=== PATIENT | male | born 1945 | race Caucasian/White ===

== ENCOUNTER → 2019-03-16 10:13 | Outpatient (BNVA) | payer MEDICARE, OTHER, SELFPAY | PROVIDERS: Family Provider Electrodiagnostic Medicine; Visit Provider Urology | DX: R31.0 Gross hematuria (principal); N13.30 Unspecified hydronephrosis; N18.5 Chronic kidney disease, stage 5 | CPT/HCPCS: 81001; 87086 ==

== ENCOUNTER 2019-03-18 13:00 | Outpatient (CLI) | payer MEDICARE, OTHER, SELFPAY ==
--- NOTE | 2019-03-18 13:09 | CT_ITS ---
WS: [id number] CT ABDOMEN AND PELVIS NONCONTRAST HISTORY: RUQ ABDOMINAL PAIN TECHNIQUE: Imaging performed through the abdomen and pelvis. Coronal and sagittal reformats are submi tted. All CT scans at [facility] use at least one of these dose optimization techniques: automated exposure control; mA and/or kV adjustment per patient size (includes targeted exams where d ose is matched to clinical indication); or iterative reconstruction. DLP: 1102.45 mGycm COMPARISON: Renal ultrasound 01/19/2019 Lower thorax: Mild enlargement the heart chambers. Small hiatal hernia. Liver: Normal, no mass or intrahepatic dilatation. Gallbladder: Unremarkable. Pancreas: Poorly visualized but no abnormality seen. Spleen: Normal. Adrenal glands: Normal. Right kidney: RIGHT kidney is normal size measuring 10 cm. Perinephric stranding with an irregular th ickened appearance of the cortex. Slightly nodular appearance of the lower pole. There is an exophyti c cyst measuring 2.1 cm from the mid kidney. Hyperdense nodule exophytic from the upper pole measures 1.0 cm. Moderate dilatation of the renal pelvis and the calyces. RIGHT ureter is dilated throughout its course to the urinary bladder. There is bladder wall thickening at the orifice of the ureter. No stones are identified along the course of the ureter. Left kidney: Perinephric stranding haziness and poorly defined renal cortex. No obstruction. Cortical hypodensities cannot be further characterized. Mild atherosclerosis aorta. Marked diverticulosis of the sigmoid and descending colon. No acute inflammation. No GI tract obstruc tion. The appendix is normal. Indeterminate RIGHT inguinal lymph nodes. Inguinal lymph nodes are rounded measuring up to 11 mm. Abdominal wall: Intact. Pelvis: Urinary bladder is not well distended. There is focal bladder wall thickening measuring up to 13 mm in the posterior urinary bladder near the UV junction. Area of soft tissue thickening in the b ladder is at the site of the ureteral obstruction. No free fluid. Osseous structures: Prior lumbar fusion at L4-5 with interbody spacer. No osteoblastic or osteolytic bone disease. Notified Ayo Trinidad DO at 03/18/2019 1:36 PM. Report called to office. CT/CT abdomen pelvis wo con [id number] IMPRESSION: 1. Development of moderate to severe RIGHT hydroureteronephrosis. Hydronephros is secondary to bladder wall thickening. Recommend evaluation by urology to marissa orellana for bladder mass. RIGHT hydronephrosis has progressed since 01/19/2019. 2. Sigmoid diverticulosis without acute diverticulitis. 3. Bilateral perinephric stranding. There are also additional bilateral renal cysts. Cannot exclude solid mass in the lower pole of the RIGHT kidney. Lower pole appears slightly bulbous. No mass identified on the recent ultrasound.
== END 2019-03-18 13:01 | disposition home or self-care (01) ==
LOC: RADWPI 13:08
PROVIDERS: Family Provider Electrodiagnostic Medicine; PCP Electrodiagnostic Medicine; Visit Provider Electrodiagnostic Medicine
DX: N13.30 Unspecified hydronephrosis (principal); K57.30 Diverticulosis of large intestine without perforation or abscess without bleeding; N28.1 Cyst of kidney, acquired
CPT/HCPCS: 74176

== ENCOUNTER → 2019-03-19 09:09 | Outpatient (BNVA) | payer MEDICARE, OTHER, SELFPAY | PROVIDERS: Family Provider Electrodiagnostic Medicine; PCP Electrodiagnostic Medicine; Visit Provider Urology | DX: R31.0 Gross hematuria (principal); R33.8 Other retention of urine; C67.0 Malignant neoplasm of trigone of bladder; N13.30 Unspecified hydronephrosis; N18.5 Chronic kidney disease, stage 5 | CPT/HCPCS: 81001 ==

== ENCOUNTER → 2019-03-23 11:50 | Outpatient (BNVA) | payer MEDICARE, OTHER, SELFPAY | PROVIDERS: Family Provider Electrodiagnostic Medicine; Visit Provider Urology | DX: R31.9 Hematuria, unspecified (principal); C67.0 Malignant neoplasm of trigone of bladder; N18.5 Chronic kidney disease, stage 5; N13.30 Unspecified hydronephrosis | CPT/HCPCS: 88112 ==

== ENCOUNTER 2019-03-25 14:52 | Inpatient (IN) | payer MEDICARE, OTHER, SELFPAY ==
--- NOTE | 2019-03-23 11:07 | P.ANESASSM_ITS ---
Pre-Anesthetic Assessment Pre-Anesthetic Assessment: Height/Weight: Height 1.68 m Weight 77.111 kg Proposed Procedure: Operation Date: 03/25/19 13:00 Proposed Procedures p Cystoscopy 83535/ C67.0(Not Applicable) - Landon Ortega MD s Transurethral Resection Bladder Tumor(Not Applicable) - Landon Ortega MD Familial anesthetic complications: None Social: Social History: No alcohol and No tobacco Exam: Pre-Anes Outpt Exam: alert, oriented x 3, clear to auscultation bi laterally and regular rate & rhythm Airway: Cervical ROM: WNL MP: 4 Additional comments: missing Pulmonary: Comments: sinusits CV/HEM: CV/HEM: HTN : Comments: R kidney blockage - hemodialysis 3x a week Hepatic: Hepatic: None reported GI: GI: GERD and None reported Metabolic: Metabolic: Hyperlipidemia Musc/skel: Musc/skel: None reported Neuropsych: Neuropsych: None reported Anesthetic Plan: ASA status: III Anesthesia: General Risk of > 500 ml blood loss (7ml/kg in children): No PFSH Anesthesia PFSH: Medical History (Updated 03/19/19 @ 09:24 by Landon Ortega MD) Cancer of trigone of urinary bladder (Acute) CKD (chronic kidney disease) stage 5, GFR less than 15 ml/min (Chronic) On hemodialysis Gross hematuria (Inactive) Hydronephrosis, right (Acute) Surgical History History of back surgery (Acute) History of ear surgery (Acute) TRAUMA TO RIGHT EAR-PART OF TOP OF EAR REMOVED Status post insertion of dialysis catheter (Acute) RIGHT FOREARM Social History Smoking and tobacco status: former smoker Alcohol intake: current Alcohol intake frequency: few times a month Marital status: Current occupational status: retired Current gender identity: Male Data Anesthesia Cardiac Studies: No Data to Display
[2019-03-25] VITALS (15 sets, daily range): BP systolic 144–180; BP diastolic 74–95; PULSE 74–98; RESP 9–18; TEMP 36.5–37.2; O2SAT 93–99
--- NOTE | 2019-03-25 11:32 | P.ANESUD_ITS ---
Pre-Anesthetic Update Pre-Anesthetic Assessment: Date of Surgery/Procedure: 03/25/19 Preop Laura gnosis: Newly diagnosed bladder cancer Proposed Procedure: Operation Date: 03/25/19 13:00 Proposed Procedures p Cystoscopy 25476/ C67.0(Not Applicable) - Landon Ortega MD s Transurethral Resection Bladder Tumor(Not Applicable) - Landon Ortega MD Any changes to Pre-Anesthetic Assessment?: No Last Intake: NPO > 8 hrs Exam: Pre-Anes Outpt Exam: alert, oriented x 3, clear to auscultation bilaterally and regular rate & rhythm Cardiac Studies: No Data to Display
--- NOTE | 2019-03-25 11:49 | ECG_ITS ---
Measurements Intervals [place] Rate: 86 P: 62 PA: 193 QRS: 14 QRSD: 98 T: 40 QT: 383 QTc: 460 SINUS RHYTHM No previous ECG available for comparison Electronically Signed On 03-25-2019 16:33:42 PERSONAL FINANCIAL COUNSELOR by Mathew Kimbrough M.D. [email or web address]
[2019-03-25] MEDS: sodium chloride 0.9% 1,000 ML 30 ML IV (12:10)
[2019-03-25 12:25] LABS: Basophils % 0.1 %; Eosinophils # 0.1 10^3/uL (0.0-0.8); Eosinophils % 1.6 %; Hematocrit 36.5 % (42.0-52.0); Hemoglobin 11.5 g/dL (11.7-16.6); Lymphocytes % 14.2 %; Mean Corpuscular HGB Conc 31.5 g/dL (30.0-36.0); Mean Corpuscular Hemoglobin 29.9 pg (28.0-34.0); Mean Corpuscular Volume 95.1 fL (80-94); Mean Platelet Volume 9.8 fL (7.4-10.4); Monocytes # 0.6 10^3/uL (0.2-0.9); Monocytes % 9.1 %; Neutrophils % 74.7 %; Nucleated Red Blood Cells % 0 %; Platelet Count 201 10^3/cmm (130-400); Red Blood Count 3.84 10^6/uL (4.1-5.3); Red Cell Distribution Width 14.6 % (12.1-15.1); White Blood Count 6.7 10^3/uL (4.0-10.0)
[2019-03-25 12:40] LABS: Anion Gap 18.7 (5-19); Blood Urea Nitrogen 24 mg/dL (8-23); Carbon Dioxide 28 mmol/L (22-29); Chloride 99 mmol/L (98-107); Glucose 106 mg/dL (65-115); Osmolality Calculated 291 mOsm/kg (285-295); Potassium 3.7 mmol/L (3.5-5.1); Sodium 142 mmol/L (136-145)
--- NOTE | 2019-03-25 13:23 | PM.HPUD ---
H&P update H&P Update: DATE OF SURGERY/PROCEDURE: 03/25/19 DATE H&P PERFORMED: 03/19/19 H&P UPDATE INFORMATION: No changes to prior documentation CHANGES TO PREVIOUS DOCUMENTATION: none PREOP DIAGNOSIS: Newly diagnosed bladder cancer PLANNED PROCEDURE: Operation Date: 03/25/19 13:00 Proposed Procedures p Cystoscopy 86181/ C67.0(Not Applicable) - Landon Ortega MD s Transurethral Resection Bladder Tumor(Not Applicable) - Landon Ortega MD Full H&P Medications/Allergies: Current Medications: Current Medications Generic Name Dose Route Start Last Admin Trade Name Freq PRN Reason Stop Dose Admin Sodium Chloride 1,000 mls @ 30 ml s/hr 03/25/19 09:30 03/25/19 12:10 Sodium Chloride 0.9% IV 03/26/19 09:29 30 mls/hr .Q24H DEJUAN Administration Perinent History: Medical/Surgical History: Medical History (Updated 03/19/19 @ 09:24 by Landon Ortega MD) Cancer of trigone of urinary bladder (Acute) CKD (chronic kidney disease) stage 5, GFR less than 15 ml/min (Chronic) On hemodialysis Gross hematuria (Inactive) Hydronephrosis, right (Acute) Family History: Family History (Updated 03/16/19 @ 09:33 by Nighat Bojorquez LPN) Father , AT AGE 71 Heart attack Mother , MVA No problems noted. Social History: Social History Smoking and tobacco status: former smoker Alcohol intake: current Alcohol intake frequency: few times a month Marital status: Current occupational status: retired Current gender identity: Male
--- NOTE | 2019-03-25 13:28 | SUR.PREOP ---
1205 CRITICAL CREATININE CALLED FROM LAB 7.[address] AGUIRRE FROM ANESTHESIA NOTIFIED
[2019-03-25] MEDS: levofloxacin-dextrose 5 % 500 MG/100 ML PREMIX 100 MG IV (13:31)
--- NOTE | 2019-03-25 13:39 | PM.OP ---
Operative Report Date of procedure: March 25, 2019 Pre-op Diagnosis: Newly diagnosed bladder cancer Post-op Diagnosis: Same Involved right ureteral orifice extending into the intramural tunnel Procedure Done: Cystoscopy, transurethral resection of bladder tumor large Pathology: Bladder tumor Surgeon: Landon Ortega Anesthesia: General Condition: stable Disposition: PACU Brief History: is a very pleasant 73-year-old white male who I recently evaluated at the request of Dr. Ch for gross hematuria. He is a dialysis patient. Work-up included a CT scan which showed thickening possibly a mass over the area of the right ureteral orifice and significant obstructive changes of the right ureter and renal pelvis with some renal atrophy from obstructive process. Cystoscopy showed a papillary lesion over the right ureteral orifice consistent with transitional cell carcinoma. He is being admitted to the hospital for TURBT. Scheduled for routine dialysis tomorrow. Procedure: After routine preoperative evaluation examination and obtaining of informed consent he was taken to the operating suite on 03/25/2019 where general anesthesia was administered without difficulty after appropriate timeout was performed, SCDs confirmed to be functioning, preoperative antibiotics administered, beta-beronica protocol confirmed. Prepped and draped in the usual sterile fashion in dorsolithotomy position pain careful attention to avoiding pressure points. 21 Gibraltarian cystoscope with 30 degree lens was introduced into the urethral meatus and advanced into the bladder under videoscopy. Bladder was systematically examined and the findings were consistent with previously seen on outpatient flexible cystoscopy with a papillary mass over the right ureteral orifice measuring about 5 cm in size. The orifice could not be visualized and it appeared that this was extending into the intramural tunnel. Urethra was then calibrated and dilated with Chetan sounds and accommodated 30 Gibraltarian. 2% lidocaine jelly was injected into the urethra and a 25 Gibraltarian continuous flow resectoscope sheath with Starr obturator in place was advanced into the bladder without difficulty. The gyrus bipolar system was utilized with the super loop, a 30 degree lens for resection. Resection was begun on the outer most aspect of the lesion and was sequentially resected down into the base of the lesion which extended into the right ureteral orifice. It was clear with this resection that the bulk of the tumor was actually extending into the intramural tunnel. Resection was continued deeply but the most proximal aspect of the tumor was not identified. The tumor that was on the bladder mucosa appeared to be more superficial and papillary not high-grade. It was decided to try to visualize the more proximal aspect of the tumor to see if it would be safe to continue deeper resection. A wire was able to be manipulated through the intraluminal tumor and a 7.5 Gibraltarian offset semirigid ureteroscope was advanced over the guidewire. It was clear that the intramural tunnel lesion was not limited to that area and there were multiple areas of papillary tumor extending at least 5 cm up the ureter. It became clear that this was not a tumor that could be clearly and completely resected with transurethral technique. Careful fulguration was conducted around the base of the opening to obtain meticulous hemostasis. The bladder was then drained with a 21 Gibraltarian three-way Barajas catheter with light CBI initiated. The procedure was completed. He tolerated procedure well and was awakened in the operating room and returned recovery room in stable condition. PLANS: 1. I reviewed the findings with the family. 2. I recommended consultation for consideration of minimally invasive nephro ureterectomy. 3. I have consulted the hospitalist service (Dr. Kirk) for assistance with medical management. 4. Nephrology also consulted for assistance with management of chronic kidney disease and dialysis while inpatient. It is my hope that he will be out of be discharged tomorrow and likely with a Barajas catheter and at least for a short period of time to facilitate healing.
[2019-03-25] MEDS: lidocaine 2% Urojet 20 mL TOPICAL (13:49)
--- NOTE | 2019-03-25 14:55 | SUR.PHASEI ---
PT AWAKE ALERT , ON RA NO DISTRESS, PT DENEIS PAIN AND NAUSEA ONLY URGENCY PT HAS 3 WAY LAMA WITH CBI AT MOD RATE, CLEAR LT PINK URINE NOTED TO TUBING.SECURED WITH MEERA STRAP TO LT THIGH
--- NOTE | 2019-03-25 15:24 | SUR.PHASEI ---
1515 PT TO FLOOR AWAKE ALERT MOVES SELF TO BED LAMA PATENT OF LT PINK CLEAR URINE BP 162/82 HR 85, RESP 18, SATS 97% ON RA
--- NOTE | 2019-03-25 15:29 | PC.NURSE ---
Received pt to room 276-1 via surgery cart accompanied by ROMA Hinojosa (PACU). Transferred self to bed with minimal assist. 2 bags of NS (CBI) hanging - 1 nearly empty. Switched to other bag of NS (CBI). 1100 emptied from forde catheter. Pt c/o feel like I need to pee. Pt educated re: forde catheter, CBI. Oriented to room, tv, call light. Family at bedside.
[2019-03-25] MEDS: morphine 4 mg/mL SDV 1 mL 1 MG IVP (16:44)
[2019-03-25] MEDS: hyDRALAzine 50 mg Tablet PO (16:44)
--- NOTE | 2019-03-25 16:52 | P.CONIM_ITS ---
Providers/Reason For Consult Consulting Physican/Specialty*: Yany Kirk MD, Hospitalist Reason for Consult*: Medical management Requesting Physcian: Dr. Ortega Attending Physician: Landon Ortega MD Primary Care Provider: Ayo Trinidad DO History of Present Illness History of Present Illness Manuel Garcia is a 73 year old male with PMHx of ESRD on HD (AV fistula access, MWF), HTN, GERD, L-spine DJD; presents for scheduled cystoscopy and resection of newly diagnosed bladder cancer done earlier today by Dr. Ortega. Patient is encountered in his room with family at bedside. He is awake, alert, oriented x3, complaining of some lower abdominal discomfort and pain at this surgical site. Barajas catheter is in place, has some noted hematuria. Vital signs are stable. Due to patient's medical comorbidities, hospitalist consult is requested for medical management. Patient will be due for dialysis tomorrow, nephrology is already consulted. I have reviewed preop labs and imaging showing mild anemia with a hemoglobin of 11.5, BUN of 24, creatinine of 7.3, CT of the abdomen and pelvis showing moderate to severe hydroureteronephrosis secondary to bladder wall thickening as well as bilateral perinephric stranding. Review of Systems Const: Denies: fever, chills or fatigue Eyes: Denies: change in vision ENMT: Denies: painful swallowing or dry mouth Card: Denies: chest pain, swelling of feet/ankles or lightheadedness Resp: Denies: shortness of breath GI: Reports: abdominal pain; Denies: nausea, vomiting, vomiting blood or blood in stool : Reports: urinary frequency and blood in urine Musc: Denies: back pain Skin/Breast: Denies: rash Neuro: Denies: numbness in extremities or weakness in extremities Psych: Denies: anxiety Meds/Allergies Home Medications and Allergies Home Medications Medication Instructions Recorded Confirmed Type amlodipine 10 mg tablet 10 mg PO BEDTIME 03/16/19 03/25/19 History atorvastatin 20 mg tablet 20 mg PO QDAY 03/16/19 03/25/19 History hydralazine 50 mg tablet 50 mg PO TID 03/16/19 03/25/19 History omeprazole 40 mg capsule,delayed 40 mg PO QDAY 03/16/19 03/25/19 History release Allergies Allergy/AdvReac Type Severity Reaction Status Date / Time No Known Allergies Allergy Unverified 03/16/19 09:25 Current Medications Current Medications Generic Name Dose Route Start Last Admin Trade Name Freq PRN Reason Stop Dose Admin Hydralazine HCl 50 mg 03/25/19 16:24 03/25/19 16:44 Apresoline PO 50 mg TID DEJUAN Administration Morphine Sulfate 1 mg 03/25/19 16:24 03/25/19 16:44 Morphine IVP 1 mg Q4H PRN Administration SEVERE PAIN PFSH Acute PFSH: Statuses (acute, chronic, etc) shown below reflect problem list status as previously entered and may not be historically accurate Medical History (Updated 03/25/19 @ 17:06 by Yany Kirk MD) AV fistula (Acute) Cancer of trigone of urinary bladder (Acute) CKD (chronic kidney disease) stage 5, GFR less than 15 ml/min (Chronic) On hemodialysis Degenerative joint disease (DJD) of lumbar spine (Acute) GERD (gastroesophageal reflux disease) (Acute) Gross hematuria (Inactive) Hydronephrosis, right (Acute) Hypertension (Acute) Surgical History History of back surgery (Acute) History of ear surgery (Acute) TRAUMA TO RIGHT EAR-PART OF TOP OF EAR REMOVED Status post insertion of dialysis catheter (Acute) RIGHT FOREARM Family History Father , AT AGE 71 Heart attack Mother , MVA No problems noted. Social History (Updated 03/25/19 @ 16:59 by Yany Kirk MD) Smoking and tobacco status: former smoker Quit status (tobacco): has quit using tobacco Year quit tobacco: Alcohol intake: current Alcohol intake frequency: few times a month Marital status: Current occupational status: retired Current gender identity: Male Vitals/I&O/Wt Last Vital Signs Temp 97.8 F 03/25/19 15:45 Pulse 74 03/25/19 15:45 Resp 18 03/25/19 15:45 BP 153/77 03/25/19 15:45 Pulse Ox 98 03/25/19 15:45 03/25/19 03/25/19 03/25/19 06:59 14:59 22:59 Intake Total 100 / 100 Output Total 655 / 655 Balance -555 / -555 Physical Exam Const: COMMON NORMALS: no apparent distress, oriented x3 and alert GENERAL APPEARANCE: cooperative and comfortable ORIENTATION/CONSCIOUSNESS: Yes awake HENMT: COMMON NORMALS: normocephalic, head/scalp atraumatic, hearing grossly normal bilaterally and moist oral mucous membranes HEAD & SCALP: normocephalic and atraumatic Eye: COMMON NORMALS: PERRL, EOMs intact bilaterally and conjunctivae normal CONJUNCTIVA: Yes conjunctivae normal PUPIL: Yes PERRL Neck/C-Spine: COMMON NORMALS: full ROM GENERAL: Yes normal visual inspection and Yes trachea midline Resp: COMMON NORMALS: normal respiratory effort, no retractions, no use of accessory muscles and clear to auscultation bilaterally EFFORT & INSPECTION: Yes able to speak in complete sentences, Yes symmetric chest movement and No tachypneic AUSCULTATION: clear to auscultation bilaterally Cardio: COMMON NORMALS: regular rate, regular rhythm, S1 normal heart sound, S2 normal heart sound and no murmurs RATE: regular rate RHYTHM: regular rhythm HEART SOUNDS: S1 normal and S2 normal GI: COMMON NORMALS: normal to inspection, nondistended, normoactive bowel sounds, soft to palpation and non-tender PALPATION: Yes soft Extremity: COMMON NORMALS: normal to inspection, full ROM and no clubbing, cyanosis or edema; negative for no pedal edema OTHER: -AV fistula in place on R Neuro: COMMON NORMALS: oriented x3, moves all extremities, no focal motor deficits and no sensory deficits noted SENSORIUM/ORIENTATION: Yes alert Psych: COMMON NORMALS: mental status grossly normal, thought process normal, cooperative, affect normal and speech normal SPEECH: Yes normal speech THOUGHT PROCESS: normal thought process Skin: COMMON NORMALS: no rashes or lesions noted, no jaundice, no petechiae and no mottling GENERAL SKIN EXAM: no rashes or lesions noted Urinary Catheter Management^: 3-way Urethral CBI: Cath Placed During This Visit: yes Urethral Indwelling: Yes Reason for Continuing Indwelling Catheter: Perioperative Use in Selected Surgeries Urinary Catheter Date of Insertion: 03/25/19 Urinary Catheter Time of Insertion: 14:25 A&P Assessment and plan (1) CKD (chronic kidney disease) stage 5, GFR less than 15 ml/min: -has hx of ESRD on HD, has AV fistula for access, MWF schedule -Nephrology consulted -HD tomorrow -noted renal function -has Barajas catheter in place Status: Chronic Code(s): N18.5 - Chronic kidney disease, stage 5 (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 -s/p TURBT earlier today -f/u pathology -pain control as needed -has 3-way urethral catheter in place -repeat H/H in AM Status: Acute Code(s): C67.0 - Malignant neoplasm of trigone of bladder (3) Hypertension: -resume oral antihypertensives -monitor vital signs Status: Acute Qualifiers: Hypertension type: essential hypertension Qualified Code(s): I10 - Essential (primary) hypertension Code(s): I10 - Essential (primary) hypertension (4) Hydronephrosis, right: -noted moderate to severe R hydroureteronephrosis on CT A/P done 03/18 Status: Acute Code(s): N13.30 - Unspecified hydronephrosis Additional A&P Information -GERD -L-spine DJD -renal dailysis diet as tolerated -GI ppx with PPI -DVT ppx with SCDs, no AC due to bleeding risk -Dispo: home -Code status: FULL code Consult Attestations Medical Necessity Statement: Manuel Garcia's hospital stay will be less than 2 midnights for post-op management s/p bladder tumor resection. Time Spent in Patient Care: Greater than 35 minutes (>than 50% of time spent in counselling and/or direct pt care on unit) . Coding Level of Care Code Acute [employer] Consultant for Chg Fwd Diagnoses CKD (chronic kidney disease) stage 5, GFR less than 15 ml/min N18.5 Cancer of trigone of urinary bladder C67.0 Hypertension I10 Hypertension type: essential hypertension Hydronephrosis, right N13.30
--- NOTE | 2019-03-25 18:38 | PC.NURSE ---
Barajas catheter emptied at 1650 - 2300 out. Patient has had one 3000 ml bag of NS (CBI) in since arriving to the floor. Urine pink tinged with no clots noted. CBI decreased to a slow drip. Morphine given for pain and patient resting comfortably in bed. at bedside.
--- NOTE | 2019-03-25 18:54 | PC.NURSE ---
Total CBI intake/output this shift. - 3000 ml in, 3400 ml out
--- NOTE | 2019-03-25 19:32 | PC.NURSE ---
Barajas emptied 950 ml of light pink uo.
--- NOTE | 2019-03-25 21:03 | PC.NURSE ---
Bag of cbi hung, 1200 forde output light pink in color
[2019-03-25] MEDS: atorvastatin 40 mg Tablet 20 MG PO (21:10)
[2019-03-25] MEDS: amlodipine 10 mg Tablet PO (21:10)
--- NOTE | 2019-03-25 21:15 | PC.NURSE ---
pt refused hydralazine stated he took 3 times today already.
--- NOTE | 2019-03-25 22:08 | PC.NURSE ---
450 forde output clear very light pink
--- NOTE | 2019-03-26 00:20 | PC.NURSE ---
forde emptied with 800 output of light yellow slightly pink tinged out
--- NOTE | 2019-03-26 02:35 | PC.NURSE ---
forde emptied light pink in color
[2019-03-26 04:14] VITALS: BP 156/73; PULSE 88; RESP 17; TEMP 37.3; O2SAT 94
[2019-03-26 04:58] LABS: Basophils % 0.1 %; Eosinophils # 0.1 10^3/uL (0.0-0.8); Eosinophils % 0.8 %; Hematocrit 29.5 % (42.0-52.0); Hemoglobin 9.4 g/dL (11.7-16.6); Lymphocytes # 0.7 10^3/uL (0.8-4.8); Lymphocytes % 8.3 %; Mean Corpuscular HGB Conc 31.9 g/dL (30.0-36.0); Mean Corpuscular Hemoglobin 29.7 pg (28.0-34.0); Mean Corpuscular Volume 93.1 fL (80-94); Mean Platelet Volume 10.2 fL (7.4-10.4); Monocytes # 0.8 10^3/uL (0.2-0.9); Monocytes % 9.3 %; Neutrophils # 6.8 10^3/uL (1.8-7.7); Neutrophils % 81.1 %; Nucleated Red Blood Cells % 0 %; Platelet Count 174 10^3/cmm (130-400); Red Blood Count 3.17 10^6/uL (4.1-5.3); Red Cell Distribution Width 14.6 % (12.1-15.1); White Blood Count 8.4 10^3/uL (4.0-10.0)
--- NOTE | 2019-03-26 05:59 | PC.NURSE ---
forde emptied with 600 ml of very light pink output. No complaints by pt. at bs but leaving to go home feed the dogs.
--- NOTE | 2019-03-26 06:36 | PC.NURSE ---
Forde with total output of 7200 ml. Maintained pink to very light pink output without any clots throughout noc. This morning forde with very light pink output, pt without complaints of pain no distention noted. 2 bags of 3000 ml hung for cbi in noc. Running slow this morning on cbi.
--- NOTE | 2019-03-26 07:39 | P.MISC_ITS ---
Miscellaneous Note Purpose of Documentation: BRIEF UPDATE Note: Postoperative day #1. Urine is clear. No complaints other than some persistence of right-sided flank pain which would be expected. Patient will undergo dialysis today and if his urine remains clear after dialysis he will be a good candidate I believe for discharge home with plans for follow-up consultation in [place] for possible laparoscopic nephro ureterectomy. More to follow after dialysis.
[2019-03-26 08:00] VITALS: BP 152/68; PULSE 82; RESP 18; TEMP 36.8; O2SAT 91
[2019-03-26] MEDS: hyDRALAzine 50 mg Tablet PO ×3 (08:17→21:33)
[2019-03-26] MEDS: pantoprazole DR 40 mg Tablet PO (08:17)
--- NOTE | 2019-03-26 10:54 | PM.PN ---
Subjective Subjective: Interval history: Got 1 dose of morphine for pain control yesterday afternoon. Patient scheduled for HD today. Completed dialysis much later in the day, continues to have hematuria therefore will need continued CBI. Discharge deferred. Has some right-sided pain, tolerable currently. Vitals/I&O/Wt Last Vital Signs Temp 98.3 F 03/26/19 08:00 Pulse 82 03/26/19 08:00 Resp 18 03/26/19 08:00 BP 152/68 03/26/19 08:00 Pulse Ox 91 03/26/19 08:00 03/25/19 03/26/19 03/26/19 22:59 06:59 14:59 Intake Total 1360 / 1460 180 / 1640 370 / 370 Output Total 6000 / 6655 4850 / 52138 Balance -4640 / -5195 -4670 / -9865 370 / 370 Physical Exam Const: COMMON NORMALS: no apparent distress, oriented x3 and alert GENERAL APPEARANCE: cooperative and comfortable ORIENTATION/CONSCIOUSNESS: Yes awake HENMT: COMMON NORMALS: normocephalic, head/scalp atraumatic, hearing grossly normal bilaterally and moist oral mucous membranes HEAD & SCALP: normocephalic and atraumatic Eye: COMMON NORMALS: PERRL, EOMs intact bilaterally and conjunctivae normal CONJUNCTIVA: Yes conjunctivae normal PUPIL: Yes PERRL Neck/C-Spine: COMMON NORMALS: full ROM GENERAL: Yes normal visual inspection and Yes trachea midline Resp: COMMON NORMALS: normal respiratory effort, no retractions, no use of accessory muscles and clear to auscultation bilaterally EFFORT & INSPECTION: Yes able to speak in complete sentences, Yes symmetric chest movement and No tachypneic AUSCULTATION: clear to auscultation bilaterally Cardio: COMMON NORMALS: regular rate, regular rhythm, S1 normal heart sound, S2 normal heart sound and no murmurs RATE: regular rate RHYTHM: regular rhythm HEART SOUNDS: S1 normal and S2 normal GI: COMMON NORMALS: normal to inspection, nondistended, normoactive bowel sounds, soft to palpation and non-tender PALPATION: Yes soft : BLADDER/KIDNEY EXAM: Yes catheter in place Catheter type (Male): urethral OTHER: -Noted hematuria Extremity: COMMON NORMALS: normal to inspection, full ROM and no clubbing, cyanosis or edema; negative for no pedal edema OTHER: -AV fistula in place on R Neuro: COMMON NORMALS: oriented x3, moves all extremities, no focal motor deficits and no sensory deficits noted SENSORIUM/ORIENTATION: Yes alert Psych: COMMON NORMALS: mental status grossly normal, thought process normal, cooperative, affect normal and speech normal SPEECH: Yes normal speech THOUGHT PROCESS: normal thought process Skin: COMMON NORMALS: no rashes or lesions noted, no jaundice, no petechiae and no mottling GENERAL SKIN EXAM: no rashes or lesions noted Urinary Catheter Management^: 3-way Urethral CBI: Cath Placed During This Visit: yes Urethral Indwelling: Yes Reason for Continuing Indwelling Catheter: Acute Urinary Retention or Obstruction Urinary Catheter Date of Insertion: 03/25/19 Urinary Catheter Time of Insertion: 14:25 Data : 03/26/19 04:15 03/25/19 12:05 A&P Assessment and plan (1) CKD (chronic kidney disease) stage 5, GFR less than 15 ml/min: -has hx of ESRD on HD, has AV fistula for access, MWF schedule -Nephrology consulted -HD today -noted renal function -has Barajas catheter in place Status: Chronic Code(s): N18.5 - Chronic kidney disease, stage 5 (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 -s/p TURBT; POD # 1 -f/u pathology -pain control as needed -has 3-way urethral catheter in place -repeat H/H in AM with noted drop (11.5->9.4); no need for transfusion currently Status: Acute Code(s): C67.0 - Malignant neoplasm of trigone of bladder (3) Hypertension: -continue oral antihypertensives -VSS; continue to monitor Status: Acute Qualifiers: Hypertension type: essential hypertension Qualified Code(s): I10 - Essential (primary) hypertension Code(s): I10 - Essential (primary) hypertension (4) Hydronephrosis, right: -noted moderate to severe R hydroureteronephrosis on CT A/P done 03/18 Status: Acute Code(s): N13.30 - Unspecified hydronephrosis Additional A&P Information -GERD -L-spine DJD -renal dailysis diet as tolerated -GI ppx with PPI -DVT ppx with SCDs, no AC due to bleeding risk -Dispo: home -Code status: FULL code Attestations Medical Necessity Statement*: Patient requires hospitalization for continued CBI given persistent hematuria. Time Spent in Patient Care: Greater than 35 minutes (>than 50% of time spent in counselling and/or direct pt care on unit). Coding Level of Care Code Acute Apartment House Manager for Chg Fwd Exam Problem Focused Diagnoses CKD (chronic kidney disease) stage 5, GFR less than 15 ml/min N18.5 Cancer of trigone of urinary bladder C67.0 Hypertension I10 Hypertension type: essential hypertension Hydronephrosis, right N13.30
[2019-03-26 12:00] VITALS: BP 148/72; PULSE 96; RESP 18; TEMP 36.7; O2SAT 94
--- NOTE | 2019-03-26 12:24 | PC.CHAP ---
Pastoral Care Encounter/Spiritual Assessment Type of Contact [] Declined trim technician visit [] Patient/Family/Request visit [] Outpatient visit [] Follow-up visit [] Physician referral [] Code/Alert [x] Routine visit [] Staff referral [] Actively dying [] Patient sleeping [] Family support [] [] Out of room [] Palliative care [] [] Receiving care in room [] Pre-surgical visit [] Trauma [] Long length of stay [] ICU visit [] Other: Relational/Emotional Strength [x] Patient feels connected with others/family/visitors/staff [] Distress [] Loneliness/isolation [] Abandonment Spirituality of Patient [] Person of Jessica [] Attends Evangelical of their Jessica [x] Believes in Prayer [] Reads Bible or Bahai materials [] There are Spiritual issues to be addressed Billet Inspector Interventions [x] Prayer [x] Active listening [x] Non-anxious presence [x] Spiritual/emotional support [] Crisis/trauma care [] Spiritual counseling [] Bereavement support [] Provided bereavement packet [] Provided Bible/devotional materials [] Provided toy/stuffed animal, coloring book to patient or family member [] Provided Communion [] Anointing/[place] [] Salvation [x] Completed spiritual assessment [] Other: Impact on Illness or Injury [] Angry [] Fearful [] Anxious [] Often cries [] Exhaustion [] Unable to work [] Unable to attend yazidism [] Unable to walk/stand [] Unable to read [] Unable to drive [] Unable to eat/drink [] Unable to sleep [] Unable to be with family [] Patient intubated [x] 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 Son present in room and will be with him all day or until he is discharged. Son is available to provide for pt's personal needs and transportation. Billet Inspector Yoli Bella Time spent with patient 8 minutes
--- NOTE | 2019-03-26 14:31 | P.PN_ITS ---
Subjective Subjective: Interval history: Mr Garcia is seen postop day one following TURBT. He is scheduled for dialysis today. Our staff have him in the dialysis suite ready to perform the procedure. He has a fistula in his left arm which is functioning nicely. No extremity edema or shortness of breath. No uremic symptoms. Vitals/I&O/Wt Last Vital Signs Temp 98.0 F 03/26/19 12:00 Pulse 96 03/26/19 12:00 Resp 18 03/26/19 12:00 BP 148/72 03/26/19 12:00 Pulse Ox 94 03/26/19 12:00 03/25/19 03/26/19 03/26/19 22:59 06:59 14:59 Intake Total 1360 / 1460 180 / 1640 610 / 610 Output Total 6000 / 6655 4850 / 83865 Balance -4640 / -5195 -4670 / -9865 610 / 610 Physical Exam Const: COMMON NORMALS: no apparent distress and average body habitus Neck/C-Spine: COMMON NORMALS: no JVD Lymph: LYMPHATIC: no lymphadenopathy noted Chest: COMMONS NORMALS: inspection of chest normal and palpation of chest normal Resp: COMMON NORMALS: normal respiratory effort and no retractions Cardio: COMMON NORMALS: no JVD, regular rate, regular rhythm, S1 normal heart sound and S2 normal heart sound RATE: regular rate RHYTHM: regular rhythm HEART SOUNDS: S1 normal and S2 normal Extremity: COMMON NORMALS: normal to inspection and full ROM Urinary Catheter Management^: 3-way Urethral CBI: Cath Placed During This Visit: yes Urethral Indwelling: Yes Reason for Continuing Indwelling Catheter: Acute Urinary Retention or Obstruction Urinary Catheter Date of Insertion: 03/25/19 Urinary Catheter Time of Insertion: 14:25 Data : 03/26/19 04:15 03/25/19 12:05 A&P Additional A&P Information 1. ESRD - dialysis scheduled for today, - 3.5 hour treatment - 2.5 L ultrafiltration - 2K bath 2. Hemodynamics reviewed, stable 3. s/p TURBT - per Dr Jordan samaniego for DC of dialysis for my perspective. If he happens to be here on Friday I will dialyze him then also Thanks for this consultation consultation was performed with telemedicine Jez Lorenzo MD [facility] [phone] Attestations Medical Necessity Statement*: mgmt of ESRD Coding Level of Care Code Acute Roll Tube Setter for Robert Walsh
--- NOTE | 2019-03-26 16:44 | P.PN_ITS ---
Subjective Subjective: Interval history: Initial plan was to discharge after dialysis today. His urine has remained red since this morning. Initially it looked pretty good. No problems with clots. CBI still being required. For that reason I will keep him again overnight and change him to an inpatient status based on the fact that his care will cross at least 2 midnights for the above reasons. Medications: Reviewed: Yes Vitals/I&O/Wt Last Vital Signs Temp 98.0 F 03/26/19 12:00 Pulse 96 03/26/19 12:00 Resp 18 03/26/19 12:00 BP 148/72 03/26/19 12:00 Pulse Ox 94 03/26/19 12:00 03/26/19 03/26/19 03/26/19 06:59 14:59 22:59 Intake Total 180 / 1640 610 / 610 Output Total 4850 / 78688 Balance -4670 / -9865 610 / 610 Physical Exam Const: COMMON NORMALS: no apparent distress, alert and well nourished GENERAL APPEARANCE: well kempt and well developed ORIENTATION/CONSCIOUSNESS: not confused Resp: COMMON NORMALS: normal respiratory effort EFFORT & INSPECTION: No labored and No actively coughing GI: COMMON NORMALS: normal to inspection, nondistended, normoactive bowel sounds, soft to palpation and no masses PALPATION: Yes soft Extremity: COMMON NORMALS: no clubbing, cyanosis or edema Neuro: COMMON NORMALS: no focal motor deficits SENSORIUM/ORIENTATION: Yes alert Psych: COMMON NORMALS: mental status grossly normal APPEARANCE: Yes grossly normal and Yes well kempt ATTITUDE: Yes calm and Yes engaged Skin: COMMON NORMALS: no rashes or lesions noted and no jaundice GENERAL SKIN EXAM: no rashes or lesions noted Urinary Catheter Management^: 3-way Urethral CBI: Cath Placed During This Visit: yes Urethral Indwelling: Yes Reason for Continuing Indwelling Catheter: Acute Urinary Retention or Obstruction Urinary Catheter Date of Insertion: 03/25/19 Urinary Catheter Time of Insertion: 14:25 Data : 03/26/19 04:15 03/25/19 12:05 A&P Assessment and plan (1) Hydronephrosis, right: Status: Acute Code(s): N13.30 - Unspecified hydronephrosis (2) Cancer of trigone of urinary bladder: Status: Acute Code(s): C67.0 - Malignant neoplasm of trigone of bladder (3) CKD (chronic kidney disease) stage 5, GFR less than 15 ml/min: Status: Chronic Code(s): N18.5 - Chronic kidney disease, stage 5 Attestations Medical Necessity Statement*: The patient is continuing to require CBI which cannot be utilized at home. His care will extend across at least 2 midnights and for that reason he will be changed to inpatient status. Coding Level of Care Code Acute Machine Overhauler for Robert Walsh Diagnoses Hydronephrosis, right N13.30 Cancer of trigone of urinary bladder C67.0 CKD (chronic kidney disease) stage 5, GFR less than 15 ml/min N18.5
[2019-03-26 20:13] VITALS: BP 163/77; PULSE 93; RESP 17; TEMP 37.1; O2SAT 96
[2019-03-26] MEDS: amlodipine 10 mg Tablet PO (21:30)
[2019-03-26] MEDS: atorvastatin 40 mg Tablet 20 MG PO (21:30)
[2019-03-27] VITALS (7 sets, daily range): BP systolic 140–183; BP diastolic 74–89; PULSE 91–99; RESP 17–18; TEMP 36.7–37.3; O2SAT 94–96
--- NOTE | 2019-03-27 06:21 | PC.NURSE ---
CBI Pt. has had CBI running continually this shift. No blood clots out in catheter this shift, did not require manual irrigation. Patient has had only minimal burning pain once that resolved without need for pain medication. CBI dripping fairly fast during first part of shift, attempted to turn down but patient experienced the burning pain and output did become darker. Able to slowly decrease CBI this AM with urine only being slightly pink. Pt. has had a total of 9000mL CBI intake and 9700mL output.
--- NOTE | 2019-03-27 09:20 | PM.DCS ---
Discharge Providers Date of Admission: 03/26/19 19:07 Date of Discharge: Date of Discharge: March 27, 2019 Attending Provider at Admission: Landon Ortega MD Attending Provider at Discharge: Landon Ortega MD Primary Care Provider: Ayo Trinidad DO Diagnoses at Discharge Discharge Diagnosis (1) Cancer of trigone of urinary bladder: Status: Acute (2) Primary cancer of right ureter: Status: Acute (3) Hydronephrosis, right: Status: Acute (4) CKD (chronic kidney disease) stage 5, GFR less than 15 ml/min: Status: Chronic Problem details: On hemodialysis (5) Hypertension: Status: Acute Qualifiers: Hypertension type: essential hypertension Qualified Code(s): I10 - Essential (primary) hypertension Reason for Visit Reason for Visit: Reason For Visit: 69518 C67.0 Hospital Course Discharge Summary: Admitted on 03/25/2019 for TURBT. Intraoperative findings demonstrated papillary tumor extending into the intramural tunnel and on ureteroscopy up into the ureter at least 6 cm. Tumor cannot be completely resected. No stent was left. He underwent hemodialysis on 03/26/2019. Urine remained lightly bloody on the same day and for that reason it was decided to transition him to a inpatient status because of the care extending across 2 midnights. On the morning of 03/27/2019 he was deemed to be a good candidate for further convalescence at home after passing a voiding trial and demonstrating adequate emptying. Was discharged on postoperative day #2 in stable condition home. 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 I have recommended a consultation with Dr. Luis Begum at [facility] for consideration for minimally invasive right nephro ureterectomy. We will request films sent to him or shared with [employer] system. I have reviewed all of the details above with the patient and his family and they expressed good understanding. Physical Exam Const: COMMON NORMALS: no apparent distress, alert and well nourished GENERAL APPEARANCE: well kempt and well developed ORIENTATION/CONSCIOUSNESS: not confused HENMT: COMMON NORMALS: normocephalic and head/scalp atraumatic HEAD & SCALP: normocephalic and atraumatic Neck/C-Spine: COMMON NORMALS: full ROM GENERAL: Yes normal visual inspection Resp: COMMON NORMALS: normal respiratory effort EFFORT & INSPECTION: No labored and No actively coughing : OTHER: Urine is clear to faint hint of pink with no CBI running. Neuro: COMMON NORMALS: no focal motor deficits SENSORIUM/ORIENTATION: Yes alert Psych: COMMON NORMALS: mental status grossly normal APPEARANCE: Yes grossly normal and Yes well kempt ATTITUDE: Yes calm and Yes engaged Skin: COMMON NORMALS: no rashes or lesions noted and no jaundice GENERAL SKIN EXAM: no rashes or lesions noted Urinary Catheter Management^: 3-way Urethral CBI: Cath Placed During This Visit: yes Urethral Indwelling: Yes Reason for Continuing Indwelling Catheter: Other Urinary Catheter Date of Insertion: 03/25/19 Urinary Catheter Time of Insertion: 14:25 Discharge Data Data Completed and Pending: Pending at discharge Category Date Time Status Pathology: Surgic al [PTH] Routine Pth 03/25/19 14:32 Received Vitals: Last Vital Signs Temp 99.1 F 03/27/19 08:00 Pulse 99 03/27/19 08:00 Resp 18 03/27/19 08:00 BP 164/82 03/27/19 08:00 Pulse Ox 94 03/27/19 08:00 Discharge Plan Discharge Patient Disposition: Home, Self-Care Condition: Stable Prescriptions: [place] 5-325 mg tablet 1 tab PO BID PRN (Reason: pain) Qty: 7 RF: 0 Continued omeprazole 40 mg capsule,delayed release(DR/EC) 40 mg PO QDAY RF: 0 hydralazine 50 mg tablet 50 mg PO TID RF: 0 amlodipine 10 mg tablet 10 mg PO BEDTIME RF: 0 atorvastatin 20 mg tablet 20 mg PO QDAY RF: 0 Discharge Orders: Discharge Order (Routine); Ordered 03/27/19 Ordered By: Landon Ortega Referrals: Luis Begum MD [Referring] - 7-10 days (Request consultation for consideration of nephro ureterectomy (right) for right ureteral orifice TCCA and distal ureteral tumor extending at least 5 to 6 cm into the ureter from the bladder.) Landon Ortega MD [Physician] - (To be arranged) Ayo Trinidad DO [Primary Care Provider] - 4-7 days (TURBT showed TCCA extending into the intramural tunnel of the right ureter and up the right ureter at least 6 cm. Not amenable to local therapy. He will be referred to [facility] for consideration of minimally invasive right nephro ureterectomy. I gave him a short-term prescription for [place] for his flank pain. Would appreciate your input on pain control given his end-stage renal disease. I think that having his kidney removed will improve his overall symptoms.) Discharge Diet: Usual diet Discharge Activity: Limit activity as instructed Activity Restrictions/Additional Instructions: 1. Avoid lifting >10 pounds for at least 2 to 3 weeks. 2. Call my office at [phone] if you have not heard from my clinic by Friday regarding the consultation appointment at [facility] 3. Call for any concerns regarding excessive bleeding or difficulty voiding. 4. Continue routine dialysis. Coding Level of Care Code Acute Glass Blowing Lathe Operator for Chg Fwd Exam Problem Focused Diagnoses Cancer of trigone of urinary bladder C67.0 Primary cancer of right ureter C66.1 Hydronephrosis, right N13.30 CKD (chronic kidney disease) stage 5, GFR less than 15 ml/min N18.5 Hypertension I10 Hypertension type: essential hypertension Time Spent (min) 40
--- NOTE | 2019-03-27 09:32 | PM.PN ---
Subjective Subjective: Interval history: Patient was on CBI overnight, urine has cleared up. No acute overnight events. Discharge home today. Medications: Reviewed: Yes Medication Review Details: Current Medications Generic Name Dose Route Start Last Admin Trade Name Freq PRN Reason Stop Dose Admin Amlodipine Besylat e 10 mg 03/25/19 21:00 03/26/19 21:30 Norvasc PO 10 mg BEDTIME DEJUAN Administration Atorvastatin Calci um 20 mg 03/25/19 21:00 03/26/19 21:30 Lipitor PO 20 mg BEDTIME DEJUAN Administration Hydralazine HCl 50 mg 03/25/19 16:24 03/26/19 21:33 Apresoline PO 50 mg TID DEJUAN Administration Morphine Sulfate 1 mg 03/25/19 16:24 03/25/19 16:44 Morphine IVP 1 mg Q4H PRN Administration SEVERE PAIN Pantoprazole Sodiu m 40 mg 03/26/19 09:00 03/26/19 08:17 Protonix PO 40 mg DAILY DEJUAN Administration Vitals/I&O/Wt Last Vital Signs Temp 99.1 F 03/27/19 08:00 Pulse 99 03/27/19 08:00 Resp 18 03/27/19 08:00 BP 164/82 03/27/19 08:00 Pulse Ox 94 03/27/19 08:00 03/26/19 03/27/19 03/27/19 22:59 06:59 14:59 Intake Total 9000 / 18783 Output Total 4350 / 4350 9700 / 78555 Balance -4350 / -2390 -700 / -3090 Physical Exam Const: COMMON NORMALS: no apparent distress, oriented x3 and alert GENERAL APPEARANCE: cooperative and comfortable ORIENTATION/CONSCIOUSNESS: Yes awake HENMT: COMMON NORMALS: normocephalic, head/scalp atraumatic, hearing grossly normal bilaterally and moist oral mucous membranes HEAD & SCALP: normocephalic and atraumatic Eye: COMMON NORMALS: PERRL, EOMs intact bilaterally and conjunctivae normal CONJUNCTIVA: Yes conjunctivae normal PUPIL: Yes PERRL Neck/C-Spine: COMMON NORMALS: full ROM GENERAL: Yes normal visual inspection and Yes trachea midline Resp: COMMON NORMALS: normal respiratory effort, no retractions, no use of accessory muscles and clear to auscultation bilaterally EFFORT & INSPECTION: Yes able to speak in complete sentences, Yes symmetric chest movement and No tachypneic AUSCULTATION: clear to auscultation bilaterally Cardio: COMMON NORMALS: regular rate, regular rhythm, S1 normal heart sound, S2 normal heart sound and no murmurs RATE: regular rate RHYTHM: regular rhythm HEART SOUNDS: S1 normal and S2 normal GI: COMMON NORMALS: normal to inspection, nondistended, normoactive bowel sounds, soft to palpation and non-tender PALPATION: Yes soft : BLADDER/KIDNEY EXAM: Yes catheter in place OTHER: -Noted hematuria Extremity: COMMON NORMALS: normal to inspection, full ROM and no clubbing, cyanosis or edema; negative for no pedal edema OTHER: -AV fistula in place on R Neuro: COMMON NORMALS: oriented x3, moves all extremities, no focal motor deficits and no sensory deficits noted SENSORIUM/ORIENTATION: Yes alert Psych: COMMON NORMALS: mental status grossly normal, thought process normal, cooperative, affect normal and speech normal SPEECH: Yes normal speech THOUGHT PROCESS: normal thought process Skin: COMMON NORMALS: no rashes or lesions noted, no jaundice, no petechiae and no mottling GENERAL SKIN EXAM: no rashes or lesions noted Urinary Catheter Management^: 3-way Urethral CBI: Cath Placed During This Visit: yes Urethral Indwelling: Yes Reason for Continuing Indwelling Catheter: Other Urinary Catheter Date of Insertion: 03/25/19 Urinary Catheter Time of Insertion: 14:25 Data : 03/26/19 04:15 03/25/19 12:05 A&P Assessment and plan (1) CKD (chronic kidney disease) stage 5, GFR less than 15 ml/min: -has hx of ESRD on HD, has AV fistula for access, MWF schedule -Nephrology consulted -HD on Friday -noted renal function -Barajas catheter discontinued and able to void Status: Chronic Code(s): N18.5 - Chronic kidney disease, stage 5 (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 -s/p TURBT; POD # 2 -f/u pathology -pain control as needed -has 3-way urethral catheter in place -repeat H/H with noted drop (11.5->9.4); no need for transfusion currently Status: Acute Code(s): C67.0 - Malignant neoplasm of trigone of bladder (3) Hypertension: -continue oral antihypertensives -VSS; continue to monitor Status: Acute Qualifiers: Hypertension type: essential hypertension Qualified Code(s): I10 - Essential (primary) hypertension Code(s): I10 - Essential (primary) hypertension (4) Hydronephrosis, right: -noted moderate to severe R hydroureteronephrosis on CT A/P done 03/18 Status: Acute Code(s): N13.30 - Unspecified hydronephrosis Additional A&P Information -GERD -L-spine DJD -renal dailysis diet as tolerated -GI ppx with PPI -DVT ppx with SCDs, no AC due to bleeding risk -Dispo: home -Code status: FULL code Attestations Medical Necessity Statement*: Discharge home today Time Spent in Patient Care: 16 - 35 minutes (>than 50% of time spent in counselling and/or direct pt care on unit). Coding Level of Care Code Acute Journeyman Meat Cutter for Chg Fwd Exam Problem Focused Diagnoses CKD (chronic kidney disease) stage 5, GFR less than 15 ml/min N18.5 Cancer of trigone of urinary bladder C67.0 Hypertension I10 Hypertension type: essential hypertension Hydronephrosis, right N13.30
[2019-03-27] MEDS: hyDRALAzine 50 mg Tablet PO ×2 (09:40→15:42)
[2019-03-27] MEDS: pantoprazole DR 40 mg Tablet PO (09:40)
--- NOTE | 2019-03-27 15:04 | PC.CHAP ---
Pastoral Care Encounter/Spiritual Assessment Type of Contact [] Declined capital project engineer visit [] Patient/Family/Request visit [] Outpatient visit [] Follow-up visit [] Physician referral [] Code/Alert [x] Routine visit [] Staff referral [] Actively dying [] Patient sleeping [] Family support [] [] Out of room [] Palliative care [] [] Receiving care in room [] Pre-surgical visit [] Trauma [] Long length of stay [] ICU visit [] Other: Relational/Emotional Strength [] Patient feels connected with others/family/visitors/staff [] Distress [] Loneliness/isolation [] Abandonment Spirituality of Patient [] Person of Jessica [] Attends Jewish of their Jessica [] Believes in Prayer [] Reads Bible or Adventist materials [] There are Spiritual issues to be addressed Audiovisual Equipment Operator Interventions [] Prayer [] Active listening [] Non-anxious presence [] Spiritual/emotional support [] Crisis/trauma care [] Spiritual counseling [] Bereavement support [] Provided bereavement packet [] Provided Bible/devotional materials [] Provided toy/stuffed animal, coloring book to patient or family member [] Provided Communion [] Anointing/[place] [] Salvation [] Completed spiritual assessment [] Other: Impact on Illness or Injury [] Angry [] Fearful [] Anxious [] Often cries [] Exhaustion [] Unable to work [] Unable to attend taoist [] Unable to walk/stand [] Unable to read [] Unable to drive [] Unable to eat/drink [] Unable to sleep [] Unable to be with family [] Patient intubated [] Other: Summary Four visitors with patient Time spent with patient
[2019-03-27] MEDS: morphine 4 mg/mL SDV 1 mL 1 MG IVP (16:17)
--- NOTE | 2019-03-27 16:43 | PC.NURSE ---
Bladder scan done. 23 ml noted in bladder. Report to Dr Ortega. May DC patient to home. Will reinforce no straining to patient.
--- NOTE | 2019-03-27 17:34 | PC.NURSE ---
Pt with multiple voids since forde removed. Noted each void has been red in color, clear, w/o clots. Pt denies any pain when voiding. 0 s/s of distress noted.
== END 2019-03-27 17:41 | disposition home or self-care (01) | DRG 669 ==
LOC: MEDSURG 14:57
PROVIDERS: Anesthesiology; Family Medicine; Admitting Provider Urology; Family Provider Electrodiagnostic Medicine; PCP Electrodiagnostic Medicine; Visit Provider Urology
PROC: 0TJB8ZZ Inspection of Bladder, Via Natural or Artificial Opening Endoscopic (ICD-10-PCS; CPT 52000; principal; 2019-03-25 13:00)
PROC: 0TBB8ZZ Excision of Bladder, Via Natural or Artificial Opening Endoscopic (ICD-10-PCS; 2019-03-25 13:00)
DX: C67.0 Malignant neoplasm of trigone of bladder (principal); C79.19 Secondary malignant neoplasm of other urinary organs; I12.0 Hypertensive chronic kidney disease with stage 5 chronic kidney disease or end stage renal disease; N18.5 Chronic kidney disease, stage 5; N13.30 Unspecified hydronephrosis; Z99.2 Dependence on renal dialysis; Z87.891 Personal history of nicotine dependence; M47.896 Other spondylosis, lumbar region; K21.9 Gastro-esophageal reflux disease without esophagitis
CPT/HCPCS: 12345; 36415; 80048; 85025; 88112; 88305; 93005; 96375; G0378; J1956; J2001; J2270; J2370; J2405; J2704; J3010; J3490; J7030

== ENCOUNTER 2019-07-15 13:55 | Outpatient (CLI) | payer MEDICARE, OTHER, SELFPAY ==
--- NOTE | 2019-07-16 15:23 | ONC CON_ITS ---
Dr. Souza New Patient Note Patient: Manuel Garcia Unit #: [id number]: [id number] Dicatated By: Moses Souza M.D.Date of Visit: July 15, 2019 Onc MED New Patient/Consult Referring Physician: Hammad Begum History of Present Illness: Mr. Manuel Garcia, is a 74-year-old gentleman with history of papillary tumor located over the right ureteral orifice with obstruction diagnosed on 03/19/2019, hydronephrosis was noted on CT scan of pelvis, patient underwent cystoscopy TURBT on 03/25/2019 which showed papillary urothelial carcinoma, low-grade no muscle invasion seen, patient was referred to Dr. Begum urologist in [place] for further evaluation as there was a evidence of tumor invasion into the ureter, so right robotic nephroureterectomy was considered and patient underwent procedure on 05/17/2019 and final pathology report shows invasive high-grade papillary urothelial carcinoma involving right renal pelvis with tumor invasion into the kidney, size was 4 x 3.5 x 1.3 cm and there was a noninvasive ureter tumor size was 1.9 x 1.5 cm., Lymphovascular invasion was seen, no lymph node was evaluated e.g. T3,Nx Mx, stage III Patient tolerated procedure well Patient is on hemodialysis for end-stage renal disease. Patient denies any fever or chills, denies any nausea vomiting, denies any jaundice, denies any abdominal pain, denies any melena or hematochezia or hematuria. Appetite is good. Past Medical History: Mr. Garcia's medical history consists of hypertension and renal failure. Past Surgical History: Mr. Garcia's surgical/procedural history consists of back surgery, nephroureterectomy, port placement, and TURBT. Medications: Atorvastatin Calcium 1 Tablet (of 20 mg) Oral at bedtime, hydrALAZINE HCl 1 Tablet (of 50 mg) Oral daily, NyQuil Severe Cold/Flu Capsule Oral PRN, Omeprazole 1 Tablet (of 40 mg) Tablet, enteric coated Oral every am, Triamcinolone Acetonide Ointment Topical PRN, Tylenol Tablet Oral PRN Allergies: No Known Allergies. Social History: Mr. Garcia is and he is an unknown. Mr. Garcia has never smoked. He is a former drinker. PT STATES HE DRANK A CASUAL BEER ONCE IN A WHILE. Family History: Mr. Garcia's mother is : motor vehicle accident. Mr. Garcia's father at age 71: myocardial infarction. Review Of Symptoms: Review of Systems is not available for this patient. Vital Signs: Performed on July 15, 2019 15:16: 0, 25.28, 1.80 sq.m, 66.00 in, 99 %, 81 /min, 20 /min, 164/82 mm(hg) (HIGH), 98.8 F, and 156.6 lbs (HIGH). Performance Status: 0 - Fully active, able to carry on all predisease activities without restrictions. (ECOG) Physical Examination: ENMT - no mouth sores, no thrush, no jaundice, Respiratory - Lungs are clear to auscultation, Cardiovascular - Regular rate and rhythm of heart, Abdomen - soft, bowel sounds present, Extremities - no visible edema or rash. Lab/Imaging: Most recent lab results are not available for this patient. Impression: invasive high-grade urothelial carcinoma Of right renal pelvis/ureter with invasion into the right kidney status post robotic nephroureterectomy done on 05/17/2019 next Final pathology report showed invasive high-grade papillary urothelial carcinoma, tumor size 4 x 3.5 x 1.3 cm invading right kidney and 1.9 x 1.5 cm noninvasive ureter tumor with lymphovascular invasion seen pT3 No lymph nodes were identified for evaluation pNx , Mx stage III ureteral/renal pelvis carcinoma End-stage renal disease on hemodialysis Plan: Discussed with patient regarding his disease status and further treatment options, patient has invasive high-grade papillary urothelial carcinoma of right renal pelvis with invasion into the right kidney e.g. T3 lesion , with unknown lymph node status, as per N CCN guidelines, patient has stage III disease and there is a role of adjuvant [place]-based chemotherapy which may improve disease-free survival. Considering patient's age and comorbid condition, we would not consider MVAC due to toxicity profile but split dose cisplatin and gemcitabine, on day 1 and 8 and repeat every 21 days ???4 cycles All the side effect possible benefits associated with cisplatin/gemcitabine were discussed including but not limited to bone marrow suppression, nausea vomiting, hair loss, year and chris/nephrotoxicity especially with cisplatin again patient is on hemodialysis, so nephrotoxicity is not a big concern but we will consider split dose cisplatin to minimize the toxicity. Further teaching will be done by chemotherapy nurse, will obtain approval from his insurance prior to the treatment and also consider Port-A-Cath placement to facilitate chemotherapy Patient return to clinic 1 week after chemotherapy is initiated with CBC CMP Signed By: Moses Souza M.D. <<Signature on File>>
== END 2019-07-15 13:56 | disposition home or self-care (01) ==
LOC: ONCMED 14:06
PROVIDERS: PCP Electrodiagnostic Medicine; Visit Provider Internal Medicine Hematology & Oncology
DX: C65.1 Malignant neoplasm of right renal pelvis (principal); I12.0 Hypertensive chronic kidney disease with stage 5 chronic kidney disease or end stage renal disease; N18.6 End stage renal disease; Z99.2 Dependence on renal dialysis; Z90.5 Acquired absence of kidney
CPT/HCPCS: 99203

== ENCOUNTER 2019-07-28 05:50 | Day surgery (SDC) | payer MEDICARE, OTHER, SELFPAY ==
[2019-07-27 16:39] VITALS: BMI 25.3
--- NOTE | 2019-07-28 | SCC_ITS ---
Procedure Done: Placement of PowerPort in the right internal jugular vein Fluoroscopic guidance and interpretation for placement of catheter 53.5 seconds of fluoroscopic guidance, for a cumulative dose of 8.79 mGy, was provided to Dr. Hi by the radiology department. C-arm images of the chest were saved for the patient's permanent record. [facility]
[2019-07-28 06:04] VITALS: BP 182/94; PULSE 85; RESP 20; TEMP 36.7; O2SAT 98
[2019-07-28] MEDS: sodium chloride 0.9% 1,000 ML 30 ML IV (06:20)
--- NOTE | 2019-07-28 06:28 | P.ANESASSM_ITS ---
Pre-Anesthetic Assessment Pre-Anesthetic Assessment: Height/Weight: Height 1.68 m Weight 71.214 kg Temp Pulse Resp BP Pulse Ox 98.1 F 85 20 H 182/94 98 07/28/19 06:04 07/28/19 06:04 07/28/19 06:04 07/28/19 06:04 07/28/19 06:04 Preop Diagnosis: Bladder cancer Proposed Procedure: Operation Date: 07/28/19 07:00 Proposed Procedures p Portacath Placement(Not Applicable) - Gonzalo Hi MD Last intake: Intake Last Liquid Date 07/27/19 Last Liquid Time 21:00 Last Solid Date 07/27/19 Last Solid Time 20:00 Social: Social History: Alcohol (occ) and Tobacco (quit) Exam: Pre-Anes Outpt Exam: alert, oriented x 3, clear to auscultation bi laterally and regular rate & rhythm Airway: Submandibular: WNL Cervical ROM: WNL MP: 2 Dentition: False (upper and lower) History/ROS: No significant history except as noted Pulmonary: Pulmonary: None reported CV/HEM: CV/HEM: HTN : : Chronic renal failure Comments: ureter ca Hepatic: Hepatic: None reported GI: GI: GERD Metabolic: Metabolic: Hyperlipidemia Musc/skel: Musc/skel: None reported Neuropsych: Neuropsych: None reported Anesthetic Plan: ASA status: 3 Anesthesia: Anesthesia Evaluation and MAC Risk of > 500 ml blood loss (7ml/kg in children): No Meds/Allergies Current Medications: Current Medications Generic Name Dose Route Start Last Admin Trade Name Freq PRN Reason Stop Dose Admin Sodium Chloride 1,000 mls @ 30 ml s/hr 07/28/19 06:00 07/28/19 06:20 Sodium Chloride 0.9% IV 07/29/19 05:59 30 mls/hr .Q24H DEJUAN Administration PFSH Anesthesia PFSH: Medical History AV fistula Cancer of trigone of urinary bladder CKD (chronic kidney disease) stage 5, GFR less than 15 ml/min On hemodialysis Degenerative joint disease (DJD) of lumbar spine GERD (gastroesophageal reflux disease) Gross hematuria Hydronephrosis, right Hypertension Primary cancer of right ureter Surgical History History of back surgery History of ear surgery TRAUMA TO RIGHT EAR-PART OF TOP OF EAR REMOVED Status post insertion of dialysis catheter RIGHT FOREARM Family History Father , AT AGE 71 Heart attack Mother , MVA No problems noted. Denies family history of Anesthesia complication Bleeding disorder Social History Smoking and tobacco status: former smoker Quit status (tobacco): has quit using tobacco Year quit tobacco: 1970s Alcohol intake: current Alcohol intake frequency: few times a month Marital status: Current occupational status: retired Current gender identity: Male Data Anesthesia Cardiac Studies: No Data to Display
--- NOTE | 2019-07-28 06:48 | W.PM.OPSUD ---
Surgery/Procedure H&P Update DATE OF PROCEDURE: July 28, 2019 DATE H&P PERFORMED: 07/27/19 H&P UPDATE INFORMATION: I have reviewed H&P completed within last 30 days, I have examined patient prior to procedure and No changes to prior documentation PREOP DIAGNOSIS: Bladder cancer PLANNED PROCEDURE: Operation Date: 07/28/19 07:00 Proposed Procedures p Portacath Placement(Not Applicable) - Gonzalo Hi MD
--- NOTE | 2019-07-28 07:17 | SC_ITS ---
WS: [id number] C-arm fluoroscopy for right Port-A-Cath, 07/28/2019 Clinical Data: surgical procedure Comparison: C-arm fluoroscopy for right dialysis catheter, 08/19/2018. Findings: Satisfactory placement of right Port-A-Cath. The tip in the superior vena cava. SC/C-arm FL for CVA [id number] Impression: Satisfactory placement of right Port-A-Cath.
[2019-07-28] MEDS: lidocaine 1% INJ 20 mL IM (07:46)
[2019-07-28] MEDS: heparin, porcine 1,000 unit/mL INJ 10 mL 10000 UNIT INJECTION (07:47)
[2019-07-28 08:17] VITALS: BP 155/83; PULSE 71; RESP 18; TEMP 36.5; O2SAT 95
--- NOTE | 2019-07-28 08:17 | P.OP_ITS ---
Operative Report Date of procedure: July 28, 2019 Pre-op Diagnosis: Bladder cancer Post-op diagnosis: same Procedure Done: Placement of PowerPort in the right internal jugular vein Fluoroscopic guidance and interpretation for placement of catheter Ultrasound guidance for accessing right internal jugular vein Pathology: none sent Surgeon: Gonzalo Hi Anesthesia: MAC Estimated blood loss (mL): 10 Condition: stable Disposition: same day Procedure: The patient was taken to the Operating Room and the chest and neck bilaterally were prepped and draped in a sterile manner after the antibiotic had been administered and shoulder rolls had been placed. A total of 10 mL of 1% lidocaine with 0.5% Marcaine was infiltrated under the clavicle on the right side at the site of the planned entry into the internal jugular vein. An ultrasound of the right internal jugular vein revealed patent flow, no thrombus. An introducer needle was then used to access the internal jugular vein under the clavicle and after withdrawing blood syringe was removed and a guidewire passed under fluoroscopy into the superior vena cava. The site of the planned port was then marked on the chest and a 15 blade was used to make a 3 cm skin incision this was extended into the subcutaneous tissue using electrocautery and a subcutaneous pocket over the pectoralis fascia was created 2-0 Vicryl suture was used to suture the port to the pectoral fascia in the pocket on 3 sides. The catheter, after having been flushed with hep saline, was attached to the tunneler and a tunnel created between the port site and the internal jugular vein entry site. Under fluoroscopy the dilator sheath was passed over the guidewire into the proximal superior vena cava. The inner dilator was removed and the sheath left behind and~ the catheter was introduced through the peel- away sheath with the tip in the superior vena cava. The peel-away sheath was removed. The proximal end of the catheter was cut to the right size and was attached to the port. Using a Simon needle the port was accessed, it withdrew blood easily and flushed easily. A final 5cc of heparin was used to flush the PowerPort. The subcutaneous tissue was approximated using interrupted 3-0 Vicryl sutures and the skin at the introducer site and the port site was closed using subcuticular running 4-0 Monocryl sutures. Surgical glue was applied and the patient was stable throughout the procedure. Fluoroscopic guidance and interpretation was performed for introduction of the guidewire in the right internal jugular vein, passage of dilator and placement of catheter tip in the distal superior vena cava.
[2019-07-28 08:33] VITALS: BP 162/89; PULSE 68; RESP 18; O2SAT 97
== END 2019-07-28 08:52 | disposition home or self-care (01) ==
PROVIDERS: PCP Electrodiagnostic Medicine; Visit Provider Surgery
PROC: (CPT 36561; principal; 2019-07-28 07:00)
DX: C66.1 Malignant neoplasm of right ureter (principal); K21.9 Gastro-esophageal reflux disease without esophagitis; E78.5 Hyperlipidemia, unspecified; I12.9 Hypertensive chronic kidney disease with stage 1 through stage 4 chronic kidney disease, or unspecified chronic kidney disease; N18.9 Chronic kidney disease, unspecified; Z87.891 Personal history of nicotine dependence
CPT/HCPCS: 36561; 12345; 77001; C1788; J0690; J1644; J2001; J2704; J3010; J3490; J7030

== ENCOUNTER 2019-08-03 07:26 | Outpatient (CLI) | payer MEDICARE, OTHER, SELFPAY ==
[2019-08-03] MEDS: sodium chloride 0.9% 250 ML 75 ML IV (08:27)
[2019-08-03 08:32] LABS: Basophils % 0.6 %; Eosinophils # 0.2 10^3/uL (0.0-0.8); Eosinophils % 4.2 %; Hematocrit 35.5 % (42.0-52.0); Hemoglobin 11.3 g/dL (11.7-16.6); Lymphocytes # 0.9 10^3/uL (0.8-4.8); Mean Corpuscular HGB Conc 31.8 g/dL (30.0-36.0); Mean Corpuscular Hemoglobin 30.3 pg (28.0-34.0); Mean Corpuscular Volume 95.2 fL (80-94); Mean Platelet Volume 9.8 fL (7.4-10.4); Monocytes # 0.6 10^3/uL (0.2-0.9); Monocytes % 10.9 %; Neutrophils # 3.7 10^3/uL (1.8-7.7); Neutrophils % 68.1 %; Nucleated Red Blood Cells % 0 %; Platelet Count 203 10^3/cmm (130-400); Red Blood Count 3.73 10^6/uL (4.1-5.3); White Blood Count 5.4 10^3/uL (4.0-10.0)
[2019-08-03 08:49] LABS: Alanine Aminotransferase < 5 U/L (0-41); Albumin Level 4.4 g/dL (3.5-5.2); Alkaline Phosphatase 100 IU/L (40-130); Anion Gap 19.1 (5-19); Aspartate Amino Transferase 18 U/L (0-40); Blood Urea Nitrogen 32 mg/dL (8-23); Calcium 7.9 mg/dL (8.5-10.5); Carbon Dioxide 28 mmol/L (22-29); Chloride 101 mmol/L (98-107); Globulin 2.4 g/dL (1.3-4.6); Glucose 95 mg/dL (65-115); Osmolality Calculated 295 mOsm/kg (285-295); Potassium 4.1 mmol/L (3.5-5.1); Sodium 144 mmol/L (136-145); Total Bilirubin 0.6 mg/dL (0.15-1.2); Total Protein 6.8 g/dL (6.6-8.7)
[2019-08-03] MEDS: FUROsemide 10 mg/mL SDV 2mL 20 MG IV (13:29)
[2019-08-03] MEDS: potassium chloride 20 MEQ in sodium chloride 0.9% 500 ML 500 MEQ IV (13:31)
== END 2019-08-03 07:27 | disposition home or self-care (01) ==
LOC: ONCMED 07:32
PROVIDERS: PCP Electrodiagnostic Medicine; Visit Provider Internal Medicine Hematology & Oncology
DX: Z51.11 Encounter for antineoplastic chemotherapy (principal); C65.1 Malignant neoplasm of right renal pelvis
CPT/HCPCS: 80053; 85025; 96366; 96367; 96375; 96413; 96417; J1100; J1200; J1453; J1940; J2469; J3475; J3480; J7030; J7040; J7050; J9060; J9201

== ENCOUNTER 2019-08-17 06:46 | Outpatient (RCR) | payer MEDICARE, OTHER, SELFPAY ==
[2019-08-10 09:09] LABS: Basophils % 0.5 %; Eosinophils % 1.1 %; Hematocrit 33.4 % (42.0-52.0); Hemoglobin 10.3 g/dL (11.7-16.6); Lymphocytes # 0.5 10^3/uL (0.8-4.8); Lymphocytes % 24.7 %; Mean Corpuscular HGB Conc 30.8 g/dL (30.0-36.0); Mean Corpuscular Volume 97.4 fL (80-94); Mean Platelet Volume 10.3 fL (7.4-10.4); Monocytes # 0.1 10^3/uL (0.2-0.9); Monocytes % 5.8 %; Neutrophils # 1.3 10^3/uL (1.8-7.7); Neutrophils % 67.4 %; Nucleated Red Blood Cells % 0 %; Platelet Count 130 10^3/cmm (130-400); Red Blood Count 3.43 10^6/uL (4.1-5.3); Red Cell Distribution Width 14.1 % (12.1-15.1); White Blood Count 1.9 10^3/uL (4.0-10.0)
[2019-08-10 09:19] LABS: Alanine Aminotransferase 11 U/L (0-41); Albumin Level 4.3 g/dL (3.5-5.2); Alkaline Phosphatase 94 IU/L (40-130); Anion Gap 17.6 (5-19); Aspartate Amino Transferase 19 U/L (0-40); Blood Urea Nitrogen 52 mg/dL (8-23); Calcium 7.3 mg/dL (8.5-10.5); Carbon Dioxide 28 mmol/L (22-29); Chloride 99 mmol/L (98-107); Globulin 1.5 g/dL (1.3-4.6); Glucose 112 mg/dL (65-115); Osmolality Calculated 289 mOsm/kg (285-295); Potassium 4.6 mmol/L (3.5-5.1); Sodium 140 mmol/L (136-145); Total Bilirubin 0.4 mg/dL (0.15-1.2); Total Protein 5.8 g/dL (6.6-8.7)
--- NOTE | 2019-08-12 16:15 | ONC FU_ITS ---
[facility] Patient Note Patient: Manuel Garcia Unit #: [id number]: [id number] Dictated By: Jorge AmosDate of Visit: Aug 10, 2019 Onc MED Follow-Up/Prog Note Chief Complaint: right renal pelvis carcinoma/bladder cancer History of Present Illness: Mr. Garcia is a 74-year-old gentleman with history of papillary tumor located over the right ureteral orifice with obstruction diagnosed on 03/19/2019. Hydronephrosis was noted on CT scan of pelvis. Mr Garcia underwent cystoscopy TURBT on 03/25/2019 which showed papillary urothelial carcinoma: low-grade no muscle invasion seen. He was referred to Dr. Begum, urologist in [place] for further evaluation for evidence of tumor invasion into the ureter. Right robotic nephroureterectomy was considered and patient underwent procedure on 05/17/2019. The final pathology report showed invasive high-grade papillary urothelial carcinoma involving right renal pelvis with tumor invasion into the kidney, size was 4 x 3.5 x 1.3 cm. There was a noninvasive ureter tumor size was 1.9 x 1.5 cm., Lymphovascular invasion was seen, no lymph node was evaluated e.g. T3,Nx Mx, stage III Mr Garcia tolerated procedure well He is on hemodialysis for end-stage renal disease. He goes to dialysis on Friday, Friday and Friday. Mr. Garcia was seen by Dr. Souza. Dr. Souza did discuss with him his disease status and further treatment options. He was determined to have stage III disease and felt that adjuvant [place] based chemotherapy was a good option for him. However considering his age and comorbid condition MVAC was not considered due to toxicity profile but split dose cisplatin and gemcitabine on day 1 and 8 on a 21-day cycle for 4 cycles was recommended. Mr Garcia began his first cycle on August 03, 2019. He is here today for follow-up consideration for cycle 1 day 8 chemotherapy. Overall he feels he is doing good. He states he feels good. He is eating well but states his taste is off. He states that makes his appetite off a little because nothing tastes good. He denies any fever or chills. He denies any signs and symptoms of infection for at least the last 72 hours. He denies any shortness of breath orthopnea. He denies chest pain or palpitations. He states he has had no lower extremity edema. He denies any peripheral neuropathy. He denies mouth sores, sore throat or difficulty swallowing. He denies any hearing changes. His energy is marginal. He states that he does not have a lot of energy but that is not new as he has been on dialysis. His ECOG is 1. 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 Past Medical History: Hypertension Renal failure Past Surgical History: Back surgery Nephroureterectomy Port placement TURBT Allergies: No Known Allergies. Medications: Atorvastatin Calcium 1 Tablet (of 20 mg) Oral at bedtime hydrALAZINE HCl 1 Tablet (of 50 mg) Oral daily NyQuil Severe Cold/Flu Capsule Oral PRN Omeprazole 1 Tablet (of 40 mg) Tablet, enteric coated Oral every am Triamcinolone Acetonide Ointment Topical PRN Tylenol Tablet Oral PRN Family History: Mr. Garcia's mother is : motor vehicle accident. Mr. Garcia's father at age 71: myocardial infarction. Social History: Mr. Garcia is and he is an unknown. Mr. Garcia has never smoked. He drinks occasionally. PT STATES HE DRANK A CASUAL BEER ONCE IN A WHILE. Review Of Symptoms: Constitutional Denies fevers, chills, night sweats, excessive fatigue or weight loss. Eating ok but taste is off . Allergic/Immunologic No reactions. Eyes Denies significant visual changes. No diplopia. No amaurosis. ENMT Denies changes in hearing, sore throat, mouth sores, difficulty or changes in swallowing ability, and/or sinus drainage. Endocrine No diabetes, thyroid disease or hormone replacement. Denies hot flashes or night sweats. Hematologic/Lymphatic Denies easy bruising or bleeding. The patient denies any tender or palpable lymph nodes. Respiratory Denies dyspnea on exertion, chest pain, cough or hemoptysis. Denies orthopnea. Cardiovascular Denies anginal chest pain, palpitations or orthopnea. Gastrointestinal Denies nausea, vomiting, diarrhea, GI bleeding, or constipation. Denies change in bowel habits and/or stool color, no heartburn or early satiety. Genitourinary (M) Denies hematuria, dysuria, increased frequency, urgency, hesitancy or incontinence. Musculoskeletal Denies joint pain, swelling or redness. No decreased range of motion. Integumentary Denies chronic rashes, inflammation, ulcerations or skin changes. Neurologic Denies headache, blurred vision, and no areas of focal weakness or numbness. Normal gait. No sensory problems. Psychiatric Denies insomnia, depression, crow or mood swings. Vital Signs: Performed on Aug 10, 2019 10:21 Height - 66.00 in Weight - 156.8 lbs (HIGH) BSA - 1.80 sq.m BMI - 25.31 Temperature - 98.0 F (LOW) Pulse - 70 /min Respiration - 19 /min BP - 170/85 mm(hg) (HIGH) O2 Sat - 98 % Pain - 0,1 - No physically strenuous activity, but ambulatory and able to carry out light or sedentary work (e.g. office work, light house work). (ECOG) Physical Examination: Constitutional Alert, oriented, no acute distress. Skin pink, warm and dry. Head Normocephalic; atraumatic. Eyes Conjunctivae and sclerae are clear and without icterus. Pupils are reactive and equal. Neck Supple without masses or thyromegaly. No jugular venous distension. Hematologic/Lymphatic No petechiae or purpura. No tender or palpable lymph nodes in the cervical or supraclavicular areas. Respiratory Lungs are clear to auscultation without rhonchi or wheezing. Cardiovascular Regular rate and rhythm of heart without murmurs,clicks, gallops or rubs. Abdomen Non-tender, non-distended, no masses or ascites. Good bowel sounds noted in all quads. No guarding or rebound tenderness. No pulsatile masses. Back/Spine Non-tender to palpation. Extremities No visible deformities, no cyanosis, clubbing or edema. Musculoskeletal No tenderness or swelling, normal range of motion without obvious weakness. Integumentary No rashes or lesions. Neurologic No sensory or motor deficits, normal cerebellar function, normal gait. Psychiatric Alert and oriented times three. Coherent speech. Verbalizes understanding of our discussions today. Laboratory:Test performed on Aug 10, 2019 08:50 Sodium 140 mmol/L Potassium 4.6 mmol/L Chloride 99 mmol/L CO2 28 mmol/L Anion Gap 17.6 BUN 52 mg/dL Creatinine 8.6 mg/dL Cr Clearance (Est) 7.6900 mL/min Glucose 112 mg/dL Calcium 7.3 mg/dL Protein, Total 5.8 g/dL Albumin 4.3 g/dL Globulin 1.5 g/dL Bilirubin, Total 0.4 mg/dL ALT (SGPT) 11 U/L AST (SGOT) 19 U/L Alkaline Phosphatase 94 IU/L WBC 1.9 10 3/uL RBC 3.43 10 6/uL HGB 10.3 g/dL HCT 33.4 % MCV 97.4 fL MCH 30.0 pg MCHC 30.8 g/dL RDW 14.1 % Platelet Count 130 10 3/cmm MPV 10.3 fL Neutrophils 1.3 10 3/uL Lymphocytes 0.5 10 3/uL Monocytes 0.1 10 3/uL Eosinophils 0.0 10 3/uL Basophils 0.0 10 3/uL Neutrophil % 67.4 % Lymphocyte % 24.7 % Monocyte % 5.8 % Eosinophil % 1.1 % Basophils % 0.5 % NRBC % 0 % Impression: invasive high-grade urothelial carcinoma Of right renal pelvis/ureter with invasion into the right kidney status post robotic nephroureterectomy done on 05/17/2019 next Final pathology report showed invasive high-grade papillary urothelial carcinoma, tumor size 4 x 3.5 x 1.3 cm invading right kidney and 1.9 x 1.5 cm noninvasive ureter tumor with lymphovascular invasion seen pT3 No lymph nodes were identified for evaluation pNx , Mx stage III ureteral/renal pelvis carcinoma End-stage renal disease on hemodialysis. Trent Souza iscussed with Mr Garcia his disease status and further treatment options. He has invasive high-grade papillary urothelial carcinoma of right renal pelvis with invasion into the right kidney e.g. T3 lesion , with unknown lymph node status. As per N CCN guidelines, Mr Garcia has stage III disease and there is a role of adjuvant [place]-based chemotherapy which may improve disease-free survival. Considering patient's age and comorbid condition, MVAC was not consdered due to toxicity profile but split dose cisplatin and gemcitabine, on day 1 and 8 and repeat every 21 days ???4 cycles. Mr Garcia began his first cycle of split dose cisplatin gemcitabine on August 03, 2019. He has tolerated it well thus far. Plan: 1. Hold planned treatment for today due to chemo induced neutropenia. His ANC today is 1300. On day 1 is 3700. This is day 8. 2. We have asked for a prior authorization to add Neupogen 300 mcg daily starting today for the chemo induced neutropenia. He is on high risk regimen with cisplatin and gemcitabine. He does have extensive disease with invasive high-grade papillary urothelial carcinoma involving the right renal pelvis with tumor invasion into the kidney .and an ureter tumor 1.9 x 1.5 cm. Lymphovascular invasion was seen but no no positive nodes were found. He is also on hemodialysis for end-stage renal disease-he goes M,W, F. I have now also asked that he be preauthorized to have the Neupogen 3 days weekly between day 1 and 8 with each cycle and possibly Neulasta after day 8. We will does have to see how his blood counts do to determine which will be the best option for him in order to keep him on treatment plan consistently. 3. Labs from today were reviewed in detail and discussed with Mr. Garcia and a copy was given to him. WBC 1.9, hemoglobin 10.3, platelets 130,000 ANC is 1300. Potassium 4.6 LFTs are normal. Creatinine is 8.6 but again he is on hemodialysis 3 days a week. 4. We will proceed with the Neupogen today for the chemo induced neutropenia. We will have him return for a CBC CMP and follow-up in 1 week at which time we should be able to proceed with his next chemotherapy. 5. Has been advised the potential side effects of the Neupogen to include bone pain, low-grade fever, nausea, headache, fatigue amongst others. He is willing to proceed with the Neupogen if approved by insurance. 6. He was directed to contact us in interim should questions or problems arise. Signed By: Jorge Amos-. AOCNP Moses Souza MD <<Signature on File>>
[2019-08-16 09:19] LABS: Basophils % 0.5 %; Eosinophils # 0.1 10^3/uL (0.0-0.8); Eosinophils % 3.1 %; Hematocrit 30.7 % (42.0-52.0); Hemoglobin 9.4 g/dL (11.7-16.6); Lymphocytes # 0.8 10^3/uL (0.8-4.8); Lymphocytes % 19.9 %; Mean Corpuscular HGB Conc 30.6 g/dL (30.0-36.0); Mean Corpuscular Hemoglobin 29.9 pg (28.0-34.0); Mean Corpuscular Volume 97.8 fL (80-94); Mean Platelet Volume 9.6 fL (7.4-10.4); Monocytes # 0.9 10^3/uL (0.2-0.9); Neutrophils # 1.8 10^3/uL (1.8-7.7); Nucleated Red Blood Cells % 0 %; Platelet Count 111 10^3/cmm (130-400); Red Blood Count 3.14 10^6/uL (4.1-5.3); Red Cell Distribution Width 15.4 % (12.1-15.1); White Blood Count 3.8 10^3/uL (4.0-10.0)
[2019-08-16 09:41] LABS: Neutrophils % 53.5 %; Slide Review Slide Review Perform
[2019-08-16 10:07] LABS: Alanine Aminotransferase 19 U/L (0-41); Albumin Level 4.2 g/dL (3.5-5.2); Alkaline Phosphatase 116 IU/L (40-130); Anion Gap 21.5 (5-19); Aspartate Amino Transferase 26 U/L (0-40); Blood Urea Nitrogen 55 mg/dL (8-23); Calcium 7.4 mg/dL (8.5-10.5); Carbon Dioxide 26 mmol/L (22-29); Chloride 101 mmol/L (98-107); Globulin 2.1 g/dL (1.3-4.6); Glucose 91 mg/dL (65-115); Osmolality Calculated 296 mOsm/kg (285-295); Potassium 4.5 mmol/L (3.5-5.1); Sodium 144 mmol/L (136-145); Total Bilirubin 0.5 mg/dL (0.15-1.2); Total Protein 6.3 g/dL (6.6-8.7)
--- NOTE | 2019-08-17 09:12 | ONC FU_ITS ---
Dr. Souza follow up note Patient: Manuel Garcia Unit #: [id number]: 1945 Dicatated By: Moses Souza M.D.Date of Visit:Aug 17, 2019 Onc Med Follow-up/Prog Note History of Present Illness: Mr. Garcia is a 74-year-old gentleman with history of papillary tumor located over the right ureteral orifice with obstruction diagnosed on 03/19/2019. Hydronephrosis was noted on CT scan of pelvis. Mr Garcia underwent cystoscopy TURBT on 03/25/2019 which showed papillary urothelial carcinoma: low-grade no muscle invasion seen. He was referred to Dr. Begum, urologist in [place] for further evaluation for evidence of tumor invasion into the ureter. Right robotic nephroureterectomy was considered and patient underwent procedure on 05/17/2019. The final pathology report showed invasive high-grade papillary urothelial carcinoma involving right renal pelvis with tumor invasion into the kidney, size was 4 x 3.5 x 1.3 cm. There was a noninvasive ureter tumor size was 1.9 x 1.5 cm., Lymphovascular invasion was seen, no lymph node was evaluated e.g. T3,Nx Mx, stage III Mr Garcia tolerated procedure well He is on hemodialysis for end-stage renal disease. He goes to dialysis on Friday, Friday and Friday. Mr. Garcia was seen and discussed with him his disease status and further treatment options. He was determined to have stage III disease and felt that adjuvant [place] based chemotherapy was a good option for him. However considering his age and comorbid condition MVAC was not considered due to toxicity profile but split dose cisplatin and gemcitabine on day 1 and 8 on a 21-day cycle for 4 cycles was recommended. Mr Garcia began his first cycle on August 03, 2019.his day 8 chemotherapy was held because of progressive neutropenia/leukopenia he was given Neupogen 300 mcg subcu daily for 3 days with that his white blood count recovered and he received his day 8 chemotherapy on August 17, 2019.And because of progressive thrombocytopenia, gemcitabine dose was reduced by 10% Came for follow-up, denies any specific complaints, no fever chills, no nausea or vomiting no diarrhea constipation occasionally leg cramps but under control with medication. Medications: Atorvastatin Calcium 1 Tablet (of 20 mg) Oral at bedtime, Claritin 1 Tablet (of 10 mg) Oral daily, hydrALAZINE HCl 1 Tablet (of 50 mg) Oral t.i.d., NyQuil Severe Cold/Flu Capsule Oral PRN, Omeprazole 1 Tablet (of 40 mg) Tablet, enteric coated Oral every am, Triamcinolone Acetonide Ointment Topical PRN, Tums 1 Tablet Tablet, chewable Oral PRN, Tylenol Tablet Oral PRN Allergies: No Known Allergies. Review of Systems: Constitutional - Appetite is good and weight is stable. No fever or hot flashes. Energy level is poor today. Positive for occasional night sweats, ENMT - No sinus congestion/drainage. No mouth sores. No sore throat or difficulty swallowing, Hematologic/Lymphatic - No abnormal bruising or bleeding, Respiratory - No shortness of breath. No cough. No pleuritic pain or hemoptysis, Cardiovascular - No angina pain. No palpitations, Gastrointestinal - No nausea or vomiting. No heartburn or acid reflux. No diarrhea. Positive for constipation. No blood in the stool or black stools, Genitourinary (M) - No dysuria. Occasional hematuria. No urinary frequency. No urgency or incontinence, Musculoskeletal - Positive for generalized joint pain, Neurologic - No headache or dizziness. No numbness or tingling. No other focal neurologic symptoms, Psychiatric - No anxiety or depression. No insomnia. Vital Signs: Performed on Aug 17, 2019 08:23 Height - 66.00 in Weight - 154.6 lbs (LOW) BSA - 1.79 sq.m BMI - 24.95 Temperature - 99.2 F (HIGH) Pulse - 80 /min Respiration - 18 /min BP - 156/74 mm(hg) (HIGH) O2 Sat - 97 % Pain - 0 Performance Status: 1 - No physically strenuous activity, but ambulatory and able to carry out light or sedentary work (e.g. office work, light house work). (ECOG) Physical Examination: ENMT - No mouth sores, no thrush no jaundice, Respiratory - Lungs are clear, Cardiovascular - Regular rate and rhythm of heart, Abdomen - Soft, bowel sounds present, Extremities - Trace edema bilaterally. Lab/Imaging: Test performed on Aug 10, 2019 08:50 Sodium 140 mmol/L Potassium 4.6 mmol/L Chloride 99 mmol/L CO2 28 mmol/L Anion Gap 17.6 BUN 52 mg/dL Creatinine 8.6 mg/dL Cr Clearance (Est) 7.6900 mL/min Glucose 112 mg/dL Calcium 7.3 mg/dL Protein, Total 5.8 g/dL Albumin 4.3 g/dL Globulin 1.5 g/dL Bilirubin, Total 0.4 mg/dL ALT (SGPT) 11 U/L AST (SGOT) 19 U/L Alkaline Phosphatase 94 IU/L WBC 1.9 10 3/uL RBC 3.43 10 6/uL HGB 10.3 g/dL HCT 33.4 % MCV 97.4 fL MCH 30.0 pg MCHC 30.8 g/dL RDW 14.1 % Platelet Count 130 10 3/cmm MPV 10.3 fL Neutrophils 1.3 10 3/uL Lymphocytes 0.5 10 3/uL Monocytes 0.1 10 3/uL Eosinophils 0.0 10 3/uL Basophils 0.0 10 3/uL Neutrophil % 67.4 % Lymphocyte % 24.7 % Monocyte % 5.8 % Eosinophil % 1.1 % Basophils % 0.5 % NRBC % 0 % Impression: invasive high-grade urothelial carcinoma Of right renal pelvis/ureter with invasion into the right kidney status post robotic nephroureterectomy done on 05/17/2019 next Final pathology report showed invasive high-grade papillary urothelial carcinoma, tumor size 4 x 3.5 x 1.3 cm invading right kidney and 1.9 x 1.5 cm noninvasive ureter tumor with lymphovascular invasion seen pT3 No lymph nodes were identified for evaluation pNx , Mx stage III ureteral/renal pelvis carcinoma End-stage renal disease on hemodialysis. iscussed with Mr Garcia his disease status and further treatment options. He has invasive high-grade papillary urothelial carcinoma of right renal pelvis with invasion into the right kidney e.g. T3 lesion , with unknown lymph node status. As per N CCN guidelines, Mr Garcia has stage III disease and there is a role of adjuvant [place]-based chemotherapy which may improve disease-free survival. Considering patient's age and comorbid condition, MVAC was not consdered due to toxicity profile but split dose cisplatin and gemcitabine, on day 1 and 8 and repeat every 21 days ???4 cycles. Mr Garcia began his first cycle of split dose cisplatin gemcitabine on August 03, 2019. He has tolerated it well thus far. Plan: Discussed with patient regarding his labs from August 16, 2019 white blood count 3.8, hemoglobin 9.4 hematocrit 30.7 platelets 111,000 CMP within normal limit except creatinine 12.7, patient is on hemodialysis Clinically, patient is doing reasonably well, tolerated first cycle of adjuvant chemotherapy with split dose cisplatin and gemcitabine well but with expected side effects is a progressive pancytopenia/severe leukopenia/neutropenia causing delay in chemotherapy schedule, treated with Neupogen 300 mcg subcu daily for 3 days. Today's CBC showed progressive mild thrombocytopenia thus we will reduce the gemcitabine dose by 10% to minimize risk of thrombocytopenia and leukopenia and also consider appropriate dose of Neupogen which is 480 mcg subcu daily for 3 days and proceed with his day 8' dose today and then patient will return to clinic in the morning for Neupogen to prevent chemotherapy-induced neutropenia/leukopenia and to maintain chemotherapy schedule. And will also check a CBC next week but he will return to clinic in 2 weeks with CBC CMP and if counts looks reasonable, for cycle number 2-day 1 chemotherapy Progressive anemia, etiology appears multifactorial including now with chemotherapy. We will continue to monitor and consider blood transfusion if hemoglobin drops below 8 g Elevated creatinine level, patient is on hemodialysis Friday and Friday/ Signed By: Moses Souza M.D. <<Signature on File>>
[2019-08-17] MEDS: sodium chloride 0.9% 250 ML 75 ML IV (09:27)
[2019-08-17] MEDS: potassium chloride 20 MEQ in sodium chloride 0.9% 500 ML 500 MEQ IV (09:27)
[2019-08-17] MEDS: FUROsemide 10 mg/mL SDV 2mL 20 MG IV (13:34)
== END 2019-08-17 23:59 | disposition home or self-care (01) ==
LOC: ONCMED 06:46
PROVIDERS: Nurse Practitioner; PCP Electrodiagnostic Medicine; Visit Provider Internal Medicine Hematology & Oncology
DX: C65.1 Malignant neoplasm of right renal pelvis (principal); D70.1 Agranulocytosis secondary to cancer chemotherapy; D69.59 Other secondary thrombocytopenia; T45.1X5A Adverse effect of antineoplastic and immunosuppressive drugs, initial encounter; R79.89 Other specified abnormal findings of blood chemistry; I12.0 Hypertensive chronic kidney disease with stage 5 chronic kidney disease or end stage renal disease; N18.6 End stage renal disease; Z99.2 Dependence on renal dialysis; Z79.899 Other long term (current) drug therapy; Z90.5 Acquired absence of kidney; Z90.6 Acquired absence of other parts of urinary tract
CPT/HCPCS: 36591; 80053; 85025; 96365; 96366; 96367; 96372; 96375; 96413; 96417; 99214; J1100; J1200; J1442; J1453; J1940; J2469; J3475; J3480; J7030; J7040; J7050; J9060; J9201

== ENCOUNTER 2019-08-31 06:41 | Outpatient (RCR) | payer MEDICARE, OTHER, SELFPAY ==
[2019-08-24 08:58] LABS: Basophils # 0.2 10^3/uL (0.0-0.1); Basophils % 0.5 %; Eosinophils % 0.1 %; Hematocrit 31.8 % (42.0-52.0); Hemoglobin 9.8 g/dL (11.7-16.6); Lymphocytes # 1.2 10^3/uL (0.8-4.8); Lymphocytes % 3.3 %; Mean Corpuscular HGB Conc 30.8 g/dL (30.0-36.0); Mean Corpuscular Hemoglobin 31.1 pg (28.0-34.0); Mean Platelet Volume 9.5 fL (7.4-10.4); Monocytes # 2.9 10^3/uL (0.2-0.9); Neutrophils # 28.4 10^3/uL (1.8-7.7); Neutrophils % 79.7 %; Nucleated Red Blood Cells % 0 %; Platelet Count 223 10^3/cmm (130-400); Red Blood Count 3.15 10^6/uL (4.1-5.3); Red Cell Distribution Width 15.9 % (12.1-15.1)
[2019-08-24 09:32] LABS: Slide Review Slide Review Perform
[2019-08-24 09:33] LABS: White Blood Count 35.6 10^3/uL (4.0-10.0)
[2019-08-31] MEDS: sodium chloride 0.9% 250 ML 75 ML IV (08:20)
[2019-08-31 08:43] LABS: Basophils % 0.2 %; Eosinophils # 0.1 10^3/uL (0.0-0.8); Eosinophils % 0.4 %; Hematocrit 30.3 % (42.0-52.0); Hemoglobin 9.2 g/dL (11.7-16.6); Lymphocytes # 0.7 10^3/uL (0.8-4.8); Lymphocytes % 4.3 %; Mean Corpuscular HGB Conc 30.4 g/dL (30.0-36.0); Mean Corpuscular Hemoglobin 30.3 pg (28.0-34.0); Mean Corpuscular Volume 99.7 fL (80-94); Mean Platelet Volume 10.7 fL (7.4-10.4); Monocytes # 1.1 10^3/uL (0.2-0.9); Neutrophils # 13.84 10^3/uL (1.8-7.7); Neutrophils % 85.6 %; Nucleated Red Blood Cells % 0 %; Platelet Count 157 10^3/cmm (130-400); Red Blood Count 3.04 10^6/uL (4.1-5.3); Red Cell Distribution Width 16.2 % (12.1-15.1); White Blood Count 16.2 10^3/uL (4.0-10.0)
[2019-08-31 09:00] LABS: Alanine Aminotransferase 11 U/L (0-41); Albumin Level 4.3 g/dL (3.5-5.2); Alkaline Phosphatase 169 IU/L (40-130); Anion Gap 17.6 (5-19); Aspartate Amino Transferase 15 U/L (0-40); Blood Urea Nitrogen 26 mg/dL (8-23); Calcium 7.6 mg/dL (8.5-10.5); Carbon Dioxide 27 mmol/L (22-29); Chloride 103 mmol/L (98-107); Globulin 1.7 g/dL (1.3-4.6); Glucose 142 mg/dL (65-115); Osmolality Calculated 295 mOsm/kg (285-295); Potassium 4.6 mmol/L (3.5-5.1); Sodium 143 mmol/L (136-145); Total Bilirubin 0.3 mg/dL (0.15-1.2)
[2019-08-31] MEDS: FUROsemide 10 mg/mL SDV 2mL 20 MG IV (13:04)
[2019-08-31] MEDS: potassium chloride 20 MEQ in sodium chloride 0.9% 500 ML 500 MEQ IV (13:06)
[2019-09-01 15:16] LABS: Miscellaneous Test See Scanned Lab Rpt
--- NOTE | 2019-09-04 21:28 | ONC FU_ITS ---
[facility] Patient Note Patient: Manuel Garcia Unit #: [id number]: [id number] Dictated By: Jorge AmosDate of Visit: Aug 31, 2019 Onc MED Follow-Up/Prog Note Chief Complaint: Right renal pelvis carcinoma/bladder cancer History of Present Illness: Mr. Garcia is a 74-year-old gentleman with history of papillary tumor located over the right ureteral orifice with obstruction diagnosed on 03/19/2019. Hydronephrosis was noted on CT scan of pelvis. Mr Garcia underwent cystoscopy TURBT on 03/25/2019 which showed papillary urothelial carcinoma: low-grade no muscle invasion seen. He was referred to Dr. Begum, urologist in [place] for further evaluation for evidence of tumor invasion into the ureter. Right robotic nephroureterectomy was considered and patient underwent procedure on 05/17/2019. The final pathology report showed invasive high-grade papillary urothelial carcinoma involving right renal pelvis with tumor invasion into the kidney, size was 4 x 3.5 x 1.3 cm. There was a noninvasive ureter tumor size was 1.9 x 1.5 cm., Lymphovascular invasion was seen, no lymph node was evaluated e.g. T3,Nx Mx, stage III Mr Garcia tolerated procedure well He is on hemodialysis for end-stage renal disease. He goes to dialysis on Friday, Friday and Friday. Mr. Garcia was seen by Dr. Souza. Dr. Souza did discuss with him his disease status and further treatment options. He was determined to have stage III disease and felt that adjuvant [place] based chemotherapy was a good option for him. However considering his age and comorbid condition MVAC was not considered due to toxicity profile but split dose cisplatin and gemcitabine on day 1 and 8 on a 21-day cycle for 4 cycles was recommended. Mr Garcia began his first cycle on August 03, 2019. He is here today for follow-up consideration for cycle 2 day1 chemotherapy. He states overall he is doing pretty good. He states he is had some tingling in his hands and feet but it is the same as what it has been. He has been busy cleaning his garage and doing well with this activity. He denies any fever or chills. He states his appetite is good. He denies any mouth sores, sore throat or difficulty swallowing. He denies any chest pain or palpitations. He states his breathing is about the same and certainly no more short of breath. He denies any orthopnea. He denies nausea or vomiting. He states his bowels and bladder are normal for him. He feels overall he is doing pretty good. His ECOG is 1. Past Medical History: Hypertension Renal failure Past Surgical History: Back surgery Nephroureterectomy Port placement TURBT Right Internal Juglar Port a Cath [place] [place] Allergies: No Known Allergies. Medications: Atorvastatin Calcium 1 Tablet (of 20 mg) Oral at bedtime Claritin 1 Tablet (of 10 mg) Oral daily hydrALAZINE HCl 1 Tablet (of 50 mg) Oral t.i.d. NyQuil Severe Cold/Flu Capsule Oral PRN Omeprazole 1 Tablet (of 40 mg) Tablet, enteric coated Oral every am Triamcinolone Acetonide Ointment Topical PRN Tums 1 Tablet Tablet, chewable Oral PRN Tylenol Tablet Oral PRN Family History: Mr. Garcia's mother is : motor vehicle accident. Mr. Garcia's father at age 71: myocardial infarction. Social History: Mr. Garcia is and he is an unknown. Mr. Garica has never smoked. He drinks occasionally. Review Of Symptoms: Constitutional Denies fevers, chills, night sweats, excessive fatigue or weight loss. Eating ok but taste is off because of my kidneys . Allergic/Immunologic No reactions. Eyes Denies significant visual changes. No diplopia. No amaurosis. ENMT Denies changes in hearing, sore throat, mouth sores, difficulty or changes in swallowing ability, and/or sinus drainage. Endocrine No diabetes, thyroid disease or hormone replacement. Denies hot flashes or night sweats. Hematologic/Lymphatic Denies easy bruising or bleeding. The patient denies any tender or palpable lymph nodes. Respiratory Denies dyspnea on exertion, chest pain, cough or hemoptysis. Denies orthopnea. Cardiovascular Denies anginal chest pain, palpitations or orthopnea. Gastrointestinal Denies nausea, vomiting, diarrhea, GI bleeding, or constipation. Denies change in bowel habits and/or stool color, no heartburn or early satiety. Genitourinary (M) Denies hematuria, dysuria, increased frequency, urgency, hesitancy or incontinence. Musculoskeletal Denies joint pain, swelling or redness. No decreased range of motion. Integumentary Denies chronic rashes, inflammation, ulcerations or skin changes. Neurologic Denies headache, blurred vision, and no areas of focal weakness or numbness. Intermittent tingling but no worse than what is has been. Normal gait. No sensory problems. Psychiatric Denies insomnia, depression, crow or mood swings. Vital Signs: Performed on Aug 31, 2019 09:44 Height - 66.00 in Weight - 156.6 lbs (HIGH) BSA - 1.80 sq.m BMI - 25.28 Temperature - 98.4 F Pulse - 80 /min Respiration - 17 /min BP - 190/87 mm(hg) (HIGH) O2 Sat - 97 % Pain - 0,1 - No physically strenuous activity, but ambulatory and able to carry out light or sedentary work (e.g. office work, light house work). (ECOG) Physical Examination: Constitutional Alert, oriented, no acute distress. Skin pink, warm and dry. Head Normocephalic; atraumatic. Eyes Conjunctivae and sclerae are clear and without icterus. Pupils are reactive and equal. Neck Supple without masses or thyromegaly. No jugular venous distension. Hematologic/Lymphatic No petechiae or purpura. No tender or palpable lymph nodes in the cervical or supraclavicular areas. Respiratory Lungs are clear to auscultation without rhonchi or wheezing. Cardiovascular Regular rate and rhythm of heart without murmurs,clicks, gallops or rubs. Chest Right chest wall venous access device insertion site is unremarkable. Abdomen Non-tender, non-distended, no masses or ascites. Good bowel sounds noted in all quads. No guarding or rebound tenderness. No pulsatile masses. Back/Spine Non-tender to palpation. Extremities No visible deformities, no cyanosis, clubbing or edema. Musculoskeletal No tenderness or swelling, normal range of motion without obvious weakness. Integumentary No rashes or lesions. Neurologic No sensory or motor deficits, normal cerebellar function, normal gait. Psychiatric Alert and oriented times three. Coherent speech. Verbalizes understanding of our discussions today. Laboratory:Test performed on Aug 31, 2019 08:13 Sodium 143 mmol/L Potassium 4.6 mmol/L Chloride 103 mmol/L CO2 27 mmol/L Anion Gap 17.6 BUN 26 mg/dL Creatinine 8.0 mg/dL Cr Clearance (Est) 8.2600 mL/min Glucose 142 mg/dL Calcium 7.6 mg/dL Protein, Total 6.0 g/dL Albumin 4.3 g/dL Globulin 1.7 g/dL Bilirubin, Total 0.3 mg/dL ALT (SGPT) 11 U/L AST (SGOT) 15 U/L Alkaline Phosphatase 169 IU/L WBC 16.2 10 3/uL RBC 3.04 10 6/uL HGB 9.2 g/dL HCT 30.3 % MCV 99.7 fL MCH 30.3 pg MCHC 30.4 g/dL RDW 16.2 % Platelet Count 157 10 3/cmm MPV 10.7 fL Neutrophils 13.84 10 3/uL Lymphocytes 0.7 10 3/uL Monocytes 1.1 10 3/uL Eosinophils 0.1 10 3/uL Basophils 0.0 10 3/uL Neutrophil % 85.6 % Lymphocyte % 4.3 % Monocyte % 7.0 % Eosinophil % 0.4 % Basophils % 0.2 % NRBC % 0 % Test performed on Aug 24, 2019 08:20 CBC Slide Review Slide Review Perform SLIDE REVIEW AGREES WITH AUTOMATED RESULTS ST Impression: invasive high-grade urothelial carcinoma Of right renal pelvis/ureter with invasion into the right kidney status post robotic nephroureterectomy done on 05/17/2019 next Final pathology report showed invasive high-grade papillary urothelial carcinoma, tumor size 4 x 3.5 x 1.3 cm invading right kidney and 1.9 x 1.5 cm noninvasive ureter tumor with lymphovascular invasion seen pT3 No lymph nodes were identified for evaluation pNx , Mx stage III ureteral/renal pelvis carcinoma End-stage renal disease on hemodialysis. iscussed with Mr Garcia his disease status and further treatment options. He has invasive high-grade papillary urothelial carcinoma of right renal pelvis with invasion into the right kidney e.g. T3 lesion , with unknown lymph node status. As per N CCN guidelines, Mr Garcia has stage III disease and there is a role of adjuvant [place]-based chemotherapy which may improve disease-free survival. Considering patient's age and comorbid condition, MVAC was not consdered due to toxicity profile but split dose cisplatin and gemcitabine, on day 1 and 8 and repeat every 21 days ???4 cycles. Mr Garcia began his first cycle of split dose cisplatin gemcitabine on August 03, 2019. He has tolerated it well thus far. Clinically, patient is doing reasonably well, tolerated first cycle of adjuvant chemotherapy with split dose cisplatin and gemcitabine well but with expected side effects is a progressive pancytopenia/severe leukopenia/neutropenia causing delay in chemotherapy schedule, treated with Neupogen 300 mcg subcu daily for 3 days. CBC from 08/16/2019showed progressive mild thrombocytopenia thus Dr Souza did reduce the gemcitabine dose by 10% to minimize risk of thrombocytopenia and leukopenia and added Neupogen 480 mcg subcutaneous daily for 3 days. Plan: 1. Proceed with cycle 2-day 1 cisplatin gemcitabine. The gemcitabine has been reduced by 10% because of thrombocytopenia and leukopenia. He did require 3 days of Neupogen with cycle 1 day 1. His day 8 treatment was initially delayed on cycle 1 due to neutropenia. Continue current antiemetics as they are working well for him. 3. I did not proceed with Neulasta today given his ANC is 14,000. 4. We did review and discuss his labs in detail from today. His white count is 16.2, hemoglobin 9.2, platelets significant 7000, ANC is 14,000. Potassium 4.6 random glucose 142 creatinine is not concerning as he is on hemodialysis 3 days a week. His LFTs are normal alk phos was 169. His weight is stable at 156.6. 5. We will plan to see him back in 1 week with CBC CMP. 6. Mr. Garcia was instructed to contact us in the interim should questions or problems arise. Signed By: Jorge Amos-KINGSTON, MILVIA Souza MD <<Signature on File>>
== END 2019-08-31 23:59 | disposition home or self-care (01) ==
LOC: ONCMED 06:41
PROVIDERS: Internal Medicine Hematology & Oncology; PCP Electrodiagnostic Medicine; Visit Provider Nurse Practitioner
DX: Z51.11 Encounter for antineoplastic chemotherapy (principal); C65.1 Malignant neoplasm of right renal pelvis; D70.1 Agranulocytosis secondary to cancer chemotherapy; D69.59 Other secondary thrombocytopenia; T45.1X5A Adverse effect of antineoplastic and immunosuppressive drugs, initial encounter; D47.9 Neoplasm of uncertain behavior of lymphoid, hematopoietic and related tissue, unspecified; C85.90 Non-Hodgkin lymphoma, unspecified, unspecified site; I12.0 Hypertensive chronic kidney disease with stage 5 chronic kidney disease or end stage renal disease; N18.6 End stage renal disease; Z99.2 Dependence on renal dialysis; Z90.5 Acquired absence of kidney; Z90.6 Acquired absence of other parts of urinary tract; Z79.899 Other long term (current) drug therapy
CPT/HCPCS: 36415; 36591; 80053; 85025; 88271; 88275; 96366; 96367; 96372; 96375; 96413; 96417; 99214; J1100; J1200; J1453; J1940; J2469; J2505; J3475; J3480; J7030; J7040; J7050; J9060; J9201

== ENCOUNTER 2019-09-02 07:47 | Outpatient (CLI) | payer MEDICARE, OTHER, SELFPAY ==
[2019-09-02 08:18] LABS: Basophils % 0.2 %; Eosinophils % 0.4 %; Hematocrit 34.2 % (42.0-52.0); Hemoglobin 10.3 g/dL (11.7-16.6); Lymphocytes # 0.7 10^3/uL (0.8-4.8); Lymphocytes % 7.7 %; Mean Corpuscular HGB Conc 30.1 g/dL (30.0-36.0); Mean Corpuscular Hemoglobin 30.5 pg (28.0-34.0); Mean Corpuscular Volume 101.2 fL (80-94); Mean Platelet Volume 10.2 fL (7.4-10.4); Monocytes # 0.7 10^3/uL (0.2-0.9); Neutrophils # 7.62 10^3/uL (1.8-7.7); Neutrophils % 83.2 %; Nucleated Red Blood Cells % 0 %; Platelet Count 256 10^3/cmm (130-400); Red Blood Count 3.38 10^6/uL (4.1-5.3); Red Cell Distribution Width 16.8 % (12.1-15.1); White Blood Count 9.2 10^3/uL (4.0-10.0)
[2019-09-02 08:28] LABS: Alanine Aminotransferase 13 U/L (0-41); Albumin Level 4.4 g/dL (3.5-5.2); Alkaline Phosphatase 145 IU/L (40-130); Anion Gap 20.6 (5-19); Aspartate Amino Transferase 22 U/L (0-40); Blood Urea Nitrogen 30 mg/dL (8-23); Calcium 7.8 mg/dL (8.5-10.5); Carbon Dioxide 25 mmol/L (22-29); Chloride 103 mmol/L (98-107); Glucose 141 mg/dL (65-115); Osmolality Calculated 297 mOsm/kg (285-295); Potassium 4.6 mmol/L (3.5-5.1); Sodium 144 mmol/L (136-145); Total Bilirubin 0.3 mg/dL (0.15-1.2); Total Protein 6.4 g/dL (6.6-8.7)
== END 2019-09-02 07:48 | disposition home or self-care (01) ==
PROVIDERS: PCP Electrodiagnostic Medicine; Visit Provider Urology
DX: C67.0 Malignant neoplasm of trigone of bladder (principal)
CPT/HCPCS: 36415; 80053; 85025

== ENCOUNTER 2019-09-02 09:15 | Outpatient (CLI) | payer MEDICARE, OTHER, SELFPAY ==
--- NOTE | 2019-09-02 09:28 | XRR_ITS ---
PROCEDURE INFORMATION: Exam: XR Chest, 2 Views Exam date and time: 09/02/2019 9:34 AM Age: 74 years old Clinical indication: Condition or disease; Other: Kidney/bladder cancer; Prior surgery; Surgery date: <1 month; Surgery type: Port-a-cath; Patient HX: No chest complaints. HX of malignant neoplasm of trigone of bladder TECHNIQUE: Imaging protocol: XR of the chest Views: 2 views. COMPARISON: No relevant prior studies available. FINDINGS: Tubes, catheters and devices: Chest port/Mediport has been placed via the right jugular approach with the tip in the superior vena cava. Lungs: Lungs are well aerated without a focal area of consolidation. Pleural space: Unremarkable. No pleural effusion. No pneumothorax. Heart/Mediastinum: Unremarkable. No cardiomegaly. Bones/joints: Unremarkable. XR/XR chest 2V* [id number] IMPRESSION: Lungs are well aerated without a focal area of consolidation.
== END 2019-09-02 09:16 | disposition home or self-care (01) ==
PROVIDERS: PCP Electrodiagnostic Medicine; Visit Provider Urology
DX: C67.0 Malignant neoplasm of trigone of bladder (principal)
CPT/HCPCS: 36415; 71046; 80053; 85025

== ENCOUNTER 2019-09-03 15:30 | Observation (INO) | payer MEDICARE, OTHER, SELFPAY ==
[2019-09-02 16:18] VITALS: BMI 25.3
[2019-09-03] VITALS (23 sets, daily range): BP systolic 132–186; BP diastolic 71–107; PULSE 84–99; RESP 9–20; TEMP 36.7–37.5; O2SAT 94–98
[2019-09-03] MEDS: sodium chloride 0.9% 1,000 ML 30 ML IV (12:02)
--- NOTE | 2019-09-03 12:23 | ANES.PREANE2 ---
Pre-Anesthetic Assessment Pre-Anesthetic Assessment: Height/Weight: Height 1.68 m Weight 71.214 kg Temp Pulse Resp BP Pulse Ox 98.1 F 84 18 160/86 98 09/03/19 11:40 09/03/19 11:40 09/03/19 11:40 09/03/19 11:40 09/03/19 11:40 Preop Diagnosis: Recurrent bladder cancer Proposed Procedure: Operation Date: 09/03/19 13:00 Proposed Procedures p Cystoscopy 56240 C67.9(Not Applicable) - Landon Ortega MD s Transurethral Resection Bladder Tumor Large(Not Applicable) - Landon Ortega MD Was Beta Alber taken within 24 hours: N/A Last intake: Intake Last Liquid Date 09/02/19 Last Liquid Time 04:00 Last Solid Date 09/02/19 Last Solid Time 20:00 Social: Social History: No alcohol and No tobacco Exam: Pre-Anes Outpt Exam: alert, oriented x 3, clear to auscultation bilaterally and regular rate & rhythm Airway: Submandibular: WNL Cervical ROM: WNL MP: 2 Dentition: Full History/ROS: No significant complaints Pulmonary: Pulmonary: None reported CV/HEM: CV/HEM: None reported : : Chronic renal failure Hepatic: Hepatic: None reported GI: GI: GERD Metabolic: Metabolic: None reported Musc/skel: Musc/skel: OA/DJD Neuropsych: Neuropsych: None reported Anesthetic Plan: ASA status: 3 Anesthesia: General Meds/Allergies Current Medications: Current Medications Generic Name Dose Route Start Last Admin Trade Name Freq PRN Reason Stop Dose Admin Sodium Chloride 1,000 mls @ 30 ml s/hr 09/03/19 11:30 09/03/19 12:02 Sodium Chloride 0.9% IV 09/04/19 11:29 30 mls/hr .Q24H DEJUAN Administration PFSH Anesthesia PFSH: Medical History (Updated 09/02/19 @ 09:02 by Landon Ortega MD) AV fistula Bladder cancer Cancer of trigone of urinary bladder CKD (chronic kidney disease) stage 5, GFR less than 15 ml/min On hemodialysis Degenerative joint disease (DJD) of lumbar spine GERD (gastroesophageal reflux disease) Gross hematuria Hydronephrosis, right Hypertension Primary cancer of right ureter Surgical History History of back surgery History of ear surgery TRAUMA TO RIGHT EAR-PART OF TOP OF EAR REMOVED Status post insertion of dialysis catheter RIGHT FOREARM Family History Father , AT AGE 71 Heart attack Mother , MVA No problems noted. Denies family history of Anesthesia complication Bleeding disorder Social History Smoking and tobacco status: former smoker Quit status (tobacco): has quit using tobacco Year quit tobacco: 1970s Alcohol intake: current Alcohol intake frequency: few times a month Marital status: Current occupational status: retired Current gender identity: Male Data Anesthesia Cardiac Studies: No Data to Display
--- NOTE | 2019-09-03 13:27 | W.PM.OPSUD ---
Surgery/Procedure H&P Update DATE OF PROCEDURE: September 03, 2019 DATE H&P PERFORMED: 09/02/19 H&P UPDATE INFORMATION: I have reviewed H&P completed within last 30 days, I have examined patient prior to procedure, No changes to prior documentation and H&P is in [facility] EMR on date indicated CHANGES TO PREVIOUS DOCUMENTATION: Good review with the family and patient. Explained the findings. PREOP DIAGNOSIS: Recurrent bladder cancer PLANNED PROCEDURE: Operation Date: 09/03/19 13:00 Proposed Procedures p Cystoscopy 10526 C67.9(Not Applicable) - Landon Ortega MD s Transurethral Resection Bladder Tumor Large(Not Applicable) - Landon Ortega MD
[2019-09-03] MEDS: levofloxacin-dextrose 5% 250 MG/50 ML PREMIX 50 MG IV (13:30)
[2019-09-03] MEDS: lidocaine 2% Urojet 20 mL TOPICAL (13:58)
--- NOTE | 2019-09-03 14:43 | PM.OP ---
Operative Report Date of procedure: September 03, 2019 Pre-op Diagnosis: Recurrent bladder cancer Post-op diagnosis: same Procedure Done: Cystoscopy, transurethral resection/fulguration of bladder tumor large Pathology: Representitive bladder tumor multiple sites Surgeon: Jordan Anesthesia: General Estimated blood loss: Less than 10 cc Complications: None Findings: 1. An estimated 25-30 small papillary tumors throughout the bladder mucosa all fulgurated completely. 2. A conglomeration of papillary tumors over the previous resection site of the ureteral orifice extending greater than 5 cm onto the bladder neck. All completely resected Condition: stable Disposition: PACU Brief History: Manuel is a very pleasant 74-year-old white male who I first evaluated earlier this year with complaints of gross hematuria and abnormal CT scan. Ultimately he was found to have a large bladder tumor over the right ureteral orifice extending well up the ureter. Tumor was resected completely in the bladder but there was residual tumor extending up the right ureter. Pathology revealed transitional cell carcinoma without muscle invasion. He was referred for nephro ureterectomy to Dr. Begum in [facility] in [place]. He underwent a nephro ureterectomy robotically and did well. There was actually another tumor in the area of the kidney that was invading the kidney parenchyma and the extension of the ureteral involvement distally involved approximately 19 cm of the ureter. While there was no extra ureteral disease there were positive margins with carcinoma in situ at the ureterovesical junction origin. He has since undergone initiation of chemotherapy. Dr. Souza follows him for that. Further complicated by chronic end-stage renal disease on hemodialysis. Procedure: After routine preoperative evaluation examination and obtaining of informed consent he was taken to the operating suite on 09/03/2019 where general anesthesia was administered without difficulty after appropriate timeout was performed, SCDs confirmed to be functioning, preoperative antibiotics administered, beta-beronica protocol confirmed. Prepped and draped in usual sterile fashion in dorsolithotomy position pain careful attention to avoiding pressure points. 21 [place] cystoscope with 30 degree lens was introduced to the urethral meatus and advanced into the bladder under videoscopy. Bladder was systematically examined and found to be consistent with findings seen in recent clinic cystoscopy. He had numerous probably 2-3 dozen small papillary tumors scattered throughout the bladder and a larger probably 5-1/2 to 6 cm papillary tumor over the right bladder neck extending onto the area of the previously resected right ureteral orifice. [place] sounds were used to calibrate the urethra and easily accommodated 30 [place]. 2% lidocaine jelly was instilled into the urethra than the 25 [place] continuous flow resectoscope sheath with visual obturator in place was advanced with videoscopy into the bladder. The [employer] bipolar system was utilized for fulguration/resection. The button probe was utilized initially to fulgurate all the small papillary tumors. I stopped counting at approximately 27. A couple of these were larger and then resected with the super loop. The larger tumor over the previously located right ureteral orifice was resected with the super loop with extension out onto the bladder neck. All visible tumor was resected or fulgurated. The bladder was inspected multiple times and no additional lesions were identified. At the completion of the resection/fulguration hemostasis was visually confirmed. There were no residual chips in the bladder. The bladder was then drained with a 20 [place] three-way Barajas catheter with 30 cc placed in the balloon and light CBI was initiated Tolerated the procedure well without complications and was awakened in the operating room and returned to recovery in stable condition. PLANS: 1. Taper CBI as tolerated. 2. Maintain Barajas overnight. 3. Look to discharge tomorrow. 4. Consult nephrology if necessary for inpatient dialysis.
[2019-09-03] MEDS: labetalol 5 mg/mL SDV 20mL IVP (15:04)
--- NOTE | 2019-09-03 17:06 | SUR.PHASEI ---
1317 PATIENT TO MED SURG AT THIS TIME FROM PACU. NO DISTRESS. MINIMAL PAIN TO LOWER ABDOMEN. LAMA CATH IN PLACE, WITH CBI RUNNING. PATIENT AMBULATORY FROM RNEY TO BED WITH STEADY GAIT.
[2019-09-03] MEDS: hyDRALAzine 50 mg Tablet PO ×2 (18:25→21:51)
--- NOTE | 2019-09-03 19:24 | PC.NURSE ---
SHIFT SUMMARY patient has done well since received from surgery. CBI dripping slowly at this time, urine pink tinged. no complaints of pain and no bladder distention noted at this time. No manual irrigation needed, pt resting well in bed watching tv, bedside report given to night pt care nurse Christelle BRANDON.
[2019-09-03] MEDS: amlodipine 10 mg Tablet PO (21:51)
[2019-09-04] VITALS: BP 138/72; PULSE 88; RESP 16; TEMP 37.1; O2SAT 95
[2019-09-04 04:00] VITALS: BP 132/76; PULSE 84; RESP 17; TEMP 36.9; O2SAT 96
[2019-09-04 06:14] LABS: Basophils % 0.1 %; Eosinophils # 0.1 10^3/uL (0.0-0.8); Eosinophils % 0.8 %; Hematocrit 29.7 % (42.0-52.0); Hemoglobin 9.1 g/dL (11.7-16.6); Lymphocytes # 0.4 10^3/uL (0.8-4.8); Lymphocytes % 5.5 %; Mean Corpuscular HGB Conc 30.6 g/dL (30.0-36.0); Mean Platelet Volume 10.2 fL (7.4-10.4); Monocytes # 0.1 10^3/uL (0.2-0.9); Monocytes % 1.8 %; Neutrophils # 6.64 10^3/uL (1.8-7.7); Neutrophils % 91.5 %; Nucleated Red Blood Cells % 0 %; Platelet Count 249 10^3/cmm (130-400); Red Blood Count 2.94 10^6/uL (4.1-5.3); Red Cell Distribution Width 16.3 % (12.1-15.1); White Blood Count 7.3 10^3/uL (4.0-10.0)
[2019-09-04 06:56] LABS: Anion Gap 18.7 (5-19); Blood Urea Nitrogen 27 mg/dL (8-23); Calcium 6.4 mg/dL (8.5-10.5); Carbon Dioxide 26 mmol/L (22-29); Chloride 102 mmol/L (98-107); Glucose 93 mg/dL (65-115); Osmolality Calculated 291 mOsm/kg (285-295); Potassium 4.7 mmol/L (3.5-5.1); Sodium 142 mmol/L (136-145)
--- NOTE | 2019-09-04 07:24 | P.DS_ITS ---
Discharge Providers Date of Admission: 09/03/19 15:30 Date of Discharge: September 04, 2019 Attending Provider at Admission: Landon Ortega MD Attending Provider at Discharge: Landon Ortega MD Primary Care Provider: Ayo Trinidad DO Diagnoses at Discharge Discharge Diagnosis (1) Bladder cancer: Status: Acute Qualifiers: Bladder location: overlapping sites Qualified Code(s): C67.8 - Malignant neoplasm of overlapping sites of bladder (2) Hypertension: Status: Acute Qualifiers: Hypertension type: essential hypertension Qualified Code(s): I10 - Essential (primary) hypertension Reason for Visit Reason for Visit: cystoscopy Hospital Course Discharge Summary: He was admitted on 09/03/2019 for multiple recurrences (appeared implantation) in his bladder of what appeared to be well differentiated bladder cancer. He is status post right nephro ureterectomy for multifocal TCCA. 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 Souza. The procedure went well. Approximately 2 dozen plus bladder tumors that were small and well differentiated were fulgurated and an area of recurrence over the right trigone extending onto the bladder neck was resected completely. All tumors were treated. There was minimal bleeding. Postoperatively he did well. His urine remained clear with light CBI which was weaned off by the morning. He underwent intravesical instillation of mitomycin by myself on the floor which he held for about an hour and then it was drained. Catheter was removed. Adequate emptying confirmed with bladder scan. Urine remained clear. Discharged without Barajas. Stable at discharge. We will plan on reviewing pathology report next week over the phone. Surveillance cystoscopy in approximately 6 weeks. Physical Exam Const: COMMON NORMALS: no acute distress, alert and well nourished GENERAL APPEARANCE: well kempt and well developed ORIENTATION/CONSCIOUSNESS: not confused HENMT: COMMON NORMALS: normocephalic and atraumatic HEAD & SCALP: normocephalic and atraumatic Eye: COMMON NORMALS: conjunctivae normal and no scleral icterus CONJUNCTIVA: Yes conjunctivae normal Neck/C-Spine: COMMON NORMALS: full ROM GENERAL: Yes normal visual inspection Resp: COMMON NORMALS: normal respiratory effort EFFORT & INSPECTION: No labored and No Actively coughing : BLADDER/KIDNEY EXAM: Yes bladder normal to palpation PENIS: normal penis MEATUS: meatus normal Extremity: COMMON NORMALS: no clubbing, cyanosis or edema Neuro: COMMON NORMALS: no focal motor deficits SENSORIUM/ORIENTATION: Yes alert Psych: COMMON NORMALS: mental status grossly normal and Normal thought process present APPEARANCE: Yes grossly normal and Yes well kempt ATTITUDE: Yes calm and Yes engaged THOUGHT PROCESS: Normal thought process present Skin: COMMON NORMALS: no rashes or lesions noted and no jaundice GENERAL SKIN EXAM: no rashes or lesions noted Urinary Catheter Management^: 3-way Urethral CBI: Cath Placed During This Visit: yes Urinary Catheter Date of Insertion: 09/03/19 Urinary Catheter Time of Insertion: 14:41 Discharge Data Data Completed and Pending: Pending at discharge Category Date Time Status Pathology: Surgic al [PTH] Routine Pth 09/03/19 14:47 Ordered Labs from last 24 hours 09/04/19 09/04/19 05:24 05:24 WBC 7.3 RBC 2.94 L Hgb 9.1 L Hct 29.7 L MCV 101.0 H MCH 31.0 MCHC 30.6 RDW 16.3 H Plt Count 249 MPV 10.2 Neut % (Auto) 91.5 Lymph % (Auto) 5.5 Blaine % (Auto) 1.8 Eos % (Auto) 0.8 Baso % (Auto) 0.1 Neut # (Auto) 6.64 Lymph # (Auto) 0.4 L Blaine # (Auto) 0.1 L Eos # (Auto) 0.1 Baso # (Auto) 0.0 Nucleated RBC % (a uto) 0 Nucleated RBCs # 0.0 Sodium 142 Potassium 4.7 Chloride 102 Carbon Dioxide 26 Anion Gap 18.7 BUN 27 H Creatinine 6.8 H* Glucose 93 Calculated Osmolal ity 291 Calcium 6.4 L Vitals: Last Vital Signs Temp 98.4 F 09/04/19 04:00 Pulse 84 09/04/19 04:00 Resp 17 09/04/19 04:00 BP 132/76 09/04/19 04:00 Pulse Ox 96 09/04/19 04:00 Discharge Plan Discharge Patient Disposition: Home, Self-Care Condition: Stable Prescriptions: Continued omeprazole 40 mg capsule,delayed release(DR/EC) 40 mg PO QDAY RF: 0 hydralazine 50 mg tablet 50 mg PO TID RF: 0 amlodipine 10 mg tablet 10 mg PO BEDTIME RF: 0 atorvastatin 20 mg tablet 20 mg PO QDAY RF: 0 prochlorperazine maleate 10 mg tablet 10 mg PO Q4H PRN (Reason: Nausea And Vomiting) RF: 0 Discharge Orders: Discharge Order (Routine); Ordered 09/04/19 Ordered By: Landon Ortega Referrals: Landon Ortega MD [Physician] - 6 Weeks (Cystoscopy possible fulguration on return to clinic Call for pathology report mid next week. Need a follow up appointment in 6 weeks called to patient at home please. Information faxed to clinic) Discharge Diet: Usual diet Discharge Activity: Limit activity as instructed Patient Instructions: Prochlorperazine (By mouth), Omeprazole (By mouth), Hydralazine (By mouth), Amlodipine (By mouth), Atorvastatin (By mouth), Hypertension, Chronic Kidney Disease (DC), Bladder Cancer (DC), Transurethral Resection of Bladder Tumors (DC) Activity Restrictions/Additional Instructions: 1. Avoid lifting >10 pounds for 2 weeks. Limiting activity is important to reduce the risk of bleeding. 2. If the catheter had to be replaced before discharge we will remove it next week in my office. Please call to confirm time. 3. If the catheter remained out at discharge please call my office midweek if you have not heard from us to review the pathology report. Unless there is a significant difference than what is expected on the pathology report, the next visit will be in approximately 6 weeks for cystoscopy. If there are any small recurrences we can treat those in the office at that time. 4. Avoid over distention of the bladder at home. 5. Please call if you have any questions. Discharge Date/Time: 09/04/19 11:30 Discharge Attestations Time Spent in Discharge Care*: greater than 30 min Quality Metrics Clinical Quality Measures During this hospital stay, did patient experience: None Coding Level of Care Code Acute Sales And Management Trainee for Chg Fwd Exam Comprehensive Diagnoses Bladder cancer C67.8 Bladder location: overlapping sites Hypertension I10 Hypertension type: essential hypertension
[2019-09-04 08:00] VITALS: BP 151/85; PULSE 90; RESP 18; TEMP 36.7; O2SAT 98
[2019-09-04] MEDS: atorvastatin 40 mg Tablet 20 MG PO (09:22)
[2019-09-04] MEDS: pantoprazole DR 40 mg Tablet PO (09:22)
[2019-09-04] MEDS: hyDRALAzine 50 mg Tablet PO (09:22)
--- NOTE | 2019-09-04 09:42 | PC.NURSE ---
Prn bladder scan/forde removal Medication drained and 150 ml irrigation instilled. Ballon deflated with 28 ml removed from ballon. Patient tolerated well. patient has urinated 5 bottles that is tea colored/pink. Bladder scan shows patient has 12ml in bladder. Physician notified with orders in place to discharge.
--- NOTE | 2019-09-04 10:01 | PC.CHAP ---
Pastoral Care Encounter/Spiritual Assessment Type of Contact [] Declined oral and maxillofacial surgery resident visit [] Patient/Family/Request visit [] Outpatient visit [] Follow-up visit [] Physician referral [] Code/Alert [X] Routine visit [] Staff referral [] Actively dying [] Patient sleeping [] Family support [] [] Out of room [] Palliative care [] [] Receiving care in room [] Pre-surgical visit [] Trauma [] Long length of stay [] ICU visit [] Other: Relational/Emotional Strength [] Patient feels connected with others/family/visitors/staff [] Distress [] Loneliness/isolation [] Abandonment Spirituality of Patient [] Person of Jessica [] Attends Anabaptism of their Jessica [] Believes in Prayer [] Reads Bible or Quaker materials [] There are Spiritual issues to be addressed Services Host Interventions [] Prayer [] Active listening [] Non-anxious presence [] Spiritual/emotional support [] Crisis/trauma care [] Spiritual counseling [] Bereavement support [] Provided bereavement packet [] Provided Bible/devotional materials [] Provided toy/stuffed animal, coloring book to patient or family member [] Provided Communion [] Anointing/[place] [] Salvation [] Completed spiritual assessment [] Other: Impact on Illness or Injury [] Angry [] Fearful [] Anxious [] Often cries [] Exhaustion [] Unable to work [] Unable to attend samaritan [] Unable to walk/stand [] Unable to read [] Unable to drive [] Unable to eat/drink [] Unable to sleep [] Unable to be with family [] Patient intubated [] Other: Summary Time spent with patient
--- NOTE | 2019-09-04 10:12 | PC.NURSE ---
Prn bladder scan Patient voided last bottle, bladder scan shows bladder is empty. Patient denies pain and no distention of the bladder is noted.
[2019-09-04 11:52] VITALS: BP 151/85; PULSE 90; RESP 18; TEMP 36.7; O2SAT 98
== END 2019-09-04 11:30 | disposition home or self-care (01) ==
LOC: MEDSURG 15:30
PROVIDERS: Admitting Provider Urology; PCP Electrodiagnostic Medicine; Visit Provider Urology
PROC: 0TJB8ZZ Inspection of Bladder, Via Natural or Artificial Opening Endoscopic (ICD-10-PCS; CPT 52000; principal; 2019-09-03 13:00)
PROC: 0TBB8ZZ Excision of Bladder, Via Natural or Artificial Opening Endoscopic (ICD-10-PCS; CPT 52240; 2019-09-03 13:00)
DX: C67.8 Malignant neoplasm of overlapping sites of bladder (principal); I12.0 Hypertensive chronic kidney disease with stage 5 chronic kidney disease or end stage renal disease; N18.5 Chronic kidney disease, stage 5; M47.896 Other spondylosis, lumbar region; Z87.891 Personal history of nicotine dependence; K21.9 Gastro-esophageal reflux disease without esophagitis
CPT/HCPCS: 52240; 12345; 36415; 80048; 85025; 88305; 96365; G0378; J1956; J2405; J2704; J3010; J3490; J7030; J9280

== ENCOUNTER 2019-09-09 06:40 | Outpatient (RCR) | payer MEDICARE, OTHER, SELFPAY ==
[2019-09-07 09:03] LABS: Basophils % 0.9 %; Eosinophils % 0.9 %; Hematocrit 28.4 % (42.0-52.0); Hemoglobin 8.8 g/dL (11.7-16.6); Lymphocytes # 0.4 10^3/uL (0.8-4.8); Lymphocytes % 19.8 %; Mean Corpuscular Hemoglobin 30.2 pg (28.0-34.0); Mean Corpuscular Volume 97.6 fL (80-94); Mean Platelet Volume 9.2 fL (7.4-10.4); Monocytes # 0.2 10^3/uL (0.2-0.9); Monocytes % 10.1 %; Neutrophils # 1.47 10^3/uL (1.8-7.7); Neutrophils % 67.8 %; Nucleated Red Blood Cells % 0 %; Platelet Count 225 10^3/cmm (130-400); Red Blood Count 2.91 10^6/uL (4.1-5.3); Red Cell Distribution Width 15.7 % (12.1-15.1); White Blood Count 2.2 10^3/uL (4.0-10.0)
[2019-09-07 09:13] LABS: Alanine Aminotransferase 9 U/L (0-41); Albumin Level 4.1 g/dL (3.5-5.2); Alkaline Phosphatase 115 IU/L (40-130); Anion Gap 13.7 (5-19); Aspartate Amino Transferase 23 U/L (0-40); Blood Urea Nitrogen 30 mg/dL (8-23); Calcium 7.2 mg/dL (8.5-10.5); Carbon Dioxide 29 mmol/L (22-29); Chloride 101 mmol/L (98-107); Globulin 1.9 g/dL (1.3-4.6); Glucose 148 mg/dL (65-115); Osmolality Calculated 290 mOsm/kg (285-295); Potassium 3.7 mmol/L (3.5-5.1); Sodium 140 mmol/L (136-145); Total Bilirubin 0.3 mg/dL (0.15-1.2)
--- NOTE | 2019-09-07 11:37 | ONC FU_ITS ---
Dr. Souza follow up note Patient: Manuel Garcia Unit #: [id number]: [id number] Dicatated By: Moses Souza M.D.Date of Visit:Sep 07, 2019 Onc Med Follow-up/Prog Note History of Present Illness: Mr. Garcia is a 74-year-old gentleman with history of papillary tumor located over the right ureteral orifice with obstruction diagnosed on 03/19/2019. Hydronephrosis was noted on CT scan of pelvis. Mr Garcia underwent cystoscopy TURBT on 03/25/2019 which showed papillary urothelial carcinoma: low-grade no muscle invasion seen. He was referred to Dr. Begum, urologist in [place] for further evaluation for evidence of tumor invasion into the ureter. Right robotic nephroureterectomy was considered and patient underwent procedure on 05/17/2019. The final pathology report showed invasive high-grade papillary urothelial carcinoma involving right renal pelvis with tumor invasion into the kidney, size was 4 x 3.5 x 1.3 cm. There was a noninvasive ureter tumor size was 1.9 x 1.5 cm., Lymphovascular invasion was seen, no lymph node was evaluated e.g. T3,Nx Mx, stage III Mr Garcia tolerated procedure well He is on hemodialysis for end-stage renal disease. He goes to dialysis on Friday, Friday and Friday. did discuss with him his disease status and further treatment options. He was determined to have stage III disease and felt that adjuvant [place] based chemotherapy was a good option for him. However considering his age and comorbid condition MVAC was not considered due to toxicity profile but split dose cisplatin and gemcitabine on day 1 and 8 on a 21-day cycle for 4 cycles was recommended. Mr Garcia began his first cycle on August 03, 2019.And day 8 chemotherapy with cycle #1 was delayed because of progressive neutropenia/leukopenia was treated with Neupogen. And again day 8 with cycle #2 was also delayed because of progressive leukopenia and neutropenia Came for follow-up, denies any specific complaints, no nausea or vomiting no fever chills, no diarrhea or constipation, tolerating adjuvant chemotherapy with gemcitabine/cisplatin well but with expected side effects e.g. progressive neutropenia/leukopenia requiring Neupogen support Medications: Atorvastatin Calcium 1 Tablet (of 20 mg) Oral at bedtime, Claritin 1 Tablet (of 10 mg) Oral daily, hydrALAZINE HCl 1 Tablet (of 50 mg) Oral t.i.d., NyQuil Severe Cold/Flu Capsule Oral PRN, Omeprazole 1 Tablet (of 40 mg) Tablet, enteric coated Oral every am, Triamcinolone Acetonide Ointment Topical PRN, Tums 1 Tablet Tablet, chewable Oral PRN, Tylenol Tablet Oral PRN Allergies: No Known Allergies. Review of Systems: Review of Systems is not available for this patient. Vital Signs: Performed on Sep 07, 2019 10:16 Height - 66.00 in Weight - 152.6 lbs (LOW) BSA - 1.78 sq.m BMI - 24.63 Temperature - 99.2 F (HIGH) Pulse - 73 /min Respiration - 20 /min BP - 158/80 mm(hg) (HIGH) O2 Sat - 95 % (LOW) Pain - 0 Performance Status: 1 - No physically strenuous activity, but ambulatory and able to carry out light or sedentary work (e.g. office work, light house work). (ECOG) Physical Examination: ENMT - No mouth sores, no thrush, no jaundice, Respiratory - Lungs are clear, Cardiovascular - Regular rate and rhythm of heart, Abdomen - Soft, bowel sounds present, Extremities - trace visible edema. Lab/Imaging: Test performed on Aug 31, 2019 08:13 Sodium 143 mmol/L Potassium 4.6 mmol/L Chloride 103 mmol/L CO2 27 mmol/L Anion Gap 17.6 BUN 26 mg/dL Creatinine 8.0 mg/dL Cr Clearance (Est) 8.2600 mL/min Glucose 142 mg/dL Calcium 7.6 mg/dL Protein, Total 6.0 g/dL Albumin 4.3 g/dL Globulin 1.7 g/dL Bilirubin, Total 0.3 mg/dL ALT (SGPT) 11 U/L AST (SGOT) 15 U/L Alkaline Phosphatase 169 IU/L WBC 16.2 10 3/uL RBC 3.04 10 6/uL HGB 9.2 g/dL HCT 30.3 % MCV 99.7 fL MCH 30.3 pg MCHC 30.4 g/dL RDW 16.2 % Platelet Count 157 10 3/cmm MPV 10.7 fL Neutrophils 13.84 10 3/uL Lymphocytes 0.7 10 3/uL Monocytes 1.1 10 3/uL Eosinophils 0.1 10 3/uL Basophils 0.0 10 3/uL Neutrophil % 85.6 % Lymphocyte % 4.3 % Monocyte % 7.0 % Eosinophil % 0.4 % Basophils % 0.2 % NRBC % 0 % Test performed on Aug 24, 2019 08:20 CBC Slide Review Slide Review Perform SLIDE REVIEW AGREES WITH AUTOMATED RESULTS ST Impression: invasive high-grade urothelial carcinoma Of right renal pelvis/ureter with invasion into the right kidney status post robotic nephroureterectomy done on 05/17/2019 next Final pathology report showed invasive high-grade papillary urothelial carcinoma, tumor size 4 x 3.5 x 1.3 cm invading right kidney and 1.9 x 1.5 cm noninvasive ureter tumor with lymphovascular invasion seen pT3 No lymph nodes were identified for evaluation pNx , Mx stage III ureteral/renal pelvis carcinoma End-stage renal disease on hemodialysis. iscussed with Mr Garcia his disease status and further treatment options. He has invasive high-grade papillary urothelial carcinoma of right renal pelvis with invasion into the right kidney e.g. T3 lesion , with unknown lymph node status. As per N CCN guidelines, Mr Garcia has stage III disease and there is a role of adjuvant [place]-based chemotherapy which may improve disease-free survival. Considering patient's age and comorbid condition, MVAC was not consdered due to toxicity profile but split dose cisplatin and gemcitabine, on day 1 and 8 and repeat every 21 days ???4 cycles. Mr Garcia began his first cycle of split dose cisplatin gemcitabine on August 03, 2019. He has tolerated it well thus far. Clinically, patient is doing reasonably well, tolerated first cycle of adjuvant chemotherapy with split dose cisplatin and gemcitabine well but with expected side effects is a progressive pancytopenia/severe leukopenia/neutropenia causing delay in chemotherapy schedule, treated with Neupogen 300 mcg subcu daily for 3 days. CBC from 08/16/2019showed progressive mild thrombocytopenia thus we did reduce the gemcitabine dose by 10% to minimize risk of thrombocytopenia and leukopenia and added Neupogen 480 mcg subcutaneous daily for 3 days. Plan: Discussed with patient regarding his labs white blood count 2.2 hemoglobin 8.8 hematocrit 28.4 platelets 225,000 ANC 1470 CMP within normal limits except creatinine 7.9, he is on hemodialysis Clinically, patient is doing reasonably well tolerating adjuvant chemotherapy with cisplatin/gemcitabine well but with expected side effect e.g. progressive leukopenia/neutropenia requiring Neupogen support. Patient was due for day 8 cycle #2 chemotherapy with weekly cisplatin/gemcitabine today but because of progressive neutropenia/leukopenia we will hold his chemotherapy and start him on Neupogen 300 mcg subcu daily and repeat his labs on if recover, consider day 8 chemo otherwise next Friday with CBC and if reasonable chemotherapy, as patient goes for hemodialysis on Friday every week. Signed By: Moses Souza M.D. <<Signature on File>>
[2019-09-09 08:52] LABS: Basophils # 0.1 10^3/uL (0.0-0.1); Basophils % 0.3 %; Eosinophils # 0.1 10^3/uL (0.0-0.8); Eosinophils % 0.2 %; Hematocrit 27.9 % (42.0-52.0); Hemoglobin 8.8 g/dL (11.7-16.6); Lymphocytes # 1.1 10^3/uL (0.8-4.8); Lymphocytes % 2.4 %; Mean Corpuscular HGB Conc 31.5 g/dL (30.0-36.0); Mean Corpuscular Hemoglobin 31.1 pg (28.0-34.0); Mean Corpuscular Volume 98.6 fL (80-94); Mean Platelet Volume 9.2 fL (7.4-10.4); Monocytes # 1.1 10^3/uL (0.2-0.9); Monocytes % 2.5 %; Neutrophils % 87.2 %; Nucleated Red Blood Cells % 0 %; Platelet Count 174 10^3/cmm (130-400); Red Blood Count 2.83 10^6/uL (4.1-5.3); Red Cell Distribution Width 15.9 % (12.1-15.1)
[2019-09-09] MEDS: sodium chloride 0.9% 250 ML 75 ML IV (09:20)
[2019-09-09 09:55] LABS: Slide Review Slide Review Perform; White Blood Count 44.8 10^3/uL (4.0-10.0)
[2019-09-09] MEDS: FUROsemide 10 mg/mL SDV 2mL 20 MG IV (13:51)
[2019-09-09] MEDS: potassium chloride 20 MEQ in sodium chloride 0.9% 500 ML 500 MEQ IV (13:52)
== END 2019-09-17 23:59 | disposition home or self-care (01) ==
LOC: ONCMED 06:40
PROVIDERS: PCP Electrodiagnostic Medicine; Visit Provider Internal Medicine Hematology & Oncology
DX: Z51.11 Encounter for antineoplastic chemotherapy (principal); C65.1 Malignant neoplasm of right renal pelvis; D70.1 Agranulocytosis secondary to cancer chemotherapy; T45.1X5A Adverse effect of antineoplastic and immunosuppressive drugs, initial encounter; N18.6 End stage renal disease; Z99.2 Dependence on renal dialysis; Z90.5 Acquired absence of kidney; Z90.6 Acquired absence of other parts of urinary tract; Z79.899 Other long term (current) drug therapy
CPT/HCPCS: 80053; 85025; 96365; 96366; 96367; 96372; 96375; 96413; 96417; 99214; J1100; J1200; J1442; J1453; J1940; J2469; J3475; J3480; J7030; J7040; J7050; J9060; J9201

== ENCOUNTER 2019-10-07 05:37 | Outpatient (RCR) | payer MEDICARE, OTHER, SELFPAY ==
[2019-09-23 08:28] LABS: Eosinophils # 0.1 10^3/uL (0.0-0.8); Eosinophils % 3.5 %; Hematocrit 28.3 % (42.0-52.0); Hemoglobin 8.6 g/dL (11.7-16.6); Lymphocytes # 0.4 10^3/uL (0.8-4.8); Lymphocytes % 18.3 %; Mean Corpuscular HGB Conc 30.4 g/dL (30.0-36.0); Mean Corpuscular Hemoglobin 30.8 pg (28.0-34.0); Mean Corpuscular Volume 101.4 fL (80-94); Mean Platelet Volume 9.4 fL (7.4-10.4); Monocytes # 0.4 10^3/uL (0.2-0.9); Monocytes % 15.3 %; Neutrophils # 1.44 10^3/uL (1.8-7.7); Neutrophils % 62.9 %; Nucleated Red Blood Cells % 0 %; Platelet Count 226 10^3/cmm (130-400); Red Blood Count 2.79 10^6/uL (4.1-5.3); Red Cell Distribution Width 18.6 % (12.1-15.1); White Blood Count 2.3 10^3/uL (4.0-10.0)
[2019-09-23 08:46] LABS: Alanine Aminotransferase 13 U/L (0-41); Albumin Level 3.9 g/dL (3.5-5.2); Alkaline Phosphatase 120 IU/L (40-130); Anion Gap 14.2 (5-19); Aspartate Amino Transferase 19 U/L (0-40); Blood Urea Nitrogen 19 mg/dL (8-23); Calcium 6.7 mg/dL (8.5-10.5); Carbon Dioxide 28 mmol/L (22-29); Chloride 102 mmol/L (98-107); Glucose 173 mg/dL (65-115); Osmolality Calculated 291 mOsm/kg (285-295); Potassium 4.2 mmol/L (3.5-5.1); Sodium 140 mmol/L (136-145); Total Bilirubin 0.4 mg/dL (0.15-1.2); Total Protein 5.9 g/dL (6.6-8.7)
--- NOTE | 2019-09-24 12:40 | ONC FU_ITS ---
Dr. Souza follow up note Patient: Manuel Garcia Unit #: [id number]: 1945 Dicatated By: Moses Souza M.D.Date of Visit:Sep 23, 2019 Onc Med Follow-up/Prog Note History of Present Illness: Mr. Garcia is a 74-year-old gentleman with history of papillary tumor located over the right ureteral orifice with obstruction diagnosed on 03/19/2019. Hydronephrosis was noted on CT scan of pelvis. Mr Garcia underwent cystoscopy TURBT on 03/25/2019 which showed papillary urothelial carcinoma: low-grade no muscle invasion seen. He was referred to Dr. Begum, urologist in [place] for further evaluation for evidence of tumor invasion into the ureter. Right robotic nephroureterectomy was considered and patient underwent procedure on 05/17/2019. The final pathology report showed invasive high-grade papillary urothelial carcinoma involving right renal pelvis with tumor invasion into the kidney, size was 4 x 3.5 x 1.3 cm. There was a noninvasive ureter tumor size was 1.9 x 1.5 cm., Lymphovascular invasion was seen, no lymph node was evaluated e.g. T3,Nx Mx, stage III Mr Garcia tolerated procedure well He is on hemodialysis for end-stage renal disease. He goes to dialysis on Friday, Friday and Friday. did discuss with him his disease status and further treatment options. He was determined to have stage III disease and felt that adjuvant yuha[place] based chemotherapy was a good option for him. However considering his age and comorbid condition MVAC was not considered due to toxicity profile but split dose cisplatin and gemcitabine on day 1 and 8 on a 21-day cycle for 4 cycles was recommended. Mr Garcia began his first cycle on August 03, 2019.And day 8 chemotherapy with cycle #1 was delayed because of progressive neutropenia/leukopenia was treated with Neupogen. And again day 8 with cycle #2 was also delayed because of progressive leukopenia and neutropenia Came for follow-up, denies any specific complaint, no nausea vomiting, no diarrhea constipation, no fever chills, no bony pain. Medications: Atorvastatin Calcium 1 Tablet (of 20 mg) Oral at bedtime, Claritin 1 Tablet (of 10 mg) Oral daily, hydrALAZINE HCl 1 Tablet (of 50 mg) Oral t.i.d., NyQuil Severe Cold/Flu Capsule Oral PRN, Omeprazole 1 Tablet (of 40 mg) Tablet, enteric coated Oral every am, Triamcinolone Acetonide Ointment Topical PRN, Tums 1 Tablet Tablet, chewable Oral PRN, Tylenol Tablet Oral PRN Allergies: No Known Allergies. Review of Systems: Constitutional - Appetite is good and weight is stable. No fever or hot flashes. Energy level is poor today. Positive for occasional night sweats, ENMT - No sinus congestion/drainage. No mouth sores. No sore throat or difficulty swallowing, Hematologic/Lymphatic - No abnormal bruising or bleeding, Respiratory - No shortness of breath. No cough. No pleuritic pain or hemoptysis, Cardiovascular - No angina pain. No palpitations, Gastrointestinal - No nausea or vomiting. No heartburn or acid reflux. No diarrhea. Positive for constipation. No blood in the stool or black stools, Genitourinary (M) - No dysuria. Occasional hematuria. No urinary frequency. No urgency or incontinence, Musculoskeletal - Positive for generalized joint pain, Neurologic - No headache or dizziness. No numbness or tingling. No other focal neurologic symptoms, Psychiatric - No anxiety or depression. No insomnia. Vital Signs: Performed on Sep 23, 2019 09:44 Height - 66.00 in Weight - 154.8 lbs (HIGH) BSA - 1.79 sq.m BMI - 24.99 Temperature - 99.7 F (HIGH) Pulse - 75 /min Respiration - 20 /min BP - 143/68 mm(hg) (HIGH) O2 Sat - 95 % (LOW) Pain - 0 Performance Status: 1 - No physically strenuous activity, but ambulatory and able to carry out light or sedentary work (e.g. office work, light house work). (ECOG) Physical Examination: ENMT - No mouth sores, no thrush, no jaundice, Respiratory - Lungs are clear, Cardiovascular - Regular rate and rhythm of heart, Abdomen - Soft, bowel sounds present, Extremities - Trace edema bilateral. Lab/Imaging: Test performed on Sep 09, 2019 08:35 WBC 44.8 10 3/uL RBC 2.83 10 6/uL HGB 8.8 g/dL HCT 27.9 % MCV 98.6 fL MCH 31.1 pg MCHC 31.5 g/dL RDW 15.9 % Platelet Count 174 10 3/cmm MPV 9.2 fL Neutrophils 39.10 10 3/uL Lymphocytes 1.1 10 3/uL Monocytes 1.1 10 3/uL Eosinophils 0.1 10 3/uL Basophils 0.1 10 3/uL Neutrophil % 87.2 % Lymphocyte % 2.4 % Monocyte % 2.5 % Eosinophil % 0.2 % Basophils % 0.3 % NRBC % 0 % CBC Slide Review Slide Review Perform SLIDE REVIEW AGREES WITH AUTOMATED RESULTS Test performed on Sep 07, 2019 08:44 Sodium 140 mmol/L Potassium 3.7 mmol/L Chloride 101 mmol/L CO2 29 mmol/L Anion Gap 13.7 BUN 30 mg/dL Creatinine 7.9 mg/dL Cr Clearance (Est) 8.3700 mL/min Glucose 148 mg/dL Calcium 7.2 mg/dL Protein, Total 6.0 g/dL Albumin 4.1 g/dL Globulin 1.9 g/dL Bilirubin, Total 0.3 mg/dL ALT (SGPT) 9 U/L AST (SGOT) 23 U/L Alkaline Phosphatase 115 IU/L Impression: invasive high-grade urothelial carcinoma Of right renal pelvis/ureter with invasion into the right kidney status post robotic nephroureterectomy done on 05/17/2019 next Final pathology report showed invasive high-grade papillary urothelial carcinoma, tumor size 4 x 3.5 x 1.3 cm invading right kidney and 1.9 x 1.5 cm noninvasive ureter tumor with lymphovascular invasion seen pT3 No lymph nodes were identified for evaluation pNx , Mx stage III ureteral/renal pelvis carcinoma End-stage renal disease on hemodialysis. iscussed with Mr Garcia his disease status and further treatment options. He has invasive high-grade papillary urothelial carcinoma of right renal pelvis with invasion into the right kidney e.g. T3 lesion , with unknown lymph node status. As per N CCN guidelines, Mr Garcia has stage III disease and there is a role of adjuvant yuhaaviat[place]-based chemotherapy which may improve disease-free survival. Considering patient's age and comorbid condition, MVAC was not consdered due to toxicity profile but split dose cisplatin and gemcitabine, on day 1 and 8 and repeat every 21 days ???4 cycles. Mr Garcia began his first cycle of split dose cisplatin gemcitabine on August 03, 2019. He has tolerated it well thus far. Clinically, patient is doing reasonably well, tolerated first cycle of adjuvant chemotherapy with split dose cisplatin and gemcitabine well but with expected side effects is a progressive pancytopenia/severe leukopenia/neutropenia causing delay in chemotherapy schedule, treated with Neupogen 300 mcg subcu daily for 3 days. CBC from 08/16/2019showed progressive mild thrombocytopenia thus we did reduce the gemcitabine dose by 10% to minimize risk of thrombocytopenia and leukopenia and added Neupogen 480 mcg subcutaneous daily for 3 days. Plan: Discussed with patient regarding his labs white blood count 2.3 hemoglobin 8.6 hematocrit 28.3 platelets 226,000 ANC 1440 CMP within normal limit except creatinine 6.5 and glucose 173 Clinically, patient doing reasonably well, tolerating systemic chemotherapy with cisplatin/gemcitabine well but with expected side effects e.g. progressive leukopenia/neutropenia, we will hold his chemotherapy today and consider Neupogen today and tomorrow and then patient is having hemodialysis on Friday so he will return to clinic on Friday with CBC if it shows resolution of leukopenia/neutropenia will consider starting cycle number 3-day 1 chemotherapy with cisplatin and gemcitabine. Mild/moderate anemia multifactorial including anemia of chronic renal disease, will continue to monitor and consider blood transfusion if hemoglobin is less than 8 g or patient become symptomatic Signed By: Moses Souza M.D. <<Signature on File>>
[2019-09-28] MEDS: sodium chloride 0.9% 250 ML 75 ML IV (09:07)
[2019-09-28 09:31] LABS: Basophils % 0.8 %; Eosinophils # 0.1 10^3/uL (0.0-0.8); Eosinophils % 3.3 %; Hematocrit 29.8 % (42.0-52.0); Hemoglobin 9.1 g/dL (11.7-16.6); Lymphocytes # 0.7 10^3/uL (0.8-4.8); Lymphocytes % 17.6 %; Mean Corpuscular HGB Conc 30.5 g/dL (30.0-36.0); Mean Corpuscular Volume 104.9 fL (80-94); Mean Platelet Volume 9.5 fL (7.4-10.4); Monocytes # 0.9 10^3/uL (0.2-0.9); Monocytes % 22.9 %; Neutrophils # 1.85 10^3/uL (1.8-7.7); Neutrophils % 46.6 %; Nucleated Red Blood Cells % 0 %; Platelet Count 264 10^3/cmm (130-400); Red Blood Count 2.84 10^6/uL (4.1-5.3); Red Cell Distribution Width 18.5 % (12.1-15.1)
[2019-09-28 09:57] LABS: Alanine Aminotransferase 10 U/L (0-41); Albumin Level 3.9 g/dL (3.5-5.2); Alkaline Phosphatase 124 IU/L (40-130); Anion Gap 15.7 (5-19); Aspartate Amino Transferase 20 U/L (0-40); Blood Urea Nitrogen 29 mg/dL (8-23); Calcium 7.1 mg/dL (8.5-10.5); Carbon Dioxide 28 mmol/L (22-29); Chloride 103 mmol/L (98-107); Globulin 2.3 g/dL (1.3-4.6); Glucose 164 mg/dL (65-115); Osmolality Calculated 295 mOsm/kg (285-295); Potassium 4.7 mmol/L (3.5-5.1); Sodium 142 mmol/L (136-145); Total Bilirubin 0.4 mg/dL (0.15-1.2); Total Protein 6.2 g/dL (6.6-8.7)
[2019-09-28 10:22] LABS: Slide Review Slide Review Perform
[2019-09-28] MEDS: FUROsemide 10 mg/mL SDV 2mL 20 MG IV (15:01)
[2019-09-28] MEDS: potassium chloride 20 MEQ in sodium chloride 0.9% 500 ML 250 MEQ IV (15:03)
--- NOTE | 2019-09-30 15:38 | ONC FU_ITS ---
Dr. Souza follow up note Patient: Manuel Garcia Unit #: [id number]: 1945 Dicatated By: Moses Souza M.D.Date of Visit:Sep 28, 2019 Onc Med Follow-up/Prog Note History of Present Illness: Mr. Garcia is a 74-year-old gentleman with history of papillary tumor located over the right ureteral orifice with obstruction diagnosed on 03/19/2019. Hydronephrosis was noted on CT scan of pelvis. Mr Garcia underwent cystoscopy TURBT on 03/25/2019 which showed papillary urothelial carcinoma: low-grade no muscle invasion seen. He was referred to Dr. Begum, urologist in [place] for further evaluation for evidence of tumor invasion into the ureter. Right robotic nephroureterectomy was considered and patient underwent procedure on 05/17/2019. The final pathology report showed invasive high-grade papillary urothelial carcinoma involving right renal pelvis with tumor invasion into the kidney, size was 4 x 3.5 x 1.3 cm. There was a noninvasive ureter tumor size was 1.9 x 1.5 cm., Lymphovascular invasion was seen, no lymph node was evaluated e.g. T3,Nx Mx, stage III Mr Garcia tolerated procedure well He is on hemodialysis for end-stage renal disease. He goes to dialysis on Friday, Friday and Friday. did discuss with him his disease status and further treatment options. He was determined to have stage III disease and felt that adjuvant upper [place] based chemotherapy was a good option for him. However considering his age and comorbid condition MVAC was not considered due to toxicity profile but split dose cisplatin and gemcitabine on day 1 and 8 on a 21-day cycle for 4 cycles was recommended. Mr Garcia began his first cycle on August 03, 2019.And day 8 chemotherapy with cycle #1 was delayed because of progressive neutropenia/leukopenia was treated with Neupogen. And again day 8 with cycle #2 was also delayed because of progressive leukopenia and neutropenia Came for follow-up, denies any specific complaints, no fever chills, no nausea or vomiting, no diarrhea constipation, tolerating systemic therapy with cisplatin/gemcitabine well Medications: Atorvastatin Calcium 1 Tablet (of 20 mg) Oral at bedtime, Claritin 1 Tablet (of 10 mg) Oral daily, hydrALAZINE HCl 1 Tablet (of 50 mg) Oral t.i.d., NyQuil Severe Cold/Flu Capsule Oral PRN, Omeprazole 1 Tablet (of 40 mg) Tablet, enteric coated Oral every am, Triamcinolone Acetonide Ointment Topical PRN, Tums 1 Tablet Tablet, chewable Oral PRN, Tylenol Tablet Oral PRN Allergies: No Known Allergies. Review of Systems: Review of Systems is not available for this patient. Vital Signs: Performed on Sep 28, 2019 11:13 Height - 66.00 in Weight - 154.2 lbs (LOW) BSA - 1.79 sq.m BMI - 24.89 Temperature - 98.9 F (HIGH) Pulse - 78 /min Respiration - 24 /min BP - 157/65 mm(hg) (HIGH) O2 Sat - 98 % Pain - 0 Performance Status: 1 - No physically strenuous activity, but ambulatory and able to carry out light or sedentary work (e.g. office work, light house work). (ECOG) Physical Examination: ENMT - No mouth sores, no thrush, no jaundice, Respiratory - Lungs are clear, Cardiovascular - Regular rate and rhythm of heart, Abdomen - Soft, bowel sounds present, Extremities - Trace edema bilaterally. Lab/Imaging: Test performed on Sep 09, 2019 08:35 WBC 44.8 10 3/uL RBC 2.83 10 6/uL HGB 8.8 g/dL HCT 27.9 % MCV 98.6 fL MCH 31.1 pg MCHC 31.5 g/dL RDW 15.9 % Platelet Count 174 10 3/cmm MPV 9.2 fL Neutrophils 39.10 10 3/uL Lymphocytes 1.1 10 3/uL Monocytes 1.1 10 3/uL Eosinophils 0.1 10 3/uL Basophils 0.1 10 3/uL Neutrophil % 87.2 % Lymphocyte % 2.4 % Monocyte % 2.5 % Eosinophil % 0.2 % Basophils % 0.3 % NRBC % 0 % CBC Slide Review Slide Review Perform SLIDE REVIEW AGREES WITH AUTOMATED RESULTS Test performed on Sep 07, 2019 08:44 Sodium 140 mmol/L Potassium 3.7 mmol/L Chloride 101 mmol/L CO2 29 mmol/L Anion Gap 13.7 BUN 30 mg/dL Creatinine 7.9 mg/dL Cr Clearance (Est) 8.3700 mL/min Glucose 148 mg/dL Calcium 7.2 mg/dL Protein, Total 6.0 g/dL Albumin 4.1 g/dL Globulin 1.9 g/dL Bilirubin, Total 0.3 mg/dL ALT (SGPT) 9 U/L AST (SGOT) 23 U/L Alkaline Phosphatase 115 IU/L Impression: invasive high-grade urothelial carcinoma Of right renal pelvis/ureter with invasion into the right kidney status post robotic nephroureterectomy done on 05/17/2019 next Final pathology report showed invasive high-grade papillary urothelial carcinoma, tumor size 4 x 3.5 x 1.3 cm invading right kidney and 1.9 x 1.5 cm noninvasive ureter tumor with lymphovascular invasion seen pT3 No lymph nodes were identified for evaluation pNx , Mx stage III ureteral/renal pelvis carcinoma End-stage renal disease on hemodialysis. iscussed with Mr Garcia his disease status and further treatment options. He has invasive high-grade papillary urothelial carcinoma of right renal pelvis with invasion into the right kidney e.g. T3 lesion , with unknown lymph node status. As per N CCN guidelines, Mr Garcia has stage III disease and there is a role of adjuvant upper matt[place]-based chemotherapy which may improve disease-free survival. Considering patient's age and comorbid condition, MVAC was not consdered due to toxicity profile but split dose cisplatin and gemcitabine, on day 1 and 8 and repeat every 21 days ???4 cycles. Mr Garcia began his first cycle of split dose cisplatin gemcitabine on August 03, 2019. He has tolerated it well thus far. Clinically, patient is doing reasonably well, tolerated first cycle of adjuvant chemotherapy with split dose cisplatin and gemcitabine well but with expected side effects is a progressive pancytopenia/severe leukopenia/neutropenia causing delay in chemotherapy schedule, treated with Neupogen 300 mcg subcu daily for 3 days. CBC from 08/16/2019showed progressive mild thrombocytopenia thus we did reduce the gemcitabine dose by 10% to minimize risk of thrombocytopenia and leukopenia and added Neupogen 480 mcg subcutaneous daily for 3 days. Plan: Discussed with patient regarding his labs white blood count 4 hemoglobin 9.1 hematocrit 29.8 platelets 264,000 CMP within normal limit except creatinine 7.3, patient is on hemodialysis Clinically, patient doing well, tolerating systemic therapy with cisplatin/gemcitabine well, will proceed with next cycle number 3-day 1 split dose cisplatin/gemcitabine followed by daily Neupogen x2 then return to clinic in 1 week with CBC CMP if blood count looks reasonable, day 8 chemo. Signed By: Moses Souza M.D. <<Signature on File>>
[2019-10-05] MEDS: sodium chloride 0.9% 250 ML 75 ML IV (09:29)
[2019-10-05 09:38] LABS: Basophils % 0.3 %; Eosinophils % 0.8 %; Hematocrit 27.6 % (42.0-52.0); Hemoglobin 8.4 g/dL (11.7-16.6); Lymphocytes # 0.5 10^3/uL (0.8-4.8); Mean Corpuscular HGB Conc 30.4 g/dL (30.0-36.0); Mean Corpuscular Hemoglobin 31.3 pg (28.0-34.0); Mean Platelet Volume 9.2 fL (7.4-10.4); Monocytes # 0.3 10^3/uL (0.2-0.9); Monocytes % 7.1 %; Neutrophils # 2.74 10^3/uL (1.8-7.7); Neutrophils % 77.4 %; Nucleated Red Blood Cells % 0 %; Platelet Count 104 10^3/cmm (130-400); Red Blood Count 2.68 10^6/uL (4.1-5.3); Red Cell Distribution Width 16.8 % (12.1-15.1); White Blood Count 3.5 10^3/uL (4.0-10.0)
[2019-10-05 10:02] LABS: Alanine Aminotransferase 13 U/L (0-41); Alkaline Phosphatase 128 IU/L (40-130); Anion Gap 15.2 (5-19); Aspartate Amino Transferase 17 U/L (0-40); Blood Urea Nitrogen 31 mg/dL (8-23); Calcium 6.8 mg/dL (8.5-10.5); Carbon Dioxide 28 mmol/L (22-29); Chloride 102 mmol/L (98-107); Globulin 2.1 g/dL (1.3-4.6); Glucose 169 mg/dL (65-115); Osmolality Calculated 291 mOsm/kg (285-295); Potassium 5.2 mmol/L (3.5-5.1); Sodium 140 mmol/L (136-145); Total Bilirubin 0.4 mg/dL (0.15-1.2); Total Protein 6.1 g/dL (6.6-8.7)
[2019-10-05] MEDS: FUROsemide 10 mg/mL SDV 2mL 20 MG IV (14:40)
[2019-10-05] MEDS: potassium chloride 20 MEQ in sodium chloride 0.9% 500 ML 500 MEQ IV (14:42)
--- NOTE | 2019-10-05 16:43 | ONC FU_ITS ---
Dr. Souza follow up note Patient: Manuel Garcia Unit #: [id number]: 1945 Dicatated By: Moses Souza M.D.Date of Visit:Oct 05, 2019 Onc Med Follow-up/Prog Note History of Present Illness: Mr. Garcia is a 74-year-old gentleman with history of papillary tumor located over the right ureteral orifice with obstruction diagnosed on 03/19/2019. Hydronephrosis was noted on CT scan of pelvis. Mr Garcia underwent cystoscopy TURBT on 03/25/2019 which showed papillary urothelial carcinoma: low-grade no muscle invasion seen. He was referred to Dr. Begum, urologist in [place] for further evaluation for evidence of tumor invasion into the ureter. Right robotic nephroureterectomy was considered and patient underwent procedure on 05/17/2019. The final pathology report showed invasive high-grade papillary urothelial carcinoma involving right renal pelvis with tumor invasion into the kidney, size was 4 x 3.5 x 1.3 cm. There was a noninvasive ureter tumor size was 1.9 x 1.5 cm., Lymphovascular invasion was seen, no lymph node was evaluated e.g. T3,Nx Mx, stage III Mr Garcia tolerated procedure well He is on hemodialysis for end-stage renal disease. He goes to dialysis on Friday, Friday and Friday. did discuss with him his disease status and further treatment options. He was determined to have stage III disease and felt that adjuvant [place] based chemotherapy was a good option for him. However considering his age and comorbid condition MVAC was not considered due to toxicity profile but split dose cisplatin and gemcitabine on day 1 and 8 on a 21-day cycle for 4 cycles was recommended. Mr Garcia began his first cycle on August 03, 2019.And day 8 chemotherapy with cycle #1 was delayed because of progressive neutropenia/leukopenia was treated with Neupogen. And again day 8 with cycle #2 was also delayed because of progressive leukopenia and neutropenia Came for follow-up, denies any specific complaints, no fever chills, no nausea or vomiting, no diarrhea constipation, no headaches, tolerating systemic chemotherapy with cisplatin/gemcitabine well Medications: Atorvastatin Calcium 1 Tablet (of 20 mg) Oral at bedtime, Claritin 1 Tablet (of 10 mg) Oral daily, hydrALAZINE HCl 1 Tablet (of 50 mg) Oral t.i.d., NyQuil Severe Cold/Flu Capsule Oral PRN, Omeprazole 1 Tablet (of 40 mg) Tablet, enteric coated Oral every am, Triamcinolone Acetonide Ointment Topical PRN, Tums 1 Tablet Tablet, chewable Oral PRN, Tylenol Tablet Oral PRN Allergies: No Known Allergies. Review of Systems: Review of Systems is not available for this patient. Vital Signs: Performed on Oct 05, 2019 11:36 Height - 66.00 in Weight - 152.2 lbs (LOW) BSA - 1.78 sq.m BMI - 24.57 Temperature - 98.7 F Pulse - 80 /min Respiration - 24 /min BP - 193/96 mm(hg) (HIGH) O2 Sat - 98 % Pain - 0 Performance Status: 1 - No physically strenuous activity, but ambulatory and able to carry out light or sedentary work (e.g. office work, light house work). (ECOG) Physical Examination: ENMT - No mouth sores, no thrush, no jaundice, Respiratory - Lungs are clear, Cardiovascular - Regular rate and rhythm of heart, Abdomen - Soft, bowel sounds present, Extremities - No visible edema. Lab/Imaging: Test performed on Sep 09, 2019 08:35 WBC 44.8 10 3/uL RBC 2.83 10 6/uL HGB 8.8 g/dL HCT 27.9 % MCV 98.6 fL MCH 31.1 pg MCHC 31.5 g/dL RDW 15.9 % Platelet Count 174 10 3/cmm MPV 9.2 fL Neutrophils 39.10 10 3/uL Lymphocytes 1.1 10 3/uL Monocytes 1.1 10 3/uL Eosinophils 0.1 10 3/uL Basophils 0.1 10 3/uL Neutrophil % 87.2 % Lymphocyte % 2.4 % Monocyte % 2.5 % Eosinophil % 0.2 % Basophils % 0.3 % NRBC % 0 % CBC Slide Review Slide Review Perform SLIDE REVIEW AGREES WITH AUTOMATED RESULTS Test performed on Sep 07, 2019 08:44 Sodium 140 mmol/L Potassium 3.7 mmol/L Chloride 101 mmol/L CO2 29 mmol/L Anion Gap 13.7 BUN 30 mg/dL Creatinine 7.9 mg/dL Cr Clearance (Est) 8.3700 mL/min Glucose 148 mg/dL Calcium 7.2 mg/dL Protein, Total 6.0 g/dL Albumin 4.1 g/dL Globulin 1.9 g/dL Bilirubin, Total 0.3 mg/dL ALT (SGPT) 9 U/L AST (SGOT) 23 U/L Alkaline Phosphatase 115 IU/L Impression: invasive high-grade urothelial carcinoma Of right renal pelvis/ureter with invasion into the right kidney status post robotic nephroureterectomy done on 05/17/2019 next Final pathology report showed invasive high-grade papillary urothelial carcinoma, tumor size 4 x 3.5 x 1.3 cm invading right kidney and 1.9 x 1.5 cm noninvasive ureter tumor with lymphovascular invasion seen pT3 No lymph nodes were identified for evaluation pNx , Mx stage III ureteral/renal pelvis carcinoma End-stage renal disease on hemodialysis. iscussed with Mr Garcia his disease status and further treatment options. He has invasive high-grade papillary urothelial carcinoma of right renal pelvis with invasion into the right kidney e.g. T3 lesion , with unknown lymph node status. As per N CCN guidelines, Mr Garcia has stage III disease and there is a role of adjuvant [place]-based chemotherapy which may improve disease-free survival. Considering patient's age and comorbid condition, MVAC was not consdered due to toxicity profile but split dose cisplatin and gemcitabine, on day 1 and 8 and repeat every 21 days ???4 cycles. Mr Garcia began his first cycle of split dose cisplatin gemcitabine on August 03, 2019. He has tolerated it well thus far. Clinically, patient is doing reasonably well, tolerated first cycle of adjuvant chemotherapy with split dose cisplatin and gemcitabine well but with expected side effects is a progressive pancytopenia/severe leukopenia/neutropenia causing delay in chemotherapy schedule, treated with Neupogen 300 mcg subcu daily for 3 days. CBC from 08/16/2019showed progressive mild thrombocytopenia thus we did reduce the gemcitabine dose by 10% to minimize risk of thrombocytopenia and leukopenia and added Neupogen 480 mcg subcutaneous daily for 3 days. Plan: Discussed with patient regarding his labs white blood count 3.5 hemoglobin 8.4 hematocrit 27.6 platelets 104,000, neutrophils 2740 CMP within normal limit except creatinine 6.5 glucose 169 Clinically, patient doing reasonably well, tolerating adjuvant chemotherapy with cisplatin/gemcitabine well, but with expected side effects e.g. progressive thrombocytopenia and leukopenia requiring, stimulating factor to maintain chemotherapy schedule, we will reduce his gemcitabine dose by 10% today to minimize risk of progressive thrombocytopenia and will proceed with next modified dose cycle number 3-day 8 with split dose cisplatin/gemcitabine today followed by daily Neupogen x2 and patient return to clinic in 2 weeks with CBC CMP Signed By: Moses Souza M.D. <<Signature on File>>
== END 2019-10-18 23:59 | disposition home or self-care (01) ==
LOC: ONCMED 05:37
PROVIDERS: PCP Electrodiagnostic Medicine; Visit Provider Internal Medicine Hematology & Oncology
DX: Z51.11 Encounter for antineoplastic chemotherapy (principal); C65.1 Malignant neoplasm of right renal pelvis; I10 Essential (primary) hypertension; N18.6 End stage renal disease; Z99.2 Dependence on renal dialysis
CPT/HCPCS: 80053; 85025; 96365; 96366; 96367; 96372; 96375; 96413; 96417; 99214; J1100; J1200; J1442; J1453; J1940; J2469; J3475; J3480; J7030; J7040; J7050; J9060; J9201

== ENCOUNTER 2019-10-28 06:08 | Outpatient (RCR) | payer MEDICARE, OTHER, SELFPAY ==
[2019-10-19] VITALS (10 sets, daily range): BP systolic 148–160; BP diastolic 67–77; PULSE 71–95; RESP 18; TEMP 36.8–37.4; O2SAT 93–97
[2019-10-19 08:49] LABS: Eosinophils # 0.1 10^3/uL (0.0-0.8); Eosinophils % 1.8 %; Hematocrit 23.2 % (42.0-52.0); Hemoglobin 7.2 g/dL (11.7-16.6); Lymphocytes # 0.4 10^3/uL (0.8-4.8); Lymphocytes % 14.4 %; Mean Corpuscular Hemoglobin 32.1 pg (28.0-34.0); Mean Corpuscular Volume 103.6 fL (80-94); Mean Platelet Volume 9.8 fL (7.4-10.4); Monocytes # 0.4 10^3/uL (0.2-0.9); Monocytes % 15.5 %; Neutrophils # 1.81 10^3/uL (1.8-7.7); Neutrophils % 66.8 %; Nucleated Red Blood Cells % 0 %; Platelet Count 346 10^3/cmm (130-400); Red Blood Count 2.24 10^6/uL (4.1-5.3); Red Cell Distribution Width 17.7 % (12.1-15.1); White Blood Count 2.7 10^3/uL (4.0-10.0)
[2019-10-19 09:05] LABS: Alanine Aminotransferase 8 U/L (0-41); Albumin Level 3.8 g/dL (3.5-5.2); Alkaline Phosphatase 112 IU/L (40-130); Anion Gap 13.8 (5-19); Aspartate Amino Transferase 16 U/L (0-40); Blood Urea Nitrogen 23 mg/dL (8-23); Calcium 7.5 mg/dL (8.5-10.5); Carbon Dioxide 27 mmol/L (22-29); Chloride 98 mmol/L (98-107); Globulin 2.3 g/dL (1.3-4.6); Glucose 220 mg/dL (65-115); Osmolality Calculated 283 mOsm/kg (285-295); Potassium 3.8 mmol/L (3.5-5.1); Sodium 135 mmol/L (136-145); Total Bilirubin 0.4 mg/dL (0.15-1.2); Total Protein 6.1 g/dL (6.6-8.7)
[2019-10-19] MEDS: sodium chloride 0.9% 250 ML 999 ML IV (10:32)
--- NOTE | 2019-10-19 12:24 | ONC FU_ITS ---
[facility] Patient Note Patient: Manuel Garcia Unit #: [id number]: [id number] Dictated By: Jorge AmosDate of Visit: Oct 19, 2019 Onc MED Follow-Up/Prog Note Chief Complaint: Right renal pelvis carcinoma/bladder cancer History of Present Illness: Mr. Garcia is a 74-year-old gentleman with history of papillary tumor located over the right ureteral orifice with obstruction diagnosed on 03/19/2019. Hydronephrosis was noted on CT scan of pelvis. Mr Garcia underwent cystoscopy TURBT on 03/25/2019 which showed papillary urothelial carcinoma: low-grade no muscle invasion seen. He was referred to Dr. Begum, urologist in [place] for further evaluation for evidence of tumor invasion into the ureter. Right robotic nephroureterectomy was considered and patient underwent procedure on 05/17/2019. The final pathology report showed invasive high-grade papillary urothelial carcinoma involving right renal pelvis with tumor invasion into the kidney, size was 4 x 3.5 x 1.3 cm. There was a noninvasive ureter tumor size was 1.9 x 1.5 cm., Lymphovascular invasion was seen, no lymph node was evaluated e.g. T3,Nx Mx, stage III Mr Garcia tolerated procedure well He is on hemodialysis for end-stage renal disease. He goes to dialysis on Friday, Friday and Friday. did discuss with him his disease status and further treatment options. He was determined to have stage III disease and felt that adjuvant [place] based chemotherapy was a good option for him. However considering his age and comorbid condition MVAC was not considered due to toxicity profile but split dose cisplatin and gemcitabine on day 1 and 8 on a 21-day cycle for 4 cycles was recommended. Mr Garcia began his first cycle on August 03, 2019.And day 8 chemotherapy with cycle #1 was delayed because of progressive neutropenia/leukopenia was treated with Neupogen. And again day 8 with cycle #2 was also delayed because of progressive leukopenia and neutropenia Mr. Shea is here today for consideration of cycle 4-day 1. He did receive cycle 3-day 1 8 with growth factor support 2 days in between each treatment. He did receive 2 days of Neupogen after day 8. He states he feels draggy and just kind of washed out and tired. He is not working as much as he normally does. He states he is really not had a lot of shortness of breath but has noted some intermittent nausea. He states that the nausea is not been bad but sounds if it does bother him enough that he does not eat sometimes. He has not tried any nausea medicine because he states is not that bad. He denies any new pain. He denies any chest pain or palpitations. He denies diarrhea or constipation. He denies any neuropathy symptoms. He denies any urinary symptoms. His ECOG is 1. Past Medical History: Hypertension Renal failure Past Surgical History: Back surgery Nephroureterectomy Port placement TURBT Right Internal Juglar Port a Cath Dr Hi ([facility]) in 2019 Allergies: No Known Allergies. Medications: Atorvastatin Calcium 1 Tablet (of 20 mg) Oral at bedtime Claritin 1 Tablet (of 10 mg) Oral daily hydrALAZINE HCl 1 Tablet (of 50 mg) Oral t.i.d. NyQuil Severe Cold/Flu Capsule Oral PRN Omeprazole 1 Tablet (of 40 mg) Tablet, enteric coated Oral every am Triamcinolone Acetonide Ointment Topical PRN Tums 1 Tablet Tablet, chewable Oral PRN Tylenol Tablet Oral PRN Family History: Mr. Garcia's mother is : motor vehicle accident. Mr. Garcia's father at age 71: myocardial infarction. Social History: Mr. Garcia is and he is an unknown. Mr. Garcia has never smoked. He drinks occasionally. Review Of Symptoms: Constitutional Denies fevers, chills, night sweats, excessive fatigue or weight loss. Tired and draggy. Allergic/Immunologic No reactions. Eyes Denies significant visual changes. No diplopia. No amaurosis. ENMT Denies changes in hearing, sore throat, mouth sores, difficulty or changes in swallowing ability, and/or sinus drainage. Hematologic/Lymphatic Denies easy bruising or bleeding. The patient denies any tender or palpable lymph nodes. Respiratory Denies dyspnea on exertion, chest pain, cough or hemoptysis. Denies orthopnea. Cardiovascular Denies anginal chest pain, palpitations or orthopnea. Gastrointestinal Denies nausea, vomiting, diarrhea, GI bleeding, or constipation. Denies change in bowel habits and/or stool color, no heartburn or early satiety. Genitourinary (M) Denies hematuria, dysuria, increased frequency, urgency, hesitancy or incontinence. Musculoskeletal Denies joint pain, swelling or redness. No decreased range of motion. Integumentary Denies chronic rashes, inflammation, ulcerations or skin changes. Neurologic Denies headache, blurred vision, and no areas of focal weakness or numbness. Intermittent tingling but no worse than what is has been. Normal gait. No sensory problems. Psychiatric Denies insomnia, depression, crow or mood swings. Vital Signs: Performed on Oct 19, 2019 09:37 Height - 66.00 in Weight - 156.6 lbs (HIGH) BSA - 1.80 sq.m BMI - 25.28 Temperature - 98.4 F Pulse - 8 /min (LOW) Respiration - 17 /min BP - 149/78 mm(hg) (HIGH) O2 Sat - 95 % (LOW) Pain - 0,1 - No physically strenuous activity, but ambulatory and able to carry out light or sedentary work (e.g. office work, light house work). (ECOG) Physical Examination: Constitutional Alert, oriented, no acute distress. Skin pale/pink, warm and dry. Head Normocephalic; atraumatic. Eyes Conjunctivae and sclerae are clear and without icterus. Pupils are reactive and equal. Neck Supple without masses or thyromegaly. No jugular venous distension. Hematologic/Lymphatic No petechiae or purpura. No tender or palpable lymph nodes in the cervical or supraclavicular areas. Respiratory Lungs are clear to auscultation without rhonchi or wheezing. Cardiovascular Regular rate and rhythm of heart without murmurs,clicks, gallops or rubs. Chest Right chest wall venous access device insertion site is unremarkable. Back/Spine Non-tender to palpation. Extremities No visible deformities, no cyanosis, clubbing or edema. Musculoskeletal No tenderness or swelling, normal range of motion without obvious weakness. Integumentary No rashes or lesions. Neurologic No sensory or motor deficits, normal cerebellar function, normal gait. Psychiatric Alert and oriented times three. Coherent speech. Verbalizes understanding of our discussions today. Laboratory:Test performed on Oct 19, 2019 10:08 Anti-D Positive Blood Type BP Test performed on Oct 19, 2019 08:08 Sodium 135 mmol/L Potassium 3.8 mmol/L Chloride 98 mmol/L CO2 27 mmol/L Anion Gap 13.8 BUN 23 mg/dL Creatinine 7.6 mg/dL Cr Clearance (Est) 8.7000 mL/min Glucose 220 mg/dL Calcium 7.5 mg/dL Protein, Total 6.1 g/dL Albumin 3.8 g/dL Globulin 2.3 g/dL Bilirubin, Total 0.4 mg/dL ALT (SGPT) 8 U/L AST (SGOT) 16 U/L Alkaline Phosphatase 112 IU/L WBC 2.7 10 3/uL RBC 2.24 10 6/uL HGB 7.2 g/dL HCT 23.2 % MCV 103.6 fL MCH 32.1 pg MCHC 31.0 g/dL RDW 17.7 % Platelet Count 346 10 3/cmm MPV 9.8 fL Neutrophils 1.81 10 3/uL Lymphocytes 0.4 10 3/uL Monocytes 0.4 10 3/uL Eosinophils 0.1 10 3/uL Basophils 0.0 10 3/uL Neutrophil % 66.8 % Lymphocyte % 14.4 % Monocyte % 15.5 % Eosinophil % 1.8 % Basophils % 0.0 % NRBC % 0 % Test performed on Sep 09, 2019 08:35 CBC Slide Review Slide Review Perform SLIDE REVIEW AGREES WITH AUTOMATED RESULTS Impression: invasive high-grade urothelial carcinoma Of right renal pelvis/ureter with invasion into the right kidney status post robotic nephroureterectomy done on 05/17/2019 next Final pathology report showed invasive high-grade papillary urothelial carcinoma, tumor size 4 x 3.5 x 1.3 cm invading right kidney and 1.9 x 1.5 cm noninvasive ureter tumor with lymphovascular invasion seen pT3 No lymph nodes were identified for evaluation pNx , Mx stage III ureteral/renal pelvis carcinoma End-stage renal disease on hemodialysis. iscussed with Mr Marcak his disease status and further treatment options. He has invasive high-grade papillary urothelial carcinoma of right renal pelvis with invasion into the right kidney e.g. T3 lesion , with unknown lymph node status. As per N CCN guidelines, Mr Garcia has stage III disease and there is a role of adjuvant [place]-based chemotherapy which may improve disease-free survival. Considering patient's age and comorbid condition, MVAC was not consdered due to toxicity profile but split dose cisplatin and gemcitabine, on day 1 and 8 and repeat every 21 days ???4 cycles. Mr Garcia began his first cycle of split dose cisplatin gemcitabine on August 03, 2019. He has tolerated it well thus far. Clinically, patient is doing reasonably well, tolerated first cycle of adjuvant chemotherapy with split dose cisplatin and gemcitabine well but with expected side effects is a progressive pancytopenia/severe leukopenia/neutropenia causing delay in chemotherapy schedule, treated with Neupogen 300 mcg subcu daily for 3 days. CBC from 08/16/2019showed progressive mild thrombocytopenia thus we did reduce the gemcitabine dose by 10% to minimize risk of thrombocytopenia and leukopenia and added Neupogen 480 mcg subcutaneous daily for 3 days. Plan: 1. We will delay plan treatment for today due to a hemoglobin of 7.2 and an ANC of 1800. He did have dose reduction of the gemcitabine last treatment. He also had 2 doses of Neupogen after his last treatment. 2. Today's labs were reviewed in detail and discussed with Mr. Shea talk and a copy was offered to him. WBC 2.7 hemoglobin 7.2 hematocrit 23.2 platelets 346,000 ANC is 1800 potassium 3.8 glucose random 220 LFTs are normal. He is on hemo-dialysis so his creatinine is irrelevant. 3. He will receive 2 units of packed red blood cells irradiated if available. 4. We will give him 2 doses of Neupogen 300 mcg starting today and repeat again tomorrow. 5. We will have him return at which time we will recheck his CBC CMP to see if he can be treated on for day 1 and hopefully next for day 8. 6. Mr Garcia was encouraged to call us in the interim if questions or problems arise. 7. I did give Mr. Shea talked the option of waiting to start his treatment next week but he states if it is possible he like to do it on so that he could finish with his entire treatment plan next . We agree to that as long as his blood counts are adequate. Signed By: Jorge Amos-, [facility]AKLAND HOSPITALEunice Souza MD <<Signature on File>>
[2019-10-19] MEDS: acetaminophen 325 mg Tablet 650 MG PO (12:34)
[2019-10-19] MEDS: diphenhydrAMINE 25 mg Capsule PO (12:34)
[2019-10-21 08:17] LABS: Basophils % 0.1 %; Eosinophils # 0.1 10^3/uL (0.0-0.8); Eosinophils % 0.8 %; Hematocrit 30.5 % (42.0-52.0); Hemoglobin 9.5 g/dL (11.7-16.6); Lymphocytes # 0.9 10^3/uL (0.8-4.8); Lymphocytes % 6.6 %; Mean Corpuscular HGB Conc 31.1 g/dL (30.0-36.0); Mean Corpuscular Hemoglobin 31.8 pg (28.0-34.0); Mean Platelet Volume 9.2 fL (7.4-10.4); Monocytes # 2.1 10^3/uL (0.2-0.9); Monocytes % 14.5 %; Neutrophils # 9.28 10^3/uL (1.8-7.7); Neutrophils % 65.3 %; Nucleated Red Blood Cells # 0.1 /100WBC; Nucleated Red Blood Cells % 0.6 %; Platelet Count 445 10^3/cmm (130-400); Red Blood Count 2.99 10^6/uL (4.1-5.3); White Blood Count 14.2 10^3/uL (4.0-10.0)
[2019-10-21] MEDS: sodium chloride 0.9% 250 ML 75 ML IV (08:40)
[2019-10-21 09:13] LABS: Slide Review Slide Review Perform
[2019-10-21] MEDS: FUROsemide 10 mg/mL SDV 2mL 20 MG IV (12:40)
[2019-10-21] MEDS: potassium chloride 20 MEQ in sodium chloride 0.9% 500 ML 510 MEQ IV (12:41)
[2019-10-28] MEDS: sodium chloride 0.9% 250 ML 75 ML IV (08:15)
[2019-10-28 08:47] LABS: Eosinophils % 0.8 %; Hematocrit 27.1 % (42.0-52.0); Hemoglobin 8.5 g/dL (11.7-16.6); Lymphocytes # 0.4 10^3/uL (0.8-4.8); Lymphocytes % 29.2 %; Mean Corpuscular HGB Conc 31.4 g/dL (30.0-36.0); Mean Corpuscular Hemoglobin 31.6 pg (28.0-34.0); Mean Corpuscular Volume 100.7 fL (80-94); Mean Platelet Volume 9.6 fL (7.4-10.4); Monocytes # 0.1 10^3/uL (0.2-0.9); Monocytes % 8.5 %; Neutrophils % 57.7 %; Nucleated Red Blood Cells % 0 %; Platelet Count 185 10^3/cmm (130-400); Red Blood Count 2.69 10^6/uL (4.1-5.3); Red Cell Distribution Width 17.4 % (12.1-15.1); White Blood Count 1.3 10^3/uL (4.0-10.0)
[2019-10-28 09:00] LABS: Alanine Aminotransferase 8 U/L (0-41); Alkaline Phosphatase 96 IU/L (40-130); Anion Gap 25.8 (5-19); Aspartate Amino Transferase 18 U/L (0-40); Calcium 6.6 mg/dL (8.5-10.5); Carbon Dioxide 16 mmol/L (22-29); Chloride 101 mmol/L (98-107); Globulin 2.2 g/dL (1.3-4.6); Glucose 137 mg/dL (65-115); Osmolality Calculated 287 mOsm/kg (285-295); Potassium 5.8 mmol/L (3.5-5.1); Sodium 137 mmol/L (136-145); Total Bilirubin 0.5 mg/dL (0.15-1.2); Total Protein 6.2 g/dL (6.6-8.7)
[2019-10-28 09:09] LABS: Blood Urea Nitrogen 99 mg/dL (8-23)
[2019-10-28] MEDS: LORazepam 2 mg/mL INJ 1 mL IV (09:36)
[2019-10-28 09:40] LABS: Neutrophils # 0.75 10^3/uL (1.8-7.7)
--- NOTE | 2019-11-05 11:48 | ONC FU_ITS ---
[facility]nes Patient Note Patient: Manuel Garcia Unit #: [id number]: 1945 Dictated By: Jorge AmosDate of Visit: Oct 28, 2019 Onc MED NON VISIT Note Mr. Garcia presented today for labs and possible treatment with gemcitabine cisplatin. He informs is that he has not had dialysis since Friday because he has a clot in his fistula. He is scheduled to go to [place] tomorrow to have the clot removed . He is unsure if he will do dialysis at that time or not. It is noted that his white count is 1.3 with an ANC of 750. He will also not had any chemotherapy today. However it is noted that his BUN is 99. I did talk to dialysis clinic and his parts processor in [facility]. They feel that he needs dialysis tomorrow obviously. However Mr. Hammad dorado was not feeling well and was advised that he could proceed to [place] and present to the emergency room there so hopefully his dialysis catheter could get functional and he can go ahead with dialysis today. He verbalized intentions to go to [facility] for further care today. Signed By: Jorge Amos-[place] AOCNP <<Signature on File>>
== END 2019-10-28 23:59 | disposition home or self-care (01) ==
LOC: ONCMED 06:08
PROVIDERS: PCP Electrodiagnostic Medicine; Visit Provider Nurse Practitioner
DX: Z51.11 Encounter for antineoplastic chemotherapy (principal); C65.1 Malignant neoplasm of right renal pelvis; D69.59 Other secondary thrombocytopenia; D70.1 Agranulocytosis secondary to cancer chemotherapy; T45.1X5A Adverse effect of antineoplastic and immunosuppressive drugs, initial encounter; N18.6 End stage renal disease; Z51.81 Encounter for therapeutic drug level monitoring; Z79.899 Other long term (current) drug therapy; Z99.2 Dependence on renal dialysis; Z90.5 Acquired absence of kidney; Z85.51 Personal history of malignant neoplasm of bladder
CPT/HCPCS: 36430; 80053; 85025; 86850; 86900; 86920; 96365; 96366; 96367; 96372; 96375; 96413; 96417; 99214; J1100; J1200; J1442; J1453; J1940; J2060; J2405; J2469; J3475; J3480; J7030; J7040; J7050; J9060; J9201; P9040

== ENCOUNTER 2019-10-30 17:07 | Emergency (ER) | payer MEDICARE, OTHER, SELFPAY ==
[2019-10-30 17:17] VITALS: BP 168/91; PULSE 96; RESP 18; O2SAT 98; BMI 22.8
--- NOTE | 2019-10-30 17:42 | W.ED.GENADLT ---
Documented by User: VANDANA Estevez 10/30/19 18:00 HPI - General Adult General: Chief complaint: General Medical Stated complaint: BLEEDING FROM PORT Time Seen by Provider: 10/30/19 17:35 Source: patient Mode of arrival: ambulatory Limitations: no limitations History of Present Illness: HPI narrative: 74-year-old male comes in with a weeping dialysis port to his left supra clavian area. Patient had the port placed on Friday. Patient reports that the dialysis has been done through the port twice. Patient was released from [facility] today and came here because he continued to have oozing from the port site that is bloody in nature. Patient denies any fever, chest pain, difficulty breathing. Review of Systems General: Reports: 10 or more systems reviewed and unremarkable except in HPI and below Skin/Breast: Reports: other (bleeding port) [facility] ED PFSH: Medical History (Updated 10/30/19 @ 19:52 by Danielle Castro MD) AV fistula Bladder cancer Cancer of trigone of urinary bladder CKD (chronic kidney disease) stage 5, GFR less than 15 ml/min On hemodialysis Degenerative joint disease (DJD) of lumbar spine GERD (gastroesophageal reflux disease) Gross hematuria Hydronephrosis, right Hypertension Primary cancer of right ureter Surgical History History of back surgery History of ear surgery TRAUMA TO RIGHT EAR-PART OF TOP OF EAR REMOVED Status post insertion of dialysis catheter RIGHT FOREARM Family History Father , AT AGE 71 Heart attack Mother , MVA No problems noted. Denies family history of Anesthesia complication Bleeding disorder Social History Smoking and tobacco status: former smoker Quit status (tobacco): has quit using tobacco Year quit tobacco: 1970s Alcohol intake: current Alcohol intake frequency: few times a month Marital status: Current occupational status: retired Current gender identity: Male Physical Exam Const: COMMON NORMALS: no acute distress and patient oriented x3 GENERAL APPEARANCE: cooperative HENMT: COMMON NORMALS: normocephalic and Normal external nose present HEAD & SCALP: normal to inspection and normocephalic NOSE: Normal external nose present MOUTH: Normal oral and palatal mucosa present THROAT: posterior oropharynx normal Eye: GENERAL EYE: appearance normal, both eyes and all related structures Neck/C-Spine: COMMON NORMALS: full ROM OTHER: Dual-lumen central line port to the left supraclavian area, oozing red blood from the area. Chest: COMMONS NORMALS: normal inspection of the chest Resp: COMMON NORMALS: normal respiratory effort EFFORT & INSPECTION: Yes able to speak in complete sentences Cardio: COMMON NORMALS: regular rate and regular rhythm RATE: regular rate RHYTHM: regular rhythm GI: COMMON NORMALS: non-tender Back/Pelvis: COMMON NORMALS: thoracic and lumbar spine normal to inspection Extremity: COMMON NORMALS: normal to inspection Neuro: COMMON NORMALS: patient oriented x3 and moves all extremities Psych: COMMON NORMALS: mental status grossly normal and cooperative Skin: COMMON NORMALS: no rashes or lesions noted GENERAL SKIN EXAM: no rashes or lesions noted Course ED course: 1744, discussed with Dr. Castro, she assumed care of patient to discuss further with [facility]. Vital Signs: Vital signs: Vital Signs Pulse Rate 79 10/30/19 18:58 Respiratory Rate 16 10/30/19 19:58 Blood Pressure 180/71 10/30/19 19:58 Pulse Oximetry 96 10/30/19 18:58 [facility] - General Adult Lab Data: Labs: Lab Results 10/30/19 10/30/19 Range/Units 18:08 18:08 WBC 2.1 L (4.0-10.0) 10^3/ uL RBC 3.01 L (4.1-5.3) 10^6/u L Hgb 9.4 L (11.7-16.6) g/dL Hct 29.9 L (42.0-52.0) % MCV 99.3 H (80-94) fL MCH 31.2 (28.0-34.0) pg MCHC 31.4 (30.0-36.0) g/dL RDW 17.1 H (12.1-15.1) % Plt Count 107 L (130-400) 10^3/c mm MPV 9.6 (7.4-10.4) fL Neut % (Auto) 65.0 % Lymph % (Auto) 18.2 % [place] % (Auto) 15.9 % Eos % (Auto) 0.0 % Baso % (Auto) 0.0 % Neut # (Auto) 1.39 L (1.8-7.7) 10^3/u L Lymph # (Auto) 0.4 L (0.8-4.8) 10^3/u L [place] # (Auto) 0.3 (0.2-0.9) 10^3/u L Eos # (Auto) 0.0 (0.0-0.8) 10^3/u L Baso # (Auto) 0.0 (0.0-0.1) 10^3/u L Nucleated RBC % (a uto) 0.9 % Nucleated RBCs # 0.0 /100WBC PT 12.70 (12.1-14.9) SECO NDS INR 0.93 (0.8-1.2) Discharge Plan Discharge Patient Disposition: Home Clinical Impression: Bleeding due to dialysis catheter placement Qualifiers: Encounter type: initial encounter Qualified Code(s): T82.838A - Hemorrhage due to vascular prosthetic devices, implants and grafts, initial encounter Condition: Stable Prescriptions: No Action omeprazole 40 mg capsule,delayed release(DR/EC) 40 mg PO QDAY RF: 0 hydralazine 50 mg tablet 50 mg PO TID RF: 0 amlodipine 10 mg tablet 10 mg PO BEDTIME RF: 0 atorvastatin 20 mg tablet 20 mg PO QDAY RF: 0 prochlorperazine maleate 10 mg tablet 10 mg PO Q4H PRN (Reason: Nausea And Vomiting) RF: 0 torsemide 20 mg tablet 40 mg PO DAILY RF: 0 Discharge Orders: Discharge Order (Routine); Ordered 10/30/19 Ordered By: Danielle Castro Referrals: Ayo Trinidad, [Primary Care Provider] - Discharge Diet: Usual diet Discharge Activity: Resume usual activity Activity Restrictions/Additional Instructions: Leave the dressing in place as long as it is not soaked or soiled. Go to dialysis as planned. If the area starts bleeding again you can hold pressure just like we did in the ED. If that does not stop it within 20 minutes please return to the ER for further management. Discharge Date/Time: 10/30/19 20:02 Coding Level of Care Code ED School Childcare Attendant for Chg Fwd Exam Comprehensive Documented by User: Danielle Castro MD 10/30/19 23:05 HPI - General Adult General: Chief complaint: General Medical Stated complaint: BLEEDING FROM PORT Time Seen by Provider: 10/30/19 17:35 PFSH ED PFSH: Medical History (Updated 10/30/19 @ 19:52 by Danielle Castro MD) AV fistula Bladder cancer Cancer of trigone of urinary bladder CKD (chronic kidney disease) stage 5, GFR less than 15 ml/min On hemodialysis Degenerative joint disease (DJD) of lumbar spine GERD (gastroesophageal reflux disease) Gross hematuria Hydronephrosis, right Hypertension Primary cancer of right ureter Surgical History History of back surgery History of ear surgery TRAUMA TO RIGHT EAR-PART OF TOP OF EAR REMOVED Status post insertion of dialysis catheter RIGHT FOREARM Family History Father , AT AGE 71 Heart attack Mother , MVA No problems noted. Denies family history of Anesthesia complication Bleeding disorder Social History Smoking and tobacco status: former smoker Quit status (tobacco): has quit using tobacco Year quit tobacco: 1970s Alcohol intake: current Alcohol intake frequency: few times a month Marital status: Current occupational status: retired Current gender identity: Male Course ED course: Assumed care of this patient from [facility]. The patient had significant bleeding from around his catheter site. We attempted some Surgicel with no success. After that direct pressure was held over the area for a good 20 minutes and the bleeding was stopped and controlled. After that we placed a dressing and he got up and ambulated with that. There was no recurrent bleeding. I spoke with Dr. senior at [facility] in [place] and he agreed with our management. Vital Signs: Vital signs: Vital Signs Pulse Rate 79 10/30/19 18:58 Respiratory Rate 16 10/30/19 19:58 Blood Pressure 180/71 10/30/19 19:58 Pulse Oximetry 96 10/30/19 18:58 [facility] - General Adult Lab Data: Labs: Lab Results 10/30/19 10/30/19 Range/Units 18:08 18:08 WBC 2.1 L (4.0-10.0) 10^3/ uL RBC 3.01 L (4.1-5.3) 10^6/u L Hgb 9.4 L (11.7-16.6) g/dL Hct 29.9 L (42.0-52.0) % MCV 99.3 H (80-94) fL MCH 31.2 (28.0-34.0) pg MCHC 31.4 (30.0-36.0) g/dL RDW 17.1 H (12.1-15.1) % Plt Count 107 L (130-400) 10^3/c mm MPV 9.6 (7.4-10.4) fL Neut % (Auto) 65.0 % Lymph % (Auto) 18.2 % [place] % (Auto) 15.9 % Eos % (Auto) 0.0 % Baso % (Auto) 0.0 % Neut # (Auto) 1.39 L (1.8-7.7) 10^3/u L Lymph # (Auto) 0.4 L (0.8-4.8) 10^3/u L [place] # (Auto) 0.3 (0.2-0.9) 10^3/u L Eos # (Auto) 0.0 (0.0-0.8) 10^3/u L Baso # (Auto) 0.0 (0.0-0.1) 10^3/u L Nucleated RBC % (a uto) 0.9 % Nucleated RBCs # 0.0 /100WBC PT 12.70 (12.1-14.9) SECO NDS INR 0.93 (0.8-1.2) Discharge Plan Discharge Patient Disposition: Home Clinical Impression: Bleeding due to dialysis catheter placement Qualifiers: Encounter type: initial encounter Qualified Code(s): T82.838A - Hemorrhage due to vascular prosthetic devices, implants and grafts, initial encounter Condition: Stable Prescriptions: No Action omeprazole 40 mg capsule,delayed release(DR/EC) 40 mg PO QDAY RF: 0 hydralazine 50 mg tablet 50 mg PO TID RF: 0 amlodipine 10 mg tablet 10 mg PO BEDTIME RF: 0 atorvastatin 20 mg tablet 20 mg PO QDAY RF: 0 prochlorperazine maleate 10 mg tablet 10 mg PO Q4H PRN (Reason: Nausea And Vomiting) RF: 0 torsemide 20 mg tablet 40 mg PO DAILY RF: 0 Discharge Orders: Discharge Order (Routine); Ordered 10/30/19 Ordered By: Danielle Castro Referrals: Ayo Trinidad, [Primary Care Provider] - Discharge Diet: Usual diet Discharge Activity: Resume usual activity Activity Restrictions/Additional Instructions: Leave the dressing in place as long as it is not soaked or soiled. Go to dialysis as planned. If the area starts bleeding again you can hold pressure just like we did in the ED. If that does not stop it within 20 minutes please return to the ER for further management. Discharge Date/Time: 10/30/19 20:02 Coding Level of Care Code ED School Childcare Attendant for Robert Fwd Exam Comprehensive
[2019-10-30 18:19] LABS: Hematocrit 29.9 % (42.0-52.0); Hemoglobin 9.4 g/dL (11.7-16.6); Lymphocytes # 0.4 10^3/uL (0.8-4.8); Lymphocytes % 18.2 %; Mean Corpuscular HGB Conc 31.4 g/dL (30.0-36.0); Mean Corpuscular Hemoglobin 31.2 pg (28.0-34.0); Mean Corpuscular Volume 99.3 fL (80-94); Mean Platelet Volume 9.6 fL (7.4-10.4); Monocytes # 0.3 10^3/uL (0.2-0.9); Monocytes % 15.9 %; Neutrophils # 1.39 10^3/uL (1.8-7.7); Nucleated Red Blood Cells % 0.9 %; Platelet Count 107 10^3/cmm (130-400); Red Blood Count 3.01 10^6/uL (4.1-5.3); Red Cell Distribution Width 17.1 % (12.1-15.1); White Blood Count 2.1 10^3/uL (4.0-10.0)
[2019-10-30 18:31] LABS: INR 0.93 (0.8-1.2)
[2019-10-30 18:58] VITALS: BP 178/91; PULSE 79; O2SAT 96
--- NOTE | 2019-10-30 19:55 | PC.NURSE ---
applied dressing (4-4x4, and 2 med size tegaderm) to left sided dialysis port. sent dressing change supplies sent with pt. ambulated per MD request. tolerated ambulation
[2019-10-30 19:58] VITALS: BP 180/71; RESP 16
== END 2019-10-30 20:02 | disposition home or self-care (01) ==
PROVIDERS: Emergency Provider Emergency Medicine; PCP Electrodiagnostic Medicine
DX: T82.838A Hemorrhage due to vascular prosthetic devices, implants and grafts, initial encounter (principal); Z85.51 Personal history of malignant neoplasm of bladder; I12.0 Hypertensive chronic kidney disease with stage 5 chronic kidney disease or end stage renal disease; N18.5 Chronic kidney disease, stage 5; Z99.2 Dependence on renal dialysis; Z85.54 Personal history of malignant neoplasm of ureter; Z87.891 Personal history of nicotine dependence
CPT/HCPCS: 12345; 36415; 85025; 85610; 99281; 99282

== ENCOUNTER 2019-11-11 06:28 | Outpatient (RCR) | payer MEDICARE, OTHER, SELFPAY ==
[2019-11-11] MEDS: sodium chloride 0.9% 250 ML 75 ML IV (08:35)
[2019-11-11 08:44] LABS: Basophils % 0.5 %; Eosinophils # 0.2 10^3/uL (0.0-0.8); Eosinophils % 3.6 %; Hematocrit 30.5 % (42.0-52.0); Hemoglobin 9.3 g/dL (11.7-16.6); Lymphocytes # 0.7 10^3/uL (0.8-4.8); Mean Corpuscular HGB Conc 30.5 g/dL (30.0-36.0); Mean Corpuscular Hemoglobin 32.3 pg (28.0-34.0); Mean Corpuscular Volume 105.9 fL (80-94); Mean Platelet Volume 9.8 fL (7.4-10.4); Monocytes % 24.5 %; Neutrophils # 2.25 10^3/uL (1.8-7.7); Neutrophils % 53.9 %; Nucleated Red Blood Cells % 0 %; Platelet Count 256 10^3/cmm (130-400); Red Blood Count 2.88 10^6/uL (4.1-5.3); Red Cell Distribution Width 19.6 % (12.1-15.1); White Blood Count 4.2 10^3/uL (4.0-10.0)
[2019-11-11 09:10] LABS: Alanine Aminotransferase 11 U/L (0-41); Albumin Level 4.5 g/dL (3.5-5.2); Alkaline Phosphatase 103 IU/L (40-130); Anion Gap 17.5 (5-19); Aspartate Amino Transferase 20 U/L (0-40); Blood Urea Nitrogen 23 mg/dL (8-23); Calcium 8.1 mg/dL (8.5-10.5); Carbon Dioxide 27 mmol/L (22-29); Chloride 99 mmol/L (98-107); Globulin 2.3 g/dL (1.3-4.6); Glucose 120 mg/dL (65-115); Osmolality Calculated 293 mOsm/kg (285-295); Potassium 4.5 mmol/L (3.5-5.1); Sodium 139 mmol/L (136-145); Total Bilirubin 0.4 mg/dL (0.15-1.2); Total Protein 6.8 g/dL (6.6-8.7)
--- NOTE | 2019-11-11 10:23 | ONC FU_ITS ---
Dr. Souza follow up note Patient: Manuel Garcia Unit #: [id number]: 1945 Dicatated By: Moses Souza M.D.Date of Visit:Nov 11, 2019 Onc Med Follow-up/Prog Note History of Present Illness: Mr. Garcia is a 74-year-old gentleman with history of papillary tumor located over the right ureteral orifice with obstruction diagnosed on 03/19/2019. Hydronephrosis was noted on CT scan of pelvis. Mr Garcia underwent cystoscopy TURBT on 03/25/2019 which showed papillary urothelial carcinoma: low-grade no muscle invasion seen. He was referred to Dr. Begum, urologist in [place] for further evaluation for evidence of tumor invasion into the ureter. Right robotic nephroureterectomy was considered and patient underwent procedure on 05/17/2019. The final pathology report showed invasive high-grade papillary urothelial carcinoma involving right renal pelvis with tumor invasion into the kidney, size was 4 x 3.5 x 1.3 cm. There was a noninvasive ureter tumor size was 1.9 x 1.5 cm., Lymphovascular invasion was seen, no lymph node was evaluated e.g. T3,Nx Mx, stage III Mr Garcia tolerated procedure well He is on hemodialysis for end-stage renal disease. He goes to dialysis on Friday, Friday and Friday. did discuss with him his disease status and further treatment options. He was determined to have stage III disease and felt that adjuvant cher-ae heights based chemotherapy was a good option for him. However considering his age and comorbid condition MVAC was not considered due to toxicity profile but split dose cisplatin and gemcitabine on day 1 and 8 on a 21-day cycle for 4 cycles was recommended. Mr Garcia began his first cycle on August 03, 2019.And day 8 chemotherapy with cycle #1 was delayed because of progressive neutropenia/leukopenia was treated with Neupogen. And again day 8 with cycle #2 was also delayed because of progressive leukopenia and neutropenia Came for follow-up, denies any specific complaints today, no fever chills, no nausea or vomiting, no diarrhea constipation. He had issues with AV fistula for dialysis which was replaced recently as per patient for temporary dialysis left IJ was accessed and had episode of bleeding from there, which has resolved. And he is here today to conclude his adjuvant chemotherapy Medications: Atorvastatin Calcium 1 Tablet (of 20 mg) Oral at bedtime, Claritin 1 Tablet (of 10 mg) Oral daily, hydrALAZINE HCl 1 Tablet (of 50 mg) Oral t.i.d., NyQuil Severe Cold/Flu Capsule Oral PRN, Omeprazole 1 Tablet (of 40 mg) Tablet, enteric coated Oral every am, Triamcinolone Acetonide Ointment Topical PRN, Tums 1 Tablet Tablet, chewable Oral PRN, Tylenol Tablet Oral PRN Allergies: No Known Allergies. Review of Systems: Constitutional - Appetite is good and weight is stable. No fever or hot flashes. Energy level is poor today. Positive for occasional night sweats, ENMT - No sinus congestion/drainage. No mouth sores. No sore throat or difficulty swallowing, Hematologic/Lymphatic - No abnormal bruising or bleeding, Respiratory - No shortness of breath. No cough. No pleuritic pain or hemoptysis, Cardiovascular - No angina pain. No palpitations, Gastrointestinal - No nausea or vomiting. No heartburn or acid reflux. No diarrhea. Positive for constipation. No blood in the stool or black stools, Genitourinary (M) - No dysuria. Occasional hematuria. No urinary frequency. No urgency or incontinence, Musculoskeletal - Positive for generalized joint pain, Neurologic - No headache or dizziness. No numbness or tingling. No other focal neurologic symptoms, Psychiatric - No anxiety or depression. No insomnia. Vital Signs: Performed on Nov 11, 2019 09:37 Height - 66.00 in Weight - 153.8 lbs (LOW) BSA - 1.79 sq.m BMI - 24.82 Temperature - 98.9 F (HIGH) Pulse - 73 /min Respiration - 22 /min BP - 169/78 mm(hg) (HIGH) O2 Sat - 93 % (LOW) Pain - 0 Performance Status: 0 - Fully active, able to carry on all predisease activities without restrictions. (ECOG) Physical Examination: ENMT - No mouth sores, no thrush, no jaundice, Respiratory - Lungs are clear to auscultation, Cardiovascular - Regular rate and rhythm of heart, Abdomen - Soft, bowel sounds present, Extremities - No visible edema. Lab/Imaging: Test performed on Oct 28, 2019 08:10 Sodium 137 mmol/L Potassium 5.8 mmol/L Chloride 101 mmol/L CO2 16 mmol/L Anion Gap 25.8 BUN 99 mg/dL Creatinine 15.7 mg/dL Cr Clearance (Est) 4.2100 mL/min Glucose 137 mg/dL Calcium 6.6 mg/dL Osmolality - Calculated 287 mOsm/kg Protein, Total 6.2 g/dL Albumin 4.0 g/dL Globulin 2.2 g/dL Bilirubin, Total 0.5 mg/dL ALT (SGPT) 8 U/L AST (SGOT) 18 U/L Alkaline Phosphatase 96 IU/L WBC 1.3 10 3/uL RBC 2.69 10 6/uL HGB 8.5 g/dL HCT 27.1 % MCV 100.7 fL MCH 31.6 pg MCHC 31.4 g/dL RDW 17.4 % Platelet Count 185 10 3/cmm MPV 9.6 fL Neutrophils 0.75 10 3/uL Lymphocytes 0.4 10 3/uL Monocytes 0.1 10 3/uL Eosinophils 0.0 10 3/uL Basophils 0.0 10 3/uL Neutrophil % 57.7 % Lymphocyte % 29.2 % Monocyte % 8.5 % Eosinophil % 0.8 % Basophils % 0.0 % NRBC % 0 % Test performed on Oct 19, 2019 10:08 Anti-D Positive Blood Type BP Impression: invasive high-grade urothelial carcinoma Of right renal pelvis/ureter with invasion into the right kidney status post robotic nephroureterectomy done on 05/17/2019 next Final pathology report showed invasive high-grade papillary urothelial carcinoma, tumor size 4 x 3.5 x 1.3 cm invading right kidney and 1.9 x 1.5 cm noninvasive ureter tumor with lymphovascular invasion seen pT3 No lymph nodes were identified for evaluation pNx , Mx stage III ureteral/renal pelvis carcinoma End-stage renal disease on hemodialysis. iscussed with Mr Garcia his disease status and further treatment options. He has invasive high-grade papillary urothelial carcinoma of right renal pelvis with invasion into the right kidney e.g. T3 lesion , with unknown lymph node status. As per N CCN guidelines, Mr Garcia has stage III disease and there is a role of adjuvant cher-ae heights-based chemotherapy which may improve disease-free survival. Considering patient's age and comorbid condition, MVAC was not consdered due to toxicity profile but split dose cisplatin and gemcitabine, on day 1 and 8 and repeat every 21 days ???4 cycles. Mr Garcia began his first cycle of split dose cisplatin gemcitabine on August 03, 2019. He has tolerated it well thus far. Clinically, patient is doing reasonably well, tolerated first cycle of adjuvant chemotherapy with split dose cisplatin and gemcitabine well but with expected side effects is a progressive pancytopenia/severe leukopenia/neutropenia causing delay in chemotherapy schedule, treated with Neupogen 300 mcg subcu daily for 3 days. CBC from 08/16/2019showed progressive mild thrombocytopenia thus we did reduce the gemcitabine dose by 10% to minimize risk of thrombocytopenia and leukopenia and added Neupogen 480 mcg subcutaneous daily for 3 days. Plan: Discussed with patient regarding his labs white blood count 4.2 hemoglobin 9.3 hematocrit 30.5 platelets 256,000 ANC 2250 CMP within normal limit except creatinine 6 BUN 23, patient is on hemodialysis Clinically, patient is doing reasonably well, tolerating adjuvant chemotherapy with split dose cisplatin and gemcitabine but with expected side effects. We will proceed with cycle number 4-day 8 e.g. last dose of adjuvant chemotherapy with split dose cisplatin and gemcitabine and then he will return to clinic in 1 week with CBC. With this he will conclude his adjuvant chemotherapy and then will consider follow-up every 3 to 4-month for next 2 years followed by every 6-month for 3 more years. As far as anemia is concerned, is multifactorial including due to renal failure, being managed by nephrology, hemoglobin stable Signed By: Moses Souza M.D. <<Signature on File>>
[2019-11-11] MEDS: FUROsemide 10 mg/mL SDV 2mL 20 MG IV (13:35)
[2019-11-11] MEDS: potassium chloride 20 MEQ in sodium chloride 0.9% 500 ML 500 MEQ IV (14:16)
== END 2019-11-17 23:59 | disposition home or self-care (01) ==
LOC: ONCMED 06:28
PROVIDERS: PCP Electrodiagnostic Medicine; Visit Provider Internal Medicine Hematology & Oncology
DX: Z51.11 Encounter for antineoplastic chemotherapy (principal); C65.1 Malignant neoplasm of right renal pelvis; N18.6 End stage renal disease; Z99.2 Dependence on renal dialysis; I12.0 Hypertensive chronic kidney disease with stage 5 chronic kidney disease or end stage renal disease
CPT/HCPCS: 80053; 85025; 96366; 96367; 96375; 96413; 96417; 99214; J1100; J1200; J1453; J1940; J2469; J3475; J3480; J7030; J7040; J7050; J9060; J9201

== ENCOUNTER 2019-11-21 13:25 | Emergency (ER) | payer MEDICARE, OTHER, SELFPAY ==
[2019-11-21 13:47] VITALS: BP 220/99; PULSE 106; RESP 14; TEMP 36.7; O2SAT 98; BMI 24.5
--- NOTE | 2019-11-21 13:56 | CTR_ITS ---
PROCEDURE INFORMATION: Exam: CT Head Without Contrast Exam date and time: 11/21/2019 2:00 PM Age: 74 years old Clinical indication: Dizziness and weakness, extremity; Patient HX: Left side weakness, slurred speech, dizziness today; Additional info: Poss stroke TECHNIQUE: Imaging protocol: Computed tomography of the head without contrast. Radiation optimization: All CT scans at this facility use at least one of these dose optimization techniques: automated exposure control; mA and/or kV adjustment per patient size (includes targeted exams where dose is matched to clinical indication); or iterative reconstruction. Other technique: STROKE PROTOCOL was implemented. COMPARISON: No relevant prior studies available. RADIATION DOSE METRICS: Total DLP (mGy-cm): 718.33 FINDINGS: Brain: There is no acute intracranial hemorrhage. There is lucency in the cerebral white matter, likely microvascular disease although non-specific. Hdez white differentiation is intact. There are no extra-axial fluid collections. No evidence of mass. There is no mass effect or midline shift. Cerebral ventricles: The ventricles and sulci are enlarged, consistent with volume loss / atrophy. No hydrocephalus. Bones/joints: No acute fracture. Paranasal sinuses: Visualized sinuses are unremarkable. No fluid levels. Mastoid air cells: No significant mastoid effusion. Vasculature: There is vascular calcification. No evidence of hyperdense vascular sign. Soft tissues: Unremarkable as visualized. CT/CT head wo con* [id number] IMPRESSION: 1. No evidence of acute intracranial abnormality. No evidence of acute infarction, hemorrhage, or mass. 2. Atrophy and microvascular disease. ASSESSMENT: ASPECTS ([place] Stroke Program Early CT Score) is 10. Radiation Dose CTDIVOL = (mGy): DLP = 718.33 (mGy-cm)
--- NOTE | 2019-11-21 14:05 | ECG_ITS ---
[facility] Test Date: 2019-11-21 Pat Name: Manuel Garcia Department: Room: Gender: Male Lead Bi Developer: : 1945 Requested By: Fransisco Alvarenga Order Number: [id number] Delfino MD: Erich Kumar M.D. Measurements Intervals [place] Rate: 81 P: 60 ME: 191 QRS: 4 QRSD: 95 T: 38 QT: 385 QTc: 448 Interpretive Statements SINUS RHYTHM Compared to ECG 03/25/2019 12:22:54 No significant changes Electronically Signed On 11-21-2019 20:16:18 CDT by Erich Kumra M.D. [id number] f
[2019-11-21 14:17] LABS: Basophils % 0.2 %; Eosinophils % 0.7 %; Hematocrit 33.1 % (42.0-52.0); Hemoglobin 10.2 g/dL (11.7-16.6); Lymphocytes # 0.6 10^3/uL (0.8-4.8); Mean Corpuscular HGB Conc 30.8 g/dL (30.0-36.0); Mean Corpuscular Hemoglobin 32.2 pg (28.0-34.0); Mean Corpuscular Volume 104.4 fL (80-94); Mean Platelet Volume 10.4 fL (7.4-10.4); Monocytes # 0.5 10^3/uL (0.2-0.9); Monocytes % 11.6 %; Neutrophils % 71.3 %; Nucleated Red Blood Cells % 0.4 %; Platelet Count 117 10^3/cmm (130-400); Red Blood Count 3.17 10^6/uL (4.1-5.3); Red Cell Distribution Width 18.8 % (12.1-15.1); White Blood Count 4.5 10^3/uL (4.0-10.0)
[2019-11-21 14:22] LABS: INR 0.86 (0.8-1.2)
[2019-11-21 14:23] LABS: Partial Thromboplastin Time 31.5 SECONDS (23.9-36.7)
[2019-11-21 14:27] LABS: Alanine Aminotransferase 9 U/L (0-41); Albumin Level 4.7 g/dL (3.5-5.2); Alkaline Phosphatase 112 IU/L (40-130); Aspartate Amino Transferase 22 U/L (0-40); Calcium 8.5 mg/dL (8.5-10.5); Carbon Dioxide 24 mmol/L (22-29); Chloride 99 mmol/L (98-107); Globulin 2.4 g/dL (1.3-4.6); Potassium 4.8 mmol/L (3.5-5.1); Total Bilirubin 0.5 mg/dL (0.15-1.2); Total Protein 7.1 g/dL (6.6-8.7)
--- NOTE | 2019-11-21 14:40 | W.ED.NEUROSD ---
HPI - Neuro Symptoms/Deficit General: Chief Complaint: Neuro Symptoms/Deficit Stated Complaint: dizziness/blurred vision/head pain in right side Time Seen by Provider: 11/21/19 14:11 Source: patient Mode of arrival: ambulatory Limitations: no limitations History of Present Illness: HPI Narrative: 74-year-old male who states that he was driving home from [employer] at noon and had sudden blurred vision and states he seems like he cannot see anything to the left. Patient is having some slight slurred speech and neglect as well. states that this is very different for him. Was sudden. He has had no improvement. When patient stands he is very ataxic and she states he has been having a hard time walking. She states that he has had hard time doing tasks like buttoning his shirts since this happened as well. Patient here is quite hypertensive with blood pressures in the 220s. He has no history of stroke. He is a dialysis patient. Associated symptoms: Deny chest pain, nausea or vomiting Review of Systems Const: Denies: fever(s), chills, body aches or change in appetite Eyes: Reports: change in vision and blurry vision ENMT: Denies: throat pain or dental pain Card: Denies: chest pain Resp: Denies: dyspnea GI: Denies: abdominal pain, nausea, vomiting or diarrhea : Denies: dysuria Musc: Denies: neck pain or back pain Skin/Breast: Denies: rash Neuro: Reports: numbness in extremities and behavioral changes Psych: Denies: depression Shun/Lymph: Denies: easy bruising All/Imm: Denies: urticaria PFSH ED PFSH: Medical History AV fistula Bladder cancer Cancer of trigone of urinary bladder CKD (chronic kidney disease) stage 5, GFR less than 15 ml/min On hemodialysis Degenerative joint disease (DJD) of lumbar spine GERD (gastroesophageal reflux disease) Gross hematuria Hydronephrosis, right Hypertension Primary cancer of right ureter Surgical History History of back surgery History of ear surgery TRAUMA TO RIGHT EAR-PART OF TOP OF EAR REMOVED Status post insertion of dialysis catheter RIGHT FOREARM Family History Father , AT AGE 71 Heart attack Mother , MVA No problems noted. Denies family history of Anesthesia complication Bleeding disorder Social History Smoking and tobacco status: former smoker Quit status (tobacco): has quit using tobacco Year quit tobacco: 1970s Alcohol intake: current Alcohol intake frequency: few times a month Marital status: Current occupational status: retired Current gender identity: Male NIH stroke score NIHSS: Level Of Consciousness - 1a: 0 Level Of Consciousness Questions - 1b: Both Correct Level Of Consciousness Commands - 1c: Both Correct Best Gaze - 2: Normal Visual [place]camp[place] - 3: Partial Hemianopia Facial Palsy - 4: Normal Motor Arm Right - 5: No Drift Motor Arm Left - 5: Drift Motor Leg Right - 6: No Drift Motor Leg Left - 6: Drift Limb Ataxia - 7: Absent Sensory - 8: Normal Best Language - 9: Mild/Moderate Aphasia Dysarthia - 10: Mild/Moderate Dysarthia Extinction And Inattention - 11: 0 Score: Total Score: 5 Physical Exam Const: COMMON NORMALS: no acute distress, patient oriented x3, healthy appearing and alert HENMT: COMMON NORMALS: normocephalic and atraumatic HEAD & SCALP: normocephalic and atraumatic Eye: COMMON NORMALS: Equal, round and reactive pupils present and EOMs intact bilaterally PUPIL: Yes Equal, round and reactive pupils present Neck/C-Spine: COMMON NORMALS: full ROM and supple Chest: COMMONS NORMALS: normal inspection of the chest and normal palpation of entire chest wall Resp: COMMON NORMALS: normal respiratory effort, No retractions, No use of accessory muscles and clear to auscultation bilaterally AUSCULTATION: clear to auscultation bilaterally Cardio: COMMON NORMALS: regular rate, regular rhythm and No murmurs present (Cardio) RATE: regular rate RHYTHM: regular rhythm GI: COMMON NORMALS: Normal to inspection, nondistended, normoactive bowel sounds present, Soft to palpation, non-tender and no masses PALPATION: Yes Soft to palpation Extremity: COMMON NORMALS: normal to inspection and full ROM Neuro: COMMON NORMALS: patient oriented x3 SENSORIUM/ORIENTATION: Yes alert COORDINATION/BALANCE: No tandem gait normal SPEECH: abnormal speech GAIT: Yes Ataxic gait present COORDINATION: tandem gait abnormal Psych: COMMON NORMALS: mental status grossly normal, Normal thought process present and cooperative THOUGHT PROCESS: Normal thought process present Skin: COMMON NORMALS: no rashes or lesions noted and no wounds GENERAL SKIN EXAM: no rashes or lesions noted Course Vital Signs: Vital signs: Vital Signs Temperature 98.0 F 11/21/19 13:47 Pulse Rate 82 11/21/19 15:08 Respiratory Rate 21 H 11/21/19 15:08 Blood Pressure 150/75 11/21/19 15:16 Pulse Oximetry 97 11/21/19 15:08 MDM - Neuro Symptoms/Deficit MDM Narrative: Medical decision making narrative: Patient presents here with a likely CVA. He has visual deficit to the left side. When reading sentences he was neglecting the whole left side of the page. I have admitted NIH of 5. I spoke to [facility] doctor who recommended TPA. Patient was quite hypertensive here and I was very aggressive treating his blood pressure prior to TPA. tPA administration was delayed due to his hypertension. I did have to give him multiple doses of labetalol. Patient's blood pressure is now 169/84. I did speak to him and his at length and gave him the risks of bleeding and they consented to the TPA. He has had no recent surgeries or any major bleeds. Spoke to [facility] and will transfer there for higher level of care of neurology. Lab Data: Labs: Lab Results 11/21/19 11/21/19 11/21/19 Range/Units 14:00 14:00 14:00 WBC 4.5 (4.0-10.0) 10^3/ uL RBC 3.17 L (4.1-5.3) 10^6/u L Hgb 10.2 L (11.7-16.6) g/dL Hct 33.1 L (42.0-52.0) % MCV 104.4 H (80-94) fL MCH 32.2 (28.0-34.0) pg MCHC 30.8 (30.0-36.0) g/dL RDW 18.8 H (12.1-15.1) % Plt Count 117 L (130-400) 10^3/c mm MPV 10.4 (7.4-10.4) fL Neut % (Auto) 71.3 % Lymph % (Auto) 14.0 % Bennett % (Auto) 11.6 % Eos % (Auto) 0.7 % Baso % (Auto) 0.2 % Neut # (Auto) 3.20 (1.8-7.7) 10^3/u L Lymph # (Auto) 0.6 L (0.8-4.8) 10^3/u L Bennett # (Auto) 0.5 (0.2-0.9) 10^3/u L Eos # (Auto) 0.0 (0.0-0.8) 10^3/u L Baso # (Auto) 0.0 (0.0-0.1) 10^3/u L Nucleated RBC % (a uto) 0.4 % Nucleated RBCs # 0.0 /100WBC PT 12.00 L (12.1-14.9) SECO NDS INR 0.86 (0.8-1.2) APTT 31.5 (23.9-36.7) SECO NDS Sodium 141 (136-145) mmol/L Potassium 4.8 (3.5-5.1) mmol/L Chloride 99 (98-107) mmol/L Carbon Dioxide 24 (22-29) mmol/L Anion Gap 22.8 H (5-19) BUN 41 H (8-23) mg/dL Creatinine 9.2 H* (0.7-1.2) mg/dL GFR Calculation Not Reportable Glucose 143 H (65-115) mg/dL Calculated Osmolal ity 305 H (285-295) mOsm/k g Calcium 8.5 (8.5-10.5) mg/dL Total Bilirubin 0.5 (0.15-1.2) mg/dL AST 22 (0-40) U/L ALT 9 (0-41) U/L Alkaline Phosphata se 112 (40-130) IU/L Total Protein 7.1 (6.6-8.7) g/dL Albumin 4.7 (3.5-5.2) g/dL Globulin 2.4 (1.3-4.6) g/dL Imaging Data^: CT Head: Radiologist's impression: [address] [address] [address] Scan Report Signed Patient: Manuel Garcia Unit #: [id number] : 1945 Age/Sex: 74 / M ADM Date: 11/21/19 Loc: ER Room/Bed: Attending Dr: Ordering Provider/Ordering MD: Fransisco Alvarenga MD Date of Service: 11/21/19 Procedure(s): CT head wo con* [id number] Accession Number(s): [id number] Report Number: [id number] PROCEDURE INFORMATION: Exam: CT Head Without Contrast Exam date and time: 11/21/2019 2:00 PM Age: 74 years old Clinical indication: Dizziness and weakness, extremity; Patient HX: Left side weakness, slurred speech, dizziness today; Additional info: Poss stroke TECHNIQUE: Imaging protocol: Computed tomography of the head without contrast. Radiation optimization: All CT scans at this facility use at least one of these dose optimization techniques: automated exposure control; mA and/or kV adjustment per patient size (includes targeted exams where dose is matched to clinical indication); or iterative reconstruction. Other technique: STROKE PROTOCOL was implemented. COMPARISON: No relevant prior studies available. RADIATION DOSE METRICS: Total DLP (mGy-cm): 718.33 FINDINGS: Brain: There is no acute intracranial hemorrhage. There is lucency in the cerebral white matter, likely microvascular disease although non-specific. Hdez white differentiation is intact. There are no extra-axial fluid collections. No evidence of mass. There is no mass effect or midline shift. Cerebral ventricles: The ventricles and sulci are enlarged, consistent with volume loss / atrophy. No hydrocephalus. Bones/joints: No acute fracture. Paranasal sinuses: Visualized sinuses are unremarkable. No fluid levels. Mastoid air cells: No significant mastoid effusion. Vasculature: There is vascular calcification. No evidence of hyperdense vascular sign. Soft tissues: Unremarkable as visualized. CT/CT head wo con* [id number] IMPRESSION: 1. No evidence of acute intracranial abnormality. No evidence of acute infarction, hemorrhage, or mass. 2. Atrophy and microvascular disease. EKG Data^: EKG 1: Attestation: I personally reviewed and interpreted this EKG as follows: EKG interpretation date: 11/21/19 EKG interpretation time: 13:40 Interpretation: sinus tach hr [address] or t wave abnormalities qrs 92 qtc 400 Critical Care Time Critical Care Time: Critical Care Time: Yes Total Critical Care Time: 35 Attestation: This case had a high probability of a clinically significant, sudden, or life threatening deterioration of this patient's condition which required my full and direct attention, intervention and personal management. Discharge Plan Discharge Patient Disposition: Xfer Other Clinical Impression: Cerebrovascular accident Qualifiers: CVA mechanism: unspecified Qualified Code(s): I63.9 - Cerebral infarction, unspecified Condition: Stable Referrals: Ayo Trinidad DO [Primary Care Provider] - Coding Level of Care Code ED [facility] for Chg Fwd Exam Comprehensive
[2019-11-21 14:56] LABS: Blood Urea Nitrogen 41 mg/dL (8-23); Glucose 143 mg/dL (65-115)
[2019-11-21 14:57] LABS: Anion Gap 22.8 (5-19); Osmolality Calculated 305 mOsm/kg (285-295); Sodium 141 mmol/L (136-145)
[2019-11-21] MEDS: labetalol 5 mg/mL SDV 20mL 20 MG IVP (14:59)
[2019-11-21] MEDS: nicardipine 20 MG/200 ML PREMIX 100 MG IV (14:59)
[2019-11-21] MEDS: labetalol 5 mg/mL SDV 20mL 10 MG IVP ×3 (14:59)
[2019-11-21 15:08] VITALS: BP 155/80; PULSE 82; RESP 21; O2SAT 97
[2019-11-21 15:16] VITALS: BP 150/75
--- NOTE | 2019-11-21 15:34 | PC.NURSE ---
pt report called to Tho Flores to Gayle Pink RN in SBAR format.
[2019-11-21 15:35] VITALS: BP 149/75; PULSE 85; RESP 24; O2SAT 97
[2019-11-21 22:49] LABS: Glucose Point of Care 151 mg/dL (70-110)
== END 2019-11-21 16:02 | disposition other institution (70) ==
PROVIDERS: Emergency Provider Emergency Medicine; PCP Electrodiagnostic Medicine
DX: I63.9 Cerebral infarction, unspecified (principal); Z85.51 Personal history of malignant neoplasm of bladder; I12.0 Hypertensive chronic kidney disease with stage 5 chronic kidney disease or end stage renal disease; N18.6 End stage renal disease; Z85.54 Personal history of malignant neoplasm of ureter; Z87.891 Personal history of nicotine dependence
CPT/HCPCS: 12345; 36416; 70450; 80053; 82962; 85025; 85610; 85730; 93005; 96365; 96366; 96375; 99283; 99285; J2997; J3490

== ENCOUNTER → 2019-11-26 08:09 | Outpatient (BNVA) | payer MEDICARE, OTHER, SELFPAY | PROVIDERS: PCP Electrodiagnostic Medicine; Visit Provider Urology | DX: C67.8 Malignant neoplasm of overlapping sites of bladder (principal) | CPT/HCPCS: 81001 ==

== ENCOUNTER 2019-12-14 05:56 | Outpatient (RCR) | payer MEDICARE, OTHER, SELFPAY ==
[2019-12-14 08:38] LABS: Basophils % 0.4 %; Eosinophils # 0.1 10^3/uL (0.0-0.8); Eosinophils % 1.8 %; Hematocrit 42.2 % (42.0-52.0); Hemoglobin 12.9 g/dL (11.7-16.6); Lymphocytes # 0.8 10^3/uL (0.8-4.8); Mean Corpuscular HGB Conc 30.6 g/dL (30.0-36.0); Mean Corpuscular Hemoglobin 31.5 pg (28.0-34.0); Mean Corpuscular Volume 102.9 fL (80-94); Mean Platelet Volume 9.7 fL (7.4-10.4); Monocytes # 0.6 10^3/uL (0.2-0.9); Monocytes % 12.8 %; Neutrophils # 3.07 10^3/uL (1.8-7.7); Neutrophils % 67.6 %; Nucleated Red Blood Cells % 0 %; Platelet Count 201 10^3/cmm (130-400); Red Cell Distribution Width 16.3 % (12.1-15.1); White Blood Count 4.5 10^3/uL (4.0-10.0)
[2019-12-14 09:02] LABS: Alanine Aminotransferase 8 U/L (0-41); Albumin Level 4.1 g/dL (3.5-5.2); Alkaline Phosphatase 105 IU/L (40-130); Anion Gap 18.8 (5-19); Aspartate Amino Transferase 13 U/L (0-40); Blood Urea Nitrogen 35 mg/dL (8-23); Calcium 8.2 mg/dL (8.5-10.5); Carbon Dioxide 26 mmol/L (22-29); Chloride 102 mmol/L (98-107); Globulin 2.2 g/dL (1.3-4.6); Glucose 167 mg/dL (65-115); Osmolality Calculated 308 mOsm/kg (285-295); Potassium 3.8 mmol/L (3.5-5.1); Sodium 143 mmol/L (136-145); Total Bilirubin 0.4 mg/dL (0.15-1.2); Total Protein 6.3 g/dL (6.6-8.7)
--- NOTE | 2019-12-14 10:48 | ONC FU_ITS ---
Dr. Souza follow up note Patient: Manuel Garcia Unit #: [id number]: 1945 Dicatated By: Moses Souza M.D.Date of Visit:Dec 14, 2019 Onc Med Follow-up/Prog Note History of Present Illness: Mr. Garcia is a 74-year-old gentleman with history of papillary tumor located over the right ureteral orifice with obstruction diagnosed on 03/19/2019. Hydronephrosis was noted on CT scan of pelvis. Mr Garcia underwent cystoscopy TURBT on 03/25/2019 which showed papillary urothelial carcinoma: low-grade no muscle invasion seen. He was referred to Dr. Begum, urologist in [place] for further evaluation for evidence of tumor invasion into the ureter. Right robotic nephroureterectomy was considered and patient underwent procedure on 05/17/2019. The final pathology report showed invasive high-grade papillary urothelial carcinoma involving right renal pelvis with tumor invasion into the kidney, size was 4 x 3.5 x 1.3 cm. There was a noninvasive ureter tumor size was 1.9 x 1.5 cm., Lymphovascular invasion was seen, no lymph node was evaluated e.g. T3,Nx Mx, stage III Mr Garcia tolerated procedure well He is on hemodialysis for end-stage renal disease. He goes to dialysis on Friday, Friday and Friday. did discuss with him his disease status and further treatment options. He was determined to have stage III disease and felt that adjuvant [place] based chemotherapy was a good option for him. However considering his age and comorbid condition MVAC was not considered due to toxicity profile but split dose cisplatin and gemcitabine on day 1 and 8 on a 21-day cycle for 4 cycles was recommended. Mr Garcia began his first cycle on August 03, 2019.And day 8 chemotherapy with cycle #1 was delayed because of progressive neutropenia/leukopenia was treated with Neupogen. And again day 8 with cycle #2 was also delayed because of progressive leukopenia and neutropenia And completed 4 cycles of adjuvant chemotherapy with split dose cisplatin/gemcitabine on November 11, 2019 Came for follow-up, denies any specific complaints except off and on right abdominal pain, denies any history of trauma to abdomen, denies any melena or hematochezia, denies any abdominal fullness, denies any hematuria, denies any jaundice, no nausea or vomiting as per patient pain is localized in the right abdomen and intermittent type, cannot pinpoint aggravating factor or relieving factor. Patient said on November 21, 2019 while he was going back [place] he felt weak in his left arm by the time he got home he could not see his left hand and then decided to come to hospital and then he was flown to [place] where he, as per patient he was given some medication to Port-A-Cath to dissolve clot, after that he recovered well, no residual weakness or visual abnormality. Patient is scheduled for follow-up MRI scan in [place] on December 28, 2019 Medications: Atorvastatin Calcium 1 Tablet (of 20 mg) Oral at bedtime, hydrALAZINE HCl 1 Tablet (of 50 mg) Oral four times a day, Lisinopril 1 Tablet (of 40 mg) Oral daily, Prochlorperazine Maleate 1 Tablet (of 10 mg) Oral four times a day PRN, Torsemide 1 Tablet (of 20 mg) Oral daily, Triamcinolone Acetonide Ointment Topical PRN, Tums 1 Tablet Tablet, chewable Oral PRN, Tylenol Tablet Oral PRN Allergies: No Known Allergies. Review of Systems: Constitutional - Appetite is good and weight is stable. No fever or hot flashes. Energy level is poor today. Positive for occasional night sweats, ENMT - No sinus congestion/drainage. No mouth sores. No sore throat or difficulty swallowing, Hematologic/Lymphatic - No abnormal bruising or bleeding, Respiratory - No shortness of breath. No cough. No pleuritic pain or hemoptysis, Cardiovascular - No angina pain. No palpitations, Gastrointestinal - No nausea or vomiting. No heartburn or acid reflux. No diarrhea. Positive for constipation. No blood in the stool or black stools, Genitourinary (M) - No dysuria. Occasional hematuria. No urinary frequency. No urgency or incontinence, Musculoskeletal - Positive for generalized joint pain, Neurologic - No headache or dizziness. No numbness or tingling. No other focal neurologic symptoms, Psychiatric - No anxiety or depression. No insomnia. Vital Signs: Performed on Dec 14, 2019 10:22 Height - 66.00 in Weight - 154.8 lbs (HIGH) BSA - 1.79 sq.m BMI - 24.99 Temperature - 98.7 F Pulse - 84 /min Respiration - 17 /min BP - 155/67 mm(hg) (HIGH) O2 Sat - 98 % Pain - 0 Performance Status: 1 - No physically strenuous activity, but ambulatory and able to carry out light or sedentary work (e.g. office work, light house work). (ECOG) Physical Examination: ENMT - No mouth sores, no thrush, no jaundice, Respiratory - Lungs are clear to auscultation, Cardiovascular - Regular rate and rhythm of heart, Abdomen - Soft, bowel sounds present mild discomfort in the right mid/lower quadrant but no rebound tenderness no mass palpable, Extremities - No visible edema. Lab/Imaging: Test performed on Oct 28, 2019 08:10 Sodium 137 mmol/L Potassium 5.8 mmol/L Chloride 101 mmol/L CO2 16 mmol/L Anion Gap 25.8 BUN 99 mg/dL Creatinine 15.7 mg/dL Cr Clearance (Est) 4.2100 mL/min Glucose 137 mg/dL Calcium 6.6 mg/dL Osmolality - Calculated 287 mOsm/kg Protein, Total 6.2 g/dL Albumin 4.0 g/dL Globulin 2.2 g/dL Bilirubin, Total 0.5 mg/dL ALT (SGPT) 8 U/L AST (SGOT) 18 U/L Alkaline Phosphatase 96 IU/L Test performed on Oct 19, 2019 10:08 Anti-D Positive Blood Type BP Test performed on Sep 07, 2019 08:44 WBC 2.2 10 3/uL RBC 2.91 10 6/uL HGB 8.8 g/dL HCT 28.4 % MCV 97.6 fL MCH 30.2 pg MCHC 31.0 g/dL RDW 15.7 % Platelet Count 225 10 3/cmm MPV 9.2 fL Neutrophils 1.47 10 3/uL Lymphocytes 0.4 10 3/uL Monocytes 0.2 10 3/uL Eosinophils 0.0 10 3/uL Basophils 0.0 10 3/uL Neutrophil % 67.8 % Lymphocyte % 19.8 % Monocyte % 10.1 % Eosinophil % 0.9 % Basophils % 0.9 % NRBC % 0 % Impression: invasive high-grade urothelial carcinoma Of right renal pelvis/ureter with invasion into the right kidney status post robotic nephroureterectomy done on 05/17/2019 next Final pathology report showed invasive high-grade papillary urothelial carcinoma, tumor size 4 x 3.5 x 1.3 cm invading right kidney and 1.9 x 1.5 cm noninvasive ureter tumor with lymphovascular invasion seen pT3 No lymph nodes were identified for evaluation pNx , Mx stage III ureteral/renal pelvis carcinoma End-stage renal disease on hemodialysis. iscussed with Mr Garcia his disease status and further treatment options. He has invasive high-grade papillary urothelial carcinoma of right renal pelvis with invasion into the right kidney e.g. T3 lesion , with unknown lymph node status. As per [place] CCN guidelines, Mr Garcia has stage III disease and there is a role of adjuvant [place]-based chemotherapy which may improve disease-free survival. Considering patient's age and comorbid condition, MVAC was not consdered due to toxicity profile but split dose cisplatin and gemcitabine, on day 1 and 8 and repeat every 21 days ???4 cycles. Mr Garcia began his first cycle of split dose cisplatin gemcitabine on August 03, 2019. He has tolerated it well thus far. Clinically, patient is doing reasonably well, tolerated first cycle of adjuvant chemotherapy with split dose cisplatin and gemcitabine well but with expected side effects is a progressive pancytopenia/severe leukopenia/neutropenia causing delay in chemotherapy schedule, treated with Neupogen 300 mcg subcu daily for 3 days. CBC from 08/16/2019showed progressive mild thrombocytopenia thus we did reduce the gemcitabine dose by 10% to minimize risk of thrombocytopenia and leukopenia and added Neupogen 480 mcg subcutaneous daily for 3 days. Plan: Discussed with patient regarding his labs white blood count 4.5 hemoglobin 12.9 hematocrit 42.2 platelets 201,000 CMP within normal limit except creatinine 7.7, patient is on hemodialysis Clinically, patient is doing reasonably well, his follow-up labs shows excellent recovery, with normal CBC and electrolytes and liver function test. But concern is right intermittent abdominal pain of 1 month duration, etiology is unclear, will consider CT scan of abdomen pelvis to rule out intra-abdominal pathology. Patient return to clinic after CT scan of abdomen pelvis for further discussion and he was advised in case there is a worsening of pain he need to go to hospital immediately for evaluation. Signed By: Moses Souza M.D. <<Signature on File>>
== END 2019-12-18 23:59 | disposition home or self-care (01) ==
LOC: ONCMED 05:56
PROVIDERS: PCP Electrodiagnostic Medicine; Visit Provider Internal Medicine Hematology & Oncology
DX: C65.1 Malignant neoplasm of right renal pelvis (principal); N18.6 End stage renal disease; Z99.2 Dependence on renal dialysis; R10.31 Right lower quadrant pain; D70.1 Agranulocytosis secondary to cancer chemotherapy; T45.1X5D Adverse effect of antineoplastic and immunosuppressive drugs, subsequent encounter; Z90.5 Acquired absence of kidney; Z90.6 Acquired absence of other parts of urinary tract
CPT/HCPCS: 36591; 80053; 85025; 99214

== ENCOUNTER 2020-01-06 05:42 | Outpatient (RCR) | payer MEDICARE, OTHER, SELFPAY ==
--- NOTE | 2020-01-06 15:58 | ONC FU_ITS ---
Dr. Souza follow up note Patient: Manuel Garcia Unit #: [id number]: [id number] Dicatated By: Moses Souza M.D.Date of Visit:Jan 06, 2020 Onc Med Follow-up/Prog Note History of Present Illness: Mr. Garcia is a 74-year-old gentleman with history of papillary tumor located over the right ureteral orifice with obstruction diagnosed on 03/19/2019. Hydronephrosis was noted on CT scan of pelvis. Mr Garcia underwent cystoscopy TURBT on 03/25/2019 which showed papillary urothelial carcinoma: low-grade no muscle invasion seen. He was referred to Dr. Begum, urologist in [place] for further evaluation for evidence of tumor invasion into the ureter. Right robotic nephroureterectomy was considered and patient underwent procedure on 05/17/2019. The final pathology report showed invasive high-grade papillary urothelial carcinoma involving right renal pelvis with tumor invasion into the kidney, size was 4 x 3.5 x 1.3 cm. There was a noninvasive ureter tumor size was 1.9 x 1.5 cm., Lymphovascular invasion was seen, no lymph node was evaluated e.g. T3,Nx Mx, stage III Mr Garcia tolerated procedure well He is on hemodialysis for end-stage renal disease. He goes to dialysis on Friday, Friday and Friday. did discuss with him his disease status and further treatment options. He was determined to have stage III disease and felt that adjuvant [place] based chemotherapy was a good option for him. However considering his age and comorbid condition MVAC was not considered due to toxicity profile but split dose cisplatin and gemcitabine on day 1 and 8 on a 21-day cycle for 4 cycles was recommended. Mr Garcia began his first cycle on August 03, 2019.And day 8 chemotherapy with cycle #1 was delayed because of progressive neutropenia/leukopenia was treated with Neupogen. And again day 8 with cycle #2 was also delayed because of progressive leukopenia and neutropenia And completed 4 cycles of adjuvant chemotherapy with split dose cisplatin/gemcitabine on November 11, 2019 Patient said on November 21, 2019 while he was going back [place] he felt weak in his left arm by the time he got home he could not see his left hand and then decided to come to hospital and then he was flown to [place] where he, as per patient he was given some medication to Port-A-Cath to dissolve clot, after that he recovered well, no residual weakness or visual abnormality. Patient is scheduled for follow-up MRI scan in [place] in December, Follow-up CT scan of abdomen pelvis done on January 06, 2020 showed interval postoperative changes right nephrectomy. No abdominal or pelvic lymphadenopathy. A few prominent inguinal lymph nodes previously described are improved compared to previous largest is 8 mm. No other changes seen. Focal bladder wall thickening right UVJ orifice has improved since the prior examination otherwise bladder is contracted and similar in appearance to the prior exam. As per patient he underwent cystoscopy examination in recent past and Dr. Ortega told him that his bladder looks good and follow-up cystoscopy scheduled in February or March 2020 Came for follow-up, denies any specific complaints, no fever chills, no nausea or vomiting, no diarrhea constipation, no hematuria, tolerating hemodialysis well, no weakness or fatigue, no jaundice, no hemoptysis or hematemesis, no new bony pains. Appetite is good. Medications: Atorvastatin Calcium 1 Tablet (of 20 mg) Oral at bedtime, hydrALAZINE HCl 1 Tablet (of 50 mg) Oral four times a day, Lisinopril 1 Tablet (of 40 mg) Oral daily, Prochlorperazine Maleate 1 Tablet (of 10 mg) Oral four times a day PRN, Torsemide 1 Tablet (of 20 mg) Oral daily, Triamcinolone Acetonide Ointment Topical PRN, Tums 1 Tablet Tablet, chewable Oral PRN, Tylenol Tablet Oral PRN Allergies: No Known Allergies. Review of Systems: Review of Systems is not available for this patient. Vital Signs: Performed on Jan 06, 2020 15:06 Height - 66.00 in Weight - 148.8 lbs (LOW) BSA - 1.76 sq.m BMI - 24.02 Temperature - 98.7 F Pulse - 71 /min Respiration - 18 /min BP - 127/71 mm(hg) O2 Sat - 100 % Pain - 0 Performance Status: 0 - Fully active, able to carry on all predisease activities without restrictions. (ECOG) Physical Examination: ENMT - No mouth sores, no thrush, no jaundice, Respiratory - Lungs are clear to auscultation, Cardiovascular - Regular rate and rhythm of heart, Abdomen - Soft, bowel sounds present, Extremities - No visible edema. Lab/Imaging: Test performed on Dec 14, 2019 08:20 Sodium 143 mmol/L Potassium 3.8 mmol/L Chloride 102 mmol/L CO2 26 mmol/L Anion Gap 18.8 BUN 35 mg/dL Creatinine 7.7 mg/dL Cr Clearance (Est) 8.5800 mL/min Glucose 167 mg/dL Osmolality - Calculated 308 mOsm/kg Calcium 8.2 mg/dL Protein, Total 6.3 g/dL Albumin 4.1 g/dL Globulin 2.2 g/dL Bilirubin, Total 0.4 mg/dL ALT (SGPT) 8 U/L AST (SGOT) 13 U/L Alkaline Phosphatase 105 IU/L WBC 4.5 10 3/uL RBC 4.10 10 6/uL HGB 12.9 g/dL HCT 42.2 % MCV 102.9 fL MCH 31.5 pg MCHC 30.6 g/dL RDW 16.3 % Platelet Count 201 10 3/cmm MPV 9.7 fL Neutrophils 3.07 10 3/uL Lymphocytes 0.8 10 3/uL Monocytes 0.6 10 3/uL Eosinophils 0.1 10 3/uL Basophils 0.0 10 3/uL Neutrophil % 67.6 % Lymphocyte % 17.0 % Monocyte % 12.8 % Eosinophil % 1.8 % Basophils % 0.4 % NRBC % 0 % Test performed on Oct 19, 2019 10:08 Anti-D Positive Blood Type BP Test performed on Sep 28, 2019 08:56 CBC Slide Review Slide Review Perform SLIDE REVIEW AGREES WITH AUTOMATED RESULTS ST Impression: invasive high-grade urothelial carcinoma Of right renal pelvis/ureter with invasion into the right kidney status post robotic nephroureterectomy done on 05/17/2019 next Final pathology report showed invasive high-grade papillary urothelial carcinoma, tumor size 4 x 3.5 x 1.3 cm invading right kidney and 1.9 x 1.5 cm noninvasive ureter tumor with lymphovascular invasion seen pT3 No lymph nodes were identified for evaluation pNx , Mx stage III ureteral/renal pelvis carcinoma End-stage renal disease on hemodialysis. iscussed with Mr Garcia his disease status and further treatment options. He has invasive high-grade papillary urothelial carcinoma of right renal pelvis with invasion into the right kidney e.g. T3 lesion , with unknown lymph node status. As per [place] CCN guidelines, Mr Garcia has stage III disease and there is a role of adjuvant [place]-based chemotherapy which may improve disease-free survival. Considering patient's age and comorbid condition, MVAC was not consdered due to toxicity profile but split dose cisplatin and gemcitabine, on day 1 and 8 and repeat every 21 days ???4 cycles.Started on August 03, 2019 and completed 4 cycles on November 11, 2019 Follow-up CT scan of abdomen pelvis done on January 06, 2020 showed status post right nephrectomy no abdominal or pelvic lymphadenopathy, a few prominent inguinal lymph nodes previously described are improved and largest is about 8 mm. And focal bladder wall thickening right UVJ orifice has improved otherwise bladder is contracted and similar to previous exam. Patient is being followed by Dr. Ortega with cystoscopy evaluation. Plan: Discussed with patient regarding his labs, white blood count 4.3 hemoglobin 13.6 crit 45.5 platelets 204,000 CMP partial report available sodium 142 calcium 9.1 ALT [address] scan of abdomen pelvis done on January 06, 2020 showed status post right nephrectomy, no abdominal pelvic lymphadenopathy previous is seen and well lymph nodes shows improvement largest is 8 mm, no other abnormality seen except focal bladder wall thickening right UVJ orifice has improved since the prior exam, otherwise bladder is contracted and similar in appearance to the prior exam. As per patient, in the recent past he underwent cystoscopy and Dr. Ortega informed him that there was no abnormality seen rather follow-up cystoscopy in 6-month is under consideration. His follow-up labs shows resolution of anemia and CBC is within normal range and patient is undergoing hemodialysis and is partial CMP report shows no significant abnormality. And CT scan of abdomen showed no evidence of recurrence of disease. We will continue to monitor and he will return to clinic in 3 months with CBC CMP in the meantime he will continue with monthly port maintenance. And will obtain records from Dr. Ortega's office regarding his cystoscopy evaluation. Signed By: Moses Souza M.D. <<Signature on File>>
--- NOTE | 2020-01-06 16:16 | ONC FU_ITS ---
Dr. Souza follow up note Patient: Manuel Garcia Unit #: [id number]: 1945 Dicatated By: Moses Souza M.D.Date of Visit:Jan 06, 2020 Onc Med Follow-up/Prog Note History of Present Illness: Mr. Garcia is a 74-year-old gentleman with history of papillary tumor located over the right ureteral orifice with obstruction diagnosed on 03/19/2019. Hydronephrosis was noted on CT scan of pelvis. Mr Garcia underwent cystoscopy TURBT on 03/25/2019 which showed papillary urothelial carcinoma: low-grade no muscle invasion seen. He was referred to Dr. Begum, urologist in [place] for further evaluation for evidence of tumor invasion into the ureter. Right robotic nephroureterectomy was considered and patient underwent procedure on 05/17/2019. The final pathology report showed invasive high-grade papillary urothelial carcinoma involving right renal pelvis with tumor invasion into the kidney, size was 4 x 3.5 x 1.3 cm. There was a noninvasive ureter tumor size was 1.9 x 1.5 cm., Lymphovascular invasion was seen, no lymph node was evaluated e.g. T3,Nx Mx, stage III Mr Garcia tolerated procedure well He is on hemodialysis for end-stage renal disease. He goes to dialysis on Friday, Friday and Friday. did discuss with him his disease status and further treatment options. He was determined to have stage III disease and felt that adjuvant lumbee based chemotherapy was a good option for him. However considering his age and comorbid condition MVAC was not considered due to toxicity profile but split dose cisplatin and gemcitabine on day 1 and 8 on a 21-day cycle for 4 cycles was recommended. Mr Garcia began his first cycle on August 03, 2019.And day 8 chemotherapy with cycle #1 was delayed because of progressive neutropenia/leukopenia was treated with Neupogen. And again day 8 with cycle #2 was also delayed because of progressive leukopenia and neutropenia And completed 4 cycles of adjuvant chemotherapy with split dose cisplatin/gemcitabine on November 11, 2019 Patient said on November 21, 2019 while he was going back [place] he felt weak in his left arm by the time he got home he could not see his left hand and then decided to come to hospital and then he was flown to [place] where he, as per patient he was given some medication to Port-A-Cath to dissolve clot, after that he recovered well, no residual weakness or visual abnormality. Patient is scheduled for follow-up MRI scan in [place] in December, Follow-up CT scan of abdomen pelvis done on January 06, 2020 showed interval postoperative changes right nephrectomy. No abdominal or pelvic lymphadenopathy. A few prominent inguinal lymph nodes previously described are improved compared to previous largest is 8 mm. No other changes seen. Focal bladder wall thickening right UVJ orifice has improved since the prior examination otherwise bladder is contracted and similar in appearance to the prior exam. As per patient he underwent cystoscopy examination in recent past and Dr. Ortega told him that his bladder looks good and follow-up cystoscopy scheduled in February or March 2020 Came for follow-up, denies any specific complaints, no fever chills, no nausea or vomiting, no diarrhea constipation, no hematuria, tolerating hemodialysis well, no weakness or fatigue, no jaundice, no hemoptysis or hematemesis, no new bony pains. Appetite is good. Medications: Atorvastatin Calcium 1 Tablet (of 20 mg) Oral at bedtime, hydrALAZINE HCl 1 Tablet (of 50 mg) Oral four times a day, Lisinopril 1 Tablet (of 40 mg) Oral daily, Prochlorperazine Maleate 1 Tablet (of 10 mg) Oral four times a day PRN, Torsemide 1 Tablet (of 20 mg) Oral daily, Triamcinolone Acetonide Ointment Topical PRN, Tums 1 Tablet Tablet, chewable Oral PRN, Tylenol Tablet Oral PRN Allergies: No Known Allergies. Review of Systems: Review of Systems is not available for this patient. Vital Signs: Performed on Jan 06, 2020 15:06 Height - 66.00 in Weight - 148.8 lbs (LOW) BSA - 1.76 sq.m BMI - 24.02 Temperature - 98.7 F Pulse - 71 /min Respiration - 18 /min BP - 127/71 mm(hg) O2 Sat - 100 % Pain - 0 Performance Status: 0 - Fully active, able to carry on all predisease activities without restrictions. (ECOG) Physical Examination: ENMT - No mouth sores, no thrush, no jaundice, Respiratory - Lungs are clear to auscultation, Cardiovascular - Regular rate and rhythm of heart, Abdomen - Soft, bowel sounds present, Extremities - No visible edema. Lab/Imaging: Test performed on Dec 14, 2019 08:20 Sodium 143 mmol/L Potassium 3.8 mmol/L Chloride 102 mmol/L CO2 26 mmol/L Anion Gap 18.8 BUN 35 mg/dL Creatinine 7.7 mg/dL Cr Clearance (Est) 8.5800 mL/min Glucose 167 mg/dL Osmolality - Calculated 308 mOsm/kg Calcium 8.2 mg/dL Protein, Total 6.3 g/dL Albumin 4.1 g/dL Globulin 2.2 g/dL Bilirubin, Total 0.4 mg/dL ALT (SGPT) 8 U/L AST (SGOT) 13 U/L Alkaline Phosphatase 105 IU/L WBC 4.5 10 3/uL RBC 4.10 10 6/uL HGB 12.9 g/dL HCT 42.2 % MCV 102.9 fL MCH 31.5 pg MCHC 30.6 g/dL RDW 16.3 % Platelet Count 201 10 3/cmm MPV 9.7 fL Neutrophils 3.07 10 3/uL Lymphocytes 0.8 10 3/uL Monocytes 0.6 10 3/uL Eosinophils 0.1 10 3/uL Basophils 0.0 10 3/uL Neutrophil % 67.6 % Lymphocyte % 17.0 % Monocyte % 12.8 % Eosinophil % 1.8 % Basophils % 0.4 % NRBC % 0 % Test performed on Oct 19, 2019 10:08 Anti-D Positive Blood Type BP Test performed on Sep 28, 2019 08:56 CBC Slide Review Slide Review Perform SLIDE REVIEW AGREES WITH AUTOMATED RESULTS ST Impression: invasive high-grade urothelial carcinoma Of right renal pelvis/ureter with invasion into the right kidney status post robotic nephroureterectomy done on 05/17/2019 next Final pathology report showed invasive high-grade papillary urothelial carcinoma, tumor size 4 x 3.5 x 1.3 cm invading right kidney and 1.9 x 1.5 cm noninvasive ureter tumor with lymphovascular invasion seen pT3 No lymph nodes were identified for evaluation pNx , Mx stage III ureteral/renal pelvis carcinoma End-stage renal disease on hemodialysis. iscussed with Mr Gacria his disease status and further treatment options. He has invasive high-grade papillary urothelial carcinoma of right renal pelvis with invasion into the right kidney e.g. T3 lesion , with unknown lymph node status. As per N CCN guidelines, Mr Garcia has stage III disease and there is a role of adjuvant lumbee-based chemotherapy which may improve disease-free survival. Considering patient's age and comorbid condition, MVAC was not consdered due to toxicity profile but split dose cisplatin and gemcitabine, on day 1 and 8 and repeat every 21 days ???4 cycles.Started on August 03, 2019 and completed 4 cycles on November 11, 2019 Follow-up CT scan of abdomen pelvis done on January 06, 2020 showed status post right nephrectomy no abdominal or pelvic lymphadenopathy, a few prominent inguinal lymph nodes previously described are improved and largest is about 8 mm. And focal bladder wall thickening right UVJ orifice has improved otherwise bladder is contracted and similar to previous exam. Patient is being followed by Dr. Ortega with cystoscopy evaluation. Plan: Discussed with patient regarding his labs, white blood count 4.3 hemoglobin 13.6 crit 45.5 platelets 204,000 CMP partial report available sodium 142 calcium 9.1 ALT [address] scan of abdomen pelvis done on January 06, 2020 showed status post right nephrectomy, no abdominal pelvic lymphadenopathy previous is seen and well lymph nodes shows improvement largest is 8 mm, no other abnormality seen except focal bladder wall thickening right UVJ orifice has improved since the prior exam, otherwise bladder is contracted and similar in appearance to the prior exam. As per patient, in the recent past he underwent cystoscopy and Dr. Ortega informed him that there was no abnormality seen rather follow-up cystoscopy in 6-month is under consideration. His follow-up labs shows resolution of anemia and CBC is within normal range and patient is undergoing hemodialysis and is partial CMP report shows no significant abnormality. And CT scan of abdomen showed no evidence of recurrence of disease. We will continue to monitor and he will return to clinic in 3 months with CBC CMP in the meantime he will continue with monthly port maintenance. And will obtain records from Dr. Ortega's office regarding his cystoscopy evaluation. Addendum as per urology note cystoscopy done on September 03, 2019, patient underwent cystoscopy transurethral resection/fulguration of bladder tumor, estimated 25-30 small papillary tumors throughout the bladder mucosa all fulgurated completely a conglomeration of papillary tumor over the previous resection site of ureteral orifice extending greater than 5 cm and bladder neck, all completely resected and instilled mitomycin intravesically. And pathology showed high-grade urothelial carcinoma with comedonecrosis and lamina propria invasion. Patient is scheduled for follow-up cystoscopy in 6 months. Signed By: Moses Souza M.D. <<Signature on File>>
== END 2020-01-06 23:59 | disposition home or self-care (01) ==
LOC: ONCMED 05:42
PROVIDERS: PCP Electrodiagnostic Medicine; Visit Provider Internal Medicine Hematology & Oncology
DX: C65.1 Malignant neoplasm of right renal pelvis (principal); N18.6 End stage renal disease; Z90.5 Acquired absence of kidney; Z99.2 Dependence on renal dialysis; N26.1 Atrophy of kidney (terminal); N28.1 Cyst of kidney, acquired
CPT/HCPCS: 74177; 80053; 85025; 99214; Q9967

== ENCOUNTER 2020-01-06 12:43 | Outpatient (CLI) | payer MEDICARE, OTHER, SELFPAY ==
--- NOTE | 2020-01-06 12:56 | CT_ITS ---
WS: [id number] CT ABDOMEN PELVIS TECHNIQUE: Contrast-enhanced CT of the abdomen and pelvis with coronal and sagittal reformatted image s. CLINICAL INFORMATION: RIGHT RENAL PELVIS CANCINOMA, BLADDER CANCER COMPARISON: March 18, 2019 DLP: All CT scans at [facility] use at least one of these dose optimization techniques: automat ed exposure control; mA and/or kV adjustment per patient size (includes targeted exams where dose is matched to clinical indication); or iterative reconstruction. FINDINGS: Postoperative changes right nephrectomy new since the prior examination. Normal postoperati ve nephrectomy bed. Bladder is contracted. Diffuse bladder wall thickening similar to the prior exami nation. Focal lobulation involving the right UVJ orifice has improved in appearance since the prior e xamination presumably due to interval treatment. Bladder is otherwise unchanged in appearance. No pelvic lymphadenopathy. No inguinal lymphadenopathy. A few prominent inguinal lymph nodes previous ly described slightly smaller today the largest on the right measuring 8 mm in short axis dimension. Mild intrahepatic biliary ductal dilatation. Portal vein and splenic vein are patent. Normal gallblad sherie. Normal spleen. Adrenal glands are normal. Pancreas appears unremarkable. Adrenal glands are norm al. Normal left renal parenchymal enhancement. Left renal atrophy. Multiple left renal cysts the larg est measuring 1.5 CM. Mild aortic calcification. Normal caliber abdominal aorta. Sigmoid diverticulosis. No evidence of acute diverticulitis. No evidence of small or large bowel obst ruction. No periaortic lymphadenopathy. No pelvic lymphadenopathy. Prior postoperative changes pedicle screw fixation L4-5 with inter[address] fusion graft. CT/CT abdomen pelvis w con* [id number] IMPRESSION: 1. Interval postoperative changes right nephrectomy. 2. Focal bladder wall thickening right UVJ orifice has improved since the prio r examination presumably due to interval therapy. Otherwise bladder is contract ed and similar in appearance to the prior examination. 3. No abdominal or pelvic lymphadenopathy. A few prominent inguinal lymph node s previously described are improved compared to previous, largest on the right measuring 8 mm. 4. No other significant interval changes. 5. Left renal cortical atrophy with multiple renal cysts the largest measuring 1.5 CM.
[2020-01-06] MEDS: iohexol 300 mg/mL 50 mL Btl PO (13:20)
[2020-01-06 14:27] LABS: Basophils % 0.2 %; Eosinophils # 0.1 10^3/uL (0.0-0.8); Eosinophils % 3.3 %; Hematocrit 45.5 % (42.0-52.0); Hemoglobin 13.6 g/dL (11.7-16.6); Lymphocytes # 0.9 10^3/uL (0.8-4.8); Lymphocytes % 20.9 %; Mean Corpuscular HGB Conc 29.9 g/dL (30.0-36.0); Mean Corpuscular Hemoglobin 30.6 pg (28.0-34.0); Mean Corpuscular Volume 102.2 fL (80-94); Mean Platelet Volume 10.5 fL (7.4-10.4); Monocytes # 0.6 10^3/uL (0.2-0.9); Monocytes % 12.9 %; Neutrophils # 2.65 10^3/uL (1.8-7.7); Neutrophils % 62.5 %; Nucleated Red Blood Cells % 0 %; Platelet Count 204 10^3/cmm (130-400); Red Blood Count 4.45 10^6/uL (4.1-5.3); Red Cell Distribution Width 14.5 % (12.1-15.1); White Blood Count 4.3 10^3/uL (4.0-10.0)
[2020-01-06 14:45] LABS: Alanine Aminotransferase 10 U/L (0-41); Albumin Level 4.5 g/dL (3.5-5.2); Alkaline Phosphatase 94 IU/L (40-130); Blood Urea Nitrogen 27 mg/dL (8-23); Calcium 9.1 mg/dL (8.5-10.5); Carbon Dioxide 31 mmol/L (22-29); Chloride 99 mmol/L (98-107); Globulin 2.2 g/dL (1.3-4.6); Glucose 79 mg/dL (65-115); Osmolality Calculated 298 mOsm/kg (285-295); Sodium 142 mmol/L (136-145); Total Bilirubin 0.4 mg/dL (0.15-1.2); Total Protein 6.7 g/dL (6.6-8.7)
[2020-01-06] MEDS: iodixanol 320 mg/mL 100mL Btl IV (14:53)
[2020-01-06 15:10] LABS: Anion Gap 16.5 (5-19); Aspartate Amino Transferase 17 U/L (0-40); Potassium 4.5 mmol/L (3.5-5.1)
== END 2020-01-06 12:44 | disposition home or self-care (01) ==
LOC: RADWPI 12:48
PROVIDERS: PCP Electrodiagnostic Medicine; Visit Provider Internal Medicine Hematology & Oncology
DX: C65.1 Malignant neoplasm of right renal pelvis (principal); N26.1 Atrophy of kidney (terminal); N28.1 Cyst of kidney, acquired
CPT/HCPCS: 74177; 80053; 85025; Q9967

== ENCOUNTER 2020-02-08 08:15 | Outpatient (CLI) | payer MEDICARE, OTHER, SELFPAY | END 2020-02-08 08:16 | disposition home or self-care (01) | LOC: ONCMED 08:17 | PROVIDERS: PCP Electrodiagnostic Medicine; Visit Provider Internal Medicine Hematology & Oncology | DX: Z45.2 Encounter for adjustment and management of vascular access device (principal) | CPT/HCPCS: 96523 ==

== ENCOUNTER 2020-02-14 05:28 | Emergency (ER) | payer MEDICARE, OTHER, SELFPAY ==
[2020-02-14 05:32] VITALS: PULSE 122; RESP 18; TEMP 37.2; O2SAT 95; BMI 24.2
[2020-02-14 05:47] VITALS: BP 138/82; PULSE 113; RESP 17; O2SAT 97
[2020-02-14 05:50] VITALS: BP 138/82; PULSE 110; RESP 16; O2SAT 98
--- NOTE | 2020-02-14 05:58 | ECG_ITS ---
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 Measurements Intervals [place] Rate: 98 P: 68 RI: 178 QRS: 25 QRSD: 92 T: 65 QT: 361 QTc: 461 Interpretive Statements SINUS RHYTHM Compared to ECG 11/21/2019 14:28:47 No significant changes Electronically Signed On 02-14-2020 13:05:29 [employer]ENTICE by Erich Kumar M.D. [id number]
--- NOTE | 2020-02-14 06:00 | ED_ITS ---
HPI - General Adult General: Chief complaint: General Medical Stated complaint: high bp Time Seen by Provider: 02/14/20 05:36 History of Present Illness: HPI narrative: 73-year-old male presents emergency room with complaints of elevated blood pressure. He recently had had some orthostatic hypotension from what he tells me in discussion. He had adjusted some of his medications, and sounds like he had cut back a little bit on the hydralazine. He does have end-stage renal disease and gets dialysis Friday. He is due today. He makes little to no urine. He denies any chest pain or abdominal pain a little bit of left flank discomfort earlier this morning but that has resolved. Denies any vomiting or diarrhea. States he took all of his medications and does not missed any doses or run out of any recently. He did take his hydralazine before coming in. He states that at home his blood pressure was reading in the 200 systolic range however on arrival here he is at 138/82. He denies any difficulty speech or vision or swallowing or any focal neurologic deficits. Onset (ago): hour(s) Relieving factors: none Exacerbating factors: none Associated symptoms: Deny chest pain, confusion, cough, diaphoresis, decreased appetite, dyspnea, fevers/chills, headache(s), malaise, nausea, rash, palp itations, seizures, short of breath, syncope, vomiting or weakness Treatments prior to arrival: none Review of Systems Const: Denies: malaise or diaphoresis ENMT: Denies: throat pain, ear or mastoid pain, nasal discharge or nasal congestion Card: Denies: palpitations or syncope Resp: Denies: dyspnea GI: Denies: nausea or vomiting : Denies: flank pain, dysuria, urinary frequency or urinary urgency Skin/Breast: Denies: rash Neuro: Denies: headache(s) or confusion PFS ED PFSH: Medical History AV fistula Bladder cancer Cancer of trigone of urinary bladder CKD (chronic kidney disease) stage 5, GFR less than 15 ml/min On hemodialysis Degenerative joint disease (DJD) of lumbar spine GERD (gastroesophageal reflux disease) Gross hematuria Hydronephrosis, right Hypertension Primary cancer of right ureter Surgical History History of back surgery History of ear surgery TRAUMA TO RIGHT EAR-PART OF TOP OF EAR REMOVED History of nephrectomy, right Status post insertion of dialysis catheter RIGHT FOREARM Family History Father , AT AGE 71 Heart attack Mother , MVA No problems noted. Denies family history of Anesthesia complication Bleeding disorder Social History Smoking and tobacco status: former smoker Quit status (tobacco): has quit using tobacco Year quit tobacco: 1970s Alcohol intake: current Alcohol intake frequency: few times a month Marital status: Current occupational status: retired Current gender identity: Male Physical Exam Const: COMMON NORMALS: no acute distress GENERAL APPEARANCE: cooperative and comfortable ORIENTATION/CONSCIOUSNESS: Yes awake, Yes oriented to person, Yes oriented to place and Yes oriented to time HENMT: COMMON NORMALS: normocephalic, atraumatic and hearing grossly normal bilaterally HEAD & SCALP: normocephalic and atraumatic Neck/C-Spine: COMMON NORMALS: no JVD Resp: COMMON NORMALS: normal respiratory effort, No retractions, No use of accessory muscles and clear to auscultation bilaterally AUSCULTATION: clear to auscultation bilaterally Cardio: COMMON NORMALS: no JVD, regular rate, regular rhythm and No murmurs present (Cardio) RATE: regular rate RHYTHM: regular rhythm GI: COMMON NORMALS: Soft to palpation and No hepatosplenomegaly present AUSCULTATION: Yes normoactive bowel sounds PALPATION: Yes Soft to palpation, No Tenderness to palpation present (GI), No Guarding due to palpation present (GI) and Yes No hepatosplenomegaly present Extremity: COMMON NORMALS: normal to inspection, capillary refill normal, no clubbing, cyanosis or edema, no calf tenderness and no pedal edema Neuro: SENSORIUM/ORIENTATION: Yes oriented to person, Yes oriented to place and Yes oriented to time Skin: COMMON NORMALS: no rashes or lesions noted GENERAL SKIN EXAM: no rashes or lesions noted Course Vital Signs: Vital signs: Vital Signs Temperature 99.0 F 02/14/20 05:32 Pulse Rate 91 02/14/20 06:45 Respiratory Rate 17 02/14/20 06:45 Blood Pressure 131/83 02/14/20 06:45 Pulse Oximetry 92 02/14/20 06:45 MDM - General Adult Differential Diagnosis: Differential Diagnosis: He has end-stage renal disease and is due for dialysis today. His blood pressure while he is been here has been acceptable. I am concerned about changing his blood pressure medications and that we may end up making him hypotensive again especially since he is due for dialysis today. He was little bit tachycardic when he first arrived that resolved. Asked him to follow-up with Dr. Trinidad his primary care doc either today or tomorrow for review of his blood pressure medication indurated and adjustments. He states he recently had some changes to his medication regimen sounds like they may have stopped lisinopril, but neither he is are completely sure. That would seem a little odd given his end-stage renal disease though. Wonder if he may had not been on Lopressor if that was stopped that may explain his tachycardia. Discussed with the patient since Dr. Trinidad has better records for these previous medication history would be better if he followed up with him. In addition to that with his blood pressure acceptable at this point and he is due for dialysis some afraid if I make changes I will actually induce more hypotensive episodes again. Patient expresses understanding and plans follow-up with Dr. Vogt in the next 1 to 2 days. Return if he has any problems. Lab Data: Labs: Lab Results 02/14/20 02/14/20 Range/Units 06:10 06:10 WBC 5.9 (4.0-10.0) 10^3/ uL RBC 4.09 L (4.1-5.3) 10^6/u L Hgb 12.4 (11.7-16.6) g/dL Hct 38.6 L (42.0-52.0) % MCV 94.4 H (80-94) fL MCH 30.3 (28.0-34.0) pg MCHC 32.1 (30.0-36.0) g/dL RDW 14.6 (12.1-15.1) % Plt Count 202 (130-400) 10^3/c mm MPV 9.7 (7.4-10.4) fL Neut % (Auto) 69.8 % Lymph % (Auto) 14.3 % [place] % (Auto) 10.7 % Eos % (Auto) 4.6 % Baso % (Auto) 0.3 % Neut # (Auto) 4.10 (1.8-7.7) 10^3/u L Lymph # (Auto) 0.8 (0.8-4.8) 10^3/u L [place] # (Auto) 0.6 (0.2-0.9) 10^3/u L Eos # (Auto) 0.3 (0.0-0.8) 10^3/u L Baso # (Auto) 0.0 (0.0-0.1) 10^3/u L Nucleated RBC % (a uto) 0 % Nucleated RBCs # 0.0 /100WBC Sodium 139 (136-145) mmol/L Potassium 4.4 (3.5-5.1) mmol/L Chloride 97 L (98-107) mmol/L Carbon Dioxide 22 (22-29) mmol/L Anion Gap 24.4 H (5-19) BUN 47 H (8-23) mg/dL Creatinine 10.5 H* (0.7-1.2) mg/dL GFR Calculation Not Reportable Glucose 113 (65-115) mg/dL Calculated Osmolal ity 301 H (285-295) mOsm/k g Calcium 8.1 L (8.5-10.5) mg/dL Total Bilirubin 0.4 (0.15-1.2) mg/dL AST 15 (0-40) U/L ALT 11 (0-41) U/L Alkaline Phosphata se 103 (40-130) IU/L Total Protein 6.8 (6.6-8.7) g/dL Albumin 4.4 (3.5-5.2) g/dL Globulin 2.4 (1.3-4.6) g/dL Discharge Plan Discharge Patient Disposition: Home Clinical Impression: Hypertension, ESRD on hemodialysis Condition: Stable Prescriptions: No Action omeprazole 40 mg capsule,delayed release(DR/EC) 40 mg PO QDAY RF: 0 hydralazine 50 mg tablet 50 mg PO QID RF: 0 amlodipine 10 mg tablet 10 mg PO BEDTIME RF: 0 atorvastatin 20 mg tablet 20 mg PO QDAY RF: 0 prochlorperazine maleate 10 mg tablet 10 mg PO Q4H PRN (Reason: Nausea And Vomiting) RF: 0 torsemide 20 mg tablet 40 mg PO DAILY RF: 0 Discharge Orders: Discharge ED (Routine); Ordered 02/14/20 Ordered By: Gopi Chavis Referrals: Ayo Trinidad DO [Primary Care Provider] - Discharge Diet: Usual diet Discharge Activity: Resume usual activity Activity Restrictions/Additional Instructions: Proceed with dialysis as planned today. Follow-up with Dr. Trinidad in the next 1 to 3 days. No change in your current medications. Please review them with Dr. Trinidad in a follow-up office office visit. If you have further problems return to the emergency room. Coding Level of Care Code ED Load Planner for Godfreyg Fwd Exam Comprehensive
[2020-02-14 06:05] VITALS: BP 143/85; RESP 16; O2SAT 98
[2020-02-14 06:23] LABS: Basophils % 0.3 %; Eosinophils # 0.3 10^3/uL (0.0-0.8); Eosinophils % 4.6 %; Hematocrit 38.6 % (42.0-52.0); Hemoglobin 12.4 g/dL (11.7-16.6); Lymphocytes # 0.8 10^3/uL (0.8-4.8); Lymphocytes % 14.3 %; Mean Corpuscular HGB Conc 32.1 g/dL (30.0-36.0); Mean Corpuscular Hemoglobin 30.3 pg (28.0-34.0); Mean Corpuscular Volume 94.4 fL (80-94); Mean Platelet Volume 9.7 fL (7.4-10.4); Monocytes # 0.6 10^3/uL (0.2-0.9); Monocytes % 10.7 %; Neutrophils % 69.8 %; Nucleated Red Blood Cells % 0 %; Platelet Count 202 10^3/cmm (130-400); Red Blood Count 4.09 10^6/uL (4.1-5.3); Red Cell Distribution Width 14.6 % (12.1-15.1); White Blood Count 5.9 10^3/uL (4.0-10.0)
[2020-02-14 06:38] LABS: Alanine Aminotransferase 11 U/L (0-41); Albumin Level 4.4 g/dL (3.5-5.2); Alkaline Phosphatase 103 IU/L (40-130); Anion Gap 24.4 (5-19); Aspartate Amino Transferase 15 U/L (0-40); Blood Urea Nitrogen 47 mg/dL (8-23); Calcium 8.1 mg/dL (8.5-10.5); Carbon Dioxide 22 mmol/L (22-29); Chloride 97 mmol/L (98-107); Globulin 2.4 g/dL (1.3-4.6); Glucose 113 mg/dL (65-115); Osmolality Calculated 301 mOsm/kg (285-295); Potassium 4.4 mmol/L (3.5-5.1); Sodium 139 mmol/L (136-145); Total Bilirubin 0.4 mg/dL (0.15-1.2); Total Protein 6.8 g/dL (6.6-8.7)
[2020-02-14 06:45] VITALS: BP 131/83; PULSE 91; RESP 17; O2SAT 92
[2020-02-14 06:58] VITALS: BP 142/87; PULSE 90; RESP 16; TEMP 37.1; O2SAT 97
== END 2020-02-14 06:58 | disposition home or self-care (01) ==
PROVIDERS: Emergency Provider Family Medicine; PCP Electrodiagnostic Medicine
DX: I12.0 Hypertensive chronic kidney disease with stage 5 chronic kidney disease or end stage renal disease (principal); N18.6 End stage renal disease; Z99.2 Dependence on renal dialysis; Z85.51 Personal history of malignant neoplasm of bladder; Z87.891 Personal history of nicotine dependence
CPT/HCPCS: 12345; 80053; 85025; 93005; 99282; 99283

== ENCOUNTER 2020-03-07 07:56 | Outpatient (CLI) | payer MEDICARE, OTHER, SELFPAY | END 2020-03-07 07:57 | disposition home or self-care (01) | LOC: ONCMED 07:58 | PROVIDERS: PCP Electrodiagnostic Medicine; Visit Provider Internal Medicine Hematology & Oncology | DX: Z45.2 Encounter for adjustment and management of vascular access device (principal) | CPT/HCPCS: 96523 ==

== ENCOUNTER 2020-04-11 13:22 | Outpatient (CLI) | payer MEDICARE, OTHER, SELFPAY ==
[2020-04-11 14:45] LABS: Basophils % 0.2 %; Eosinophils # 0.2 10^3/uL (0.0-0.8); Eosinophils % 3.1 %; Hematocrit 33.4 % (42.0-52.0); Hemoglobin 10.3 g/dL (11.7-16.6); Lymphocytes # 0.8 10^3/uL (0.8-4.8); Mean Corpuscular HGB Conc 30.8 g/dL (30.0-36.0); Mean Corpuscular Hemoglobin 32.5 pg (28.0-34.0); Mean Corpuscular Volume 105.4 fL (80-94); Mean Platelet Volume 9.7 fL (7.4-10.4); Monocytes # 0.5 10^3/uL (0.2-0.9); Monocytes % 10.2 %; Neutrophils # 3.64 10^3/uL (1.8-7.7); Neutrophils % 70.1 %; Nucleated Red Blood Cells % 0 %; Platelet Count 230 10^3/cmm (130-400); Red Blood Count 3.17 10^6/uL (4.1-5.3); Red Cell Distribution Width 13.9 % (12.1-15.1); White Blood Count 5.2 10^3/uL (4.0-10.0)
[2020-04-11 15:42] LABS: Alanine Aminotransferase 7 U/L (0-41); Albumin Level 4.3 g/dL (3.5-5.2); Alkaline Phosphatase 87 IU/L (40-130); Anion Gap 16.8 (5-19); Aspartate Amino Transferase 14 U/L (0-40); Blood Urea Nitrogen 30 mg/dL (8-23); Calcium 8.5 mg/dL (8.5-10.5); Carbon Dioxide 28 mmol/L (22-29); Chloride 101 mmol/L (98-107); Globulin 2.3 g/dL (1.3-4.6); Glucose 110 mg/dL (65-115); Osmolality Calculated 299 mOsm/kg (285-295); Potassium 4.8 mmol/L (3.5-5.1); Sodium 141 mmol/L (136-145); Total Bilirubin 0.6 mg/dL (0.15-1.2); Total Protein 6.6 g/dL (6.6-8.7)
--- NOTE | 2020-04-11 16:25 | ONC FU_ITS ---
Dr. Souza follow up note Patient: Manuel Garcia Unit #: [id number]: 1945 Dicatated By: Moses Souza M.D.Date of Visit:Apr 11, 2020 Onc Med Follow-up/Prog Note History of Present Illness: Mr. Garcia is a 74-year-old gentleman with history of papillary tumor located over the right ureteral orifice with obstruction diagnosed on 03/19/2019. Hydronephrosis was noted on CT scan of pelvis. Mr Garcia underwent cystoscopy TURBT on 03/25/2019 which showed papillary urothelial carcinoma: low-grade no muscle invasion seen. He was referred to Dr. Begum, urologist in [place] for further evaluation for evidence of tumor invasion into the ureter. Right robotic nephroureterectomy was considered and patient underwent procedure on 05/17/2019. The final pathology report showed invasive high-grade papillary urothelial carcinoma involving right renal pelvis with tumor invasion into the kidney, size was 4 x 3.5 x 1.3 cm. There was a noninvasive ureter tumor size was 1.9 x 1.5 cm., Lymphovascular invasion was seen, no lymph node was evaluated e.g. T3,Nx Mx, stage III Mr Garcia tolerated procedure well He is on hemodialysis for end-stage renal disease. He goes to dialysis on Friday, Friday and Friday. did discuss with him his disease status and further treatment options. He was determined to have stage III disease and felt that adjuvant upper mattaponi based chemotherapy was a good option for him. However considering his age and comorbid condition MVAC was not considered due to toxicity profile but split dose cisplatin and gemcitabine on day 1 and 8 on a 21-day cycle for 4 cycles was recommended. Mr Garcia began his first cycle on August 03, 2019.And day 8 chemotherapy with cycle #1 was delayed because of progressive neutropenia/leukopenia was treated with Neupogen. And again day 8 with cycle #2 was also delayed because of progressive leukopenia and neutropenia And completed 4 cycles of adjuvant chemotherapy with split dose cisplatin/gemcitabine on November 11, 2019 Patient said on November 21, 2019 while he was going back from tenriism he felt weak in his left arm by the time he got home he could not see his left hand and then decided to come to hospital and then he was flown to [place] where he, as per patient he was given some medication to Port-A-Cath to dissolve clot, after that he recovered well, no residual weakness or visual abnormality. Patient is scheduled for follow-up MRI scan in [place] in December, Follow-up CT scan of abdomen pelvis done on January 06, 2020 showed interval postoperative changes right nephrectomy. No abdominal or pelvic lymphadenopathy. A few prominent inguinal lymph nodes previously described are improved compared to previous largest is 8 mm. No other changes seen. Focal bladder wall thickening right UVJ orifice has improved since the prior examination otherwise bladder is contracted and similar in appearance to the prior exam. As per patient he underwent cystoscopy examination in recent past and Dr. Ortega told him that his bladder looks good and follow-up cystoscopy Is under consideration Came for follow-up, denies any specific complaints, no fever chills, no nausea or vomiting, no diarrhea or constipation as per patient about 2 weeks ago he underwent cystoscopy evaluation and he was told by Dr. Ortega, that something was seen in the bladder and he took care of it and patient scheduled to see Dr. Ortega again on April 27, 2020. Patient denies any hematuria denies any new bony pains denies any hemoptysis or hematemesis denies any weight loss, tolerating hemodialysis well otherwise. Medications: Atorvastatin Calcium 1 Tablet (of 20 mg) Oral at bedtime, hydrALAZINE HCl 1 Tablet (of 50 mg) Oral four times a day, Lisinopril 1 Tablet (of 40 mg) Oral daily, Prochlorperazine Maleate 1 Tablet (of 10 mg) Oral four times a day PRN, Torsemide 1 Tablet (of 20 mg) Oral daily, Triamcinolone Acetonide Ointment Topical PRN, Tums 1 Tablet Tablet, chewable Oral PRN, Tylenol Tablet Oral PRN Allergies: No Known Allergies. Review of Systems: Review of Systems is not available for this patient. Vital Signs: Performed on Apr 11, 2020 16:00 Height - 66.00 in Weight - 156.8 lbs (HIGH) BSA - 1.80 sq.m BMI - 25.31 Temperature - 98.8 F Pulse - 89 /min Respiration - 18 /min BP - 158/84 mm(hg) (HIGH) O2 Sat - 97 % Pain - 0 Fatigue - 0 Performance Status: 1 - No physically strenuous activity, but ambulatory and able to carry out light or sedentary work (e.g. office work, light house work). (ECOG) Physical Examination: ENMT - No mouth sores, no thrush, no jaundice, Respiratory - Lungs are clear to auscultation, Cardiovascular - Regular rate and rhythm of heart, Abdomen - Soft, bowel sounds present, Extremities - No visible edema. Lab/Imaging: Test performed on Jan 06, 2020 11:02 Sodium 142 mmol/L Potassium 4.5 mmol/L Chloride 99 mmol/L CO2 31 mmol/L Anion Gap 16.5 BUN 27 mg/dL Creatinine 7.9 mg/dL Cr Clearance (Est) 8.3700 mL/min Glucose 79 mg/dL Osmolality - Calculated 298 mOsm/kg Calcium 9.1 mg/dL Protein, Total 6.7 g/dL Albumin 4.5 g/dL Globulin 2.2 g/dL Bilirubin, Total 0.4 mg/dL ALT (SGPT) 10 U/L AST (SGOT) 17 U/L Alkaline Phosphatase 94 IU/L WBC 4.3 10 3/uL RBC 4.45 10 6/uL HGB 13.6 g/dL HCT 45.5 % MCV 102.2 fL MCH 30.6 pg MCHC 29.9 g/dL RDW 14.5 % Platelet Count 204 10 3/cmm MPV 10.5 fL Neutrophils 2.65 10 3/uL Lymphocytes 0.9 10 3/uL Monocytes 0.6 10 3/uL Eosinophils 0.1 10 3/uL Basophils 0.0 10 3/uL Neutrophil % 62.5 % Lymphocyte % 20.9 % Monocyte % 12.9 % Eosinophil % 3.3 % Basophils % 0.2 % NRBC % 0 % Test performed on Oct 19, 2019 10:08 Anti-D Positive Blood Type BP Impression: invasive high-grade urothelial carcinoma Of right renal pelvis/ureter with invasion into the right kidney status post robotic nephroureterectomy done on 05/17/2019 next Final pathology report showed invasive high-grade papillary urothelial carcinoma, tumor size 4 x 3.5 x 1.3 cm invading right kidney and 1.9 x 1.5 cm noninvasive ureter tumor with lymphovascular invasion seen pT3 No lymph nodes were identified for evaluation pNx , Mx stage III ureteral/renal pelvis carcinoma End-stage renal disease on hemodialysis. iscussed with Mr Garcia his disease status and further treatment options. He has invasive high-grade papillary urothelial carcinoma of right renal pelvis with invasion into the right kidney e.g. T3 lesion , with unknown lymph node status. As per N CCN guidelines, Mr Garcia has stage III disease and there is a role of adjuvant upper mattaponi-based chemotherapy which may improve disease-free survival. Considering patient's age and comorbid condition, MVAC was not consdered due to toxicity profile but split dose cisplatin and gemcitabine, on day 1 and 8 and repeat every 21 days ???4 cycles.Started on August 03, 2019 and completed 4 cycles on November 11, 2019 Follow-up CT scan of abdomen pelvis done on January 06, 2020 showed status post right nephrectomy no abdominal or pelvic lymphadenopathy, a few prominent inguinal lymph nodes previously described are improved and largest is about 8 mm. And focal bladder wall thickening right UVJ orifice has improved otherwise bladder is contracted and similar to previous exam. Patient is being followed by Dr. Ortega with cystoscopy evaluation. Plan: Discussed with patient regarding his labs white blood count 5.2 hemoglobin 10.3 hematocrit 33.4 platelets 230,000 CMP within normal limit except creatinine 8.0 Clinically, patient doing well with no new signs symptom suggestive of recurrence of disease but as per patient about 2 weeks ago he underwent cystoscopy and some abnormality was noted and Dr. Ortega took care of it and patient said he is scheduled to see him again on April 27, 2020 for follow-up, possibly cystoscopy. His lab work-up shows persistent mild/moderate anemia which is multifactorial including anemia of chronic renal disease, he is on hemodialysis, as per patient, nephrology is managing with renal dose erythropoietin on as-needed basis. Return to clinic in 2 months with CBC CMP and CT scan of abdomen pelvis if not ordered by urology. In the meantime continue with monthly port maintenance Signed By: Moses Souza M.D. <<Signature on File>>
== END 2020-04-11 13:23 | disposition home or self-care (01) ==
LOC: ONCMED 13:23
PROVIDERS: PCP Electrodiagnostic Medicine; Visit Provider Internal Medicine Hematology & Oncology
DX: Z08 Encounter for follow-up examination after completed treatment for malignant neoplasm (principal); Z90.5 Acquired absence of kidney; N18.6 End stage renal disease; D63.1 Anemia in chronic kidney disease; Z99.2 Dependence on renal dialysis; Z85.53 Personal history of malignant neoplasm of renal pelvis
CPT/HCPCS: 36591; 80053; 85025; 99214

== ENCOUNTER → 2020-04-27 09:47 | Outpatient (BNVA) | payer MEDICARE, OTHER, SELFPAY | PROVIDERS: PCP Electrodiagnostic Medicine; Visit Provider Urology | DX: C67.8 Malignant neoplasm of overlapping sites of bladder (principal); Z20.822 Contact with and (suspected) exposure to COVID-19 | CPT/HCPCS: 87635 ==

== ENCOUNTER 2020-05-01 13:23 | Observation (INO) | payer MEDICARE, OTHER, SELFPAY ==
[2020-04-28 14:49] VITALS: BMI 24.2
[2020-05-01] VITALS (12 sets, daily range): BP systolic 156–196; BP diastolic 78–119; PULSE 68–92; RESP 14–18; TEMP 36.1–36.9; O2SAT 95–100
[2020-05-01] MEDS: sodium chloride 0.9% 1,000 ML 30 ML IV (11:15)
[2020-05-01 11:19] LABS: Basophils % 0.3 %; Eosinophils # 0.1 10^3/uL (0.0-0.8); Eosinophils % 2.6 %; Hemoglobin 12.4 g/dL (11.7-16.6); Lymphocytes # 0.6 10^3/uL (0.8-4.8); Lymphocytes % 14.8 %; Mean Corpuscular HGB Conc 31.8 g/dL (30.0-36.0); Mean Corpuscular Volume 100.5 fL (80-94); Mean Platelet Volume 9.5 fL (7.4-10.4); Monocytes # 0.5 10^3/uL (0.2-0.9); Monocytes % 13.2 %; Neutrophils # 2.61 10^3/uL (1.8-7.7); Neutrophils % 68.8 %; Nucleated Red Blood Cells % 0 %; Platelet Count 182 10^3/cmm (130-400); Red Blood Count 3.88 10^6/uL (4.1-5.3); Red Cell Distribution Width 13.5 % (12.1-15.1); White Blood Count 3.8 10^3/uL (4.0-10.0)
[2020-05-01 11:42] LABS: Alanine Aminotransferase 9 U/L (0-41); Albumin Level 4.7 g/dL (3.5-5.2); Alkaline Phosphatase 88 IU/L (40-130); Anion Gap 13.9 (5-19); Aspartate Amino Transferase 16 U/L (0-40); Blood Urea Nitrogen 16 mg/dL (8-23); Calcium 9.9 mg/dL (8.5-10.5); Carbon Dioxide 30 mmol/L (22-29); Chloride 96 mmol/L (98-107); Globulin 2.4 g/dL (1.3-4.6); Glucose 89 mg/dL (65-115); Osmolality Calculated 283 mOsm/kg (285-295); Potassium 3.9 mmol/L (3.5-5.1); Sodium 136 mmol/L (136-145); Total Bilirubin 0.4 mg/dL (0.15-1.2); Total Protein 7.1 g/dL (6.6-8.7)
--- NOTE | 2020-05-01 12:00 | P.ANESASSM_ITS ---
Pre-Anesthetic Assessment Pre-Anesthetic Assessment: Height/Weight: Height 1.68 m Weight 68.039 kg Temp Pulse Resp BP Pulse Ox 98.4 F 90 16 168/88 97 05/01/20 10:22 05/01/20 10:22 05/01/20 10:22 05/01/20 10:22 05/01/20 10:22 Preop Diagnosis: Recurrent bladder cancer Proposed Procedure: Operation Date: 05/01/20 12:00 Proposed Procedures p Cystoscopy 66269 C67.9(Not Applicable) - Landon Ortega MD s Transurethral Resection Bladder Tumor(Not Applicable) - Landon Ortega MD Was Beta Alber taken within 24 hours: N/A Was Clonidine taken within 24 hours: N/A Last intake: Intake Last Liquid Date 05/01/20 Last Liquid Time 07:00 Last Solid Date 04/30/20 Last Solid Time 19:00 Social: Social History: No alcohol and No tobacco Exam: Pre-Anes Outpt Exam: alert, oriented x 3, clear to auscultation bilaterally and regular rate & rhythm Airway: Submandibular: WNL Cervical ROM: WNL MP: 2 Dentition: Partials CV/HEM: CV/HEM: HTN : : Chronic renal Insufficiency Anesthetic Plan: ASA status: 3 Anesthesia: General Risk of > 500 ml blood loss (7ml/kg in children): No Meds/Allergies Current Medications: Current Medications Generic Name Dose Route Start Last Admin Trade Name Freq PRN Reason Stop Dose Admin Sodium Chloride 1,000 mls @ 30 ml s/hr 05/01/20 10:30 05/01/20 11:15 Sodium Chloride 0.9% IV 05/02/20 10:29 30 mls/hr .Q24H DEJUAN Administration PFSH Anesthesia PFSH: Medical History AV fistula Bladder cancer Cancer of trigone of urinary bladder CKD (chronic kidney disease) stage 5, GFR less than 15 ml/min On hemodialysis Degenerative joint disease (DJD) of lumbar spine GERD (gastroesophageal reflux disease) Gross hematuria Hydronephrosis, right Hypertension Primary cancer of right ureter Stroke Surgical History History of back surgery History of ear surgery TRAUMA TO RIGHT EAR-PART OF TOP OF EAR REMOVED History of nephrectomy, right Status post insertion of dialysis catheter RIGHT FOREARM Family History Father , AT AGE 71 Heart attack Mother , MVA No problems noted. Denies family history of Anesthesia complication Bleeding disorder Social History Smoking and tobacco status: former smoker Quit status (tobacco): has quit using tobacco Year quit tobacco: Alcohol intake: current Alcohol intake frequency: few times a month Marital status: Current occupational status: retired Current gender identity: Male Data Anesthesia CBC & Chem 7: 05/01/20 11:10 05/01/20 11:10 Other Labs: Laboratory Results - last 48 hr 05/01/20 05/01/20 11:10 11:10 WBC 3.8 L RBC 3.88 L Hgb 12.4 Hct 39.0 L MCV 100.5 H MCH 32.0 MCHC 31.8 RDW 13.5 Plt Count 182 MPV 9.5 Neut % (Auto) 68.8 Lymph % (Auto) 14.8 Glenn % (Auto) 13.2 Eos % (Auto) 2.6 Baso % (Auto) 0.3 Neut # (Auto) 2.61 Lymph # (Auto) 0.6 L Glenn # (Auto) 0.5 Eos # (Auto) 0.1 Baso # (Auto) 0.0 Nucleated RBC % (auto) 0 Nucleated RBCs # 0.0 Sodium 136 Potassium 3.9 Chloride 96 L Carbon Dioxide 30 H Anion Gap 13.9 BUN 16 Creatinine 5.3 H GFR Calculation Not Reportable Glucose 89 Calculated Osmolality 283 L Calcium 9.9 Total Bilirubin 0.4 AST 16 ALT 9 Alkaline Phosphatase 88 Total Protein 7.1 Albumin 4.7 Globulin 2.4 Cardiac Studies: No Data to Display
[2020-05-01] MEDS: levofloxacin-dextrose 5 % 500 MG/100 ML PREMIX 100 MG IV (12:21)
--- NOTE | 2020-05-01 12:21 | P.HPUD_ITS ---
Surgery/Procedure H&P Update DATE OF PROCEDURE: May 01, 2020 DATE H&P PERFORMED: 04/27/20 H&P UPDATE INFORMATION: I have reviewed H&P completed within last 30 days, I have examined patient prior to procedure, No changes to prior documentation and H&P is in [facility] [place] EMR on date indicated PREOP DIAGNOSIS: Recurrent bladder cancer PLANNED PROCEDURE: Operation Date: 05/01/20 12:00 Proposed Procedures p Cystoscopy 94186 C67.9(Not Applicable) - Landon Ortega MD s Transurethral Resection Bladder Tumor(Not Applicable) - Landon Ortega MD
--- NOTE | 2020-05-01 12:22 | P.OP_ITS ---
Operative Report Date of procedure: May 01, 2020 Pre-op Diagnosis: Recurrent bladder cancer Post-op diagnosis: same Procedure Done: 1. Transurethral section of bladder tumor Specimens removed/disposition: Bladder tumor resection medium Surgeon: Jordan Anesthesia: General Estimated blood loss: Minimal Urine output: Not measured Complications: None Condition: stable Disposition: PACU Brief History: Manuel is a 75-year-old white male with a history of TCCA who on surveillance cystoscopy showed multiple recurrences in the bladder and is back now for TURBT. Anticipate admission to observation status post TURBT. Complicated by end-stage renal disease with Friday hemodialysis. Had dialysis this morning preoperatively. Procedure: After routine preoperative evaluation examination and obtaining of informed consent he was taken to the operating suite on 05/01/2020 where general anesthesia was administered without difficulty after appropriate timeout was performed, SCDs confirmed to be functioning, preoperative antibiotics administered, beta-beronica protocol confirmed. Prepped and draped in usual sterile fashion in dorsolithotomy position paying careful attention to avoiding pressure points. 21 Armenian cystoscope with 30 degree lens was introduced to the urethra meatus and advanced into the bladder under videoscopy. Bladder was examined with both 30 and 70 degree lenses. Findings: The urethra was then calibrated with Owen sounds and easily accommodated 30 Armenian. 2% lidocaine jelly was instilled into the urethra then a 25 Armenian continuous- flow resectoscope sheath was advanced into the bladder with visual obturator. The gyrus bipolar system was utilized for resection with the super loop for resection of the tumor and the button probe for fulguration of the base. All tumors were resected to completion with some deep sampling of the base. Meticulous hemostasis was obtained with the button probe. All chips were confirmed to be out of the bladder. Bladder was drained with a 20 Armenian three-way Barajas catheter with 5 cc in the balloon. Urine was clear. The irrigation port was plugged. He tolerated the procedure well without complications and was awakened in the operating room and returned to the care of room in stable condition.
[2020-05-01] MEDS: lidocaine 2% Urojet 20 mL (12:53)
--- NOTE | 2020-05-01 13:49 | ANE.PACU2 ---
Inpatient post-anesthesia follow up: Airway intact: Yes Vital signs: Temperature 98.2 F Pulse Rate 79 Respiratory Rate 15 Blood Pressure 160/89 Pulse Oximetry 95 Oxygen Delivery Me thod Room Air Oxygen Flow Rate 8 Fraction of Inspir ed Oxygen Hydration adequate: Yes Nausea and vomiting: No Pain level: 2 Mental status: Baseline
[2020-05-01] MEDS: hyDRALAzine 50 mg Tablet PO ×2 (15:22→20:23)
[2020-05-01] MEDS: morphine 4 mg/mL SDV 1 mL 1 MG IVP (17:04)
--- NOTE | 2020-05-01 18:30 | PC.NURSE ---
Pt has had very minimal urine output that is dark red in color. Pt is on dialysis and states he produces very little urine in a 24 hour period. Manual irrigation performed. 120 mL normal saline instilled and drawn back. No clots present. Urine draining pale pink at this time.
[2020-05-02] VITALS: BP 158/83; PULSE 84; RESP 18; TEMP 36.4; O2SAT 97
[2020-05-02 04:00] VITALS: BP 169/85; PULSE 81; RESP 18; TEMP 36.6; O2SAT 95
[2020-05-02 04:47] VITALS: RESP 16; O2SAT 97
[2020-05-02] MEDS: morphine 4 mg/mL SDV 1 mL 1 MG IVP ×2 (04:47→07:47)
--- NOTE | 2020-05-02 05:43 | PC.NURSE ---
pt complained of intermittent pain throughout the night but mild. Approxamately 75ml of hematuria (soto red, no clots) emptied from forde bag. for the sake of ensuring no clots had formed in the bladder given known low output, nurse irrigated pt bladder in a sterile fashion. Irrigated with NS 130mls, no issues evacuating approxamately 120mls light pink output. No clots noted. One does mg morphine given before procedure. Pt tolerated okay.
[2020-05-02 07:05] VITALS: BP 123/76; PULSE 80; RESP 18; TEMP 36.6; O2SAT 97
[2020-05-02 07:47] VITALS: RESP 18
--- NOTE | 2020-05-02 07:47 | PM.DCS ---
Discharge Providers Date of Admission: 05/01/20 13:23 Date of Discharge: May 02, 2020 Attending Provider at Admission: Landon Ortega MD Attending Provider at Discharge: Landon Ortega MD Primary Care Provider: Ayo Trinidad DO Reason for Visit Reason for Visit: cystoscopy Hospital Course Hospital Course Admitted on the day of procedure 05/01/2020 which went well. He had multiple areas of recurrence that were fully resected. On postoperative day #1 his urine was clear and he underwent INTRAVESICAL CHEMOTHERAPY with 40 mg of MITOMYCIN. Drained prior to 1 hour. Discharged after appropriate recovery. Plan is to continue his hemodialysis as scheduled. Physical Exam Const: COMMON NORMALS: no acute distress and alert : BLADDER/KIDNEY EXAM: Yes bladder normal to palpation PENIS: normal penis MEATUS: meatus normal Neuro: SENSORIUM/ORIENTATION: Yes alert Psych: COMMON NORMALS: mental status grossly normal, Normal thought process present and cooperative ATTITUDE: Yes calm and Yes engaged THOUGHT PROCESS: Normal thought process present Urinary Catheter Management^: 3-way Urethral CBI: Cath Placed During This Visit: yes Urinary Catheter Date of Insertion: 05/01/20 Urinary Catheter Time of Insertion: 13:03 Discharge Data Data Completed and Pending: Pending at discharge Category Date Time Status Pathology: Surgic al [PTH] Routine Pth 05/01/20 13:05 Received Labs from last 24 hours 05/01/20 05/01/20 11:10 11:10 WBC 3.8 L RBC 3.88 L Hgb 12.4 Hct 39.0 L MCV 100.5 H MCH 32.0 MCHC 31.8 RDW 13.5 Plt Count 182 MPV 9.5 Neut % (Auto) 68.8 Lymph % (Auto) 14.8 Cross % (Auto) 13.2 Eos % (Auto) 2.6 Baso % (Auto) 0.3 Neut # (Auto) 2.61 Lymph # (Auto) 0.6 L Cross # (Auto) 0.5 Eos # (Auto) 0.1 Baso # (Auto) 0.0 Nucleated RBC % (a uto) 0 Nucleated RBCs # 0.0 Sodium 136 Potassium 3.9 Chloride 96 L Carbon Dioxide 30 H Anion Gap 13.9 BUN 16 Creatinine 5.3 H GFR Calculation Not Reportable Glucose 89 Calculated Osmolal ity 283 L Calcium 9.9 Total Bilirubin 0.4 AST 16 ALT 9 Alkaline Phosphata se 88 Total Protein 7.1 Albumin 4.7 Globulin 2.4 Vitals: Last Vital Signs Temp 97.9 F 05/02/20 07:05 Pulse 80 05/02/20 07:05 Resp 18 05/02/20 07:05 BP 123/76 05/02/20 07:05 Pulse Ox 97 05/02/20 07:05 Discharge Plan Discharge Patient Disposition: Home Condition: Stable Prescriptions: Continued omeprazole 40 mg capsule,delayed release(DR/EC) 40 mg PO QDAY RF: 0 atorvastatin 20 mg tablet 20 mg PO QDAY RF: 0 torsemide 20 mg tablet 40 mg PO DAILY RF: 0 amlodipine 10 mg tablet 10 mg PO DAILY RF: 0 hydralazine 50 mg tablet 50 mg PO TID RF: 0 calcium acetate(phosphat bind) 667 mg capsule 667 mg PO DAILY RF: 0 zinc 15 mg Tablet 15 mg PO DAILY RF: 0 magnesium 250 mg Tablet 250 mg PO DAILY RF: 0 Discharge Orders: Discharge Order (Routine); Ordered 05/02/20 Ordered By: Landon Ortega Referrals: Landon Ortega MD [Physician] - 2 months (Cystoscopy) Discharge Diet: Usual diet Discharge Activity: Limit activity as instructed Activity Restrictions/Additional Instructions: 1. Avoid lifting >10 pounds. 2. We will see you in the office in about 2 months for cystoscopy. 3. Please call Friday if you have not heard from us regarding the results of the biopsy. Discharge Attestations Time Spent in Discharge Care*: less than 30 min Quality Metrics Clinical Quality Measures During this hospital stay, did patient experience: None Coding Level of Care Code Acute [facility] JERMAN note
[2020-05-02] MEDS: TORSEmide 20 mg Tablet 40 MG PO (07:49)
[2020-05-02] MEDS: pantoprazole DR 40 mg Tablet PO (07:50)
[2020-05-02] MEDS: hyDRALAzine 50 mg Tablet PO (07:50)
--- NOTE | 2020-05-02 08:00 | PC.NURSE ---
Dr. Ortega injected mytomycin into forde catheter. Pt experiencing an increase in pain, prn dose of morphine 1mg not due until 846, Dr. Ortega gave verbal orders to give dose 1 hour early.
--- NOTE | 2020-05-02 09:48 | PC.CHAP ---
Pastoral Care Encounter/Spiritual Assessment Type of Contact [] Declined personal support worker visit [] Patient/Family/Request visit [] Outpatient visit [] Follow-up visit [] Physician referral [] Code/Alert [x] Routine visit [] Staff referral [] Actively dying [] Patient sleeping [] Family support [] [] Out of room [] Palliative care [] [] Receiving care in room [] Pre-surgical visit [] Trauma [] Long length of stay [] ICU visit [] Other: Relational/Emotional Strength [x] Patient feels connected with others/family/visitors/staff [] Distress [] Loneliness/isolation [] Abandonment Spirituality of Patient [x] Person of Jessica [x] Attends Oriental Orthodox of their Jessica [x] Believes in Prayer [] Reads Bible or Confucianism materials [] There are Spiritual issues to be addressed 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 Interventions [x] Prayer [x] Active listening [x] Non-anxious presence [x] Spiritual/emotional support [] Crisis/trauma care [] Spiritual counseling [] Bereavement support [] Provided bereavement packet [] Provided Bible/devotional materials [] Provided toy/stuffed animal, coloring book to patient or family member [] Provided Communion [] Anointing/[place] [] Salvation [x] Completed spiritual assessment [] Other: Impact on Illness or Injury [] Angry [] Fearful [] Anxious [] Often cries [] Exhaustion [] Unable to work [] Unable to attend jainism [] Unable to walk/stand [] Unable to read [] Unable to drive [] Unable to eat/drink [] Unable to sleep [] Unable to be with family [] Patient intubated [] Other: Summary Time spent with patient 10 min
--- NOTE | 2020-05-02 10:02 | PC.NURSE ---
mytomycin drained at 0830, only about 20mL drained into leg bag. Dr. Ortega notified who said to irrigate forde q15 for 1 hour. Forde irrigated with 50ML x4 50mL returned each time. pt tolerated well, with just some mild discomfort during irrigation.
[2020-05-02 10:37] VITALS: RESP 18
== END 2020-05-02 10:38 | disposition home or self-care (01) ==
LOC: MEDSURG 13:24
PROVIDERS: Admitting Provider Urology; PCP Electrodiagnostic Medicine; Visit Provider Urology
PROC: 0TJB8ZZ Inspection of Bladder, Via Natural or Artificial Opening Endoscopic (ICD-10-PCS; CPT 52000; principal; 2020-05-01 12:00)
PROC: 0TBB8ZZ Excision of Bladder, Via Natural or Artificial Opening Endoscopic (ICD-10-PCS; CPT 52235; 2020-05-01 12:00)
DX: C67.0 Malignant neoplasm of trigone of bladder (principal); I12.9 Hypertensive chronic kidney disease with stage 1 through stage 4 chronic kidney disease, or unspecified chronic kidney disease; N18.9 Chronic kidney disease, unspecified; M47.9 Spondylosis, unspecified; Z86.73 Personal history of transient ischemic attack (TIA), and cerebral infarction without residual deficits; Z87.891 Personal history of nicotine dependence
CPT/HCPCS: 51720; 52235; 36415; 80053; 85025; 88305; G0378; J1100; J1956; J2270; J2405; J2704; J3010; J3490; J7030; J9280

== ENCOUNTER 2020-06-02 08:03 | Outpatient (CLI) | payer MEDICARE, OTHER, SELFPAY | END 2020-06-02 08:04 | disposition home or self-care (01) | PROVIDERS: PCP Electrodiagnostic Medicine; Visit Provider Internal Medicine Hematology & Oncology | DX: Z45.2 Encounter for adjustment and management of vascular access device (principal) | CPT/HCPCS: 96523 ==

== ENCOUNTER 2020-08-10 08:32 | Outpatient (CLI) | payer MEDICARE, OTHER, SELFPAY | END 2020-08-10 08:33 | disposition home or self-care (01) | LOC: ONCMED 08:34 | PROVIDERS: PCP Electrodiagnostic Medicine; Visit Provider Internal Medicine Hematology & Oncology | DX: Z45.2 Encounter for adjustment and management of vascular access device (principal) | CPT/HCPCS: 96523 ==

== ENCOUNTER 2020-09-14 08:02 | Outpatient (CLI) | payer MEDICARE, OTHER, SELFPAY | END 2020-09-14 08:03 | disposition home or self-care (01) | LOC: ONCMED 08:06 | PROVIDERS: PCP Electrodiagnostic Medicine; Visit Provider Internal Medicine Hematology & Oncology | DX: Z45.2 Encounter for adjustment and management of vascular access device (principal) | CPT/HCPCS: 96523 ==

== ENCOUNTER 2020-10-12 08:01 | Outpatient (CLI) | payer MEDICARE, OTHER, SELFPAY | END 2020-10-12 08:02 | disposition home or self-care (01) | LOC: ONCMED 08:04 | PROVIDERS: PCP Electrodiagnostic Medicine; Visit Provider Internal Medicine Hematology & Oncology | DX: Z45.2 Encounter for adjustment and management of vascular access device (principal) | CPT/HCPCS: 96523 ==

== ENCOUNTER → 2020-10-17 09:03 | Outpatient (BNVA) | payer MEDICARE, OTHER, SELFPAY | PROVIDERS: PCP Electrodiagnostic Medicine; Visit Provider Urology | DX: C67.8 Malignant neoplasm of overlapping sites of bladder (principal); C67.0 Malignant neoplasm of trigone of bladder; N18.5 Chronic kidney disease, stage 5; I10 Essential (primary) hypertension; I77.0 Arteriovenous fistula, acquired | CPT/HCPCS: 81003; 87635 ==

== ENCOUNTER 2020-10-19 14:21 | Observation (INO) | payer MEDICARE, OTHER, SELFPAY ==
[2020-10-18 14:50] VITALS: BMI 24.2
[2020-10-19] VITALS (13 sets, daily range): BP systolic 164–196; BP diastolic 73–92; PULSE 50–76; RESP 12–20; TEMP 36.3–36.7; O2SAT 93–100
--- NOTE | 2020-10-19 | SCC_ITS ---
Procedure Done: 1. Cystoscopy, transurethral section of bladder tumor large 2. Left retrograde ureteropyelogram 20.0 seconds of fluoroscopic guidance, for a cumulative dose of 3.98 mGy, was provided to Dr. Ortega by the radiology department. C-arm images of the abdomen were saved for the patient's permanent record. [facility]
--- NOTE | 2020-10-19 11:49 | SC_ITS ---
WS: [id number] C-arm fluoroscopy for left retrograde pyelogram, 10/19/2020 Clinical Data: Retrograde possible ureteroscopy Comparison: None. Findings: Dr. Ortega performed the left retrograde pyelogram. SC/C-arm [place] for Urology Impression: Left retrograde pyelogram.
[2020-10-19 12:50] LABS: Basophils % 0.2 %; Eosinophils # 0.1 10^3/uL (0.0-0.8); Eosinophils % 2.3 %; Hematocrit 40.4 % (42.0-52.0); Hemoglobin 12.3 g/dL (11.7-16.6); Lymphocytes # 0.8 10^3/uL (0.8-4.8); Lymphocytes % 14.3 %; Mean Corpuscular HGB Conc 30.4 g/dL (30.0-36.0); Mean Corpuscular Hemoglobin 29.1 pg (28.0-34.0); Mean Corpuscular Volume 95.5 fl (80-94); Mean Platelet Volume 10.2 fL (7.4-10.4); Monocytes # 0.7 10^3/uL (0.2-0.9); Monocytes % 12.9 %; Neutrophils # 3.68 10^3/uL (1.8-7.7); Neutrophils % 69.9 %; Nucleated Red Blood Cells % 0 %; Platelet Count 200 10^3/cmm (130-400); Red Blood Count 4.23 10^6/uL (4.1-5.3); Red Cell Distribution Width 15.9 % (12.1-15.1); White Blood Count 5.3 10^3/uL (4.0-10.0)
--- NOTE | 2020-10-19 13:04 | P.ANESASSM_ITS ---
Pre-Anesthetic Assessment Pre-Anesthetic Assessment: Height/Weight: Height 1.68 m Weight 68.039 kg Preop Diagnosis: Bladder cancer recurrence Proposed Procedure: Operation Date: 10/19/20 13:05 Proposed Procedures p Transurethral Resection Bladder Tumor [id number] C67.0 Mod-26(Not Applicable) - Landon Ortega MD s Cystoscopy(Not Applicable) - Landon Ortega MD s Retrograde Pyelogram(Not Applicable) - Landon Ortega MD s Poss Ureteroscopy(Not Applicable) - Landon Ortega MD Was Beta Alber taken within 24 hours: Yes Was Clonidine taken within 24 hours: N/A Last intake: Intake Last Liquid Date 10/18/20 Last Liquid Time 19:00 Last Solid Date 10/18/20 Last Solid Time 19:00 Social: Social History: No alcohol and No tobacco Exam: Pre-Anes Outpt Exam: alert and oriented x 3 Airway: Submandibular: WNL Cervical ROM: WNL MP: 2 Dentition: False (Upper dentures; lower front teeth intact; missing bilateral lower premolars/molars) Pulmonary: Pulmonary: None reported CV/HEM: CV/HEM: None reported : : Chronic renal failure Comments: HD M, W, F; last dialysis, Oct 18 Hepatic: Hepatic: None reported GI: GI: None reported Metabolic: Metabolic: None reported Neuropsych: Neuropsych: CVA Comments: full recovery; denies any residual effects; Anesthetic Plan: ASA status: 3 Anesthesia: Anesthesia Evaluation and Choice Risk of > 500 ml blood loss (7ml/kg in children): No PFSH Anesthesia PFSH: Medical History AV fistula Bladder cancer Cancer of trigone of urinary bladder CKD (chronic kidney disease) stage 5, GFR less than 15 ml/min On hemodialysis Degenerative joint disease (DJD) of lumbar spine GERD (gastroesophageal reflux disease) Gross hematuria Hydronephrosis, right Hypertension Primary cancer of right ureter Stroke Surgical History History of back surgery History of ear surgery TRAUMA TO RIGHT EAR-PART OF TOP OF EAR REMOVED History of nephrectomy, right Status post insertion of dialysis catheter RIGHT FOREARM Family History Father , AT AGE 71 Heart attack Mother , MVA No problems noted. Denies family history of Anesthesia complication Bleeding disorder Social History Smoking and tobacco status: former smoker Quit status (tobacco): has quit using tobacco Year quit tobacco: Alcohol intake: current Alcohol intake frequency: few times a month Marital status: Current occupational status: retired Current gender identity: Male Data Anesthesia CBC & Chem 7: 10/19/20 12:29 10/19/20 12:29 Other Labs: Laboratory Results - last 48 hr 10/19/20 12:29 WBC 5.3 RBC 4.23 Hgb 12.3 Hct 40.4 L MCV 95.5 H MCH 29.1 MCHC 30.4 RDW 15.9 H Plt Count 200 MPV 10.2 Neut % (Auto) 69.9 Lymph % (Auto) 14.3 Armstrong % (Auto) 12.9 Eos % (Auto) 2.3 Baso % (Auto) 0.2 Neut # (Auto) 3.68 Lymph # (Auto) 0.8 Armstrong # (Auto) 0.7 Eos # (Auto) 0.1 Baso # (Auto) 0.0 Nucleated RBC % (auto) 0 Nucleated RBCs # 0.0 Cardiac Studies: No Data to Display
[2020-10-19 13:10] LABS: Alanine Aminotransferase 8 U/L (0-41); Albumin Level 4.1 g/dL (3.5-5.2); Alkaline Phosphatase 78 IU/L (40-130); Anion Gap 16.5 (5-19); Aspartate Amino Transferase 13 U/L (0-40); Blood Urea Nitrogen 32 mg/dL (8-23); Calcium 8.2 mg/dL (8.5-10.5); Carbon Dioxide 28 mmol/L (22-29); Chloride 102 mmol/L (98-107); Globulin 2.1 g/dL (1.3-4.6); Glucose 83 mg/dL (65-115); Osmolality Calculated 300 mOsm/kg (285-295); Potassium 4.5 mmol/L (3.5-5.1); Sodium 142 mmol/L (136-145); Total Bilirubin 0.4 mg/dL (0.15-1.2); Total Protein 6.2 g/dL (6.6-8.7)
[2020-10-19] MEDS: sodium chloride 0.9% 1,000 ML 30 ML IV (13:26)
--- NOTE | 2020-10-19 13:53 | P.HPUD_ITS ---
Surgery/Procedure H&P Update DATE OF PROCEDURE: October 19, 2020 DATE H&P PERFORMED: 10/17/20 H&P UPDATE INFORMATION: I have reviewed H&P completed within last 30 days, I have examined patient prior to procedure, No changes to prior documentation and H&P is in [facility] EMR on date indicated PREOP DIAGNOSIS: Bladder cancer recurrence PLANNED PROCEDURE: Operation Date: 10/19/20 13:05 Proposed Procedures p Transurethral Resection Bladder Tumor [id number] C67.0 Mod-26(Not Applicable) - Landon Ortega MD s Cystoscopy(Not Applicable) - Landon Ortega MD s Retrograde Pyelogram(Not Applicable) - Landon Ortega MD s Poss Ureteroscopy(Not Applicable) - Landon Ortega MD
[2020-10-19] MEDS: levofloxacin-dextrose 5% 250 MG/50 ML PREMIX 50 MG IV (13:55)
[2020-10-19] MEDS: iohexol 300 mg/mL 50 mL Btl (OR ONLY) XX (14:24)
[2020-10-19] MEDS: lidocaine 2% Urojet 20 mL TOPICAL (14:26)
--- NOTE | 2020-10-19 14:53 | P.OP_ITS ---
Operative Report Date of procedure: October 19, 2020 Pre-op Diagnosis: Bladder cancer recurrence Post-op diagnosis: same Post-op Findings: Multiple sites of TCCA the did not appear to be invasive Procedure Done: 1. Cystoscopy, transurethral section of bladder tumor large 2. Left retrograde ureteropyelogram Implants: None Pathology: Bladder tumor multiple sites Surgeon: Jordan Anesthesia: General Estimated blood loss: Less than 10 cc Urine output: not measured Complications: None Findings: Multiple areas of papillary tumor on the left trigone, left lateral wall, bladder neck on the left side and right side, and right trigone All tumor resected. Left ureteral orifice was clear of the tumor Could not identify any residual right intramural tunnel post right nephro ureterectomy Condition: stable Disposition: PACU Brief History: Manuel is a very pleasant 75-year-old white male with end-stage renal disease on chronic hemodialysis. He is status post right robotic nephro ureterectomy for extensive right upper urinary tract TCCA. Has had multiple recurrences since that time. Recent surveillance cystoscopy revealed multiple sites of recurrence in the bladder involving the above locations. On cystoscopy in the clinic I could not for sure see his left ureteral orifice so the plan was to bring him in and resect these areas but also consider retrograde and ureteroscopy pending closer evaluation after resection. Procedure: After routine preoperative evaluation examination and obtaining of informed consent he was taken to the operating suite on 10/19/2020 where general anesthesia was administered without difficulty after appropriate timeout was performed, SC Ds confirmed to be functioning, preoperative antibiotics administered, beta- beronica protocol confirmed. Prepped and draped in usual sterile fashion in dorsolithotomy position paying careful attention to avoiding pressure points. 21 [place] cystoscope with 30 degree lens was introduced into urethra meatus and advanced into the bladder under videoscopy. Bladder was systematically examined with the findings as described above. The left ureteral orifice was identified and was not involved by the tumor is on the left side of the trigone. There was a tumor that appeared to be over the area where the orifice would have been preright nephro ureterectomy. I could not find any evidence of a residual orifice on the right. Urethra was calibrated with Chetan sounds and easily accommodated 30 [place]ayan. 2% lidocaine jelly was instilled into the urethra then a well-lubricated 25 [place]ayan continuous-flow resectoscope sheath with visual obturator in place was advanced into the bladder without difficulty. The gyrus bipolar system with super loop was utilized for resection of all the tumors. Special attention was made to avoiding resecting on or near the left ureteral orifice which was easily accomplished without compromising the resection. Several areas of resection demonstrated muscle at the base. All chips were evacuated from the bladder and the bladder was flushed multiple times. The button probe was then utilized to fulgurate all the areas of resection. The bladder was then again flushed multiple times and a LEFT retrograde ureteropyelogram was then performed: The ureter was normal in course and caliber with no filling defects. The pyelocalyceal stent also looks normal. The study was normal. Final inspection of the bladder with 30 and 70 degree lens showed no residual tumor. There was no active bleeding. All resection sites were completely fulgurated. The bladder was drained with a 20 [place]ayan three-way Barajas catheter. Irrigation was clear and the irrigation port was plugged. He tolerated procedure well without complications and was awakened in the operating room and returned to the recovery room in stable condition.
--- NOTE | 2020-10-19 15:17 | SUR.PHASEI ---
PT AWAKES TO VOICE DENIES PAIN AND NAUSEA BUT PT IS RESTLESS AND NEEDS REORIENTING TO PLACE AND RECENT EVENTS,DR BASHIR AT BEDSIDE ORDERS REVIEVED FOR HYDRALAZINE IF NEEDED PT NOW ON RA, HR DOWN TO 60 SR.
[2020-10-19] MEDS: fentaNYL 50 mcg/mL INJ 2mL IVP (15:20)
--- NOTE | 2020-10-19 16:07 | SUR.PHASEI ---
1530 PT TO PACU WITH LAMA WITH SMALL AMT APPROX 10 ML DK RED CLEAR URINE NOTE 1535 PT AWAKE ALERT ON RA PT TO FLOOR PER CART FAMILY UPDATED PT LAMA WITH SMALLAMT CLEAR RED URINE APPOX 10 ML IN TUBING NO CLOTS NOTED. PT MOVES SELF TO BED.
[2020-10-19] MEDS: morphine 4 mg/mL SDV 1 mL 1 MG IVP (17:04)
[2020-10-19] MEDS: metoprolol tartrate 50 mg Tablet 100 MG PO (17:04)
[2020-10-19 17:22] LABS: Glucose Point of Care 86 mg/dL (70-110)
--- NOTE | 2020-10-19 19:08 | ANE.PACU2 ---
Inpatient post-anesthesia follow up: Airway intact: Yes Vital signs: Temperature 97.4 F Pulse Rate 55 Respiratory Rate 18 Blood Pressure 176/73 Pulse Oximetry 96 Oxygen Delivery Me thod Room Air Oxygen Flow Rate 8 Fraction of Inspir ed Oxygen Hydration adequate: Yes Nausea and vomiting: No Pain level: 2 Mental status: Baseline
[2020-10-19] MEDS: hyDRALAzine 50 mg Tablet PO (21:04)
[2020-10-19] MEDS: phenol oral Spray 177 mL 3 SPRAY MUCOUS MEM (21:33)
[2020-10-20] VITALS: BP 172/80; PULSE 57; RESP 16; TEMP 36.9; O2SAT 94
[2020-10-20 04:00] VITALS: BP 161/82; PULSE 56; RESP 16; TEMP 36.6; O2SAT 94
[2020-10-20 06:27] LABS: Glucose Point of Care 114 mg/dL (70-110)
[2020-10-20 08:00] VITALS: BP 183/84; PULSE 67; RESP 16; TEMP 36.9; O2SAT 93
[2020-10-20] MEDS: calcium acetate 667 mg Capsule PO (08:18)
[2020-10-20] MEDS: atorvastatin 40 mg Tablet 20 MG PO (08:18)
[2020-10-20] MEDS: hyDRALAzine 50 mg Tablet PO (08:18)
[2020-10-20] MEDS: amlodipine 10 mg Tablet PO (08:18)
[2020-10-20] MEDS: TORSEmide 20 mg Tablet 40 MG PO (08:18)
[2020-10-20] MEDS: pantoprazole DR 40 mg Tablet PO (08:18)
[2020-10-20] MEDS: metoprolol tartrate 50 mg Tablet 100 MG PO (08:18)
[2020-10-20 11:53] VITALS: BP 177/89; PULSE 58; RESP 16; TEMP 36.5; O2SAT 97
--- NOTE | 2020-10-20 13:24 | PC.NURSE ---
patient verbalized understanding of discharge instructions, and follow up appointments. patient requested to walk out, and refused wheelchair.
[2020-10-20 13:26] VITALS: BP 177/89; PULSE 58; RESP 16; TEMP 36.5; O2SAT 97
--- NOTE | 2020-10-24 13:44 | PC.SOCIAL ---
discharge follow up call made. spoke to . patient is better today. patient has follow up appointment with Dr. hinojosa for 11-2, aware. patient had no new prescriptions at time of discharge.
--- NOTE | 2020-10-24 17:11 | P.DS_ITS ---
Discharge Providers Date of Admission: 10/19/20 14:21 Date of Discharge: 10/20/2020 Attending Provider at Admission: Landon Ortega MD Attending Provider at Discharge: Landon Ortega MD Primary Care Provider: Ayo Trinidad DO Diagnoses at Discharge Discharge Diagnosis (1) Bladder cancer: Status: Acute Qualifiers: Bladder location: overlapping sites Qualified Code(s): C67.8 - Malignant neoplasm of overlapping sites of bladder (2) Hypertension: Status: Acute (3) End stage renal disease: Status: Acute Reason for Visit Reason for Visit: Neoplasm of trigone of bladder Hospital Course Hospital Course He was admitted on the day of the procedure which went well. All bladder tumor visualized was resected. It did not involve the left ureteral orifice but it was close. There were multiple lesions along the bladder neck and extending onto the left posterior floor just inside the bladder neck. Postoperatively he did very well. On postop day #1 he underwent mitomycin intravesical instillation which he tolerated well. After 1 hour his bladder was drained of the medication. Catheter was removed. He eventually voided enough urine of that was slightly bloody but no evidence of retention on bladder scan and was discharged in the afternoon of postoperative day #1 in stable condition. He was discharged to go home but also prior to going home to his usual dialysis on Fridays. Reviewed postoperative limitations and restrictions. Follow-up in about 2 months for cystoscopy. Consider intravesical BCG based on the prompt recurrences. PROCEDURE: INTRAVESICAL INSTILLATION CHEMOTHERAPY Intravesical instillation 40 mg of mitomycin. Through his indwelling Barajas catheter 40 mg of mitomycin was instilled into the bladder and the catheter was occluded. It remained in the bladder for about an hour and then it was drained per protocol. He tolerated well without complications. Physical Exam Const: COMMON NORMALS: no acute distress, alert and well nourished GENERAL APPEARANCE: well kempt and well developed ORIENTATION/CONSCIOUSNESS: not confused HENMT: COMMON NORMALS: normocephalic and atraumatic HEAD & SCALP: normocephalic and atraumatic Eye: COMMON NORMALS: conjunctivae normal and no scleral icterus CONJUNCTIVA: Yes conjunctivae normal Neck/C-Spine: COMMON NORMALS: full ROM GENERAL: Yes normal visual inspection Resp: COMMON NORMALS: normal respiratory effort EFFORT & INSPECTION: No labored and No Actively coughing Neuro: SENSORIUM/ORIENTATION: Yes alert Psych: COMMON NORMALS: mental status grossly normal APPEARANCE: Yes grossly normal and Yes well kempt ATTITUDE: Yes calm and Yes engaged Skin: COMMON NORMALS: no rashes or lesions noted and no jaundice GENERAL SKIN EXAM: no rashes or lesions noted Urinary Catheter Management^: 3-way Urethral CBI: Cath Placed During This Visit: yes, but has since been removed by the nurse Reason for Continuing Indwelling Catheter: Decision to DC Catheter Urinary Catheter Date of Insertion: 10/19/20 Date Urinary Catheter Removed: 10/20/20 Time Urinary Catheter Discontinued: 08:15 Discharge Data Data Completed and Pending: Pending at discharge Category Date Time Status Pathology: Surgic al [PTH] Routine Pth 10/19/20 14:58 Received Vitals: Last Vital Signs Temp 97.7 F 10/20/20 13:26 Pulse 58 L 10/20/20 13:26 Resp 16 10/20/20 13:26 BP 177/89 10/20/20 13:26 Pulse Ox 97 10/20/20 13:26 Discharge Plan Discharge Patient Disposition: Home Condition: Stable Prescriptions: Continued omeprazole 40 mg capsule,delayed release(DR/EC) 40 mg PO QDAY RF: 0 atorvastatin 20 mg tablet 20 mg PO QDAY RF: 0 torsemide 20 mg tablet 40 mg PO DAILY RF: 0 amlodipine 10 mg tablet 10 mg PO DAILY RF: 0 hydralazine 50 mg tablet 50 mg PO TID RF: 0 calcium acetate(phosphat bind) 667 mg capsule 667 mg PO DAILY RF: 0 zinc 15 mg Tablet 15 mg PO DAILY RF: 0 magnesium 250 mg Tablet 250 mg PO DAILY RF: 0 metoprolol tartrate 100 mg Tablet 100 mg PO BID RF: 0 Discharge Orders: Discharge Order (Routine); Ordered 10/20/20 Ordered By: Landon Ortega Referrals: Landon Ortega MD [Physician] - 12/19/20 9:00 am (We will call for the pathology report results next week.) Discharge Diet: Usual diet Discharge Activity: Limit activity as instructed Patient Instructions: Transurethral Resection of Bladder Tumors (DC), Opioid Safety Discharge Attestations Time Spent in Discharge Care*: less than 30 min Specific Discharge Activities: educating patient, documenting/other paperwork and evaluating patient/reviewing data Quality Metrics Clinical Quality Measures During this hospital stay, did patient experience: None Coding Level of Care Code Acute [facility] DC note Diagnoses Bladder cancer C67.8 Bladder location: overlapping sites Hypertension I10 End stage renal disease N18.6
== END 2020-10-20 13:27 | disposition home or self-care (01) ==
LOC: MEDSURG 14:22
PROVIDERS: Anesthesiology; Admitting Provider Urology; PCP Electrodiagnostic Medicine; Visit Provider Urology
PROC: 0TBB8ZZ Excision of Bladder, Via Natural or Artificial Opening Endoscopic (ICD-10-PCS; CPT 51720; principal; 2020-10-19 13:05)
PROC: 0TJB8ZZ Inspection of Bladder, Via Natural or Artificial Opening Endoscopic (ICD-10-PCS; CPT 52000; 2020-10-19 13:05)
PROC: (CPT 74420; 2020-10-19 13:05)
PROC: 0TJ98ZZ Inspection of Ureter, Via Natural or Artificial Opening Endoscopic (ICD-10-PCS; CPT 52351; 2020-10-19 13:05)
DX: C67.8 Malignant neoplasm of overlapping sites of bladder (principal); I12.0 Hypertensive chronic kidney disease with stage 5 chronic kidney disease or end stage renal disease; N18.6 End stage renal disease; Z99.2 Dependence on renal dialysis; Z86.73 Personal history of transient ischemic attack (TIA), and cerebral infarction without residual deficits; M51.36 Other intervertebral disc degeneration, lumbar region; Z82.49 Family history of ischemic heart disease and other diseases of the circulatory system; Z87.891 Personal history of nicotine dependence
CPT/HCPCS: 51720; 52240; 36416; 51701; 76000; 80053; 82962; 85025; 88305; G0378; J1956; J2270; J3010; J7030; J9280

== ENCOUNTER 2020-11-09 08:09 | Outpatient (CLI) | payer MEDICARE, OTHER, SELFPAY | END 2020-11-09 08:10 | disposition home or self-care (01) | LOC: ONCMED 08:13 | PROVIDERS: PCP Electrodiagnostic Medicine; Visit Provider Internal Medicine Hematology & Oncology | DX: Z45.2 Encounter for adjustment and management of vascular access device (principal) | CPT/HCPCS: 96523 ==

== ENCOUNTER 2020-12-07 12:59 | Outpatient (CLI) | payer MEDICARE, OTHER, SELFPAY | END 2020-12-07 13:00 | disposition home or self-care (01) | LOC: ONCMED 13:01 | PROVIDERS: PCP Electrodiagnostic Medicine; Visit Provider Internal Medicine Hematology & Oncology | DX: Z45.2 Encounter for adjustment and management of vascular access device (principal) | CPT/HCPCS: 96523 ==

== ENCOUNTER → 2020-12-19 09:11 | Outpatient (BNVA) | payer MEDICARE, OTHER, SELFPAY | PROVIDERS: PCP Electrodiagnostic Medicine; Visit Provider Urology | DX: C67.0 Malignant neoplasm of trigone of bladder (principal); N18.6 End stage renal disease | CPT/HCPCS: 81003 ==

== ENCOUNTER 2021-01-09 08:03 | Outpatient (CLI) | payer MEDICARE, OTHER, SELFPAY | END 2021-01-09 08:04 | disposition home or self-care (01) | LOC: ONCMED 08:06 | PROVIDERS: PCP Electrodiagnostic Medicine; Visit Provider Internal Medicine Hematology & Oncology | DX: Z45.2 Encounter for adjustment and management of vascular access device (principal) | CPT/HCPCS: 96523 ==

== ENCOUNTER 2021-02-06 15:10 | Outpatient (CLI) | payer MEDICARE, OTHER, SELFPAY | END 2021-02-06 15:11 | disposition home or self-care (01) | LOC: ONCMED 15:13 | PROVIDERS: PCP Electrodiagnostic Medicine; Visit Provider Internal Medicine Hematology & Oncology | DX: C65.1 Malignant neoplasm of right renal pelvis (principal) | CPT/HCPCS: 36591 ==

== ENCOUNTER 2021-02-20 22:57 | Emergency (ER) | payer MEDICARE, OTHER, SELFPAY ==
[2021-02-20 23:12] VITALS: BP 189/95; PULSE 98; RESP 16; TEMP 37.6; O2SAT 93
--- NOTE | 2021-02-21 | CTR_ITS ---
PROCEDURE INFORMATION: Exam: CT Chest Without Contrast; Diagnostic Exam date and time: 02/21/2021 2:43 AM Age: 75 years old Clinical indication: Other: Mass seen on abd CT. ; Prior surgery; Surgery type: Chest port. RT nephrectomy. ; Patient HX: Mass seen on abdominal CT. History of cancer to RT ureter and bladder. ; Additional info: Mass seen on abd CT. No contrast due to stage 5 kidney disease. TECHNIQUE: Imaging protocol: Diagnostic computed tomography of the chest without contrast. Radiation optimization: All CT scans at this facility use at least one of these dose optimization techniques: automated exposure control; mA and/or kV adjustment per patient size (includes targeted exams where dose is matched to clinical indication); or iterative reconstruction. COMPARISON: CR XR chest 2V* [id number] 09/02/2019 9:31 AM RADIATION DOSE METRICS: Total DLP (mGy-cm): 498.71 FINDINGS: Tubes, catheters and devices: [id number] overlies the right chest with lead tip positioning superior vena cava. Lungs: Extensive and numerous bilateral diffuse pulmonary nodules. Largest right lower lung partially pleural based laterally measures 7.3 cm by 5.6 cm. Largest mass lower left chest partially pleural based laterally and partially contiguous with the left diaphragm measures 6.9 by 6.1 cm. Minor subpleural interstitial scarring or atelectasis within the lower lobe of lungs bilaterally. Pleural spaces: Small left pleural effusion. Heart: Minimal anterior pericardial fluid. Pulmonary arteries: Accentuated main central pulmonary arterial vasculature with diameter of the right main pulmonary artery 3.1 cm and diameter of the left main pulmonary artery 3.0 cm. Aorta: Atherosclerotic calcification thoracic aorta and distribution of coronary arteries. Calcification of the mitral annulus. Lymph nodes: Mediastinal lymphadenopathy with largest paratracheal lymph node measuring 4.8 by 3.3 cm. Enlarged subcarinal lymph node measures approximately 3.9 cm. Limited definition at the judah bilaterally due to the lack of contrast media. Suspect partially confluent scattered bilateral axillary lymph nodes. Bones/joints: Degenerative change of the spine. Minor wedge configuration of T12. Soft tissues: Questionable slight lobular expansion of soft tissues at the right thoracic inlet difficult to delineate abnormal suyapa prominence from branching vasculature. CT/CT chest wo con [id number] IMPRESSION: 1. Numerous bilateral pulmonary nodules would be most suspicious for diffuse pulmonary metastases.Fleischner Society follow up recommendations for incidental nodules are not indicated. Follow up per the patient's medical condition. 2. Bulky mediastinal adenopathy with limited assessment of the judah due to the lack of contrast media. 3. Accentuated diameter of main central pulmonary arterial vasculature which may indicate pulmonary arterial hypertension. 4. Mild bilateral lower lung scarring or atelectasis. 5. Small left pleural effusion.
--- NOTE | 2021-02-21 01:00 | W.ED.BACK ---
HPI - Back Pain/Injury General: Chief Complaint: Back Pain/Injury Stated Complaint: BACK PAIN Time Seen by Provider: 02/21/21 01:00 History of Present Illness: HPI Narrative: Mr. Garcia is a 75-year-old gentleman with history of bladder cancer with suspected local recurrence and end-stage renal disease on dialysis who presents to the emergency department due to back pain. Pain began earlier today without specific provoking factors identified. He denies falls or recent trauma. He describes low back pain that radiates bilaterally. Intensity of symptoms is moderate and becomes severe with movement. Quality is sharp and aching. Course has persisted. He is having bowel movements and denies new urinary symptoms, no nausea or vomiting though he does describe pain that radiates up into his back and sometimes into his chest. Denies symptoms of systemic illness. He has been compliant with his medication regimen and dialysis. No other specific exacerbating or alleviating factors identified. Review of Systems General: Reports: 10 or more systems reviewed and unremarkable except in HPI and below PFSH ED PFSH: Medical History AV fistula Bladder cancer Cancer of trigone of urinary bladder CKD (chronic kidney disease) stage 5, GFR less than 15 ml/min On hemodialysis Degenerative joint disease (DJD) of lumbar spine GERD (gastroesophageal reflux disease) Gross hematuria Hydronephrosis, right Hypertension Primary cancer of right ureter Stroke Surgical History History of back surgery History of ear surgery TRAUMA TO RIGHT EAR-PART OF TOP OF EAR REMOVED History of nephrectomy, right Status post insertion of dialysis catheter RIGHT FOREARM Family History Father , AT AGE 71 Heart attack Mother , MVA No problems noted. Denies family history of Anesthesia complication Bleeding disorder Social History Quit status (tobacco): has quit using tobacco Year quit tobacco: 1970s Alcohol intake: current Alcohol intake frequency: few times a month Marital status: Current occupational status: retired Current gender identity: Male Physical Exam Narrative: EXAM NARRATIVE: GENERAL/CONSTITUTIONAL -mildly ill-appearing. Uncomfortable due to pain. Eyes - PERRL, no conjunctival injection ENMT - Atraumatic external nose and ears. Moist mucous membranes NECK - supple. trachea midline CARDIOVASCULAR - regular rate and rhythm. Normal peripheral perfusion RESPIRATORY -clear to auscultation bilaterally. No retractions or accessory muscle use. ABDOMEN/GI -generalized tenderness palpation without evidence of peritonitis. MSK -tenderness palpation of the L-spine. Extremities without obvious deformity or tenderness to palpation SKIN - Warm, Dry NEURO - alert and appropriately oriented. Moves all extremities equally. Hard of hearing Course ED course: - Patient was seen and evaluated by me at bedside - Patient placed on cardiac monitors, IV access obtained - Initial evaluation notable for exam as above. Given complex history including likely active cancer imaging is certainly warranted as well as laboratory evaluation. -Symptom treatment ordered - Labs notable for no leukocytosis, mildly worse than baseline normocytic anemia. Metabolic panel without emergent need for dialysis, IV fluids ordered. Patient plans to go to dialysis in the morning. - Imaging notable for degenerative changes in the lumbar spine including postsurgical changes. The radiologist notes prominent appearance adjusting soft tissue expansion or thickening at the epidural space operative level L4-L5. Somewhat unclear exactly what the clinical significance is. I did discuss this with Dr. Llanes who felt that outpatient follow-up is appropriate, no need for further imaging at this time especially in the context of unchanged neurologic exam. - CT abdomen pelvis was noted to have large masses in the lung [place] which was caught by CT techs, after discussion with me CT chest was added. Patient appears to have multiple enlarged lymph nodes and likely widely metastatic cancer with multiple lung masses. - Upon serial reexamination after treatment the patient was mildly improved with symptom treatment - Based on patient history, evaluation, labs, and imaging as interpreted the most likely cause of the patient's condition is altered factorial, likely secondary to widely metastatic cancer. - The results of ED evaluation were discussed with the patient including metastatic cancer. I discussed prescriptions and/or symptomatic cares (if applicable) including appropriate and responsible use, followup plan, and return precautions. I messaged case management for scheduling with oncology. the patient verbalized understanding and felt safe for discharge. - Patient discharged in satisfactory condition. - I did notify the patient's primary care physician of findings. Vital Signs: Vital signs: Vital Signs Temperature 98.8 F 02/21/21 06:33 Pulse Rate 92 02/21/21 06:33 Respiratory Rate 18 02/21/21 06:33 Blood Pressure 156/79 02/21/21 06:33 Pulse Oximetry 95 02/21/21 06:33 MDM - Back Pain/Injury MDM Narrative: Medical decision making narrative: 75-year-old gentleman with history of bladder cancer presenting with back pain. Found to have new widely metastatic lesions. Patient will require extensive further evaluation in outpatient setting. Unfortunately no additional benefit to hospitalization at this time. Discharged in satisfactory condition. Medical Records: Attestation: I reviewed the patient's medical records. Lab Data: Attestation: I reviewed the patient's lab results. Labs: Lab Results 02/21/21 02/21/21 02:12 02:12 WBC 9.8 10^3/uL 10^3/ uL (4.0-10.0) RBC 3.63 10^6/uL L 10 ^6/uL (4.1-5.3) Hgb 10.0 g/dL L g/dL (11.7-16.6) Hct 33.3 % L % (42.0-52.0) MCV 91.7 fl fl (80-94) MCH 27.5 pg L pg (28.0-34.0) MCHC 30.0 g/dL g/dL (30.0-36.0) RDW 16.5 % H % (12.1-15.1) Plt Count 266 10^3/cmm 10^3 /cmm (130-400) MPV 8.8 fL fL (7.4-10.4) Neut % (Auto) 84.6 % % Lymph % (Auto) 5.8 % % [place] % (Auto) 8.6 % % Eos % (Auto) 0.3 % % Baso % (Auto) 0.2 % % Neut # (Auto) 8.29 10^3/uL H 10 ^3/uL (1.8-7.7) Lymph # (Auto) 0.6 10^3/uL L 10^ 3/uL (0.8-4.8) [place] # (Auto) 0.8 10^3/uL 10^3/ uL (0.2-0.9) Eos # (Auto) 0.0 10^3/uL 10^3/ uL (0.0-0.8) Baso # (Auto) 0.0 10^3/uL 10^3/ uL (0.0-0.1) Nucleated RBC % (a uto) 0 % % Nucleated RBCs # 0.0 /100WBC /100W BC Sodium 137 mmol/L mmol/L (136-145) Potassium 5.2 mmol/L H mmol /L (3.5-5.1) Chloride 97 mmol/L L mmol/ L (98-107) Carbon Dioxide 25 mmol/L mmol/L (22-29) Anion Gap 20.2 H (5-19) BUN 37 mg/dL H mg/dL (8-23) Creatinine 8.2 mg/dL H* mg/d L (0.7-1.2) GFR Calculation Not Reportable Glucose 103 mg/dL mg/dL (65-115) Calculated Osmolal ity 293 mOsm/kg mOsm/ kg (285-295) Calcium 8.8 mg/dL mg/dL (8.5-10.5) Discharge Plan Discharge Patient Disposition: Home Clinical Impression: Back pain, End stage renal disease, Metastatic cancer Condition: Stable Prescriptions: New oxycodone 5 mg tablet 5 mg PO Q6H PRN (Reason: pain) Qty: 20 RF: 0 No Action omeprazole 40 mg capsule,delayed release(DR/EC) 40 mg PO QDAY RF: 0 atorvastatin 20 mg tablet 20 mg PO QDAY RF: 0 nifedipine 30 mg tablet extended release 30 mg PO DAILY RF: 0 sertraline 25 mg tablet 25 mg PO DAILY RF: 0 docusate sodium 100 mg capsule 100 mg PO DAILY RF: 0 ondansetron HCl 8 mg tablet 8 mg PO DAILY RF: 0 montelukast 10 mg tablet 10 mg PO DAILY PRNRF: 0 torsemide 20 mg tablet 40 mg PO DAILY RF: 0 amlodipine 10 mg tablet 10 mg PO DAILY RF: 0 hydralazine 50 mg tablet 50 mg PO TID RF: 0 calcium acetate(phosphat bind) 667 mg capsule 667 mg PO DAILY RF: 0 magnesium 250 mg Tablet 250 mg PO DAILY RF: 0 zinc 15 mg tablet 15 mg PO DAILY PRNRF: 0 metoprolol tartrate 100 mg Tablet 100 mg PO BID RF: 0 Discharge Orders: Discharge ED (Routine); Ordered 02/21/21 Ordered By: Monster Card Referrals: Ayo Trinidad DO [Primary Care Provider] - Discharge Diet: Usual diet Discharge Activity: Resume usual activity Patient Instructions: Acute Low Back Pain (ED), Opioid Safety Activity Restrictions/Additional Instructions: Thank you for visiting the emergency department. You were seen and evaluated for back pain. The exact cause of your back pain is unclear. However, as discussed, I am concerned that this is related to new metastatic cancer. You have various enlarged lymph nodes as well as numerous lung masses. I will message our human services case manager for assistance scheduling you again with your oncologist. Return to the emergency department for worsening symptoms or anything else that you are concerned about and feel needs emergency department evaluation. Coding Level of Care Code ED [employer] for [employer]
--- NOTE | 2021-02-21 01:52 | CTR_ITS ---
PROCEDURE INFORMATION: Exam: CT Abdomen And Pelvis Without Contrast Exam date and time: 02/21/2021 1:52 AM Age: 75 years old Clinical indication: Abdominal pain; Localized; Prior surgery; Surgery type: RT nephrectomy. Lumbar fusion. ; Patient HX: C/O lower abd pain with nausea after cystoscopy on 02/20/2021. History of cancer to RT ureter and bladder. No contrast due to stage 5 kidney disease. ; Additional info: Abd pain, post cystoscopy TECHNIQUE: Imaging protocol: Computed tomography of the abdomen and pelvis without contrast. Radiation optimization: All CT scans at this facility use at least one of these dose optimization techniques: automated exposure control; mA and/or kV adjustment per patient size (includes targeted exams where dose is matched to clinical indication); or iterative reconstruction. COMPARISON: CT abdomen pelvis w con* [id number] 01/06/2020 2:45 PM RADIATION DOSE METRICS: Total DLP (mGy-cm): 992.26 FINDINGS: Pleural spaces: Large pleural based masses in the lower chest bilaterally see dictation of chest CT. Heart: Small pericardial effusion anteriorly. Calcification of the mitral annulus. Liver: Normal. No mass. Gallbladder and bile ducts: Normal. No calcified stones. No ductal dilation. Pancreas: Normal. No ductal dilation. Spleen: Normal. No splenomegaly. Adrenal glands: Normal. No mass. Kidneys and ureters: Absence of a right kidney. Diminutive size of left kidney. The left kidney contains multiple cyst. Medial and lateral cyst are similar. Slightly accentuated or better defined posterior extending suspected cyst measures 1.0 cm. There is mild soft tissue stranding surrounding the left kidney. No overt hydronephrosis. No ureterectasis. The course and distal left ureter are limited in definition. Stomach and bowel: Accentuation of the wall of the GE junction and stomach. Large volume colonic fecal debris. Colonic diverticulosis. [place] of partially fluid-filled small bowel. Questionable segment of wall thickening of areas of sigmoid colon versus nondistention. Appendix: No evidence of appendicitis. Intraperitoneal space: Mild non-specific abdominal mesenteric stranding density. Vasculature: Calcified abdominal aorta. Lymph nodes: Small nonspecific inguinal lymph nodes. Urinary bladder: Bladder wall thickening. The left bladder is limited in assessment and effaced superiorly by the adjacent colon. Reproductive: Unremarkable as visualized. Bones/joints: Degenerative change of the spine. Posterior zaheer and pedicle screw fixation L4 and L5 with interspace device at L4. Soft tissues: Unremarkable. Other findings: Limitations by severe motion degradation and the absence of contrast media. CT/CT abdomen pelvis wo con [id number] IMPRESSION: 1. Bladder wall thickening with limited distension. 2. Atherosclerosis abdominal aorta. 3. Multiple left renal cyst. 4. Extensive colonic diverticulosis with areas of accentuation of the wall of the sigmoid colon which could be on the basis of nondistention. 5. Moderate to marked colonic fecal expansion. 6. Bilateral inguinal lymphadenopathy. Findings could be reactive or neoplastic. 7. Accentuation of the wall of the stomach could be on the basis of wall thickening or incomplete distension. COMMENTS: Consistent with the [employer]'s Incidental Findings Committee white paper (J Am Amadou Radiol 2018): Any incidental renal lesion less than 1 cm or classified as too small to characterize, or any incidental cystic renal lesion characterized as simple-appearing, is likely benign. No follow-up imaging is recommended for these lesions per consensus recommendations based on imaging criteria.
--- NOTE | 2021-02-21 01:52 | CTR_ITS ---
PROCEDURE INFORMATION: Exam: CT Lumbar Spine Without Contrast Exam date and time: 02/21/2021 1:52 AM Age: 75 years old Clinical indication: Low back pain; Prior surgery; Surgery type: Lumbar fusion. ; Patient HX: C/O worsening lower back pain. ; Additional info: Back pain, HX cancer TECHNIQUE: Imaging protocol: Computed tomography images of the lumbar spine without contrast. Radiation optimization: All CT scans at this facility use at least one of these dose optimization techniques: automated exposure control; mA and/or kV adjustment per patient size (includes targeted exams where dose is matched to clinical indication); or iterative reconstruction. COMPARISON: CT abdomen pelvis wo con [id number] 02/21/2021 2:37 AM RADIATION DOSE METRICS: Total DLP (mGy-cm): 1654.24 FINDINGS: Tubes, catheters and devices: Surgical interspace device at L4-L5. Vertebrae: Mild degenerative hypertrophic vertebral body changes. Surgical laminectomy defect bilaterally at L4. Posterior zaheer fixation bilaterally at L4-L5 with bilateral pedicle screws at L4 and L5. The pedicle screws at L5 extend anterior to the L5 vertebral body margin within the adjacent paraspinal soft tissues greatest extent on the right. No hardware fracture. L1-L2: No severe canal stenosis or neural foraminal narrowing. L2-L3: No no severe canal stenosis or neural foraminal narrowing. L3-L4: Posterior diffuse disc bulge posteriorly and anteriorly as well as bilaterally. Bulky facet arthritis with ligamentum flavum thickening manifest moderate 2 severe central canal stenosis at the interspace level. Lateral recess narrowing and bilateral inferior neural foraminal narrowing greater on the right. L4-L5: Significant distortion of soft tissue assessment with metallic streak artifact. Surrounding soft tissue expansion or thickening at the level of the thecal sac posteriorly and most noted posterolaterally on the left which could be due to epidural postsurgical fibrotic change. This extends to the level of exiting left L4 nerve root. There is no severe bony canal encroachment. No significant right neural foraminal narrowing. L5-S1: Minor focal central disc bulge without severe canal stenosis or neural foraminal narrowing. There is no distortion of exiting nerve roots. Mild lateral recess narrowing. Sacrum/coccyx: Degenerative changes at the sacroiliac joints greater on the left. Lymph nodes: Better demonstrated is suspected left retroperitoneal lymph node largest measuring 1.8 cm. Smaller suspected retroperitoneal lymph nodes are likely present. Questionable lymph node along the right iliac vascular branching at the level of the distal right common iliac artery measuring 1.4 cm with pelvic lymph node structures difficult to delineate from adjacent vasculature. Soft tissues: Unremarkable. CT/CT lumbar spine wo con* [id number] IMPRESSION: 1. Postsurgical changes with posterior zaheer and pedicle screw fixation L4-L5. 2. Moderate to moderately severe central canal stenosis L3-L4. 3. Prominent appearance suggesting soft tissue expansion or thickening at the epidural space operative level L4-L5 most noted posteriorly and posterolaterally on the left. A higher level of diagnostic assessment may be achieved with MRI with gadolinium. 4. Suspect retroperitoneal and upper right iliac level lymphadenopathy which could be reactive or neoplastic. See addendum dictation on CT abdomen and pelvis.
[2021-02-21 02:15] LABS: Basophils % 0.2 %; Eosinophils % 0.3 %; Hematocrit 33.3 % (42.0-52.0); Lymphocytes # 0.6 10^3/uL (0.8-4.8); Lymphocytes % 5.8 %; Mean Corpuscular Hemoglobin 27.5 pg (28.0-34.0); Mean Corpuscular Volume 91.7 fl (80-94); Mean Platelet Volume 8.8 fL (7.4-10.4); Monocytes # 0.8 10^3/uL (0.2-0.9); Monocytes % 8.6 %; Neutrophils # 8.29 10^3/uL (1.8-7.7); Neutrophils % 84.6 %; Nucleated Red Blood Cells % 0 %; Platelet Count 266 10^3/cmm (130-400); Red Blood Count 3.63 10^6/uL (4.1-5.3); Red Cell Distribution Width 16.5 % (12.1-15.1); White Blood Count 9.8 10^3/uL (4.0-10.0)
[2021-02-21 02:21] VITALS: RESP 18
[2021-02-21] MEDS: morphine 4 mg/mL SDV 1 mL IVP (02:21)
[2021-02-21 02:24] VITALS: BP 190/91; PULSE 97; RESP 18; O2SAT 94
[2021-02-21 02:49] LABS: Anion Gap 20.2 (5-19); Blood Urea Nitrogen 37 mg/dL (8-23); Calcium 8.8 mg/dL (8.5-10.5); Carbon Dioxide 25 mmol/L (22-29); Chloride 97 mmol/L (98-107); Glucose 103 mg/dL (65-115); Osmolality Calculated 293 mOsm/kg (285-295); Potassium 5.2 mmol/L (3.5-5.1); Sodium 137 mmol/L (136-145)
[2021-02-21] MEDS: sodium chloride 0.9% 500 ML 999 ML IV (03:04)
[2021-02-21] MEDS: methocarbamol 750 mg Tablet PO (04:42)
[2021-02-21] MEDS: acetaminophen 500 mg Tablet 1000 MG PO (04:42)
[2021-02-21 05:44] VITALS: BP 156/79; PULSE 92; RESP 18; TEMP 37.1; O2SAT 95
[2021-02-21 06:33] VITALS: BP 156/79; PULSE 92; RESP 18; TEMP 37.1; O2SAT 95
--- NOTE | 2021-02-21 10:43 | DCPLANNER ---
data entry manager had message to schedule a follow up appointment for patient with Dr. Souza. data entry manager called [facility]. Patients information will be printed and reviewed. Clinic will call patient with appointment information.
--- NOTE | 2021-03-02 06:17 | DCPLANNER ---
Patient had a follow up appointment scheduled with Dr. Souza - patient did attend appointment.
== END 2021-02-21 06:38 | disposition home or self-care (01) ==
PROVIDERS: Emergency Provider Emergency Medicine; PCP Electrodiagnostic Medicine
DX: M54.42 Lumbago with sciatica, left side (principal); M54.41 Lumbago with sciatica, right side; I12.0 Hypertensive chronic kidney disease with stage 5 chronic kidney disease or end stage renal disease; N18.6 End stage renal disease; N17.9 Acute kidney failure, unspecified; Z99.2 Dependence on renal dialysis; Z87.891 Personal history of nicotine dependence; Z85.51 Personal history of malignant neoplasm of bladder; K21.9 Gastro-esophageal reflux disease without esophagitis
CPT/HCPCS: 71250; 72131; 74176; 80048; 81003; 85025; 96374; 99284; J2270; J7040

== ENCOUNTER 2021-03-01 12:50 | Outpatient (CLI) | payer MEDICARE, OTHER, SELFPAY ==
[2021-03-01 13:25] LABS: Basophils % 0.1 %; Eosinophils # 0.1 10^3/uL (0.0-0.8); Eosinophils % 1.2 %; Hematocrit 33.6 % (42.0-52.0); Hemoglobin 10.1 g/dL (11.7-16.6); Lymphocytes # 0.7 10^3/uL (0.8-4.8); Lymphocytes % 8.8 %; Mean Corpuscular HGB Conc 30.1 g/dL (30.0-36.0); Mean Corpuscular Hemoglobin 27.3 pg (28.0-34.0); Mean Corpuscular Volume 90.8 fl (80-94); Mean Platelet Volume 8.9 fL (7.4-10.4); Monocytes % 12.9 %; Neutrophils # 5.89 10^3/uL (1.8-7.7); Neutrophils % 76.6 %; Nucleated Red Blood Cells % 0 %; Platelet Count 301 10^3/cmm (130-400); Red Cell Distribution Width 16.1 % (12.1-15.1); White Blood Count 7.7 10^3/uL (4.0-10.0)
[2021-03-01 13:48] LABS: Alanine Aminotransferase 7 U/L (0-41); Albumin Level 4.1 g/dL (3.5-5.2); Alkaline Phosphatase 85 IU/L (40-130); Anion Gap 22.4 (5-19); Aspartate Amino Transferase 13 U/L (0-40); Blood Urea Nitrogen 29 mg/dL (8-23); Calcium 8.7 mg/dL (8.5-10.5); Carbon Dioxide 24 mmol/L (22-29); Chloride 97 mmol/L (98-107); Globulin 2.7 g/dL (1.3-4.6); Glucose 116 mg/dL (65-115); Osmolality Calculated 295 mOsm/kg (285-295); Potassium 4.4 mmol/L (3.5-5.1); Sodium 139 mmol/L (136-145); Total Bilirubin 0.4 mg/dL (0.15-1.2); Total Protein 6.8 g/dL (6.6-8.7)
--- NOTE | 2021-03-04 18:19 | ONC FU_ITS ---
Dr. Souza follow up note Patient: Manuel Garcia Unit #: [id number]: 1945 Dicatated By: Moses Souza M.D.Date of Visit:Mar 01, 2021 Onc Med Follow-up/Prog Note History of Present Illness: Mr. Garcia is a 75-year-old gentleman with history of papillary tumor located over the right ureteral orifice with obstruction diagnosed on 03/19/2019. Hydronephrosis was noted on CT scan of pelvis. Mr Garcia underwent cystoscopy TURBT on 03/25/2019 which showed papillary urothelial carcinoma: low-grade no muscle invasion seen. He was referred to Dr. Begum, urologist in [place] for further evaluation for evidence of tumor invasion into the ureter. Right robotic nephroureterectomy was considered and patient underwent procedure on 05/17/2019. The final pathology report showed invasive high-grade papillary urothelial carcinoma involving right renal pelvis with tumor invasion into the kidney, size was 4 x 3.5 x 1.3 cm. There was a noninvasive ureter tumor size was 1.9 x 1.5 cm., Lymphovascular invasion was seen, no lymph node was evaluated e.g. T3,Nx Mx, stage III Mr Garcia tolerated procedure well He is on hemodialysis for end-stage renal disease. He goes to dialysis on Friday, Friday and Friday. did discuss with him his disease status and further treatment options. He was determined to have stage III disease and felt that adjuvant [place] based chemotherapy was a good option for him. However considering his age and comorbid condition MVAC was not considered due to toxicity profile but split dose cisplatin and gemcitabine on day 1 and 8 on a 21-day cycle for 4 cycles was recommended. Mr Garcia began his first cycle on August 03, 2019.And day 8 chemotherapy with cycle #1 was delayed because of progressive neutropenia/leukopenia was treated with Neupogen. And again day 8 with cycle #2 was also delayed because of progressive leukopenia and neutropenia And completed 4 cycles of adjuvant chemotherapy with split dose cisplatin/gemcitabine on November 11, 2019 Patient said on November 21, 2019 while he was going back [place] he felt weak in his left arm by the time he got home he could not see his left hand and then decided to come to hospital and then he was flown to [place] where he, as per patient he was given some medication to Port-A-Cath to dissolve clot, after that he recovered well, no residual weakness or visual abnormality. Patient is scheduled for follow-up MRI scan in [place] in December, Follow-up CT scan of abdomen pelvis done on January 06, 2020 showed interval postoperative changes right nephrectomy. No abdominal or pelvic lymphadenopathy. A few prominent inguinal lymph nodes previously described are improved compared to previous largest is 8 mm. No other changes seen. Focal bladder wall thickening right UVJ orifice has improved since the prior examination otherwise bladder is contracted and similar in appearance to the prior exam. As per patient he underwent cystoscopy examination in recent past and Dr. Ortega told him that his bladder looks good and follow-up cystoscopy Is under consideration Came for follow-up, as per patient on 02/20/2021 he went to [facility] [place] [place] [facility] with progressive lower back pain which was sudden in onset and underwent CT lumbar spine on 02/20/2021 which showed postsurgical changes with posterior zaheer and pedicle screws fixation L4-5. Moderate to moderately severe central canal stenosis L3-4. Prominent appearance suggesting soft tissue expansion or thickening at this epidural space operating level L4-5 most noted posteriorly and posterior laterally on the left. Suspect retroperitoneal and upper right iliac level lymphadenopathy which could be reactive or neoplastic,, suspected left retroperitoneal lymph node adjacent to the aorta measures 2.8 cm. Smaller adjacent retroperitoneal lymph node may be present., so in 02/21/[address] scan of abdomen pelvis which which shows no liver mets small nonspecific inguinal lymph nodes extensive colonic diverticulosis, no mention of retroperitoneal lymphadenopathy, CT scan of chest done on 02/20/2021 showed numerous bilateral pulmonary nodules largest right lower lobe partially pleural-based measuring 7.3 cm x 5.6 cm and largest mass lower left chest partially pleural-based and partially contiguous with the left diaphragm measuring 6.9 x 6.1 cm and extensive and numerous bilateral diffuse pulmonary nodules extensive mediastinal lymphadenopathy with the largest paratracheal lymph node measuring 4.8 x 3.3 cm. 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 All appears to be similar to his prior recurrence which ultimately turned out to be low-grade noninvasive., BCG based intravesical treatment is under consideration. Patient is on hemodialysis for renal failure Medications: Atorvastatin Calcium 1 Tablet (of 20 mg) Oral at bedtime, hydrALAZINE HCl 1 Tablet (of 50 mg) Oral four times a day, Lisinopril 1 Tablet (of 40 mg) Oral daily, Prochlorperazine Maleate 1 Tablet (of 10 mg) Oral four times a day PRN, Torsemide 1 Tablet (of 20 mg) Oral daily, Triamcinolone Acetonide Ointment Topical PRN, Tums 1 Tablet Tablet, chewable Oral PRN, Tylenol Tablet Oral PRN Allergies: No Known Allergies. Review of Systems: Review of Systems is not available for this patient. Vital Signs: Performed on Mar 01, 2021 16:31 Height - 66.00 in Weight - 150.4 lbs (LOW) BSA - 1.77 sq.m BMI - 24.28 Temperature - 98.4 F Pulse - 67 /min Respiration - 18 /min BP - 136/57 mm(hg) O2 Sat - 95 % (LOW) Pain - 3 Fatigue - 0 Performance Status: 0 - Fully active, able to carry on all predisease activities without restrictions. (ECOG) Physical Examination: ENMT - No mouth sores, no thrush, no jaundice, Respiratory - Lungs are clear to auscultation, Cardiovascular - Regular rate and rhythm of heart, Abdomen - Soft, bowel sounds present, Extremities - No visible edema. Lab/Imaging: Most recent lab results are not available for this patient. Impression: 1. CT scan of chest done on 02/20/2021 showed numerous bilateral pulmonary nodules largest right lower lobe partially pleural-based measuring 7.3 cm x 5.6 cm and largest mass lower left chest partially pleural-based and partially contiguous with the left diaphragm measuring 6.9 x 6.1 cm and extensive and numerous bilateral diffuse pulmonary nodules extensive mediastinal lymphadenopathy with the largest paratracheal lymph node measuring 4.8 x 3.3 cm. Enlarged subcarinal lymph node measures approximately 3.9 cm progressive lower back pain which was sudden in onset and underwent CT lumbar spine on 02/20/2021 which showed postsurgical changes with posterior zaheer and pedicle screws fixation L4-5. Moderate to moderately severe central canal stenosis L3-4. Prominent appearance suggesting soft tissue expansion or thickening at this epidural space operating level L4-5 most noted posteriorly and posterior laterally on the left. Suspect retroperitoneal and upper right iliac level lymphadenopathy which could be reactive or neoplastic,, suspected left retroperitoneal lymph node adjacent to the aorta measures 2.8 cm. Smaller adjacent retroperitoneal lymph node may be present., so in 02/21/[address] scan of abdomen pelvis which which shows no liver mets small nonspecific inguinal lymph nodes extensive colonic diverticulosis, no mention of retroperitoneal lymphadenopathy, 2. h/o invasive high-grade urothelial carcinoma Of right renal pelvis/ureter with invasion into the right kidney status post robotic nephroureterectomy done on 05/17/2019 next Final pathology report showed invasive high-grade papillary urothelial carcinoma, tumor size 4 x 3.5 x 1.3 cm invading right kidney and 1.9 x 1.5 cm noninvasive ureter tumor with lymphovascular invasion seen pT3 No lymph nodes were identified for evaluation pNx , Mx stage III ureteral/renal pelvis carcinoma End-stage renal disease on hemodialysis. iscussed with Mr Garcia his disease status and further treatment options. He has invasive high-grade papillary urothelial carcinoma of right renal pelvis with invasion into the right kidney e.g. T3 lesion , with unknown lymph node status. As per [facility] CC[facility] guidelines, Mr Garcia has stage III disease and there is a role of adjuvant [place]-based chemotherapy which may improve disease-free survival. Considering patient's age and comorbid condition, MVAC was not consdered due to toxicity profile but split dose cisplatin and gemcitabine, on day 1 and 8 and repeat every 21 days ???4 cycles.Started on August 03, 2019 and completed 4 cycles on November 11, 2019 Follow-up CT scan of abdomen pelvis done on January 06, 2020 showed status post right nephrectomy no abdominal or pelvic lymphadenopathy, a few prominent inguinal lymph nodes previously described are improved and largest is about 8 mm. And focal bladder wall thickening right UVJ orifice has improved otherwise bladder is contracted and similar to previous exam. Patient is being followed by Dr. Ortega with cystoscopy evaluation. Plan: Discussed with patient regarding his labs white blood count 7.7 hemoglobin 10.1 hematocrit 33.6 platelets 301,000 CMP within normal limit except creatinine 6.2, patient is on hemodialysis for renal failure and CT scan of chest abdomen pelvis and lumbosacral area findings were discussed which showed extensive intrathoracic disease, no mention of retroperitoneal lymphadenopathy on CT scan of abdomen pelvis as mentioned on CT scan of lumbosacral area. Clinically, patient denies any specific complaints, no fever chills, no nausea or vomiting, no diarrhea or constipation, no more back pain, no chest pain, no dysphagia, no hemoptysis hematemesis, no shortness of breath, no weight loss. As per patient and family he is being followed by Dr. Ortega regarding recurrent low-grade local bladder cancer, for which intravesical BCG treatment is under consideration, now incidentally, found to have extensive intrathoracic pathology which could be recurrence of transitional cell carcinoma or second primary, at this point we will consider CT PET scan and also refer him to pulmonology for bronchoscopy and transbronchial biopsy or CT-guided biopsy of pleural-based lung lesions. Patient return to clinic after CT PET scan for further discussion Signed By: Moses Souza M.D. <<Signature on File>>
== END 2021-03-01 12:51 | disposition home or self-care (01) ==
LOC: ONCMED 12:59
PROVIDERS: PCP Electrodiagnostic Medicine; Visit Provider Internal Medicine Hematology & Oncology
DX: R91.8 Other nonspecific abnormal finding of lung field (principal); R59.1 Generalized enlarged lymph nodes; Z85.51 Personal history of malignant neoplasm of bladder; Z90.5 Acquired absence of kidney; N18.6 End stage renal disease; Z99.2 Dependence on renal dialysis
CPT/HCPCS: 36591; 80053; 85025; 99214

== ENCOUNTER 2021-04-03 11:22 | Outpatient (CLI) | payer MEDICARE, OTHER, SELFPAY ==
[2021-03-30 13:59] VITALS: BMI 24.2
[2021-04-03] VITALS (15 sets, daily range): BP systolic 130–166; BP diastolic 56–87; PULSE 67–73; RESP 10–24; TEMP 36.6–37; O2SAT 92–99
--- NOTE | 2021-04-03 09:01 | CT_ITS ---
WS: [id number] CT GUIDED BIOPSY CHEST. HISTORY: Patient has multiple pulmonary lesions for which biopsy is recommended. Procedure, risks, and complications are explained to the patient. Consent was obtained. Skin is clean sed with ChloraPrep and anesthetized with 1% buffered lidocaine. Conscious sedation was performed for but not used. Initial CT through the chest reveals multiple, known pulmonary masses and nodules. The largest mass i n the LEFT lower lobe was targeted due to its size and location against the pleura. No complication d uring the examination. Multiple core biopsies are performed with the 20-gauge coaxial needle. No pneu mothorax or hemorrhage. Patient tolerated the procedure well and will be observed 2 hours postprocedu re. Specimen is collected and placed in saline for pathology. 5-6 core biopsies were performed. CT/CT biopsy lung [id number] IMPRESSION: 1. Uncomplicated biopsy of the LEFT lower lobe pulmonary mass. 2. Patient will be observed 2 hours postprocedure.
[2021-04-03] MEDS: sodium chloride 0.9% 1,000 ML 30 ML IV (12:27)
[2021-04-03 12:53] LABS: INR 1.02 (0.8-1.2)
--- NOTE | 2021-04-03 13:00 | CT_ITS ---
WS: [id number] CT GUIDED BIOPSY CHEST. HISTORY: Patient has multiple pulmonary lesions for which biopsy is recommended. Procedure, risks, and complications are explained to the patient. Consent was obtained. Skin is clean sed with ChloraPrep and anesthetized with 1% buffered lidocaine. Conscious sedation was performed for but not used. Initial CT through the chest reveals multiple, known pulmonary masses and nodules. The largest mass i n the LEFT lower lobe was targeted due to its size and location against the pleura. No complication d uring the examination. Multiple core biopsies are performed with the 20-gauge coaxial needle. No pneu mothorax or hemorrhage. Patient tolerated the procedure well and will be observed 2 hours postprocedu re. Specimen is collected and placed in saline for pathology. 5-6 core biopsies were performed.
--- NOTE | 2021-04-03 14:02 | PC.NURSE ---
No sedation meds given during biopsy. Only local analgesic used by Dr Reece. Meds returned to [facility]. Pt tolerated well with lidocaine. C/O discomfort at sight with breathing. Home pain pill given per Dr Reece. VSS. No SOB or signs of distress. Family at bedside in recovery.
--- NOTE | 2021-04-03 14:07 | XR_ITS ---
WS: [id number] PORTABLE CHEST HISTORY: F/U CXR 2HR POST LUNG BIOPSY. PLEASE OBTAIN AT 1550. COMPARISON: Recent biopsy. Patient has large pulmonary masses. There is no significant pneumothorax. There is a small amount of lucency at the LEFT apex which is probably the pleural reflection. No hemorrhage or pleural effusion developed. Patient has a RIGHT Mediport. XR/XR chest 1V portable [id number] IMPRESSION: No significant pneumothorax status post LEFT lung biopsy.
[2021-04-03] MEDS: oxyCODONE 5 mg IR Tab/Cap PO (14:09)
--- NOTE | 2021-04-03 16:19 | PC.NURSE ---
Informed Dr. Reece pt's O2 saturation has not returned to his preop baseline. Per Dr. Reece she consulted with Dr. Randolph, Dr. Reece instructed me to discharge pt with orders that if he begins feeling unwell to go to ED. Pt bandage clean with no visable bleeding upon discharge. Instructed pt and pt's son that if pt begins feeling unwell or experiences difficulty breathing to call 911 or go to the emergency department, pt and pt's son voiced understanding.
[2021-04-10 10:17] LABS: Miscellaneous Test See Scanned Lab Rpt
== END 2021-04-03 16:35 | disposition home or self-care (01) ==
PROVIDERS: Radiology Diagnostic Radiology; PCP Electrodiagnostic Medicine; Visit Provider Internal Medicine Pulmonary Disease
DX: R91.8 Other nonspecific abnormal finding of lung field (principal)
CPT/HCPCS: 32408; 36415; 71045; 77012; 85610; 88307; 88342; J7030

== ENCOUNTER 2021-04-19 09:13 | Outpatient (CLI) | payer MEDICARE, OTHER, SELFPAY ==
--- NOTE | 2021-04-19 11:53 | ONC FU_ITS ---
Dr. Souza follow up note Patient: Manuel Garcia Unit #: [id number]: 1945 Dicatated By: Moses Souza M.D.Date of Visit:Apr 19, 2021 Onc Med Follow-up/Prog Note History of Present Illness: Mr. Garcia is a 75-year-old gentleman with history of papillary tumor located over the right ureteral orifice with obstruction diagnosed on 03/19/2019. Hydronephrosis was noted on CT scan of pelvis. Mr Garcia underwent cystoscopy TURBT on 03/25/2019 which showed papillary urothelial carcinoma: low-grade no muscle invasion seen. He was referred to Dr. Begum, urologist in [place] for further evaluation for evidence of tumor invasion into the ureter. Right robotic nephroureterectomy was considered and patient underwent procedure on 05/17/2019. The final pathology report showed invasive high-grade papillary urothelial carcinoma involving right renal pelvis with tumor invasion into the kidney, size was 4 x 3.5 x 1.3 cm. There was a noninvasive ureter tumor size was 1.9 x 1.5 cm., Lymphovascular invasion was seen, no lymph node was evaluated e.g. T3,Nx Mx, stage III Mr Garcia tolerated procedure well He is on hemodialysis for end-stage renal disease. He goes to dialysis on Friday, Friday and Friday. did discuss with him his disease status and further treatment options. He was determined to have stage III disease and felt that adjuvant [place] based chemotherapy was a good option for him. However considering his age and comorbid condition MVAC was not considered due to toxicity profile but split dose cisplatin and gemcitabine on day 1 and 8 on a 21-day cycle for 4 cycles was recommended. Mr Garcia began his first cycle on August 03, 2019.And day 8 chemotherapy with cycle #1 was delayed because of progressive neutropenia/leukopenia was treated with Neupogen. And again day 8 with cycle #2 was also delayed because of progressive leukopenia and neutropenia And completed 4 cycles of adjuvant chemotherapy with split dose cisplatin/gemcitabine on November 11, 2019 Patient said on November 21, 2019 while he was going back from [place] he felt weak in his left arm by the time he got home he could not see his left hand and then decided to come to hospital and then he was flown to [place] where he, as per patient he was given some medication to Port-A-Cath to dissolve clot, after that he recovered well, no residual weakness or visual abnormality. Patient is scheduled for follow-up MRI scan in [place] in December, Follow-up CT scan of abdomen pelvis done on January 06, 2020 showed interval postoperative changes right nephrectomy. No abdominal or pelvic lymphadenopathy. A few prominent inguinal lymph nodes previously described are improved compared to previous largest is 8 mm. No other changes seen. Focal bladder wall thickening right UVJ orifice has improved since the prior examination otherwise bladder is contracted and similar in appearance to the prior exam. As per patient he underwent cystoscopy examination in recent past and Dr. Ortega told him that his bladder looks good and follow-up cystoscopy Is under consideration as per patient on 02/20/2021 he went to [facility] with progressive lower back pain which was sudden in onset and underwent CT lumbar spine on 02/20/2021 which showed postsurgical changes with posterior zaheer and pedicle screws fixation L4-5. Moderate to moderately severe central canal stenosis L3-4. Prominent appearance suggesting soft tissue expansion or thickening at this epidural space operating level L4-5 most noted posteriorly and posterior laterally on the left. Suspect retroperitoneal and upper right iliac level lymphadenopathy which could be reactive or neoplastic,, suspected left retroperitoneal lymph node adjacent to the aorta measures 2.8 cm. Smaller adjacent retroperitoneal lymph node may be present., so in 02/21/[address] scan of abdomen pelvis which which shows no liver mets small nonspecific inguinal lymph nodes extensive colonic diverticulosis, no mention of retroperitoneal lymphadenopathy, CT scan of chest done on 02/20/2021 showed numerous bilateral pulmonary nodules largest right lower lobe partially pleural-based measuring 7.3 cm x 5.6 cm and largest mass lower left chest partially pleural-based and partially contiguous with the left diaphragm measuring 6.9 x 6.1 cm and extensive and numerous bilateral diffuse pulmonary nodules extensive mediastinal lymphadenopathy with the largest paratracheal lymph node measuring 4.8 x 3.3 cm. 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 All appears to be similar to his prior recurrence which ultimately turned out to be low-grade noninvasive., BCG based intravesical treatment is under consideration. Patient was referred to pulmonology and on April 03, 2021 he underwent bronchoscopy and biopsy of left lung mass showed adenocarcinoma, case was discussed with pathologist Dr. Poon, his impression was non-small cell lung cancer versus high-grade urothelial carcinoma with adenocarcinoma differentiation, PD-L1 expression shows TPS 25% molecular profiling is pending CT PET scan done on March 10, 2021 showed extensive bilateral pulmonary nodules with central necrosis, 6.7 cm right middle lobe mass with SUV of 10.4 with central necrosis and left lower lobe mass 3.4 x 5.2 cm with SUV of 11.3 and multiple other similar lesions seen in bilateral lung and within the mediastinum FDG positive right hilar subcarinal lymphadenopathy, no abnormal activity seen below diaphragm Came for follow-up, denies any specific complaints, no fever chills, no nausea or vomiting, no diarrhea constipation, no hemoptysis hematemesis, no shortness of breath or wheezing, no fever chills, no headaches blurred vision double vision, no new bony pains, no jaundice tolerating hemodialysis on Friday, Friday and Friday well. Medications: amLODIPine Besylate (30 mg) Tablet Oral daily, Atorvastatin Calcium 1 Tablet (of 20 mg) Oral at bedtime, hydrALAZINE HCl 1 Tablet (of 50 mg) Oral four times a day, Metoprolol Tartrate 1 Tablet (of 100 mg) Oral b.i.d., Montelukast Sodium Tablet Oral PRN, Prochlorperazine Maleate 1 Tablet (of 10 mg) Oral four times a day PRN, Sertraline HCl (25 mg) Tablet Oral daily, Torsemide 1 Tablet (of 20 mg) Oral daily, Triamcinolone Acetonide Ointment Topical PRN, Tums 1 Tablet Tablet, chewable Oral PRN, Tylenol Tablet Oral PRN Allergies: No Known Allergies. Review of Systems: Review of Systems is not available for this patient. Vital Signs: Performed on Apr 19, 2021 10:04 Height - 66.00 in Weight - 146.6 lbs (LOW) BSA - 1.75 sq.m BMI - 23.66 Temperature - 98.1 F (LOW) Pulse - 91 /min Respiration - 16 /min BP - 97/60 mm(hg) O2 Sat - 98 % Pain - 9 Fatigue - 10 Performance Status: 1 - No physically strenuous activity, but ambulatory and able to carry out light or sedentary work (e.g. office work, light house work). (ECOG) Physical Examination: ENMT - No mouth sores, no thrush, no jaundice, Respiratory - Lungs are clear to auscultation, Cardiovascular - Regular rate and rhythm of heart, Abdomen - Soft, bowel sounds present, Extremities - No visible edema. Lab/Imaging: Most recent lab results are not available for this patient. Impression: Adenocarcinoma per lung biopsy per bronchoscopy done on April 03, 2021, CT PET scan done on March 10, 2021 showed extensive bilateral pulmonary nodules with central necrosis, 6.7 cm right middle lobe mass with SUV of 10.4 with central necrosis and left lower lobe mass 3.4 x 5.2 cm with SUV of 11.3 and multiple other similar lesions seen in bilateral lung and within the mediastinum FDG positive right hilar subcarinal lymphadenopathy, no abnormal activity seen below diaphragm h/o invasive high-grade urothelial carcinoma Of right renal pelvis/ureter with invasion into the right kidney status post robotic nephroureterectomy done on 05/17/2019 next Final pathology report showed invasive high-grade papillary urothelial carcinoma, tumor size 4 x 3.5 x 1.3 cm invading right kidney and 1.9 x 1.5 cm noninvasive ureter tumor with lymphovascular invasion seen pT3 No lymph nodes were identified for evaluation pNx , Mx stage III ureteral/renal pelvis carcinoma End-stage renal disease on hemodialysis. iscussed with Mr Garcia his disease status and further treatment options. He has invasive high-grade papillary urothelial carcinoma of right renal pelvis with invasion into the right kidney e.g. T3 lesion , with unknown lymph node status. As per [place] CCN guidelines, Mr Garcia has stage III disease and there is a role of adjuvant [place]-based chemotherapy which may improve disease-free survival. Considering patient's age and comorbid condition, MVAC was not consdered due to toxicity profile but split dose cisplatin and gemcitabine, on day 1 and 8 and repeat every 21 days ???4 cycles.Started on August 03, 2019 and completed 4 cycles on November 11, 2019 Follow-up CT scan of abdomen pelvis done on January 06, 2020 showed status post right nephrectomy no abdominal or pelvic lymphadenopathy, a few prominent inguinal lymph nodes previously described are improved and largest is about 8 mm. And focal bladder wall thickening right UVJ orifice has improved otherwise bladder is contracted and similar to previous exam. Patient is being followed by Dr. Ortega with cystoscopy evaluation. Plan: Discussed with patient regarding his CT PET scan finding and transbronchial biopsy findings which showed adenocarcinoma, case was discussed with pathologist Dr. Ayah Gonzalez, his impression was either lung is the primary or could be metastatic urothelial carcinoma with adenocarcinoma dedifferentiation. Slides from his previous nephrectomy/ureterectomy done in [place] were requested for review and now cancer type ID is under consideration to confirm the primary. In the meantime, molecular profiling was also ordered, his PD-L1 status is positive with TPS score 25%. , At this point, as there is not enough tissue available for detailed molecular testing, will also consider next addition sequencing to identify targetable therapeutic mutations while molecular profiling on tissue is awaited. Patient will return to clinic in 1 week. In the meantime we will consider palliative therapy with Keytruda and weekly carboplatin/Taxol unless molecular profiling or NexGen sequencing shows targetable therapeutic mutations. Signed By: Moses Souza M.D. <<Signature on File>>
== END 2021-04-19 09:14 | disposition home or self-care (01) ==
PROVIDERS: PCP Electrodiagnostic Medicine; Visit Provider Internal Medicine Hematology & Oncology
DX: C65.1 Malignant neoplasm of right renal pelvis (principal); C78.01 Secondary malignant neoplasm of right lung; C78.02 Secondary malignant neoplasm of left lung; N18.6 End stage renal disease; Z99.2 Dependence on renal dialysis; Z79.899 Other long term (current) drug therapy
CPT/HCPCS: 36591; 99214

== ENCOUNTER 2021-04-26 08:44 | Outpatient (CLI) | payer MEDICARE, OTHER, SELFPAY ==
[2021-04-26 09:28] LABS: Basophils % 0.2 %; Eosinophils # 0.2 10^3/uL (0.0-0.8); Eosinophils % 2.1 %; Hematocrit 36.1 % (42.0-52.0); Hemoglobin 10.4 g/dL (11.7-16.6); Lymphocytes # 0.8 10^3/uL (0.8-4.8); Lymphocytes % 9.6 %; Mean Corpuscular HGB Conc 28.8 g/dL (30.0-36.0); Mean Corpuscular Hemoglobin 25.4 pg (28.0-34.0); Mean Platelet Volume 9.6 fL (7.4-10.4); Monocytes # 1.1 10^3/uL (0.2-0.9); Monocytes % 13.1 %; Neutrophils # 6.06 10^3/uL (1.8-7.7); Neutrophils % 74.6 %; Nucleated Red Blood Cells % 0 %; Platelet Count 306 10^3/cmm (130-400); Red Cell Distribution Width 17.1 % (12.1-15.1); White Blood Count 8.1 10^3/uL (4.0-10.0)
[2021-04-26 09:43] LABS: Alanine Aminotransferase 10 U/L (0-41); Alkaline Phosphatase 88 IU/L (40-130); Anion Gap 15.9 (5-19); Aspartate Amino Transferase 18 U/L (0-40); Blood Urea Nitrogen 26 mg/dL (8-23); Calcium 9.1 mg/dL (8.5-10.5); Carbon Dioxide 34 mmol/L (22-29); Chloride 93 mmol/L (98-107); Globulin 3.1 g/dL (1.3-4.6); Glucose 117 mg/dL (65-115); Osmolality Calculated 294 mOsm/kg (285-295); Potassium 3.9 mmol/L (3.5-5.1); Sodium 139 mmol/L (136-145); Total Bilirubin 0.5 mg/dL (0.15-1.2); Total Protein 7.1 g/dL (6.6-8.7)
--- NOTE | 2021-04-27 12:38 | ONC FU_ITS ---
Dr. Souza follow up note Patient: Manuel Garcia Unit #: [id number]: 1945 Dicatated By: Moses Souza M.D.Date of Visit:Apr 26, 2021 Onc Med Follow-up/Prog Note History of Present Illness: Mr. Garcia is a 76-year-old gentleman with history of papillary tumor located over the right ureteral orifice with obstruction diagnosed on 03/19/2019. Hydronephrosis was noted on CT scan of pelvis. Mr Garcia underwent cystoscopy TURBT on 03/25/2019 which showed papillary urothelial carcinoma: low-grade no muscle invasion seen. He was referred to Dr. Begum, urologist in [place] for further evaluation for evidence of tumor invasion into the ureter. Right robotic nephroureterectomy was considered and patient underwent procedure on 05/17/2019. The final pathology report showed invasive high-grade papillary urothelial carcinoma involving right renal pelvis with tumor invasion into the kidney, size was 4 x 3.5 x 1.3 cm. There was a noninvasive ureter tumor size was 1.9 x 1.5 cm., Lymphovascular invasion was seen, no lymph node was evaluated e.g. T3,Nx Mx, stage III Mr Garcia tolerated procedure well He is on hemodialysis for end-stage renal disease. He goes to dialysis on Friday, Friday and Friday. did discuss with him his disease status and further treatment options. He was determined to have stage III disease and felt that adjuvant [place] based chemotherapy was a good option for him. However considering his age and comorbid condition MVAC was not considered due to toxicity profile but split dose cisplatin and gemcitabine on day 1 and 8 on a 21-day cycle for 4 cycles was recommended. Mr Garcia began his first cycle on August 03, 2019.And day 8 chemotherapy with cycle #1 was delayed because of progressive neutropenia/leukopenia was treated with Neupogen. And again day 8 with cycle #2 was also delayed because of progressive leukopenia and neutropenia And completed 4 cycles of adjuvant chemotherapy with split dose cisplatin/gemcitabine on November 11, 2019 Patient said on November 21, 2019 while he was going [place] he felt weak in his left arm by the time he got home he could not see his left hand and then decided to come to hospital and then he was flown to [place] where he, as per patient he was given some medication to Port-A-Cath to dissolve clot, after that he recovered well, no residual weakness or visual abnormality. Patient is scheduled for follow-up MRI scan in [place] in December, Follow-up CT scan of abdomen pelvis done on January 06, 2020 showed interval postoperative changes right nephrectomy. No abdominal or pelvic lymphadenopathy. A few prominent inguinal lymph nodes previously described are improved compared to previous largest is 8 mm. No other changes seen. Focal bladder wall thickening right UVJ orifice has improved since the prior examination otherwise bladder is contracted and similar in appearance to the prior exam. As per patient he underwent cystoscopy examination in recent past and Dr. Ortega told him that his bladder looks good and follow-up cystoscopy Is under consideration as per patient on 02/20/2021 he went to [facility] with progressive lower back pain which was sudden in onset and underwent CT lumbar spine on 02/20/2021 which showed postsurgical changes with posterior zaheer and pedicle screws fixation L4-5. Moderate to moderately severe central canal stenosis L3-4. Prominent appearance suggesting soft tissue expansion or thickening at this epidural space operating level L4-5 most noted posteriorly and posterior laterally on the left. Suspect retroperitoneal and upper right iliac level lymphadenopathy which could be reactive or neoplastic,, suspected left retroperitoneal lymph node adjacent to the aorta measures 2.8 cm. Smaller adjacent retroperitoneal lymph node may be present., so in 02/21/[address] scan of abdomen pelvis which which shows no liver mets small nonspecific inguinal lymph nodes extensive colonic diverticulosis, no mention of retroperitoneal lymphadenopathy, CT scan of chest done on 02/20/2021 showed numerous bilateral pulmonary nodules largest right lower lobe partially pleural-based measuring 7.3 cm x 5.6 cm and largest mass lower left chest partially pleural-based and partially contiguous with the left diaphragm measuring 6.9 x 6.1 cm and extensive and numerous bilateral diffuse pulmonary nodules extensive mediastinal lymphadenopathy with the largest paratracheal lymph node measuring 4.8 x 3.3 cm. 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 All appears to be similar to his prior recurrence which ultimately turned out to be low-grade noninvasive., BCG based intravesical treatment is under consideration. Patient was referred to pulmonology and on April 03, 2021 he underwent bronchoscopy and biopsy of left lung mass showed adenocarcinoma, case was discussed with pathologist Dr. Poon, his impression was non-small cell lung cancer versus high-grade urothelial carcinoma with adenocarcinoma differentiation, PD-L1 expression shows TPS 25% molecular profiling Showed TMB 7, MSI stable, ALK negative NTRK no fusion, EGFR negative. [facility] confirmed urothelial carcinoma with 100% probability Came for follow-up, denies any specific complaints, no fever chills, no nausea or vomiting, no diarrhea or constipation, no hemoptysis hematemesis, no shortness of breath or cough. Tolerating hemodialysis well., He is here to discuss further treatment plans Medications: amLODIPine Besylate (30 mg) Tablet Oral daily, Atorvastatin Calcium 1 Tablet (of 20 mg) Oral at bedtime, hydrALAZINE HCl 1 Tablet (of 50 mg) Oral four times a day, Metoprolol Tartrate 1 Tablet (of 100 mg) Oral b.i.d. PRN, Montelukast Sodium Tablet Oral PRN, Prochlorperazine Maleate 1 Tablet (of 10 mg) Oral four times a day PRN, Sertraline HCl (25 mg) Tablet Oral daily, Torsemide 1 Tablet (of 20 mg) Oral daily, Triamcinolone Acetonide Ointment Topical PRN, Tums 1 Tablet Tablet, chewable Oral PRN, Tylenol Tablet Oral PRN Allergies: No Known Allergies. Review of Systems: Review of Systems is not available for this patient. Vital Signs: Performed on Apr 26, 2021 10:59 Height - 66.00 in Weight - 154.4 lbs (HIGH) BSA - 1.79 sq.m BMI - 24.92 Temperature - 98.4 F Pulse - 72 /min Respiration - 16 /min BP - 118/56 mm(hg) O2 Sat - 93 % (LOW) Pain - 3 Fatigue - 7 Performance Status: 2 - Ambulatory/capable of all self-care, unable to perform any work activities. Up and about more than 50% of waking hours. (ECOG) Physical Examination: ENMT - No mouth sores, no thrush, no jaundice, Respiratory - Poor air entry otherwise clear, Cardiovascular - Regular rate and rhythm of heart, Abdomen - Soft, bowel sounds present, Extremities - No visible edema. Lab/Imaging: Test performed on Apr 23, 2021 08:45 Creatinine 6.2 mg/dL Cr Clearance (Est) 9.68 mL/min Impression: Recurrent urothelial carcinoma With Adenocarcinoma Dedifferentiation per lung biopsy per bronchoscopy done on April 03, 2021,, [facility] molecular testing done on April 24, 2021 confirmed urothelial carcinoma rather than adenocarcinoma, Molecular profiling showed no targetable mutation PD-L1 TPS more than 25 [address] PET scan done on, showed extensive bilateral pulmonary Started on pembrolizumab 200 mg IV every 3 weeks on April 26, 2021 2. h/o invasive high-grade urothelial carcinoma Of right renal pelvis/ureter with invasion into the right kidney status post robotic nephroureterectomy done on 05/17/2019 next Final pathology report showed invasive high-grade papillary urothelial carcinoma, tumor size 4 x 3.5 x 1.3 cm invading right kidney and 1.9 x 1.5 cm noninvasive ureter tumor with lymphovascular invasion seen pT3 No lymph nodes were identified for evaluation pNx , Mx stage III ureteral/renal pelvis carcinoma End-stage renal disease on hemodialysis. iscussed with Mr Garcia his disease status and further treatment options. He has invasive high-grade papillary urothelial carcinoma of right renal pelvis with invasion into the right kidney e.g. T3 lesion , with unknown lymph node status. As per [place] CCN guidelines, Mr Garcia has stage III disease and there is a role of adjuvant [place]-based chemotherapy which may improve disease-free survival. Considering patient's age and comorbid condition, MVAC was not consdered due to toxicity profile but split dose cisplatin and gemcitabine, on day 1 and 8 and repeat every 21 days ???4 cycles.Started on August 03, 2019 and completed 4 cycles on November 11, 2019 Follow-up CT scan of abdomen pelvis done on January 06, 2020 showed status post right nephrectomy no abdominal or pelvic lymphadenopathy, a few prominent inguinal lymph nodes previously described are improved and largest is about 8 mm. And focal bladder wall thickening right UVJ orifice has improved otherwise bladder is contracted and similar to previous exam. Patient is being followed by Dr. Ortega with cystoscopy evaluation. Plan: Discussed with patient regarding his labs white blood count 8.1 hemoglobin 10.4 g medical 36.1 platelets 306,000 CMP within normal limits except creatinine 4.9, patient on hemodialysis Clinically, patient doing reasonably well with no new signs symptom, his molecular testing to identify targetable mutation and including testing to confirm primary, has confirmed urothelial carcinoma rather than adenocarcinoma and no targetable therapeutic mutation but his PD-L1 testing showed TPS more than 25. 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 rather than second primary, in that case, considering his age and comorbid condition, will consider immunotherapy alone with pembrolizumab 200 mg every 3 weeks, all the side effect, possible benefits associated with immunotherapy including but not limited to endocrinopathy, pneumonitis, colitis, rash, jaundice were mentioned, further teaching will done by chemotherapy nurse, Initial plan was to consider chemoimmunotherapy with carboplatin/Taxol/pembrolizumab as there was a concern about cancer of unknown primary or lung being primary but molecular testing has confirmed urothelial carcinoma, in that case we will consider pembrolizumab alone. Patient received his first dose of pembrolizumab today and then return to clinic in 1 week with CBC CMP and TSH Signed By: Moses Souza M.D. <<Signature on File>>
== END 2021-04-26 08:45 | disposition home or self-care (01) ==
LOC: ONCMED 08:45
PROVIDERS: PCP Electrodiagnostic Medicine; Visit Provider Internal Medicine Hematology & Oncology
DX: Z51.12 Encounter for antineoplastic immunotherapy (principal); C67.0 Malignant neoplasm of trigone of bladder; N18.6 End stage renal disease; Z99.2 Dependence on renal dialysis; Z79.899 Other long term (current) drug therapy
CPT/HCPCS: 80053; 85025; 96413; 99215; J7050; J9271

== ENCOUNTER 2021-05-02 13:37 | Outpatient (CLI) | payer MEDICARE, OTHER, SELFPAY ==
[2021-05-02 14:30] LABS: Basophils % 0.2 %; Eosinophils # 0.1 10^3/uL (0.0-0.8); Hematocrit 35.2 % (42.0-52.0); Lymphocytes # 0.7 10^3/uL (0.8-4.8); Lymphocytes % 12.2 %; Mean Corpuscular HGB Conc 28.4 g/dL (30.0-36.0); Mean Corpuscular Hemoglobin 24.5 pg (28.0-34.0); Mean Corpuscular Volume 86.3 fl (80-94); Mean Platelet Volume 9.7 fL (7.4-10.4); Monocytes # 0.9 10^3/uL (0.2-0.9); Monocytes % 16.5 %; Neutrophils # 3.71 10^3/uL (1.8-7.7); Neutrophils % 68.7 %; Nucleated Red Blood Cells % 0 %; Platelet Count 300 10^3/cmm (130-400); Red Blood Count 4.08 10^6/uL (4.1-5.3); White Blood Count 5.4 10^3/uL (4.0-10.0)
[2021-05-02 16:45] LABS: Alanine Aminotransferase 7 U/L (0-41); Albumin Level 3.8 g/dL (3.5-5.2); Alkaline Phosphatase 86 IU/L (40-130); Anion Gap 17.4 (5-19); Aspartate Amino Transferase 15 U/L (0-40); Blood Urea Nitrogen 13 mg/dL (8-23); Calcium 9.2 mg/dL (8.5-10.5); Carbon Dioxide 30 mmol/L (22-29); Chloride 96 mmol/L (98-107); Globulin 3.2 g/dL (1.3-4.6); Glucose 83 mg/dL (65-115); Osmolality Calculated 289 mOsm/kg (285-295); Potassium 3.4 mmol/L (3.5-5.1); Sodium 140 mmol/L (136-145); Total Bilirubin 0.4 mg/dL (0.15-1.2)
--- NOTE | 2021-05-06 16:47 | ONC FU_ITS ---
Tabatha Moody Progress Note Patient: Manuel Garcia Unit #: [id number]: 1945 Dicatated By: Tabatha Moody N.P.Date of Visit:May 02, 2021 Onc MED Follow-up/Prog Note Chief Complaint: Right renal pelvis carcinoma/bladder cancer History of Present Illness: Mr. Garcia is a 76-year-old gentleman with history of papillary tumor located over the right ureteral orifice with obstruction diagnosed on 03/19/2019. Hydronephrosis was noted on CT scan of pelvis. Mr Garcia underwent cystoscopy TURBT on 03/25/2019 which showed papillary urothelial carcinoma: low-grade no muscle invasion seen. He was referred to Dr. Begum, urologist in [place] for further evaluation for evidence of tumor invasion into the ureter. Right robotic nephroureterectomy was considered and patient underwent procedure on 05/17/2019. The final pathology report showed invasive high-grade papillary urothelial carcinoma involving right renal pelvis with tumor invasion into the kidney, size was 4 x 3.5 x 1.3 cm. There was a noninvasive ureter tumor size was 1.9 x 1.5 cm., Lymphovascular invasion was seen, no lymph node was evaluated e.g. T3,Nx Mx, stage III Mr Garcia tolerated procedure well He is on hemodialysis for end-stage renal disease. He goes to dialysis on Friday, Friday and Friday. did discuss with him his disease status and further treatment options. He was determined to have stage III disease and felt that adjuvant north fork based chemotherapy was a good option for him. However considering his age and comorbid condition MVAC was not considered due to toxicity profile but split dose cisplatin and gemcitabine on day 1 and 8 on a 21-day cycle for 4 cycles was recommended. Mr Garcia began his first cycle on August 03, 2019.And day 8 chemotherapy with cycle #1 was delayed because of progressive neutropenia/leukopenia was treated with Neupogen. And again day 8 with cycle #2 was also delayed because of progressive leukopenia and neutropenia And completed 4 cycles of adjuvant chemotherapy with split dose cisplatin/gemcitabine on November 11, 2019 Patient said on November 21, 2019 while he was going [place] he felt weak in his left arm by the time he got home he could not see his left hand and then decided to come to hospital and then he was flown to [place] where he, as per patient he was given some medication to Port-A-Cath to dissolve clot, after that he recovered well, no residual weakness or visual abnormality. Patient is scheduled for follow-up MRI scan in [place] in December, Follow-up CT scan of abdomen pelvis done on January 06, 2020 showed interval postoperative changes right nephrectomy. No abdominal or pelvic lymphadenopathy. A few prominent inguinal lymph nodes previously described are improved compared to previous largest is 8 mm. No other changes seen. Focal bladder wall thickening right UVJ orifice has improved since the prior examination otherwise bladder is contracted and similar in appearance to the prior exam. As per patient he underwent cystoscopy examination in recent past and Dr. Ortega told him that his bladder looks good and follow-up cystoscopy Is under consideration Started on total neoadjuvant chemotherapy with oxaliplatin/Xeloda on September 18, 2020, subsequently patient developed severe complication including diarrhea, dehydration, electrolyte imbalance and eventually TIA, requiring inpatient care, no further chemotherapy was offered After first cycle of oxaliplatin/Xeloda, Then combined chemoradiation therapy in neoadjuvant fashion was planned but patient refused oral Xeloda and took 1 dose of radiation therapy when she was informed that radiation alone may be sufficient, she decided to proceed with surgery and on January 23, 2021 she underwent APR, and block hysterectomy and vaginectomy with vaginal reconstruction and colostomy bag and her final pathology report confirmed moderately differentiated adenocarcinoma, 2 masses, 13 lymph nodes negative for metastatic disease. The 2 implants of adenocarcinoma., Tumor directly invades adjacent structures. Margins are involved. Tumor extends into mesorectal margin. Lymphovascular invasion present., T4b, tumor directly invades and adhere to adjacent organs or structures. N1C, no regional lymph node positive but there are tumor deposit in the mesentery. as per patient on 02/20/2021 he went [place] [facility] with progressive lower back pain which was sudden in onset and underwent CT lumbar spine on 02/20/2021 which showed postsurgical changes with posterior zaheer and pedicle screws fixation L4-5. Moderate to moderately severe central canal stenosis L3-4. Prominent appearance suggesting soft tissue expansion or thickening at this epidural space operating level L4-5 most noted posteriorly and posterior laterally on the left. Suspect retroperitoneal and upper right iliac level lymphadenopathy which could be reactive or neoplastic,, suspected left retroperitoneal lymph node adjacent to the aorta measures 2.8 cm. Smaller adjacent retroperitoneal lymph node may be present., so in 02/21/[address] scan of abdomen pelvis which which shows no liver mets small nonspecific inguinal lymph nodes extensive colonic diverticulosis, no mention of retroperitoneal lymphadenopathy, CT scan of chest done on 02/20/2021 showed numerous bilateral pulmonary nodules largest right lower lobe partially pleural-based measuring 7.3 cm x 5.6 cm and largest mass lower left chest partially pleural-based and partially contiguous with the left diaphragm measuring 6.9 x 6.1 cm and extensive and numerous bilateral diffuse pulmonary nodules extensive mediastinal lymphadenopathy with the largest paratracheal lymph node measuring 4.8 x 3.3 cm. 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 All appears to be similar to his prior recurrence which ultimately turned out to be low-grade noninvasive., BCG based intravesical treatment is under consideration. Patient was referred to pulmonology and on April 03, 2021 he underwent bronchoscopy and biopsy of left lung mass showed adenocarcinoma, case was discussed with pathologist Dr. Poon, his impression was non-small cell lung cancer versus high-grade urothelial carcinoma with adenocarcinoma differentiation, PD-L1 expression shows TPS 25% molecular profiling Showed TMB 7, MSI stable, ALK negative NTRK no fusion, EGFR negative. [facility]% probability Patient presents today for follow-up. He states he has been feeling pretty well. His appetite has been fair. He denies fever, chills, night sweats. No shortness of breath, cough, chest pain. No nausea or vomiting. No diarrhea or constipation no headaches or dizziness. He seems to be tolerating his pembrolizumab well. Review Of Symptoms: see above Past Medical History: Hypertension Renal failure Past Surgical History: Back surgery Nephroureterectomy Port placement TURBT Right Internal Juglar Port a Cath Dr Hi [place] Allergies: No Known Allergies. Medications: amLODIPine Besylate (30 mg) Tablet Oral daily Atorvastatin Calcium 1 Tablet (of 20 mg) Oral at bedtime hydrALAZINE HCl 1 Tablet (of 50 mg) Oral four times a day Metoprolol Tartrate 1 Tablet (of 100 mg) Oral b.i.d. PRN Montelukast Sodium Tablet Oral PRN Prochlorperazine Maleate 1 Tablet (of 10 mg) Oral four times a day PRN Sertraline HCl (25 mg) Tablet Oral daily Torsemide 1 Tablet (of 20 mg) Oral daily Triamcinolone Acetonide Ointment Topical PRN Tums 1 Tablet Tablet, chewable Oral PRN Tylenol Tablet Oral PRN Family History: Mr. Garcia's mother is : motor vehicle accident. Mr. Garcia's father at age 71: myocardial infarction. Social History: Mr. Garcia is and he is an unknown. Mr. Garcia has never smoked. He drinks occasionally. Physical Examination: Performed on May 02, 2021 15:03: Height - 66.00 in, Weight - 148.2 lbs (LOW), BSA - 1.76 sq.m, BMI - 23.92, Temperature - 99.3 F (HIGH), Pulse - 83 /min, Respiration - 18 /min, BP - 148/70 mm(hg) (HIGH), O2 Sat - 98 %, Pain - 3, and Fatigue - 3. Performance Status: 1 - No physically strenuous activity, but ambulatory and able to carry out light or sedentary work (e.g. office work, light house work). (ECOG) Constitutional Alert, cooperative, oriented. Mood and affect appropriate. Appears close to chronological age. Well nourished. Well developed. Head Normocephalic; no scars. Respiratory Lungs are clear to auscultation without rhonchi or wheezing. Cardiovascular Regular rate and rhythm of heart without murmurs, gallops or rubs. Abdomen Non-tender, non-distended, no masses, ascites or hepatosplenomegaly. Good bowel sounds. No guarding or rebound tenderness. Psychiatric Alert and oriented times three. Coherent speech. Verbalizes understanding of our discussions today. Laboratory: Test performed on May 02, 2021 14:05 Sodium 140 mmol/L Potassium 3.4 mmol/L Chloride 96 mmol/L CO2 30 mmol/L Anion Gap 17.4 BUN 13 mg/dL Creatinine 3.1 mg/dL Cr Clearance (Est) 19.5800 mL/min Glucose 83 mg/dL Osmolality - Calculated 289 mOsm/kg Calcium 9.2 mg/dL Protein, Total 7.0 g/dL Albumin 3.8 g/dL Globulin 3.2 g/dL Bilirubin, Total 0.4 mg/dL ALT (SGPT) 7 U/L AST (SGOT) 15 U/L Alkaline Phosphatase 86 IU/L WBC 5.4 10 3/uL RBC 4.08 10 6/uL HGB 10.0 g/dL HCT 35.2 % MCV 86.3 fl MCH 24.5 pg MCHC 28.4 g/dL RDW 17.0 % Platelet Count 300 10 3/cmm MPV 9.7 fL Neutrophils 3.71 10 3/uL Lymphocytes 0.7 10 3/uL Monocytes 0.9 10 3/uL Eosinophils 0.1 10 3/uL Basophils 0.0 10 3/uL Neutrophil % 68.7 % Lymphocyte % 12.2 % Monocyte % 16.5 % Eosinophil % 2.0 % Basophils % 0.2 % NRBC % 0 % Impression: Recurrent urothelial carcinoma With Adenocarcinoma Dedifferentiation per lung biopsy per bronchoscopy done on April 03, 2021,, [facility] molecular testing done on April 24, 2021 confirmed urothelial carcinoma rather than adenocarcinoma, Molecular profiling showed no targetable mutation PD-L1 TPS more than 25 CT PET scan done on, showed extensive bilateral pulmonary Started on pembrolizumab 200 mg IV every 3 weeks on April 26, 2021 2. h/o invasive high-grade urothelial carcinoma Of right renal pelvis/ureter with invasion into the right kidney status post robotic nephroureterectomy done on 05/17/2019 next Final pathology report showed invasive high-grade papillary urothelial carcinoma, tumor size 4 x 3.5 x 1.3 cm invading right kidney and 1.9 x 1.5 cm noninvasive ureter tumor with lymphovascular invasion seen pT3 No lymph nodes were identified for evaluation pNx , Mx stage III ureteral/renal pelvis carcinoma End-stage renal disease on hemodialysis. iscussed with Mr Garcia his disease status and further treatment options. He has invasive high-grade papillary urothelial carcinoma of right renal pelvis with invasion into the right kidney e.g. T3 lesion , with unknown lymph node status. As per N CCN guidelines, Mr Garcia has stage III disease and there is a role of adjuvant north fork-based chemotherapy which may improve disease-free survival. Considering patient's age and comorbid condition, MVAC was not consdered due to toxicity profile but split dose cisplatin and gemcitabine, on day 1 and 8 and repeat every 21 days ???4 cycles.Started on August 03, 2019 and completed 4 cycles on November 11, 2019 Follow-up CT scan of abdomen pelvis done on January 06, 2020 showed status post right nephrectomy no abdominal or pelvic lymphadenopathy, a few prominent inguinal lymph nodes previously described are improved and largest is about 8 mm. And focal bladder wall thickening right UVJ orifice has improved otherwise bladder is contracted and similar to previous exam. Patient is being followed by Dr. Ortega with cystoscopy evaluation. Plan: Labs were reviewed with patient. WBC 5.4 hemoglobin 10.0, hematocrit 35.2, platelets 300,000. Patient is on hemodialysis. Patient presents today after receiving pembrolizumab. He has tolerated it well and he seems to be feeling well. He will follow-up in 1 week with CBC, CMP and TSH. Signed By: Tabtaha Moody N.P. <<Signature on File>>
== END 2021-05-02 13:38 | disposition home or self-care (01) ==
PROVIDERS: PCP Electrodiagnostic Medicine; Visit Provider Nurse Practitioner Family
DX: C68.8 Malignant neoplasm of overlapping sites of urinary organs (principal); C78.02 Secondary malignant neoplasm of left lung; C78.01 Secondary malignant neoplasm of right lung; R53.1 Weakness; R53.83 Other fatigue; N18.6 End stage renal disease; Z99.2 Dependence on renal dialysis; Z79.899 Other long term (current) drug therapy
CPT/HCPCS: 36591; 80053; 85025; 99214

== ENCOUNTER → 2021-05-08 10:07 | Outpatient (BNVA) | payer MEDICARE, OTHER, SELFPAY | PROVIDERS: PCP Electrodiagnostic Medicine; Visit Provider Surgery | DX: Z20.822 Contact with and (suspected) exposure to COVID-19 (principal); Z11.52 Encounter for screening for COVID-19 | CPT/HCPCS: 87635 ==

== ENCOUNTER 2021-05-10 11:57 | Day surgery (SDC) | payer MEDICARE, OTHER, SELFPAY ==
[2021-05-09 16:14] VITALS: BMI 24.2
[2021-05-10] VITALS (14 sets, daily range): BP systolic 172–197; BP diastolic 85–100; PULSE 66–83; RESP 10–18; TEMP 36.6–36.9; O2SAT 92–99
--- NOTE | 2021-05-10 12:46 | P.HP_ITS ---
Same Day Surgery H&P Indication for Procedure/HPI DATE OF PROCEDURE: May 10, 2021 CHIEF COMPLAINT/INDICATIONFOR SURGICAL PROCEDURE: bilateral inguinal hernia PREOP DIAGNOSIS: bilateral inguinal hernia PLANNED PROCEDURE: Operation Date: 05/10/21 13:30 Proposed Procedures p Laparoscopic Inguinal Hernia Repair [id number] x2/k40.20(Bilateral) - Gonzalo Dhillon ph, MD Medications/Allergies* Home Medications Medication Instructions Recorded Confirmed Type atorvastatin 20 mg tablet 20 mg PO QDAY 03/16/19 05/09/21 History omeprazole 40 mg capsule,delayed 40 mg PO QDAY 03/16/19 05/09/21 History release amlodipine 10 mg tablet 10 mg PO DAILY 04/28/20 05/09/21 History metoprolol tartrate 100 mg tablet 100 mg PO BID 10/18/20 05/09/21 History nifedipine 30 mg tablet,extended 30 mg PO DAILY 12/19/20 05/09/21 History release (Adalat CC) sertraline 25 mg tablet 25 mg PO DAILY 12/19/20 05/09/21 History docusate sodium 100 mg capsule 100 mg PO DAILY 02/20/21 05/09/21 History (Colace) montelukast 10 mg tablet 10 mg PO DAILY PRN 02/20/21 05/09/21 History ondansetron HCl 8 mg tablet 8 mg PO PRN PRN tab 02/20/21 05/09/21 History hydralazine 50 mg tablet 100 mg PO PRN PRN tab 03/20/21 05/09/21 History prochlorperazine maleate 10 mg 10 mg PO BID PRN 03/20/21 05/09/21 History tablet (Compazine) torsemide 20 mg tablet 100 mg PO DAILY tab 03/20/21 05/09/21 History Allergies/Adverse Reactions Allergy/AdvReac Type Severity Reaction Status Date / Time No Known Allergies Allergy Verified 05/09/21 16:09 Pertinent History/Comorbid Conditions* Medical History (Updated 05/08/21 @ 09:49 by Gonzalo Hi MD) AV fistula Bladder cancer Cancer of trigone of urinary bladder CKD (chronic kidney disease) stage 5, GFR less than 15 ml/min On hemodialysis Degenerative joint disease (DJD) of lumbar spine GERD (gastroesophageal reflux disease) Hypertension Port-A-Cath in place Primary cancer of right ureter Stroke Surgical History (Updated 11/26/19 @ 17:08 by Landon Ortega MD) History of back surgery History of ear surgery TRAUMA TO RIGHT EAR-PART OF TOP OF EAR REMOVED History of nephrectomy, right Status post insertion of dialysis catheter RIGHT FOREARM Family History (Updated 07/27/19 @ 15:26 by Hina Qiu LPN) Father, AT AGE 71 Mother, MVA Heart attack Father Denies family history of Anesthesia complication Bleeding disorder Social History Smoking and tobacco status: former smoker Quit status (tobacco): has quit using tobacco Year quit tobacco: 1970s Alcohol intake: current Alcohol intake frequency: few times a month Marital status: Current occupational status: retired Current gender identity: Male Pertinent Exam Findings alert, oriented x 3 and regular rate & rhythm Recommendations Surgery/Procedure today Coding Level of Care Code Acute [employer] Internship for [employer] Walsh
[2021-05-10] MEDS: sodium chloride 0.9% 1,000 ML 30 ML IV (12:50)
--- NOTE | 2021-05-10 12:55 | P.ANESASSM_ITS ---
Pre-Anesthetic Assessment Height/Weight: Height 1.68 m Weight 68.039 kg Temp Pulse Resp BP Pulse Ox 98.5 F 71 18 189/95 92 05/10/21 12:18 05/10/21 12:18 05/10/21 12:18 05/10/21 12:18 05/10/21 12:18 Preop Diagnosis: bilateral inguinal hernia Operation Date: 05/10/21 13:30 Proposed Procedures p Laparoscopic Inguinal Hernia Repair [id number] x2/k40.20(Bilateral) - Gonzalo Hi MD Familial anesthetic complications: None Was Beta Alber taken within 24 hours: N/A Was Clonidine taken within 24 hours: N/A Last intake: Intake Last Liquid Date 05/09/21 Last Liquid Time 21:00 Last Solid Date 05/09/21 Last Solid Time 21:00 Social No alcohol and No tobacco former smoker Exam alert, oriented x 3, clear to auscultation bilaterally and regular rate & rhythm Airway Mallampati: Class III Dentition: false CV/HEM Hypertension Chronic Renal Insufficiency GI Gastroesophageal Reflux Disease Neuropsych Cerebrovascular Accident Anesthetic Plan ASA status: 4 Anesthesia: General Risk of > 500 ml blood loss (7ml/kg in children): No Medications/Allergies Home Medications Medication Instructions Recorded Confirmed Last Taken Type atorvastatin 20 mg tablet 20 mg PO QDAY 03/16/19 05/10/21 05/09/21 History omeprazole 40 mg capsule,delayed 40 mg PO QDAY 03/16/19 05/10/21 05/09/21 History release amlodipine 10 mg tablet 10 mg PO DAILY 04/28/20 05/10/21 05/09/21 History metoprolol tartrate 100 mg tablet 100 mg PO BID 10/18/20 05/10/21 05/10/21 History nifedipine 30 mg tablet,extended 30 mg PO DAILY 12/19/20 05/10/21 05/09/21 History release (Adalat CC) sertraline 25 mg tablet 25 mg PO DAILY 12/19/20 05/10/21 05/09/21 History docusate sodium 100 mg capsule 100 mg PO DAILY 02/20/21 05/10/21 05/09/21 History (Colace) montelukast 10 mg tablet 10 mg PO DAILY PRN 02/20/21 05/09/21 04/02/21 History ondansetron HCl 8 mg tablet 8 mg PO PRN PRN tab 02/20/21 05/10/21 05/09/21 History hydralazine 50 mg tablet 100 mg PO PRN PRN tab 03/20/21 05/10/21 05/09/21 History prochlorperazine maleate 10 mg 10 mg PO BID PRN 03/20/21 05/10/21 04/02/21 History tablet (Compazine) torsemide 20 mg tablet 100 mg PO DAILY tab 03/20/21 05/10/21 05/09/21 History Allergies Allergy/AdvReac Type Severity Reaction Status Date / Time No Known Allergies Allergy Verified 05/09/21 16:09 [facility] Anesthesia Medical History (Updated 05/08/21 @ 09:49 by Gonzalo Hi MD) AV fistula Bladder cancer Cancer of trigone of urinary bladder CKD (chronic kidney disease) stage 5, GFR less than 15 ml/min On hemodialysis Degenerative joint disease (DJD) of lumbar spine GERD (gastroesophageal reflux disease) Hypertension Port-A-Cath in place Primary cancer of right ureter Stroke Surgical History History of back surgery History of ear surgery TRAUMA TO RIGHT EAR-PART OF TOP OF EAR REMOVED History of nephrectomy, right Status post insertion of dialysis catheter RIGHT FOREARM Family History Father , AT AGE 71 Heart attack Mother , MVA No problems noted. Denies family history of Anesthesia complication Bleeding disorder Social History (Updated 05/08/21 @ 09:19 by Ying Dave RN) Smoking and tobacco status: former smoker Quit status (tobacco): has quit using tobacco Year quit tobacco: Alcohol intake: current Alcohol intake frequency: few times a month Marital status: Current occupational status: retired Current gender identity: Male Data Anesthesia : 05/10/21 12:35 Cardiac Studies: No Data to Display
[2021-05-10 13:01] LABS: Anion Gap 16.1 (5-19); Blood Urea Nitrogen 27 mg/dL (8-23); Calcium 9.2 mg/dL (8.5-10.5); Carbon Dioxide 33 mmol/L (22-29); Chloride 95 mmol/L (98-107); Glucose 89 mg/dL (65-115); Osmolality Calculated 295 mOsm/kg (285-295); Potassium 4.1 mmol/L (3.5-5.1); Sodium 140 mmol/L (136-145)
--- NOTE | 2021-05-10 14:49 | P.OP_ITS ---
Operative Report Date of procedure: May 10, 2021 Pre-op diagnosis: Bilateral inguinal hernia Post-op diagnosis: 1. Indirect right inguinal hernia 2. Lipoma of the spermatic cord and direct left inguinal hernia Procedure done: Laparoscopic total extraperitoneal repair of right indirect and left direct inguinal hernia with mesh Excision of lipoma of the left spermatic cord Pathology: none sent Surgeon: Gonzalo Hi Anesthesia: General Condition: stable Disposition: PACU Procedure: The patient was taken to the operating room. After IV antibiotic was administered, the abdomen was prepped and draped in a sterile manner.? Using a 15 blade, a 1.0 cm transverse incision was made infraumbilically on the right side.? Subcutaneous tissue was divided using electrocautery and the anterior re ctus sheath divided using an 11 blade.? The rectus muscle was retracted laterally and the extraperitoneal space identified and the space was opened using a balloon dissector.? A 11 mm port was placed and 12 mm of pneumoperitoneum was created.? A 10 mm 30? scope was introduced and the retrorectus space was opened using the camera up to the pubic symphysis and 5 mm ports were placed in the midline, one 2-fingerbreadths above the pubic symphysis and the other midway between these two ports under direct visualization.? The pubic bone was identified, the dissection was then carried laterally where the iliopubic tract was identified. On the right side, there was no femoral, obturator or direct hernia noted.? The inferior epigastric artery was identified and dissection was carried posterior to it and laterally, the space was opened up to the level of the umbilicus superior to the anterior superior iliac spine.? I then proceeded to dissect out the spermatic cord and the indirect hernial sac was reduced . On the left side, there was no femoral or femoral hernia noted but there was a direct hernia which was reduced? The inferior epigastric artery was identified and dissection was carried posterior to it and laterally, the space was opened up to the level of the umbilicus superior to the anterior superior iliac spine.? I then proceeded to dissect out the spermatic cord and there was no indirect hernia noted. There was a lipoma of the spermatic cord which was excised. 16 x 10cm Surgimax 3D mesh was rolled and introduced through the 10 mm port and rolled laterally and apposed well against the abdominal wall to cover the myopectineal orifice completely on the right side and secured with Securestraps.? A 13 x8cm mesh was placed on the left side to cover the myopectineal orifice completely and again secured with Securestraps.? 10 Cc of 0.5% Marcaine was infiltrated into the preperitoneal space.? The extraperitoneal space was desufflated under direct visualization to ensure no slippage of hernial sac under the mesh.? All ports were removed, the anterior rectus fascia at the infraumbilical port closed using figure of eight 0 Vicryl sutures, subcutaneous tissue approximated using 3-0 Vicryl sutures and skin at all three port sites were closed using running subcuticular 4-0 Monocryl sutures and Dermabond.? 10 mL of 0.5% Marcaine was infiltrated at the port sites. The patient was stable throughout the procedure.
--- NOTE | 2021-05-10 14:52 | SUR.PHASEI ---
14:45 received patient from OR STAFF. RESTING COMFORTABLY WITH EYES CLOSED .VENTILATING WELL.
--- NOTE | 2021-05-10 15:25 | SUR.PHASEI ---
15:25 MEDICATED FOR GROIN PAIN. RESPONDS TO VERBAL.
[2021-05-10] MEDS: morphine 4 mg/mL SDV 1 mL (15:28)
[2021-05-10] MEDS: HYDROcodone-acetaminophen 5-325 mg Tablet 1 TAB PO (16:27)
== END 2021-05-10 16:55 | disposition home or self-care (01) ==
PROVIDERS: Anesthesiology; PCP Electrodiagnostic Medicine; Visit Provider Surgery
PROC: (CPT 49650; principal; 2021-05-10 13:30)
DX: K40.20 Bilateral inguinal hernia, without obstruction or gangrene, not specified as recurrent (principal); D17.6 Benign lipomatous neoplasm of spermatic cord; K21.9 Gastro-esophageal reflux disease without esophagitis; Z87.891 Personal history of nicotine dependence; Z86.73 Personal history of transient ischemic attack (TIA), and cerebral infarction without residual deficits; Z85.51 Personal history of malignant neoplasm of bladder; Z85.54 Personal history of malignant neoplasm of ureter; I12.9 Hypertensive chronic kidney disease with stage 1 through stage 4 chronic kidney disease, or unspecified chronic kidney disease; N18.9 Chronic kidney disease, unspecified
CPT/HCPCS: 49650; 36415; 80048; C1781; J0690; J1100; J2270; J2405; J2704; J2710; J3010; J3490; J7030; T1015-U1

== ENCOUNTER 2021-05-15 08:01 | Outpatient (CLI) | payer MEDICARE, OTHER, SELFPAY ==
[2021-05-15 08:41] LABS: Basophils % 0.1 %; Eosinophils # 0.2 10^3/uL (0.0-0.8); Eosinophils % 2.6 %; Hematocrit 30.6 % (42.0-52.0); Hemoglobin 8.9 g/dL (11.7-16.6); Lymphocytes # 0.5 10^3/uL (0.8-4.8); Lymphocytes % 7.2 %; Mean Corpuscular HGB Conc 29.1 g/dL (30.0-36.0); Mean Corpuscular Hemoglobin 25.3 pg (28.0-34.0); Mean Corpuscular Volume 86.9 fl (80-94); Mean Platelet Volume 9.4 fL (7.4-10.4); Monocytes # 0.8 10^3/uL (0.2-0.9); Monocytes % 11.5 %; Neutrophils # 5.43 10^3/uL (1.8-7.7); Neutrophils % 77.7 %; Nucleated Red Blood Cells % 0 %; Platelet Count 235 10^3/cmm (130-400); Red Blood Count 3.52 10^6/uL (4.1-5.3); Red Cell Distribution Width 17.7 % (12.1-15.1)
[2021-05-15 09:08] LABS: Alanine Aminotransferase < 5 U/L (0-41); Albumin Level 3.8 g/dL (3.5-5.2); Alkaline Phosphatase 95 IU/L (40-130); Anion Gap 16.8 (5-19); Aspartate Amino Transferase 14 U/L (0-40); Blood Urea Nitrogen 36 mg/dL (8-23); Calcium 8.7 mg/dL (8.5-10.5); Carbon Dioxide 29 mmol/L (22-29); Chloride 96 mmol/L (98-107); Globulin 2.4 g/dL (1.3-4.6); Glucose 139 mg/dL (65-115); Osmolality Calculated 297 mOsm/kg (285-295); Potassium 3.8 mmol/L (3.5-5.1); Sodium 138 mmol/L (136-145); Total Bilirubin 0.4 mg/dL (0.15-1.2); Total Protein 6.2 g/dL (6.6-8.7)
[2021-05-15] MEDS: sodium chloride 0.9% 250 ML 125 ML IV (11:05)
--- NOTE | 2021-05-21 07:42 | ONC FU_ITS ---
Dr. Souza follow up note Patient: Manuel Garcia Unit #: [id number]: 1945 Dicatated By: Moses Souza M.D.Date of Visit:May 15, 2021 Onc Med Follow-up/Prog Note History of Present Illness: Mr. Garcia is a 76-year-old gentleman with history of papillary tumor located over the right ureteral orifice with obstruction diagnosed on 03/19/2019. Hydronephrosis was noted on CT scan of pelvis. Mr Garcia underwent cystoscopy TURBT on 03/25/2019 which showed papillary urothelial carcinoma: low-grade no muscle invasion seen. He was referred to Dr. Begum, urologist in [place] for further evaluation for evidence of tumor invasion into the ureter. Right robotic nephroureterectomy was considered and patient underwent procedure on 05/17/2019. The final pathology report showed invasive high-grade papillary urothelial carcinoma involving right renal pelvis with tumor invasion into the kidney, size was 4 x 3.5 x 1.3 cm. There was a noninvasive ureter tumor size was 1.9 x 1.5 cm., Lymphovascular invasion was seen, no lymph node was evaluated e.g. T3,Nx Mx, stage III Mr Garcia tolerated procedure well He is on hemodialysis for end-stage renal disease. He goes to dialysis on Friday, Friday and Friday. did discuss with him his disease status and further treatment options. He was determined to have stage III disease and felt that adjuvant iroquois based chemotherapy was a good option for him. However considering his age and comorbid condition MVAC was not considered due to toxicity profile but split dose cisplatin and gemcitabine on day 1 and 8 on a 21-day cycle for 4 cycles was recommended. Mr Garcia began his first cycle on August 03, 2019.And day 8 chemotherapy with cycle #1 was delayed because of progressive neutropenia/leukopenia was treated with Neupogen. And again day 8 with cycle #2 was also delayed because of progressive leukopenia and neutropenia And completed 4 cycles of adjuvant chemotherapy with split dose cisplatin/gemcitabine on November 11, 2019 Patient said on November 21, 2019 while he was going back from [place] he felt weak in his left arm by the time he got home he could not see his left hand and then decided to come to hospital and then he was flown to [place] where he, as per patient he was given some medication to Port-A-Cath to dissolve clot, after that he recovered well, no residual weakness or visual abnormality. Patient is scheduled for follow-up MRI scan in [place] in December, Follow-up CT scan of abdomen pelvis done on January 06, 2020 showed interval postoperative changes right nephrectomy. No abdominal or pelvic lymphadenopathy. A few prominent inguinal lymph nodes previously described are improved compared to previous largest is 8 mm. No other changes seen. Focal bladder wall thickening right UVJ orifice has improved since the prior examination otherwise bladder is contracted and similar in appearance to the prior exam. As per patient he underwent cystoscopy examination in recent past and Dr. Ortega told him that his bladder looks good and follow-up cystoscopy Is under consideration Started on total neoadjuvant chemotherapy with oxaliplatin/Xeloda on September 18, 2020, subsequently patient developed severe complication including diarrhea, dehydration, electrolyte imbalance and eventually TIA, requiring inpatient care, no further chemotherapy was offered After first cycle of oxaliplatin/Xeloda, Then combined chemoradiation therapy in neoadjuvant fashion was planned but patient refused oral Xeloda and took 1 dose of radiation therapy when she was informed that radiation alone may be sufficient, she decided to proceed with surgery and on January 23, 2021 she underwent APR, and block hysterectomy and vaginectomy with vaginal reconstruction and colostomy bag and her final pathology report confirmed moderately differentiated adenocarcinoma, 2 masses, 13 lymph nodes negative for metastatic disease. The 2 implants of adenocarcinoma., Tumor directly invades adjacent structures. Margins are involved. Tumor extends into mesorectal margin. Lymphovascular invasion present., T4b, tumor directly invades and adhere to adjacent organs or structures. N1C, no regional lymph node positive but there are tumor deposit in the mesentery. as per patient on 02/20/2021 he went to [facility] with progressive lower back pain which was sudden in onset and underwent CT lumbar spine on 02/20/2021 which showed postsurgical changes with posterior zaheer and pedicle screws fixation L4-5. Moderate to moderately severe central canal stenosis L3-4. Prominent appearance suggesting soft tissue expansion or thickening at this epidural space operating level L4-5 most noted posteriorly and posterior laterally on the left. Suspect retroperitoneal and upper right iliac level lymphadenopathy which could be reactive or neoplastic,, suspected left retroperitoneal lymph node adjacent to the aorta measures 2.8 cm. Smaller adjacent retroperitoneal lymph node may be present., so in 02/21/[address] scan of abdomen pelvis which which shows no liver mets small nonspecific inguinal lymph nodes extensive colonic diverticulosis, no mention of retroperitoneal lymphadenopathy, CT scan of chest done on 02/20/2021 showed numerous bilateral pulmonary nodules largest right lower lobe partially pleural-based measuring 7.3 cm x 5.6 cm and largest mass lower left chest partially pleural-based and partially contiguous with the left diaphragm measuring 6.9 x 6.1 cm and extensive and numerous bilateral diffuse pulmonary nodules extensive mediastinal lymphadenopathy with the largest paratracheal lymph node measuring 4.8 x 3.3 cm. 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 All appears to be similar to his prior recurrence which ultimately turned out to be low-grade noninvasive., BCG based intravesical treatment is under consideration. Patient was referred to pulmonology and on April 03, 2021 he underwent bronchoscopy and biopsy of left lung mass showed adenocarcinoma, case was discussed with pathologist Dr. Poon, his impression was non-small cell lung cancer versus high-grade urothelial carcinoma with adenocarcinoma differentiation, PD-L1 expression shows TPS 25% molecular profiling Showed TMB 7, MSI stable, ALK negative NTRK no fusion, EGFR negative. [facility] with [facility]% probability Started on 3 weekly pembrolizumab on April 23, 2021 Came for follow-up, denies any specific complaints except generalized weakness and fatigue, no nausea or vomiting no diarrhea constipation, no skin rash, no shortness of breath or wheezing, no chest pain, no jaundice, no diarrhea. Tolerated first dose of immunotherapy with pembrolizumab well Medications: amLODIPine Besylate (30 mg) Tablet Oral daily, Atorvastatin Calcium 1 Tablet (of 20 mg) Oral at bedtime, hydrALAZINE HCl 1 Tablet (of 50 mg) Oral four times a day, Metoprolol Tartrate 1 Tablet (of 100 mg) Oral b.i.d. PRN, Montelukast Sodium Tablet Oral PRN, Prochlorperazine Maleate 1 Tablet (of 10 mg) Oral four times a day PRN, Sertraline HCl (25 mg) Tablet Oral daily, Torsemide 1 Tablet (of 20 mg) Oral daily, Triamcinolone Acetonide Ointment Topical PRN, Tums 1 Tablet Tablet, chewable Oral PRN, Tylenol Tablet Oral PRN Allergies: No Known Allergies. Review of Systems: Review of Systems is not available for this patient. Vital Signs: Performed on May 15, 2021 09:48 Height - 66.00 in Weight - 149 lbs (HIGH) BSA - 1.76 sq.m BMI - 24.05 Temperature - 99.5 F (HIGH) Pulse - 70 /min Respiration - 18 /min BP - 183/80 mm(hg) (HIGH) O2 Sat - 91 % (LOW) Pain - 3 Fatigue - 2 Performance Status: 1 - No physically strenuous activity, but ambulatory and able to carry out light or sedentary work (e.g. office work, light house work). (ECOG) Physical Examination: ENMT - No mouth sores, no thrush, no jaundice, Respiratory - Lungs are clear to auscultation, Cardiovascular - Regular rate and rhythm of heart, Abdomen - Soft, bowel sounds present, Extremities - Trace edema bilaterally. Lab/Imaging: Test performed on May 02, 2021 14:05 Sodium 140 mmol/L Potassium 3.4 mmol/L Chloride 96 mmol/L CO2 30 mmol/L Anion Gap 17.4 BUN 13 mg/dL Creatinine 3.1 mg/dL Cr Clearance (Est) 19.5800 mL/min Glucose 83 mg/dL Osmolality - Calculated 289 mOsm/kg Calcium 9.2 mg/dL Protein, Total 7.0 g/dL Albumin 3.8 g/dL Globulin 3.2 g/dL Bilirubin, Total 0.4 mg/dL ALT (SGPT) 7 U/L AST (SGOT) 15 U/L Alkaline Phosphatase 86 IU/L WBC 5.4 10 3/uL RBC 4.08 10 6/uL HGB 10.0 g/dL HCT 35.2 % MCV 86.3 fl MCH 24.5 pg MCHC 28.4 g/dL RDW 17.0 % Platelet Count 300 10 3/cmm MPV 9.7 fL Neutrophils 3.71 10 3/uL Lymphocytes 0.7 10 3/uL Monocytes 0.9 10 3/uL Eosinophils 0.1 10 3/uL Basophils 0.0 10 3/uL Neutrophil % 68.7 % Lymphocyte % 12.2 % Monocyte % 16.5 % Eosinophil % 2.0 % Basophils % 0.2 % NRBC % 0 % Impression: Recurrent urothelial carcinoma With Adenocarcinoma Dedifferentiation per lung biopsy per bronchoscopy done on April 03, 2021,, [facility] molecular testing done on April 24, 2021 confirmed urothelial carcinoma rather than adenocarcinoma, Molecular profiling showed no targetable mutation PD-L1 TPS more than 25 CT PET scan done on, showed extensive bilateral pulmonary Started on pembrolizumab 200 mg IV every 3 weeks on April 26, 2021 2. h/o invasive high-grade urothelial carcinoma Of right renal pelvis/ureter with invasion into the right kidney status post robotic nephroureterectomy done on 05/17/2019 next Final pathology report showed invasive high-grade papillary urothelial carcinoma, tumor size 4 x 3.5 x 1.3 cm invading right kidney and 1.9 x 1.5 cm noninvasive ureter tumor with lymphovascular invasion seen pT3 No lymph nodes were identified for evaluation pNx , Mx stage III ureteral/renal pelvis carcinoma End-stage renal disease on hemodialysis. iscussed with Mr Garcia his disease status and further treatment options. He has invasive high-grade papillary urothelial carcinoma of right renal pelvis with invasion into the right kidney e.g. T3 lesion , with unknown lymph node status. As per [facility] CCN guidelines, Mr Garcia has stage III disease and there is a role of adjuvant iroquois-based chemotherapy which may improve disease-free survival. Considering patient's age and comorbid condition, MVAC was not consdered due to toxicity profile but split dose cisplatin and gemcitabine, on day 1 and 8 and repeat every 21 days ???4 cycles.Started on August 03, 2019 and completed 4 cycles on November 11, 2019 Follow-up CT scan of abdomen pelvis done on January 06, 2020 showed status post right nephrectomy no abdominal or pelvic lymphadenopathy, a few prominent inguinal lymph nodes previously described are improved and largest is about 8 mm. And focal bladder wall thickening right UVJ orifice has improved otherwise bladder is contracted and similar to previous exam. Patient is being followed by Dr. Ortega with cystoscopy evaluation. Plan: Discussed with patient regarding his labs white blood count 7 hemoglobin 8.9 g hematocrit 30.6 platelets 235,000 CMP within normal limit except elevated creatinine, patient is on hemodialysis Clinically, patient is doing reasonably well, no signs symptom suggestive of disease progression, tolerated first dose of Keytruda well. Will proceed with next 3 weekly dose of Keytruda today and then he will return to clinic in 3 weeks with CBC CMP and TSH and if reasonable for next dose of Keytruda. Planning to consider CT PET scan after 4 doses of Keytruda to assess disease response. As far as generalized weakness and fatigue is concerned, probably multifactorial including anemia and patient is on hemodialysis for renal failure. We will continue supportive care and consider blood transfusion if hemoglobin less than 8 g. Signed By: Moses Souza M.D. <<Signature on File>>
== END 2021-05-15 08:02 | disposition home or self-care (01) ==
PROVIDERS: PCP Electrodiagnostic Medicine; Visit Provider Internal Medicine Hematology & Oncology
DX: Z51.12 Encounter for antineoplastic immunotherapy (principal); C68.8 Malignant neoplasm of overlapping sites of urinary organs; C78.02 Secondary malignant neoplasm of left lung; C78.01 Secondary malignant neoplasm of right lung; R53.1 Weakness; R53.83 Other fatigue; N18.6 End stage renal disease; Z99.2 Dependence on renal dialysis; Z79.899 Other long term (current) drug therapy
CPT/HCPCS: 80053; 85025; 96413; 99215; J7050; J9271

== ENCOUNTER 2021-06-05 07:38 | Outpatient (CLI) | payer MEDICARE, OTHER, SELFPAY ==
[2021-06-05 08:28] LABS: Basophils % 0.2 %; Eosinophils # 0.2 10^3/uL (0.0-0.8); Eosinophils % 3.9 %; Hematocrit 35.3 % (42.0-52.0); Hemoglobin 10.5 g/dL (11.7-16.6); Lymphocytes # 0.7 10^3/uL (0.8-4.8); Lymphocytes % 10.9 %; Mean Corpuscular HGB Conc 29.7 g/dL (30.0-36.0); Mean Corpuscular Hemoglobin 26.4 pg (28.0-34.0); Mean Corpuscular Volume 88.7 fl (80-94); Mean Platelet Volume 9.5 fL (7.4-10.4); Monocytes # 0.8 10^3/uL (0.2-0.9); Monocytes % 13.4 %; Neutrophils # 4.22 10^3/uL (1.8-7.7); Neutrophils % 70.9 %; Nucleated Red Blood Cells % 0 %; Platelet Count 249 10^3/cmm (130-400); Red Blood Count 3.98 10^6/uL (4.1-5.3); Red Cell Distribution Width 19.9 % (12.1-15.1)
[2021-06-05 08:56] LABS: Alanine Aminotransferase 7 U/L (0-41); Albumin Level 3.9 g/dL (3.5-5.2); Alkaline Phosphatase 97 IU/L (40-130); Anion Gap 17.4 (5-19); Aspartate Amino Transferase 13 U/L (0-40); Blood Urea Nitrogen 41 mg/dL (8-23); Carbon Dioxide 29 mmol/L (22-29); Chloride 98 mmol/L (98-107); Glucose 147 mg/dL (65-115); Osmolality Calculated 305 mOsm/kg (285-295); Potassium 3.4 mmol/L (3.5-5.1); Sodium 141 mmol/L (136-145); Thyroid Stimulating Hormone 2.56 uIU/mL (0.27-4.20); Total Bilirubin 0.5 mg/dL (0.15-1.2); Total Protein 6.9 g/dL (6.6-8.7)
[2021-06-05] MEDS: sodium chloride 0.9% 250 ML 125 ML IV (09:57)
--- NOTE | 2021-06-05 10:02 | ONC FU_ITS ---
Tabatha Moody Progress Note Patient: Manuel Garcia Unit #: [id number]: 1945 Dicatated By: Tabatha Moody N.P.Date of Visit:Jun 05, 2021 Onc MED Follow-up/Prog Note Chief Complaint: Right renal pelvis carcinoma/bladder cancer History of Present Illness: Mr. Garcia is a 76-year-old gentleman with history of papillary tumor located over the right ureteral orifice with obstruction diagnosed on 03/19/2019. Hydronephrosis was noted on CT scan of pelvis. Mr Garcia underwent cystoscopy TURBT on 03/25/2019 which showed papillary urothelial carcinoma: low-grade no muscle invasion seen. He was referred to Dr. Begum, urologist in [place] for further evaluation for evidence of tumor invasion into the ureter. Right robotic nephroureterectomy was considered and patient underwent procedure on 05/17/2019. The final pathology report showed invasive high-grade papillary urothelial carcinoma involving right renal pelvis with tumor invasion into the kidney, size was 4 x 3.5 x 1.3 cm. There was a noninvasive ureter tumor size was 1.9 x 1.5 cm., Lymphovascular invasion was seen, no lymph node was evaluated e.g. T3,Nx Mx, stage III Mr Garcia tolerated procedure well He is on hemodialysis for end-stage renal disease. He goes to dialysis on Friday, Friday and Friday. Did discuss with him his disease status and further treatment options. He was determined to have stage III disease and felt that adjuvant [place] based chemotherapy was a good option for him. However considering his age and comorbid condition MVAC was not considered due to toxicity profile but split dose cisplatin and gemcitabine on day 1 and 8 on a 21-day cycle for 4 cycles was recommended. Mr Garcia began his first cycle on August 03, 2019.And day 8 chemotherapy with cycle #1 was delayed because of progressive neutropenia/leukopenia was treated with Neupogen. And again day 8 with cycle #2 was also delayed because of progressive leukopenia and neutropenia And completed 4 cycles of adjuvant chemotherapy with split dose cisplatin/gemcitabine on November 11, 2019 Patient said on November 21, 2019 while he was going back from [place] he felt weak in his left arm by the time he got home he could not see his left hand and then decided to come to hospital and then he was flown to [place] where he, as per patient he was given some medication to Port-A-Cath to dissolve clot, after that he recovered well, no residual weakness or visual abnormality. Patient is scheduled for follow-up MRI scan in [place] in December, Follow-up CT scan of abdomen pelvis done on January 06, 2020 showed interval postoperative changes right nephrectomy. No abdominal or pelvic lymphadenopathy. A few prominent inguinal lymph nodes previously described are improved compared to previous largest is 8 mm. No other changes seen. Focal bladder wall thickening right UVJ orifice has improved since the prior examination otherwise bladder is contracted and similar in appearance to the prior exam. As per patient he underwent cystoscopy examination in recent past and Dr. Ortega told him that his bladder looks good and follow-up cystoscopy Is under consideration Started on total neoadjuvant chemotherapy with oxaliplatin/Xeloda on September 18, 2020, subsequently patient developed severe complication including diarrhea, dehydration, electrolyte imbalance and eventually TIA, requiring inpatient care, no further chemotherapy was offered After first cycle of oxaliplatin/Xeloda, Then combined chemoradiation therapy in neoadjuvant fashion was planned but patient refused oral Xeloda and took 1 dose of radiation therapy when she was informed that radiation alone may be sufficient, she decided to proceed with surgery and on January 23, 2021 she underwent APR, and block hysterectomy and vaginectomy with vaginal reconstruction and colostomy bag and her final pathology report confirmed moderately differentiated adenocarcinoma, 2 masses, 13 lymph nodes negative for metastatic disease. The 2 implants of adenocarcinoma., Tumor directly invades adjacent structures. Margins are involved. Tumor extends into mesorectal margin. Lymphovascular invasion present., T4b, tumor directly invades and adhere to adjacent organs or structures. N1C, no regional lymph node positive but there are tumor deposit in the mesentery. As per patient on 02/20/2021 he went to [facility] with progressive lower back pain which was sudden in onset and underwent CT lumbar spine on 02/20/2021 which showed postsurgical changes with posterior zaheer and pedicle screws fixation L4-5. Moderate to moderately severe central canal stenosis L3-4. Prominent appearance suggesting soft tissue expansion or thickening at this epidural space operating level L4-5 most noted posteriorly and posterior laterally on the left. Suspect retroperitoneal and upper right iliac level lymphadenopathy which could be reactive or neoplastic,, suspected left retroperitoneal lymph node adjacent to the aorta measures 2.8 cm. Smaller adjacent retroperitoneal lymph node may be present., so in 02/21/[address] scan of abdomen pelvis which which shows no liver mets small nonspecific inguinal lymph nodes extensive colonic diverticulosis, no mention of retroperitoneal lymphadenopathy, CT scan of chest done on 02/20/2021 showed numerous bilateral pulmonary nodules largest right lower lobe partially pleural-based measuring 7.3 cm x 5.6 cm and largest mass lower left chest partially pleural-based and partially contiguous with the left diaphragm measuring 6.9 x 6.1 cm and extensive and numerous bilateral diffuse pulmonary nodules extensive mediastinal lymphadenopathy with the largest paratracheal lymph node measuring 4.8 x 3.3 cm. 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 All appears to be similar to his prior recurrence which ultimately turned out to be low-grade noninvasive., BCG based intravesical treatment is under consideration. Patient was referred to pulmonology and on April 03, 2021 he underwent bronchoscopy and biopsy of left lung mass showed adenocarcinoma, case was discussed with pathologist Dr. Poon, his impression was non-small cell lung cancer versus high-grade urothelial carcinoma with adenocarcinoma differentiation, PD-L1 expression shows TPS 25% molecular profiling Showed TMB 7, MSI stable, ALK negative NTRK no fusion, EGFR negative. MT GPSai confirmed urothelial carcinoma with 100% probability Started on 3 weekly pembrolizumab on April 23, 2021 Patient presents today for follow-up. He states he has been doing well. He has increased fatigue quite often but that could be related to his dialysis that he receives 3 days a week. His appetite has been good. He denies fever, chills, night sweats. No sinus drainage or mouth sores. No shortness of breath, cough, chest pain. No nausea or vomiting. He does experience some constipation which is well controlled with [id number] stool softeners. Due to his kidney failure he voids very small amount. He denies any joint or bone pain. No headaches or dizziness. No numbness or paresthesias. Review Of Symptoms: See above. Past Medical History: Hypertension Renal failure Past Surgical History: Back surgery Nephroureterectomy Port placement TURBT Right Internal Juglar Port a Cath Dr Hi ([facility]) in 2019 Allergies: No Known Allergies. Medications: Atorvastatin Calcium 1 Tablet (of 20 mg) Oral at bedtime hydrALAZINE HCl 1 Tablet (of 50 mg) Oral four times a day Metoprolol Tartrate 1 Tablet (of 100 mg) Oral b.i.d. PRN Montelukast Sodium Tablet Oral PRN Prochlorperazine Maleate 1 Tablet (of 10 mg) Oral four times a day PRN Sertraline HCl (25 mg) Tablet Oral daily Torsemide 1 Tablet (of 20 mg) Oral daily Triamcinolone Acetonide Ointment Topical PRN Tums 1 Tablet Tablet, chewable Oral PRN Tylenol Tablet Oral PRN Family History: Mr. Garcia's mother is : motor vehicle accident. Mr. Garcia's father at age 71: myocardial infarction. Social History: Mr. Garcia is and he is an unknown. Mr. Garcia has never smoked. He drinks occasionally. Physical Examination: Performed on Jun 05, 2021 09:35: Height - 66.00 in, Weight - 149.2 lbs (HIGH), BSA - 1.77 sq.m, BMI - 24.08, Temperature - 98.2 F (LOW), Pulse - 92 /min, Respiration - 16 /min, BP - 142/64 mm(hg) (HIGH), O2 Sat - 98 %, Pain - 0, and Fatigue - 6. Performance Status: 1 - No physically strenuous activity, but ambulatory and able to carry out light or sedentary work (e.g. office work, light house work). (ECOG) Constitutional Alert, cooperative, oriented. Mood and affect appropriate. Appears close to chronological age. Well nourished. Well developed. Head Normocephalic; no scars. Respiratory Lungs are clear to auscultation without rhonchi or wheezing. Cardiovascular Regular rate and rhythm of heart without murmurs, gallops or rubs. Abdomen Non-tender, non-distended, no masses, ascites or hepatosplenomegaly. Good bowel sounds. No guarding or rebound tenderness. Extremities No visible deformities, no cyanosis, clubbing or edema. Pulses 3+ and equal bilaterally. Musculoskeletal No tenderness or swelling, normal range of motion without obvious weakness. Psychiatric Alert and oriented times three. Coherent speech. Verbalizes understanding of our discussions today. Laboratory: Test performed on Jun 05, 2021 08:16 Sodium 141 mmol/L TSH 2.56 uIU/mL Potassium 3.4 mmol/L Chloride 98 mmol/L CO2 29 mmol/L Anion Gap 17.4 BUN 41 mg/dL Creatinine 5.9 mg/dL Cr Clearance (Est) 10.3600 mL/min Glucose 147 mg/dL Osmolality - Calculated 305 mOsm/kg Calcium 9.0 mg/dL Protein, Total 6.9 g/dL Albumin 3.9 g/dL Globulin 3.0 g/dL Bilirubin, Total 0.5 mg/dL ALT (SGPT) 7 U/L AST (SGOT) 13 U/L Alkaline Phosphatase 97 IU/L WBC 6.0 10 3/uL RBC 3.98 10 6/uL HGB 10.5 g/dL HCT 35.3 % MCV 88.7 fl MCH 26.4 pg MCHC 29.7 g/dL RDW 19.9 % Platelet Count 249 10 3/cmm MPV 9.5 fL Neutrophils 4.22 10 3/uL Lymphocytes 0.7 10 3/uL Monocytes 0.8 10 3/uL Eosinophils 0.2 10 3/uL Basophils 0.0 10 3/uL Neutrophil % 70.9 % Lymphocyte % 10.9 % Monocyte % 13.4 % Eosinophil % 3.9 % Basophils % 0.2 % NRBC % 0 % Impression: Recurrent urothelial carcinoma With Adenocarcinoma Dedifferentiation per lung biopsy per bronchoscopy done on April 03, 2021,, [facility] molecular testing done on April 24, 2021 confirmed urothelial carcinoma rather than adenocarcinoma, Molecular profiling showed no targetable mutation PD-L1 TPS more than 25 CT PET scan done on, showed extensive bilateral pulmonary Started on pembrolizumab 200 mg IV every 3 weeks on April 26, 2021 2. h/o invasive high-grade urothelial carcinoma Of right renal pelvis/ureter with invasion into the right kidney status post robotic nephroureterectomy done on 05/17/2019 next Final pathology report showed invasive high-grade papillary urothelial carcinoma, tumor size 4 x 3.5 x 1.3 cm invading right kidney and 1.9 x 1.5 cm noninvasive ureter tumor with lymphovascular invasion seen pT3 No lymph nodes were identified for evaluation pNx , Mx stage III ureteral/renal pelvis carcinoma End-stage renal disease on hemodialysis. iscussed with Mr Garcia his disease status and further treatment options. He has invasive high-grade papillary urothelial carcinoma of right renal pelvis with invasion into the right kidney e.g. T3 lesion , with unknown lymph node status. As per N CCN guidelines, Mr Garcia has stage III disease and there is a role of adjuvant [place]-based chemotherapy which may improve disease-free survival. Considering patient's age and comorbid condition, MVAC was not consdered due to toxicity profile but split dose cisplatin and gemcitabine, on day 1 and 8 and repeat every 21 days ???4 cycles.Started on August 03, 2019 and completed 4 cycles on November 11, 2019 Follow-up CT scan of abdomen pelvis done on January 06, 2020 showed status post right nephrectomy no abdominal or pelvic lymphadenopathy, a few prominent inguinal lymph nodes previously described are improved and largest is about 8 mm. And focal bladder wall thickening right UVJ orifice has improved otherwise bladder is contracted and similar to previous exam. Patient is being followed by Dr. Ortega with cystoscopy evaluation. Plan: Labs reviewed with patient. His WBC is 6.0, his hemoglobin has improved it is 10.5, hematocrit 35.3, and platelet count 249,000. His CMP shows a potassium of 3.4 which is slightly low. His BUN is 41 and his creatinine is 5.9 which has improved from last visit. Patient is doing well and tolerating Keytruda. We will continue with cycle 3 today. He will return to the clinic in 3 weeks with CBC and CMP. Signed By: Sukumar Tay.Ervin <<Signature on File>>
== END 2021-06-05 07:39 | disposition home or self-care (01) ==
PROVIDERS: PCP Family Medicine; Visit Provider Nurse Practitioner Family
DX: C67.8 Malignant neoplasm of overlapping sites of bladder (principal); Z90.5 Acquired absence of kidney; N18.6 End stage renal disease; Z99.2 Dependence on renal dialysis
CPT/HCPCS: 80053; 84443; 85025; 96413; 99215; J7050; J9271

== ENCOUNTER 2021-06-12 11:11 | Outpatient (CLI) | payer MEDICARE, OTHER, SELFPAY ==
--- NOTE | 2021-06-12 12:00 | USCV_ITS ---
Manuel Garcia Age: 76 Gender: M : 1945 Exam Date: 06/12/2021 11:30 Ordering Phys: Kolton Calles DO Technologist: lOive Wallace Exam Location: [facility] [place] Indication: systolic murmur BP: / HR: 76 Rhythm: Sinus Technical Quality: Adequate MEASUREMENTS (Male / Female) Normal Values 2D ECHO LV Diastolic Diameter PLAX 4.5 cm 4.2 - 5.9 / 3.9 - 5.3 cm LV Systolic Diameter PLAX 2.6 cm LV Chamber Size 4.0 cm IVS Diastolic Thickness 1.1 cm 0.6 - 1.0 / 0.6 - 0.9 cm IVS Systolic Thickness 1.3 cm LVPW Diastolic Thickness 1.2 cm 0.6 - 1.0 / 0.6 - 0.9 cm LVPW Systolic Thickness 1.6 cm RV Chamber Size 2.8 cm LVOT Diameter 2.0 cm LV Ejection Fraction 2D Teich 72.0 % LV Ejection Fraction MOD 2C 66.9 % LV Ejection Fraction 2C AL 66.5 % LA Diameter 3.9 cm LA Width 3.0 cm LA Height 3.1 cm RA Width 3.0 cm RA Height 2.7 cm Aorta at Sinotubular Diameter 3.1 cm M-MODE Aortic Annulus Diameter 3.3 cm LA Ao Ratio MM 1.4 MV E Point Septal Separation 1.0 cm DOPPLER AV Peak Velocity 260.0 cm/s LVOT Peak Velocity 122.0 cm/s AV Area Cont Eq vti 1.6 cm squared AV Area Cont Eq pk 1.5 cm squared MV Peak Velocity 138.0 cm/s MV Area PHT 5.0 cm squared Mitral E to A Ratio 1.1 MV E' Velocity 71.5 cm/s Mitral E to MV E' Ratio 18.2 Mitral E to LV E' Lateral Ratio 19.2 Mitral E to LV E' Septal Ratio 17.5 TR Peak Velocity 224.0 cm/s TR Peak Gradient 20.1 mmHg TR Mean Velocity 152.2 cm/s TR Mean Gradient 10.1 mmHg TR Velocity Time Integral 50.7 cm TV Peak E Velocity 62.0 cm/s Right Atrial Pressure 3.0 mmHg Pulmonary Artery Systolic Pressu 23.1 mmHg PV Peak Velocity 70.0 cm/s RV Acceleration Time 0.1 s RV Ejection Time 0.3 s RV AcT/ET 0.3 FINDINGS Left Ventricle Normal left ventricular cavity size. Mild left ventricular hypertrophy. Normal left ventricular systolic function. Left ventricular ejection fraction is estimated at 65 %. Grade I/IV diastolic dysfunction (abnormal relaxation filling pattern), normal to mildly elevated filling pressures. Right Ventricle The right ventricle is normal in size and function. Right Atrium The right atrium is normal in size. Left Atrium The left atrium is normal in size. Mitral Valve Structurally normal mitral valve without significant stenosis or prolapse. There is no mitral regurgitation. Aortic Valve Structurally normal trileaflet aortic valve. Mild aortic valve calcification. Mild aortic valve stenosis, mean gradient 13 mmHg, AUTUMN 1.6 cm squared. No aortic valve regurgitation. Tricuspid Valve Structurally normal tricuspid valve without significant stenosis or regurgitation. Pulmonary artery systolic pressure is normal. Pulmonic Valve Pulmonic valve not well visualized. Pericardium Normal pericardium without effusion. Aorta Normal ascending aorta dimension. CONCLUSIONS Normal left ventricular cavity size. Mild left ventricular hypertrophy. Normal left ventricular systolic function. Left ventricular ejection fraction is estimated at 65 %. Grade I/IV diastolic dysfunction (abnormal relaxation filling pattern), normal to mildly elevated filling pressures. Structurally normal trileaflet aortic valve. Mild aortic valve calcification. Mild aortic valve stenosis, mean gradient 13 mmHg, AUTUMN 1.6 cm squared. No aortic valve regurgitation. Dr. Mathew Kimbrough MD (Electronically Signed) Final Date: 13 June 2021 07:15 S
== END 2021-06-12 11:12 | disposition home or self-care (01) ==
LOC: RAD 11:17
PROVIDERS: PCP Family Medicine; Visit Provider Family Medicine
DX: I35.0 Nonrheumatic aortic (valve) stenosis (principal); I70.0 Atherosclerosis of aorta; R01.1 Cardiac murmur, unspecified; I10 Essential (primary) hypertension
CPT/HCPCS: 93306

== ENCOUNTER 2021-06-18 18:41 | Emergency (ER) | payer MEDICARE, OTHER, SELFPAY ==
[2021-06-18 18:49] VITALS: BP 216/96; PULSE 85; RESP 18; TEMP 36.7; O2SAT 95; BMI 24.2
--- NOTE | 2021-06-18 19:04 | CTR_ITS ---
PROCEDURE INFORMATION: Exam: CT Head Without Contrast Exam date and time: 06/18/2021 7:43 PM Age: 76 years old Clinical indication: Pain; Headache; Patient HX: Post dialysis, RENE with high blood pressure TECHNIQUE: Imaging protocol: Computed tomography of the head without contrast. Radiation optimization: All CT scans at this facility use at least one of these dose optimization techniques: automated exposure control; mA and/or kV adjustment per patient size (includes targeted exams where dose is matched to clinical indication); or iterative reconstruction. COMPARISON: CT head wo con* [id number] 06/18/2021 7:16 PM RADIATION DOSE METRICS: Total DLP (mGy-cm): 804.24 FINDINGS: Brain: Age related parenchymal volume loss noted. There is decreased attenuation of the periventricular white matter, consistent with chronic microangiopathic white matter disease. No parenchymal edema identified. No intracranial hemorrhage noted. Cerebral ventricles: No ventriculomegaly. Paranasal sinuses: Visualized sinuses are unremarkable. No fluid levels. Mastoid air cells: Unremarkable as visualized. No mastoid effusion. Bones/joints: Unremarkable. No acute fracture. Soft tissues: Unremarkable. CT/CT head wo con* [id number] IMPRESSION: No acute intracranial abnormality demonstrated.
[2021-06-18 19:22] VITALS: BP 207/94; PULSE 77; RESP 18; O2SAT 92
[2021-06-18] MEDS: metoclopramide 5 mg/mL SDV 2 mL IVP (19:57)
[2021-06-18] MEDS: labetalol 5 mg/mL SDV 20mL 10 MG IVP ×2 (19:58→20:55)
[2021-06-18] MEDS: diphenhydrAMINE 50 mg/mL SDV 1mL 25 MG IVP (19:58)
[2021-06-18 20:08] VITALS: PULSE 81; RESP 18; O2SAT 91
--- NOTE | 2021-06-18 20:31 | W.ED.HA ---
HPI - Headache General: Chief Complaint: Headache Stated Complaint: Headache Time Seen by Provider: 06/18/21 18:57 Source: patient Mode of arrival: ambulatory Limitations: no limitations History of Present Illness: 76-year-old male who has a history of cancer and is on dialysis states that he does get frequent headaches and gets migraines he states he has not had a headache throughout the day. He states that the pain is a 5 out of 10 worse with bright lights feel like his previous headaches denies any fever he did receive his dialysis today denies any chest pain or shortness of breath. Associated symptoms: Deny chest pain, fever(s), nausea, rash or vomiting Review of Systems Const: Denies: fever(s), chills, body aches or change in appetite Eyes: Denies: blurry vision or eye discomfort ENMT: Denies: throat pain or dental pain Card: Denies: chest pain Resp: Denies: dyspnea GI: Denies: abdominal pain, nausea, vomiting or diarrhea : Denies: dysuria Musc: Denies: neck pain or back pain Skin/Breast: Denies: rash Neuro: Reports: headache(s) Psych: Denies: depression Shun/Lymph: Denies: easy bruising All/Imm: Denies: urticaria PFSH ED PFSH: Medical History AV fistula Bladder cancer Cancer of trigone of urinary bladder CKD (chronic kidney disease) stage 5, GFR less than 15 ml/min On hemodialysis Degenerative joint disease (DJD) of lumbar spine GERD (gastroesophageal reflux disease) Hypertension Port-A-Cath in place Primary cancer of right ureter Stroke Surgical History History of back surgery History of ear surgery TRAUMA TO RIGHT EAR-PART OF TOP OF EAR REMOVED History of nephrectomy, right S/P bilateral inguinal hernia repair (05/10/21) Status post insertion of dialysis catheter RIGHT FOREARM Family History Father , AT AGE 71 Heart attack Mother , MVA No problems noted. Denies family history of Anesthesia complication Bleeding disorder Social History Smoking and tobacco status: former smoker Quit status (tobacco): has quit using tobacco Year quit tobacco: Alcohol intake: current Alcohol intake frequency: few times a month Marital status: Current occupational status: retired Current gender identity: Male Physical Exam Const: COMMON NORMALS: no acute distress, patient oriented x3 and healthy appearing HENMT: COMMON NORMALS: normocephalic and atraumatic HEAD & SCALP: normocephalic and atraumatic Eye: COMMON NORMALS: Equal, round and reactive pupils present and EOMs intact bilaterally PUPIL: Yes Equal, round and reactive pupils present Neck/C-Spine: COMMON NORMALS: full ROM and supple Chest: COMMONS NORMALS: normal inspection of the chest and normal palpation of entire chest wall Resp: COMMON NORMALS: normal respiratory effort, No retractions, No use of accessory muscles and clear to auscultation bilaterally AUSCULTATION: clear to auscultation bilaterally Cardio: COMMON NORMALS: regular rate, regular rhythm and No murmurs present (Cardio) RATE: regular rate RHYTHM: regular rhythm GI: COMMON NORMALS: Normal to inspection, nondistended, normoactive bowel sounds present, Soft to palpation, non-tender and no masses PALPATION: Yes Soft to palpation Extremity: COMMON NORMALS: normal to inspection and full ROM Neuro: COMMON NORMALS: patient oriented x3, moves all extremities and no focal motor deficits Psych: COMMON NORMALS: mental status grossly normal, Normal thought process present and cooperative THOUGHT PROCESS: Normal thought process present Skin: COMMON NORMALS: no rashes or lesions noted and no wounds GENERAL SKIN EXAM: no rashes or lesions noted Course Vital Signs: Vital signs: Vital Signs Temperature 98.1 F 06/18/21 18:49 Pulse Rate 76 06/18/21 20:43 Respiratory Rate 15 06/18/21 20:43 Blood Pressure 204/97 06/18/21 20:43 Pulse Oximetry 92 06/18/21 20:43 MDM - Headache Medical Decision Making Patient presents here with high blood pressure along with a headache he is well-appearing here headache is much improved blood work shows no acute abnormalities head CT is normal he is stable for discharge she is to follow-up with PCP and return if worsening is no signs of meningitis or subarachnoid hemorrhage. Lab Data : 06/18/21 20:35 06/18/21 20:[address] 06/18/21 19:04 IMPRESSION: No acute intracranial abnormality demonstrated. Laboratory Results WBC 6.0 10^3/uL (4.0-10.0) 06/18/21 20: RBC 3.63 10^6/uL (4.1-5.3) L 06/18/21 20:35 Hgb 9.5 g/dL (11.7-16.6) L 06/18/21 20: Hct 32.7 % (42.0-52.0) L 06/18/21 20: MCV 90.1 fl (80-94) 06/18/21 20: MCH 26.2 pg (28.0-34.0) L 06/18/21 20: MCHC 29.1 g/dL (30.0-36.0) L 06/18/21: RDW 18.7 % (12.1-15.1) H 06/18/21 20: Plt Count 199 10^3/cmm (130-400) 06/18/21: MPV 9.7 fL (7.4-10.4) 06/18/21 20: Neut % (Auto) 88.5 % 06/18/21 20: Lymph % (Auto) 5.7 % 06/18/21 20:35 [place] % (Auto) 4.7 % 06/18/21 20: Eos % (Auto) 0.5 % 06/18/21 20: Baso % (Auto) 0.3 % 06/18/21 20:35 Neut # (Auto) 5.26 10^3/uL (1.8-7.7) 06/18/21: Lymph # (Auto) 0.3 10^3/uL (0.8-4.8) L 06/18/21 20:35 [place] # (Auto) 0.3 10^3/uL (0.2-0.9) 06/18/21 20: Eos # (Auto) 0.0 10^3/uL (0.0-0.8) 06/18/21 20: Baso # (Auto) 0.0 10^3/uL (0.0-0.1) 06/18/21 20: Nucleated RBC % (auto) 0 % 05/02/22 20:35 Nucleated RBCs # 0.0 /100WBC 06/18/21 20:35 Sodium 140 mmol/L (136-145) 06/18/21 20:35 Potassium 4.0 mmol/L (3.5-5.1) 06/18/21 20:35 Chloride 97 mmol/L (98-107) L 06/18/21 20:35 Carbon Dioxide 31 mmol/L (22-29) H 06/18/21 20:35 Anion Gap 16.0 (5-19) 06/18/21 20:35 BUN 22 mg/dL (8-23) 06/18/21 20:35 Creatinine 5.2 mg/dL (0.7-1.2) H 06/18/21 20:35 GFR Calculation Not Reportable 06/18/21 20:35 Glucose 130 mg/dL (65-115) H 06/18/21 20:35 Calculated Osmolality 295 mOsm/kg (285-295) 06/18/21 20:35 Calcium 7.9 mg/dL (8.5-10.5) L 06/18/21 20:35 Total Bilirubin 0.3 mg/dL (0.15-1.2) 06/18/21 20:35 AST 11 U/L (0-40) 06/18/21 20:35 ALT 6 U/L (0-41) 06/18/21 20:35 Alkaline Phosphatase 93 IU/L (40-130) 06/18/21 20:35 Total Protein 6.2 g/dL (6.6-8.7) L 06/18/21 20:35 Albumin 4.0 g/dL (3.5-5.2) 06/18/21 20:35 Globulin 2.2 g/dL (1.3-4.6) 06/18/21 20:35 Discharge Plan Discharge Patient Disposition: Home Clinical Impression: Headache, End-stage renal disease (ESRD), Hypertension Condition: Stable Prescriptions: No Action omeprazole 40 mg capsule,delayed release(DR/EC) 40 mg PO QDAY 0RF atorvastatin 20 mg tablet 20 mg PO QDAY 0RF nifedipine [Adalat CC] 30 mg tablet extended release 60 mg PO DAILY 0RF ondansetron HCl 8 mg tablet 8 mg PO PRN PRN (Reason: Nausea) 0RF montelukast 10 mg tablet 10 mg PO DAILY PRN (Reason: Allergic Symptoms) 0RF zinc 50 mg capsule 50 mg PO DAILY 0RF torsemide 100 mg tablet 100 mg PO DAILY Qty: 90 1RF sertraline 50 mg tablet 50 mg PO DAILY Qty: 90 1RF docusate sodium [Colace] 100 mg capsule 100 mg PO DAILY Qty: 90 1RF metoprolol tartrate 100 mg Tablet 100 mg PO BID 0RF hydrocodone-acetaminophen 5-325 mg tablet 1 tab PO Q6H PRN (Reason: pain) Qty: 20 0RF Discharge Orders: Discharge ED (Routine); Ordered 06/18/21 Ordered By: Fransisco Alvarenga Referrals: Kolton Calles DO [Primary Care Provider] - Discharge Diet: Advance as tolerated Discharge Activity: Resume usual activity Patient Instructions: Acute Headache (ED), Hypertension (ED) Coding Level of Care Code ED Media Relations Manager for Chg Fwd Exam Comprehensive
[2021-06-18 20:42] LABS: Basophils % 0.3 %; Eosinophils % 0.5 %; Hematocrit 32.7 % (42.0-52.0); Hemoglobin 9.5 g/dL (11.7-16.6); Lymphocytes # 0.3 10^3/uL (0.8-4.8); Lymphocytes % 5.7 %; Mean Corpuscular HGB Conc 29.1 g/dL (30.0-36.0); Mean Corpuscular Hemoglobin 26.2 pg (28.0-34.0); Mean Corpuscular Volume 90.1 fl (80-94); Mean Platelet Volume 9.7 fL (7.4-10.4); Monocytes # 0.3 10^3/uL (0.2-0.9); Monocytes % 4.7 %; Neutrophils # 5.26 10^3/uL (1.8-7.7); Neutrophils % 88.5 %; Nucleated Red Blood Cells % 0 %; Platelet Count 199 10^3/cmm (130-400); Red Blood Count 3.63 10^6/uL (4.1-5.3); Red Cell Distribution Width 18.7 % (12.1-15.1)
[2021-06-18 20:43] VITALS: BP 204/97; PULSE 76; RESP 15; O2SAT 92
[2021-06-18 20:59] LABS: Alanine Aminotransferase 6 U/L (0-41); Alkaline Phosphatase 93 IU/L (40-130); Aspartate Amino Transferase 11 U/L (0-40); Blood Urea Nitrogen 22 mg/dL (8-23); Calcium 7.9 mg/dL (8.5-10.5); Carbon Dioxide 31 mmol/L (22-29); Chloride 97 mmol/L (98-107); Globulin 2.2 g/dL (1.3-4.6); Glucose 130 mg/dL (65-115); Osmolality Calculated 295 mOsm/kg (285-295); Sodium 140 mmol/L (136-145); Total Bilirubin 0.3 mg/dL (0.15-1.2); Total Protein 6.2 g/dL (6.6-8.7)
--- NOTE | 2021-06-18 22:01 | PC.NURSE ---
Patients B/P was elevated, Dr was notified and was comfortable with him going home and following up with primary tomorrow.
[2021-06-18 22:03] VITALS: BP 197/95; PULSE 80; RESP 15; TEMP 37.1; O2SAT 93
[2021-06-18 22:04] VITALS: BP 197/95; PULSE 80; RESP 15; TEMP 37.1; O2SAT 93
== END 2021-06-18 21:50 | disposition home or self-care (01) ==
PROVIDERS: Emergency Provider Emergency Medicine; PCP Family Medicine
DX: R51.9 Headache, unspecified (principal); I12.0 Hypertensive chronic kidney disease with stage 5 chronic kidney disease or end stage renal disease; N18.6 End stage renal disease; Z99.2 Dependence on renal dialysis; Z87.891 Personal history of nicotine dependence; Z85.54 Personal history of malignant neoplasm of ureter; Z85.51 Personal history of malignant neoplasm of bladder; Z90.5 Acquired absence of kidney; Z86.73 Personal history of transient ischemic attack (TIA), and cerebral infarction without residual deficits
CPT/HCPCS: 70450; 80053; 85025; 96374; 96375; 96376; 99284; J1200; J1642; J2765; J3490

== ENCOUNTER 2021-07-04 05:40 | Inpatient (IN) | payer MEDICARE, OTHER, SELFPAY ==
[2021-07-04] VITALS (158 sets, daily range): BP systolic 116–234; BP diastolic 73–144; PULSE 55–120; RESP 0–35; TEMP 36.2–37.2; O2SAT 79–100; BMI 25.3
--- NOTE | 2021-07-04 05:46 | XRR_ITS ---
PROCEDURE INFORMATION: Exam: XR Chest Exam date and time: 07/04/2021 5:53 AM Age: 76 years old Clinical indication: Dyspnea; Patient HX: SOB TECHNIQUE: Imaging protocol: XR of the chest. Views: 1 view. COMPARISON: CR XR chest 1V portable [id number] 04/03/2021 3:44 PM FINDINGS: Tubes, catheters and devices: Right central catheter tip projects over the SVC. Lungs: Right lower and left lower lung zone opacities in keeping with known pulmonary masses. Patchy ground-glass opacity in the right upper lateral lung zone which may be seen with pneumonia. Pleural spaces: Unremarkable. No pleural effusion. No pneumothorax. Heart/Mediastinum: No cardiomegaly. Bones/joints: No acute fracture. XR/XR chest 1V portable [id number] IMPRESSION: Right lower and left lower lung zone opacities in keeping with known pulmonary masses. Patchy ground-glass opacity in the right upper lateral lung zone which may be seen with pneumonia.
--- NOTE | 2021-07-04 05:47 | ECG_ITS ---
[facility] Test Date: 2021-07-04 Pat Name: Manuel Garcia Department: Room: Gender: Male Guard Captain: : [id number] Requested By: Monster Card Order Number: [id number] Saleh MD: Sheryl Sierra M.D. Measurements Intervals [place] Rate: 95 P: 58 RI: 159 QRS: 30 QRSD: 93 T: 67 QT: 368 QTc: 464 Interpretive Statements SINUS RHYTHM MODERATE ST DEPRESSION [0.05+ mV ST DEPRESSION] Compared to ECG 02/14/2020 06:11:57 ST (T wave) deviation now present Electronically Signed On 07-04-2021 20:22:34 CDT by Sheryl Sierra M.D. [email or web address].[email or web address]/store/[id number]
[2021-07-04 06:14] LABS: ABG PCO2 48.5 mmHg (35-45); ABG PH Result 7.34 (7.35-7.45); Arterial Blood Gas Hematocrit 35.2 % (42-52); Base Excess ABG -0.2 mmol/L (-2.0-2.0); Blood Gas Allen Test Pos; Blood Gas Sample Site Radial, left; Blood Gas Sample Type Arterial; Carboxyhemoglobin 0.3 %THgb (0.4-20.1); HCO3 ABG 26.1 mmol/L (22-26); HGB O2 Sat 93.9 % (95-100); Oxygen Device NRB; PO2 ABG 89.2 mmHg (80.0-100.0); Total Hemoglobin 11.5 g/dL (14-18)
[2021-07-04] MEDS: ipratropium-albuterol 3 mL Neb INHALATION (06:31)
[2021-07-04 06:36] LABS: Basophils % 0.1 %; Eosinophils % 0.3 %; Hematocrit 34.9 % (42.0-52.0); Hemoglobin 10.6 g/dL (11.7-16.6); Lymphocytes # 1.2 10^3/uL (0.8-4.8); Lymphocytes % 10.4 %; Mean Corpuscular HGB Conc 30.4 g/dL (30.0-36.0); Mean Corpuscular Hemoglobin 27.4 pg (28.0-34.0); Mean Corpuscular Volume 90.2 fl (80-94); Mean Platelet Volume 9.9 fL (7.4-10.4); Monocytes # 0.7 10^3/uL (0.2-0.9); Monocytes % 5.6 %; Neutrophils # 9.85 10^3/uL (1.8-7.7); Neutrophils % 83.1 %; Nucleated Red Blood Cells % 0 %; Platelet Count 224 10^3/cmm (130-400); Red Blood Count 3.87 10^6/uL (4.1-5.3); Red Cell Distribution Width 19.1 % (12.1-15.1); White Blood Count 11.9 10^3/uL (4.0-10.0)
--- NOTE | 2021-07-04 06:57 | W.ED.SOB ---
HPI - SOB/Dyspnea General: Chief Complaint: Shortness of Breath/Dyspnea Stated Complaint: sob Time Seen by Provider: 07/04/21 05:58 Source: patient Mode of arrival: ambulatory Limitations: no limitations History of Present Illness: HPI Narrative: 76-year-old male presents to the emergency room with complaints of difficulty breathing. Began suddenly this morning when he woke up he states he felt fine yesterday had no difficulty. Has had a mildly productive cough. He has a history of renal cell CA with lung mets. He is also on end-stage renal dialysis he is due for dialysis today. He has had a little bit of increased swelling in his legs. MD elicited complaint: shortness of breath Pertinent past history: COPD, congestive heart failure, pneumonia and other (lung CA) Onset (ago): minute(s) Timing: constant Severity: moderate Exacerbating factors: lying flat, exertion and coughing Relieving factors: oxygen and rest Known history of: COPD and congestive heart failure Associated symptoms: Reports chest congestion and orthopnea; Deny abdominal pain, chest pain, cough, diaphoresis, dizziness, extremity pain, fever(s), hemoptysis, lightheadedness, myalgias, nausea, palpitations, paresthesias, polydipsia, polyuria, rash, sense of impending doom, syncope or vomiting Treatment prior to arrival: oxygen and bronchodilator Review of Systems Const: Denies: fever(s), chills or diaphoresis Card: Reports: orthopnea; Denies: chest pain, palpitations, lightheadedness or syncope Resp: Reports: chest congestion; Denies: hemoptysis GI: Denies: abdominal pain, nausea or vomiting Musc: Denies: extremity pain Neuro: Denies: dizziness Endo: Denies: polyuria or polydipsia [facility] ED PFSH: Medical History AV fistula Bladder cancer Cancer of trigone of urinary bladder CKD (chronic kidney disease) stage 5, GFR less than 15 ml/min On hemodialysis Degenerative joint disease (DJD) of lumbar spine GERD (gastroesophageal reflux disease) Hypertension Port-A-Cath in place Primary cancer of right ureter Stroke Surgical History History of back surgery History of ear surgery TRAUMA TO RIGHT EAR-PART OF TOP OF EAR REMOVED History of nephrectomy, right S/P bilateral inguinal hernia repair (05/10/21) Status post insertion of dialysis catheter RIGHT FOREARM Family History Father , AT AGE 71 Heart attack Mother , MVA No problems noted. Denies family history of Anesthesia complication Bleeding disorder Social History Smoking and tobacco status: never smoked Quit status (tobacco): has quit using tobacco Year quit tobacco: Alcohol intake: current Alcohol intake frequency: few times a month Marital status: Current occupational status: retired Current gender identity: Male Physical Exam Const: COMMON NORMALS: no acute distress GENERAL APPEARANCE: cooperative and comfortable ORIENTATION/CONSCIOUSNESS: Yes awake, Yes oriented to person, Yes oriented to place and Yes oriented to time HENMT: COMMON NORMALS: normocephalic, atraumatic and hearing grossly normal bilaterally HEAD & SCALP: normocephalic and atraumatic Resp: AUSCULTATION: rhonchi and wheezes Cardio: COMMON NORMALS: regular rhythm and No murmurs present (Cardio) RATE: tachycardic RHYTHM: regular rhythm GI: COMMON NORMALS: Soft to palpation and No hepatosplenomegaly present AUSCULTATION: Yes normoactive bowel sounds PALPATION: Yes Soft to palpation, No Tenderness to palpation present (GI), No Guarding due to palpation present (GI) and Yes No hepatosplenomegaly present Extremity: COMMON NORMALS: normal to inspection, capillary refill normal, no clubbing, cyanosis or edema, no calf tenderness and no pedal edema Neuro: SENSORIUM/ORIENTATION: Yes oriented to person, Yes oriented to place and Yes oriented to time Skin: COMMON NORMALS: no rashes or lesions noted GENERAL SKIN EXAM: no rashes or lesions noted Course Vital Signs: Vital signs: Vital Signs Temperature 99.0 F 07/04/21 05:58 Pulse Rate 77 07/04/21 09:32 Respiratory Rate 21 H 07/04/21 09:32 Blood Pressure 205/111 07/04/21 09:32 Pulse Oximetry 95 07/04/21 09:32 MDM - SOB/Dyspnea Medical Decision Making Right upper lobe and left lower lobe pneumonia as well as some fluid overload. Patient is due for dialysis today. Much better after initiation of the BiPAP. Start broad-spectrum antibiotic coverage cultures done. Admit to Dr. Sheehan consult nephrology have discussed with him orders written. Medical Records I reviewed the patient's medical records. Lab Data I reviewed the patient's lab results. : 07/04/21 06:00 07/04/21 06:00 Labs/Radiology: Radiology Impressions Chest X-Ray 07/04/21 05:46 IMPRESSION: Right lower and left lower lung zone opacities in keeping with known pulmonary masses. Patchy ground-glass opacity in the right upper lateral lung zone which may be seen with pneumonia. Laboratory Results WBC 11.9 10^3/uL (4.0-10.0) H 07/04/21 06:00 RBC 3.87 10^6/uL (4.1-5.3) L 07/04/21 06:00 Hgb 10.6 g/dL (11.7-16.6) L 07/04/21 06:00 Hct 34.9 % (42.0-52.0) L 07/04/21 06:00 MCV 90.2 fl (80-94) 07/04/21 06:00 MCH 27.4 pg (28.0-34.0) L 07/04/21 06:00 MCHC 30.4 g/dL (30.0-36.0) 07/04/21 06:00 RDW 19.1 % (12.1-15.1) H 07/04/21 06:00 Plt Count 224 10^3/cmm (130-400) 07/04/21 06:00 MPV 9.9 fL (7.4-10.4) 07/04/21 06:00 Neut % (Auto) 83.1 % 07/04/21 06:00 Lymph % (Auto) 10.4 % 07/04/21 06:00 [place] % (Auto) 5.6 % 07/04/21 06:00 Eos % (Auto) 0.3 % 07/04/21 06:00 Baso % (Auto) 0.1 % 07/04/21 06:00 Neut # (Auto) 9.85 10^3/uL (1.8-7.7) H 07/04/21 06:00 Lymph # (Auto) 1.2 10^3/uL (0.8-4.8) 07/04/21 06:00 [place] # (Auto) 0.7 10^3/uL (0.2-0.9) 07/04/21 06:00 Eos # (Auto) 0.0 10^3/uL (0.0-0.8) 07/04/21 06:00 Baso # (Auto) 0.0 10^3/uL (0.0-0.1) 07/04/21 06:00 Nucleated RBC % (auto) 0 % 07/04/21 06:00 Nucleated RBCs # 0.0 /100WBC 07/04/21 06:00 Specimen Type Arterial 07/04/21 06:02 Sample Site Radial, left 07/04/21 06:02 ABG pH 7.34 (7.35-7.45) L 07/04/21 06:02 ABG pCO2 48.5 mmHg (35-45) H 07/04/21 06:02 ABG pO2 89.2 mmHg (80.0-100.0) 07/04/21 06:02 ABG HCO3 26.1 mmol/L (22-26) H 07/04/21 06:02 ABG Base Excess -0.2 mmol/L (-2.0-2.0) 07/04/21 06:02 Aric Test Pos 07/04/21 06:02 Hematocrit 35.2 % (42-52) L 07/04/21 06:02 Hgb O2 Saturation 93.9 % (95-100) L 07/04/21 06:02 Carboxyhemoglobin 0.3 %THgb (0.4-20.1) L 07/04/21 06:02 Methemoglobin 1.0 % (0.4-1.5) 07/04/21 06:02 Total Hemoglobin 11.5 g/dL (14-18) L 07/04/21 06:02 O2 Delivery Device Nrb 07/04/21 06:02 O2 Liters/Min 15.0 % 07/04/21 06:02 Account Administrator ID Buttr 07/04/21 06:02 Sodium 145 mmol/L (136-145) 07/04/21 06:00 Potassium 4.0 mmol/L (3.5-5.1) 07/04/21 06:00 Chloride 98 mmol/L (98-107) 07/04/21 06:00 Carbon Dioxide 26 mmol/L (22-29) 07/04/21 06:00 Anion Gap 25.0 (5-19) H 07/04/21 06:00 BUN 43 mg/dL (8-23) H 07/04/21 06:00 Creatinine 7.2 mg/dL (0.7-1.2) H* 07/04/21 06:00 GFR Calculation Not Reportable 07/04/21 06:00 Glucose 187 mg/dL (65-115) H 07/04/21 06:00 Calculated Osmolality 316 mOsm/kg (285-295) H 07/04/21 06:00 Lactic Acid 4.3 mmol/L (0.5-2.2) H* 07/04/21 06:00 Lactic Acid (Sepsis) 1.8 mmol/L (0.5-2.2) 07/04/21 09:10 Calcium 8.1 mg/dL (8.5-10.5) L 07/04/21 06:00 Magnesium 1.9 mg/dL (1.7-2.3) 07/04/21 06:00 Total Bilirubin 0.3 mg/dL (0.15-1.2) 07/04/21 06:00 AST 20 U/L (0-40) 07/04/21 06:00 ALT 14 U/L (0-41) 07/04/21 06:00 Alkaline Phosphatase 114 IU/L (40-130) 07/04/21 06:00 Troponin T Baseline 71 ng/L (0-15) H 07/04/21 06:00 Troponin T 120 Minute 74.78 ng/L (0-15) H 07/04/21 07:49 Delta Troponin T 3.78 ABS# (0-10) 07/04/21 07:49 NT-Pro-B Natriuret Pep > 30081 pg/mL (0-450) H 07/04/21 06:00 Total Protein 6.4 g/dL (6.6-8.7) L 07/04/21 06:00 Albumin 4.2 g/dL (3.5-5.2) 07/04/21 06:00 Globulin 2.2 g/dL (1.3-4.6) 07/04/21 06:00 Nasal Influ A H1 2009 PCR Not detected (NOT DETECT) 07/04/21 07:15 Coronavirus 229E (PCR) Not detected (NOT DETECT) 07/04/21 07:15 Influenza A (H1) PCR Not detected (NOT DETECT) 07/04/21 07:15 Influenza A (H3) PCR Not detected (NOT DETECT) 07/04/21 07:15 Influenza Type A (PCR) Not detected (NOT DETECT) 07/04/21 07:15 Influenza Type B (PCR) Not detected (NOT DETECT) 07/04/21 07:15 SARS-CoV-2 (PCR) Not detected (NOT DETECT) 07/04/21 07:15 Discharge Plan Discharge Patient Disposition: Admitted As Inpatient Clinical Impression: Pneumonia, End stage renal disease, Malignant neoplasm of right renal pelvis, Congestive heart failure Condition: Stable Prescriptions: No Action omeprazole 40 mg capsule,delayed release(DR/EC) 40 mg PO QAM 0RF atorvastatin 20 mg tablet 20 mg PO QPM 0RF nifedipine [Adalat CC] 30 mg tablet extended release 60 mg PO DAILY 0RF ondansetron HCl 8 mg tablet 8 mg PO Q6H PRN (Reason: Nausea) 0RF montelukast 10 mg tablet 10 mg PO DAILY PRN (Reason: Allergy Symptoms) 0RF zinc 50 mg capsule 50 mg PO DAILY 0RF clonidine HCl 0.1 mg tablet 0.1 mg PO BID Qty: 60 2RF hydrocodone-acetaminophen 5-325 mg tablet 1 tab PO Q6H PRN (Reason: pain) 7 Days Qty: 20 0RF cyclobenzaprine 10 mg tablet 10 mg PO TID PRN (Reason: muscle spasm) Qty: 30 2RF torsemide 100 mg tablet 100 mg PO DAILY Qty: 90 1RF sertraline 50 mg tablet 50 mg PO DAILY Qty: 90 1RF metoprolol tartrate 100 mg Tablet 100 mg PO BID 0RF prednisone 20 mg tablet See Rx Instructions .ROUTE .COMPLEX 0RF Rx Instructions: 3 tabs daily for 14 days, 2 tabs daily for 7 days, 1 tab daily for 7 days. Colace 100 mg capsule 100 mg PO QAM 0RF zinc 50 mg Tablet 50 mg PO QAM 0RF Tylenol 325 mg Tablet 325 - 650 mg PO Q6H PRN (Reason: Pain) 0RF triamcinolone acetonide 0.1 % ointment 1 applic TOPICAL BID PRN (Reason: Rash) 0RF Claritin 10 mg Tablet 10 mg PO DAILY PRN (Reason: Allergy Symptoms) 0RF Referrals: Kolton Calles DO [Primary Care Provider] - Coding Level of Care Code ED Residential Mortgage Manager for Robert Walsh
[2021-07-04 07:20] LABS: Troponin(5th) Baseline 71 ng/L (0-15)
[2021-07-04 07:21] LABS: Lactic Sepsis W/Reflex 4.3 mmol/L (0.5-2.2)
[2021-07-04 07:27] LABS: Alanine Aminotransferase 14 U/L (0-41); Albumin Level 4.2 g/dL (3.5-5.2); Alkaline Phosphatase 114 IU/L (40-130); Aspartate Amino Transferase 20 U/L (0-40); Blood Urea Nitrogen 43 mg/dL (8-23); Calcium 8.1 mg/dL (8.5-10.5); Carbon Dioxide 26 mmol/L (22-29); Chloride 98 mmol/L (98-107); Globulin 2.2 g/dL (1.3-4.6); Glucose 187 mg/dL (65-115); Magnesium 1.9 mg/dL (1.7-2.3); Osmolality Calculated 316 mOsm/kg (285-295); Sodium 145 mmol/L (136-145); Total Bilirubin 0.3 mg/dL (0.15-1.2); Total Protein 6.4 g/dL (6.6-8.7)
[2021-07-04] MEDS: piperacillin-tazobactam 3.375 GM in sodium chloride 0.9% (plus) 50 ML IV (07:27)
--- NOTE | 2021-07-04 07:47 | ECG_ITS ---
[facility] Test Date: 2021-07-04 Pat Name: Manuel Garcia Department: Room: Gender: Male Manager Insurance: : 1945 Requested By: [employer] Card Order Number: [id number] Delfino MD: Sheryl Sierra M.D. Measurements Intervals [place] Rate: 63 P: 45 OK: 170 QRS: 20 QRSD: 94 T: 47 QT: 446 QTc: 460 Interpretive Statements SINUS RHYTHM LEFT VENTRICULAR HYPERTROPHY AND ST-T CHANGE [VOLTAGE CRITERIA PLUS ST/T ABNORMALITY] Compared to ECG 07/04/2021 05:51:30 Left ventricular hypertrophy now present ST (T wave) deviation still present Electronically Signed On 07-04-2021 20:28:21 CDT by Sheryl Sierra M.D. [id number]
[2021-07-04] MEDS: hyDRALAzine 20 mg/mL INJ 1 mL IVP (07:50)
--- NOTE | 2021-07-04 08:01 | PC.NURSE ---
one hour 20 minutes for covid results.
[2021-07-04] MEDS: levofloxacin-dextrose 5 % 500 MG/100 ML PREMIX 100 MG IV (08:02)
[2021-07-04 08:11] LABS: Troponin 5 2HR 74.78 ng/L (0-15)
[2021-07-04 08:19] LABS: Troponin 5 2HR Delta 3.78 ABS# (0-10)
[2021-07-04 08:20] LABS: Reflex Lactate Order REFLEX LACTIC ORDERD
[2021-07-04 08:23] LABS: NT Pro B Type Natriuretic Pept > 70000 pg/mL (0-450)
--- NOTE | 2021-07-04 08:29 | PC.NURSE ---
Patient stated he was going to rip off his mask, respiratory called, she states we will attempt to try on nc, at this time oxygen on nasal canula is 96%.
--- NOTE | 2021-07-04 08:37 | PC.NURSE ---
Patient states he is still feeling short of breath with chest pain, son states he looks much better, vitals stable.
--- NOTE | 2021-07-04 09:05 | PM.CONSULT ---
Providers/Reason For Consult Consulting Physician/Specialty*: luciana navarro md / telenphrology Reason for Consult*: ESRD care Requesting Physician: Dr Chavis and Dr Alfredo Primary Care Provider: Kolton Calles DO History of Present Illness History of Present Illness Manuel Garcia is a 76 year old male with history of T3, Nx, MX papillary tumor located over the right ureteral orifice with obstruction diagnosed on 03/19/2019.?S/P cystoscopy TURBT on 03/25/2019 which showed papillary urothelial carcinoma: low-grade no muscle invasion seen. S/P Right robotic nephroureterectomy. He is s/p split dose cisplatin and gemcitabine in Summer 2019. He is s/pl neoadjuvant chemotherapy with oxaliplatin/Xeloda in September. He did not tolerate well. CT scan of chest done on 02/20/2021 showed numerous bilateral pulmonary nodules largest right lower lobe partially pleural-based measuring 7.3 cm x 5.6 cm and largest mass lower left chest partially pleural-based and partially contiguous with the left diaphragm measuring 6.9 x 6.1 cm and extensive and numerous bilateral diffuse pulmonary nodules extensive mediastinal lymphadenopathy with the largest paratracheal lymph node measuring 4.8 x 3.3 cm.? Enlarged subcarinal lymph node measures approximately 3.9 cm He is being followed by urology Dr. Ortega for superficial bladder cancer and underwent cystoscopy which revealed 2 areas of recurrence both were fulgurated and patient underwent cystoscopy again on 02/20/2021 which shows multiple areas of recurrence, anterior bladder wall just distal to the trigone, right lateral floor, some left lateral wall.? All appears to be similar to his prior recurrence which ultimately turned out to be low-grade noninvasive.,? BCG based intravesical treatment is under consideration. Patient was referred to pulmonology and on April 03, 2021 he underwent bronchoscopy and biopsy of left lung mass showed adenocarcinoma, case was discussed with pathologist Dr. Poon, his impression was non-small cell lung cancer versus high-grade urothelial carcinoma with adenocarcinoma differentiation, PD-L1 expression shows TPS 25% molecular profiling Showed? TMB 7, MSI stable, ALK negative NTRK no fusion, EGFR negative. WI GPSai confirmed urothelial carcinoma with 100% probability Started on 3 weekly pembrolizumab on April 23, 2021 Patient has been c/o headaches and recently started on steroids.Pt is for a temporal artery bx The pt has h/o ESRD on HD at [facility] on MWF. Pt is here w/ sob, weakness. Renal called for ESRD care.. Review of Systems Narrative: weak, sob, arellano, oliva, nausea, poor appetite, anxious. Medications/Allergies Home Medications Medication Instructions Recorded Confirmed Last Taken Type atorvastatin 20 mg tablet 20 mg PO QDAY 03/16/19 07/03/21 05/09/21 History omeprazole 40 mg capsule,delayed 40 mg PO QDAY 03/16/19 07/03/21 05/09/21 History release metoprolol tartrate 100 mg tablet 100 mg PO BID 10/18/20 07/03/21 05/10/21 History montelukast 10 mg tablet 10 mg PO DAILY PRN 02/20/21 07/03/21 04/02/21 History ondansetron HCl 8 mg tablet 8 mg PO PRN PRN tab 02/20/21 07/03/21 05/09/21 History nifedipine 30 mg tablet,extended 60 mg PO DAILY tab 05/31/21 07/03/21 Unknown History release (Adalat CC) zinc 50 mg capsule 50 mg PO DAILY 05/31/21 07/03/21 Unknown History sertraline 50 mg tablet 50 mg PO DAILY #90 tab 06/07/21 07/03/21 Unknown Rx torsemide 100 mg tablet 100 mg PO DAILY #90 tab 06/07/21 07/03/21 Unknown Rx docusate sodium 100 mg capsule 100 mg PO DAILY #90 cap 06/12/21 07/03/21 Unknown Rx (Colace) clonidine HCl 0.1 mg tablet 0.1 mg PO BID #60 tab 06/25/21 07/03/21 Unknown Rx cyclobenzaprine 10 mg tablet 10 mg PO TID PRN #30 tab 06/25/21 07/03/21 Unknown Rx hydrocodone 5 mg-acetaminophen 325 1 tab PO Q6H PRN 7 Days #20 tab 06/25/21 07/03/21 Unknown Rx mg tablet prednisone 20 mg tablet 20 mg PO DAILY #63 tab 07/02/21 07/03/21 Unknown Rx Allergies Allergy/AdvReac Type Severity Reaction Status Date / Time No Known Allergies Allergy Verified 07/03/21 10:43 PFSH Acute PFSH: Medical History AV fistula Bladder cancer Cancer of trigone of urinary bladder CKD (chronic kidney disease) stage 5, GFR less than 15 ml/min On hemodialysis Degenerative joint disease (DJD) of lumbar spine GERD (gastroesophageal reflux disease) Hypertension Port-A-Cath in place Primary cancer of right ureter Stroke Surgical History History of back surgery History of ear surgery TRAUMA TO RIGHT EAR-PART OF TOP OF EAR REMOVED History of nephrectomy, right S/P bilateral inguinal hernia repair (05/10/21) Status post insertion of dialysis catheter RIGHT FOREARM Family History Father , AT AGE 71 Heart attack Mother , MVA No problems noted. Denies family history of Anesthesia complication Bleeding disorder Social History Smoking and tobacco status: never smoked Quit status (tobacco): has quit using tobacco Year quit tobacco: Alcohol intake: current Alcohol intake frequency: few times a month Marital status: Current occupational status: retired Current gender identity: Male Vitals/I&O/Wt Last Vital Signs Temp 99.0 F 07/04/21 05:58 Pulse 86 07/04/21 08:28 Resp 23 H 07/04/21 08:28 BP 201/111 07/04/21 08:28 Pulse Ox 94 07/04/21 08:28 Weight last 48 hrs Weight 71.214 kg Physical Exam Narrative: weak, sob in bed. BP elevated heent- nc/at neck supple lungs wheezing b/l heart reg abd soft, nt, nd, + bs ext RUE aVF w/ thrill and bruit neuro- a,a, o x 2+ Data : 07/04/21 06:00 07/04/21 06:00 Micro: Microbiology 07/04/21 06:17 Blood Culture - Preliminary Blood SPECIMEN COLLECTED 07/04/21 06:00 Blood Culture - Preliminary Blood SPECIMEN COLLECTED A&P Assessment and plan (1) End stage renal disease: 76 yr old male ESRd, met cancer 1/ ESRD and htn- hd now - 3.5 hrs, 3k, remove 3l as tolerated 2. Q PNA- renal dose abx per medicine 3. anemia- hgb adequate for ESRD 4.resp acidosis- known metastatic disease to lungs lactic acidosis may be from metastatic ca 5.htn -monitor w/ HD. 6.elevated glucose on steroids seen and examined w/ rN- telehealth visit- time spent 50 min informed consent for telehealth obtained from pt Status: Acute Plan as above Consult Attestations Medical Necessity Statement: sob, htn Time Spent in Patient Care: Greater than 35 minutes (>than 50% of time spent in counselling and/or direct pt care on unit). 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
[2021-07-04 09:14] LABS: Adenovirus Not Detected (NOT DETECT); Chlamydia Pneumoniae Not Detected (NOT DETECT); Coronavirus 229E,HKU1,NL63,OC4 Not Detected (NOT DETECT); Human Metapneumovirus Not Detected (NOT DETECT); Human Rhinovirus/Enterovirus Not Detected (NOT DETECT); Influenza A Not Detected (NOT DETECT); Influenza A H1 Not Detected (NOT DETECT); Influenza A H1-2009 Not Detected (NOT DETECT); Influenza A H3 Not Detected (NOT DETECT); Influenza B Not Detected (NOT DETECT); Mycoplasma Pneumoniae Not Detected (NOT DETECT); Parainfluenza Virus Type 1 Not Detected (NOT DETECT); Parainfluenza Virus Type 2 Not Detected (NOT DETECT); Parainfluenza Virus Type 3 Not Detected (NOT DETECT); Parainfluenza Virus Type 4 Not Detected (NOT DETECT); Respiratory Syncytial Virus A Not Detected (NOT DETECT); Respiratory Syncytial Virus B Not Detected (NOT DETECT); SARS-COV-2 Not Detected (NOT DETECT)
[2021-07-04 09:28] LABS: Results from Genmark
--- NOTE | 2021-07-04 09:29 | PC.PHAR ---
pt and pts family unable to verify medications-pts son states the pt has home health with [facility]-medications entered are meds from the [facility] med list, ext med history and previous entered med list-notes are made in the pharmacy comments
[2021-07-04] MEDS: vancomycin 1,000 MG in sodium chloride 0.9% 250 ML 250 MG IV (09:31)
--- NOTE | 2021-07-04 09:48 | PM.HP ---
Providers/Chief Complaint Primary Care Provider: Kolton Calles DO Chief Complaint: sob History of Present Illness Manuel Garcia is a 76 year old male with underlying metastatic renal cell carcinoma undergoing treatment now with Keytruda who presents to the emergency department with shortness of breath and chest discomfort. He reports early this morning upon awakening he noticed some chest discomfort and shortness of breath. Yesterday he reports he was doing okay. He reports the chest discomfort is substernal, to the right side and pressure. He reports his blood pressures have been quite high lately. He has not taken his medication yet this morning. He denies any vomiting, diarrhea. He has had an occasional cough, particularly in the morning but no fever. He denies any sputum production. No vomiting. He normally gets dialysis, on Friday. He has not missed any dialysis. He reports he makes very little urine. He has noticed some swelling lately. He was recently started on some prednisone, for concerns of temporal arteritis. He has not yet got his temporal artery biopsy. Currently he is taking about 60 mg of prednisone daily. Review of Systems General: Reports: 10 or more systems reviewed and unremarkable except in HPI and below Const: Reports: fatigue; Denies: fever(s) or chills Eyes: Denies: change in vision ENMT: Denies: throat pain Card: Reports: chest pain, swelling of feet/ankles and dyspnea on exertion Resp: Reports: dyspnea and non-productive cough GI: Denies: abdominal pain, nausea or vomiting : Denies: flank pain Musc: Denies: neck pain Skin/Breast: Denies: rash Neuro: Denies: headache(s) Psych: Denies: anxiety or depression Endo: Denies: polyuria Shun/Lymph: Denies: easy bruising All/Imm: Denies: urticaria Medications/Allergies Home Medications Medication Instructions Recorded Confirmed Last Taken Type atorvastatin 20 mg tablet 20 mg PO QPM 03/16/19 07/04/21 05/09/21 History omeprazole 40 mg capsule,delayed 40 mg PO QAM 03/16/19 07/04/21 05/09/21 History release metoprolol tartrate 100 mg tablet 100 mg PO BID 10/18/20 07/04/21 05/10/21 History montelukast 10 mg tablet 10 mg PO DAILY PRN 02/20/21 07/04/2104/02/22 History ondansetron HCl 8 mg tablet 8 mg PO Q6H PRN tab 02/20/21 07/04/21 05/09/21 History nifedipine 30 mg tablet,extended 60 mg PO DAILY tab 05/31/21 07/04/21 Unknown History release (Adalat CC) clonidine HCl 0.1 mg tablet 0.1 mg PO BID #60 tab 06/25/21 07/04/21 Unknown Rx cyclobenzaprine 10 mg tablet 10 mg PO TID PRN #30 tab 06/25/21 07/04/21 Unknown Rx hydrocodone 5 mg-acetaminophen 325 1 tab PO Q6H PRN 7 Days #20 tab 06/25/21 07/04/21 Unknown Rx mg tablet acetaminophen 325 mg tablet 325 - 650 mg PO Q6H PRN 07/04/21 07/04/21 Unknown History (Tylenol) docusate sodium 100 mg capsule 100 mg PO QAM 07/04/21 07/04/21 Unknown History (Colace) loratadine 10 mg tablet (Claritin) 10 mg PO DAILY PRN 07/04/21 07/04/21 Unknown History prednisone 20 mg tablet See Rx Instructions .ROUTE .COMPLEX 07/04/21 07/04/21 Unknown History sertraline 50 mg tablet 50 mg PO QAM 07/04/21 07/04/21 Unknown History torsemide 100 mg tablet 100 mg PO QAM 07/04/21 07/04/21 Unknown History triamcinolone acetonide 0.1 % 1 applic TOPICAL BID PRN 07/04/21 07/04/21 Unknown History topical ointment zinc 50 mg tablet 50 mg PO QAM 07/04/21 07/04/21 Unknown History Allergies Allergy/AdvReac Type Severity Reaction Status Date / Time No Known Allergies Allergy Verified 07/03/21 10:43 PFSH Acute PFSH: Medical History AV fistula Bladder cancer Cancer of trigone of urinary bladder CKD (chronic kidney disease) stage 5, GFR less than 15 ml/min On hemodialysis Degenerative joint disease (DJD) of lumbar spine GERD (gastroesophageal reflux disease) Hypertension Port-A-Cath in place Primary cancer of right ureter Stroke Surgical History History of back surgery History of ear surgery TRAUMA TO RIGHT EAR-PART OF TOP OF EAR REMOVED History of nephrectomy, right S/P bilateral inguinal hernia repair (05/10/21) Status post insertion of dialysis catheter RIGHT FOREARM Family History Father , AT AGE 71 Heart attack Mother , MVA No problems noted. Denies family history of Anesthesia complication Bleeding disorder Social History Smoking and tobacco status: never smoked Quit status (tobacco): has quit using tobacco Year quit tobacco: Alcohol intake: current Alcohol intake frequency: few times a month Marital status: Current occupational status: retired Current gender identity: Male Vitals/I&O/Wt Last Vital Signs Temp 99.0 F 07/04/21 05:58 Pulse 77 07/04/21 09:32 Resp 21 H 07/04/21 09:32 BP 205/111 07/04/21 09:32 Pulse Ox 95 07/04/21 09:32 Weight last 48 hrs Weight 71.214 kg Physical Exam Narrative: General exam is a white male, with markedly elevated blood pressure. HEENT atraumatic normocephalic. Oropharynx clear. Neck is supple no lymphadenopathy or thyromegaly Cardiovascular regular rate and rhythm without murmur, port noted Lungs diminished breath sounds bilaterally but clear Abdomen is soft with positive bowel sounds. No obvious organomegaly exam is deferred Extremities no cyanosis clubbing. 1-2+ edema noted bilaterally. Cap refill brisk Skin no rash Neuro no focal deficits Data : 07/04/21 06:00 07/04/21 06:00 Micro: Microbiology 07/04/21 06:17 Blood Culture - Preliminary Blood SPECIMEN COLLECTED 07/04/21 06:00 Blood Culture - Preliminary Blood SPECIMEN COLLECTED Other data: ABG demonstrates pH 7.34, PCO2 48, PO2 of 89 on 15 L nonrebreather. LFTs normal Troponin 71 with repeat of 74 BNP elevated at greater than 70,000 Lactic acid 4.3 Magnesium normal, calcium 8.1 COVID and influenza not detected. Chest x-ray pulmonary masses consistent with his renal cell carcinoma. Question pneumonia right upper lobe. On my review it appears he has some pulmonary edema. EKG demonstrates normal sinus rhythm, normal axis, nonspecific ST-T wave changes noted in V4 through 6 Echocardiogram June 12 demonstrated ejection fraction of 65%, 1/4 diastolic dysfunction, mild aortic valve stenosis A&P Assessment and plan (1) Congestive heart failure: Patient presents with what appears to be fluid overload, consistent with acute diastolic heart failure. This is complicated by his end-stage renal disease. He has evidence of edema on exam. Diuretics will not likely be effective considering his renal disease. Nephrology will be able to remove some excess fluid via dialysis. He has had a recent echocardiogram, reviewed above. At this point we will not plan on repeat. If 1 is needed, limited echocardiogram will be ordered. Status: Acute (2) Pneumonia: Question of pneumonia, left lung on chest x-ray. Obtain sputum culture MRSA PCR Antibiotics currently consisting of Rocephin and azithromycin Status: Acute (3) End stage renal disease: Nephrology consult Nephrology is planning dialysis today with fluid removal Status: Acute (4) Hypertensive urgency: Significantly elevated blood pressures on arrival Will initiate his home blood pressure medication Nitroglycerin ointment 1 inch If this fails, consider nicardipine. This can be tapered down and off during and after dialysis. Status: Acute (5) Acute respiratory failure: Acute hypoxic and hypercarbic respiratory failure, secondary to diastolic heart failure. This should resolve with fluid removal, reduction of blood pressure Status: Acute (6) Chest pain: I believe his chest discomfort is likely from his markedly elevated blood pressure. Serial troponins Note recent previous echo Status: Acute (7) Malignant neoplasm of right renal pelvis: Hold Keytruda currently. There was concern of pneumonia on admission. Note that he has widely metastatic disease. Status: Acute (8) Anemia: Significant anemia, likely secondary to his multiple comorbidities including renal failure and malignancy. Status: Acute Plan Temporal arteritis suspect. Currently on prednisone. We will continue until which time he can have a diagnosis defining temporal artery biopsy. Headaches were recently evaluated with a CT head noncontrast showing no acute abnormality. Multiple other problems as outlined in past medical history Allow natural Heparin will suffice for DVT prophylaxis Attestations Medical Necessity Statement*: Will need greater than 2 midnight stay secondary to acute diastolic heart failure associate with hypertensive urgency and respiratory failure. Critical Care Time: The high probability of a clinically significant, sudden or life threatening deterioration of the patient's [pulmonary, renal, infectious disease, cardiac system(s) required my full and direct attention, intervention and personal management. The critical care time is as shown. 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
[2021-07-04 09:50] LABS: Lactic Acid level (Lactate) 1.8 mmol/L (0.5-2.2)
[2021-07-04 09:52] LABS: Hepatitis B Surface AB 8.5 (11.5-1000); Hepatitis B Surface Antigen Non-Reactive (Nonreactive); Hepatitis C Virus Antibody Non-Reactive (Nonreactive)
[2021-07-04] MEDS: NIFEdipine ER (24 hr) 30 mg Tablet 60 MG PO (10:22)
[2021-07-04] MEDS: metoprolol tartrate 50 mg Tablet 100 MG PO ×2 (10:22→17:12)
[2021-07-04] MEDS: nitroglycerin 1 gm/inch oint Pkt 1 INCH TOPICAL (10:22)
[2021-07-04] MEDS: cloNIDine 0.1 mg Tablet PO ×2 (10:22→17:12)
--- NOTE | 2021-07-04 10:29 | PC.NURSE ---
attempted to call patient report, states that they are unavailable to take report at this time.
--- NOTE | 2021-07-04 10:30 | PC.NURSE ---
Patient reports lower back pain at this time, pillow placed behind patient's back, he reports decrease in pain at this time.
[2021-07-04] MEDS: nicardipine 20 MG/200 ML PREMIX 50 MG IV (11:25)
--- NOTE | 2021-07-04 11:47 | ECG_ITS ---
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 Measurements Intervals [place] Rate: 67 P: 53 NH: 185 QRS: 22 QRSD: 90 T: 53 QT: 470 QTc: 498 Interpretive Statements SINUS RHYTHM PROLONGED QT INTERVAL Compared to ECG 07/04/2021 07:45:03 Prolonged QT interval now present Left ventricular hypertrophy no longer present ST (T wave) deviation no longer present Electronically Signed On 07-04-2021 20:27:47 CDT by Sheryl Sierra M.D. [email or web address]
[2021-07-04] MEDS: heparin 5,000 unit/mL INJ 1 mL 5000 UNIT SUBCUT ×2 (11:57→21:48)
[2021-07-04] MEDS: cefTRIAXone 1,000 MG in sodium chloride 0.9% (plus) 50 ML 100 MG IV (12:00)
[2021-07-04] MEDS: azithromycin 500 MG in sodium chloride 0.9% 250 ML 250 MG IV (12:01)
[2021-07-04] MEDS: predniSONE 20 mg Tablet 60 MG PO (12:02)
[2021-07-04 13:34] LABS: Troponin 5 6HR 90.61 ng/L (0-15)
[2021-07-04 13:44] LABS: Troponin 5 6HR Delta 19.61 ng/L (0-12)
[2021-07-04] MEDS: atorvastatin 40 mg Tablet 20 MG PO (17:12)
--- NOTE | 2021-07-04 17:28 | PC.NURSE ---
Patient's blood pressure higher upon arrival, cardene gtt running per APR. BP stabilized. Gtt turned off. Oral meds administered per APR, Dr. Alfredo aware of patients condition. Patient is currently receiving diaylsis
[2021-07-04] MEDS: acetaminophen 325 mg Tablet 650 MG PO (17:34)
[2021-07-04] MEDS: morphine 4 mg/mL SDV 1 mL 2 MG IVP (17:34)
[2021-07-04] MEDS: ondansetron 2 mg/ML SDV 2 mL 4 MG IVP (17:44)
[2021-07-05] VITALS (111 sets, daily range): BP systolic 147–187; BP diastolic 72–122; PULSE 56–101; RESP 0–29; TEMP 36.6–36.9; O2SAT 88–100
[2021-07-05] MEDS: hyDRALAzine 20 mg/mL INJ 1 mL 10 MG IVP (02:11)
[2021-07-05 02:43] LABS: Eosinophils % 0.1 %; Hematocrit 31.2 % (42.0-52.0); Hemoglobin 9.2 g/dL (11.7-16.6); Lymphocytes # 0.7 10^3/uL (0.8-4.8); Lymphocytes % 9.8 %; Mean Corpuscular HGB Conc 29.5 g/dL (30.0-36.0); Mean Corpuscular Hemoglobin 26.8 pg (28.0-34.0); Monocytes # 0.5 10^3/uL (0.2-0.9); Monocytes % 7.9 %; Neutrophils # 5.56 10^3/uL (1.8-7.7); Neutrophils % 81.8 %; Nucleated Red Blood Cells % 0 %; Platelet Count 184 10^3/cmm (130-400); Red Blood Count 3.43 10^6/uL (4.1-5.3); Red Cell Distribution Width 19.3 % (12.1-15.1); White Blood Count 6.8 10^3/uL (4.0-10.0)
[2021-07-05 03:01] LABS: Alanine Aminotransferase 8 U/L (0-41); Albumin Level 3.6 g/dL (3.5-5.2); Alkaline Phosphatase 86 IU/L (40-130); Anion Gap 15.1 (5-19); Aspartate Amino Transferase 12 U/L (0-40); Blood Urea Nitrogen 25 mg/dL (8-23); Calcium 7.9 mg/dL (8.5-10.5); Carbon Dioxide 30 mmol/L (22-29); Chloride 99 mmol/L (98-107); Globulin 1.7 g/dL (1.3-4.6); Glucose 104 mg/dL (65-115); Magnesium 1.8 mg/dL (1.7-2.3); Osmolality Calculated 293 mOsm/kg (285-295); Phosphorus 4.8 mg/dL (2.5-4.5); Potassium 5.1 mmol/L (3.5-5.1); Sodium 139 mmol/L (136-145); Total Bilirubin 0.3 mg/dL (0.15-1.2); Total Protein 5.3 g/dL (6.6-8.7)
[2021-07-05] MEDS: docusate sodium 100 mg Capsule PO (06:03)
[2021-07-05] MEDS: sertraline 50 mg Tablet PO (06:03)
--- NOTE | 2021-07-05 07:10 | P.PN_ITS ---
Subjective Subjective: Manuel reports he feels little bit better. No chest discomfort. Less short of breath. Down to 3 L. No nausea or vomiting. Medications: Reviewed: Yes Vitals/I&O/Wt Last Vital Signs Temp 97.9 F 07/05/21 04:17 Pulse 74 07/05/21 06:05 Resp 20 H 07/05/21 06:05 BP 172/85 07/05/21 06:05 Pulse Ox 99 07/05/21 06:05 07/04/21 07/05/21 07/05/21 22:59 06:59 14:59 Intake Total 240 / 1055 Output Total 0 / 0 Balance 240 / 1055 0 / 1055 Weight last 48 hrs Weight 67.585 kg Weight 71.214 kg Physical Exam Narrative: General exam is a white male, blood pressure improved Neck is supple no lymphadenopathy or thyromegaly Cardiovascular regular rate and rhythm without murmur, port noted Lungs diminished breath sounds bilaterally but clear Abdomen is soft with positive bowel sounds. No obvious organomegaly exam is deferred Extremities no cyanosis clubbing. 1+ edema noted bilaterally. Cap refill brisk Skin no rash Neuro no focal deficits Data : 07/05/21 02:05 07/05/21 02:05 Micro: Microbiology 07/04/21 06:17 Blood Culture - Preliminary Blood NEGATIVE TO DATE 07/04/21 06:00 Blood Culture - Preliminary Blood NEGATIVE TO DATE A&P Assessment and plan (1) Congestive heart failure: Patient presents with what appears to be fluid overload, consistent with acute diastolic heart failure. This is complicated by his end-stage renal disease. He has evidence of edema on exam. Diuretics will not likely be effective considering his renal disease. Nephrology was able to remove a significant amount of fluid yesterday, 3 L through dialysis and from my understanding we will provide dialysis again today. He has had a recent echocardiogram, reviewed above. At this point we will not plan on repeat. If 1 is needed, limited echocardiogram will be ordered. Status: Acute (2) Pneumonia: Question of pneumonia, left lung on chest x-ray. Await sputum culture, MRSA PCR Antibiotics currently consisting of Rocephin and azithromycin Status: Acute (3) End stage renal disease: Nephrology consult obtained, they are providing dialysis. Status: Acute (4) Hypertensive urgency: Significantly elevated blood pressures on arrival Will initiate his home blood pressure medication Nitroglycerin ointment 1 inch If this fails, consider nicardipine. This can be tapered down and off during and after dialysis. Status: Acute (5) Acute respiratory failure: Acute hypoxic and hypercarbic respiratory failure, secondary to diastolic heart failure. This is improving significantly with dialysis Status: Acute (6) Chest pain: I believe his chest discomfort is likely from his markedly elevated blood pressure. Serial troponins reviewed Note recent previous echo He is improving significantly with fluid removal per dialysis. Status: Acute (7) Malignant neoplasm of right renal pelvis: Hold Keytruda currently. There was concern of pneumonia on admission. Note that he has widely metastatic disease. Status: Acute (8) Anemia: Significant anemia, likely secondary to his multiple comorbidities including renal failure and malignancy. Status: Acute Plan Temporal arteritis suspect. Currently on prednisone. We will continue until wh ich time he can have a diagnosis defining temporal artery biopsy. Headaches were recently evaluated with a CT head noncontrast showing no acute abnormality. Multiple other problems as outlined in past medical history Allow natural Heparin will suffice for DVT prophylaxis Transfer out of ICU today Attestations Medical Necessity Statement*: Needs continued hospital stay for further removal of fluid per dialysis/nephrology as well as IV antibiotics for possible pneumonia. Coding Level of Care Code Acute Auto Claim Representative for g Fwd Diagnoses Congestive heart failure I50.9 Pneumonia J18.9 End stage renal disease N18.6 Hypertensive urgency I16.0 Acute respiratory failure J96.00 Chest pain R07.9 Malignant neoplasm of right renal pelvis C65.1 Anemia D64.9
--- NOTE | 2021-07-05 07:57 | PM.PN ---
Subjective Subjective: feels better. no n/v/f/c/oliva/d/leg pains. dec edema, +SOB Medications: Reviewed: Yes Medication Review Details: Current Medications Acetaminophen (Acetaminophen 325 Mg Tablet) 650 mg PO Q6H PRN PRN Reason: MILD PAIN Last Admin: 07/04/21 17:34 Dose: 650 mg Documented by: Hydrocodone Bitart/Acetaminophen (Hydrocodone-Acetaminophen 5-325 Mg Tablet) 1 tab PO Q6H PRN PRN Reason: pain Albuterol/Ipratropium (Ipratropium-Albuterol 3 Ml Neb) 3 ml INHALATION Q4H PRN PRN Reason: SHORTNESS OF BREATH Atorvastatin Calcium (Atorvastatin 40 Mg Tablet) 20 mg PO QPM [facility] Last Admin: 07/04/21 17:12 Dose: 20 mg Documented by: Clonidine HCl (Clonidine 0.1 Mg Tablet) 0.1 mg PO BID [facility] Last Admin: 07/04/21 17:12 Dose: 0.1 mg Documented by: Cyclobenzaprine HCl (Cyclobenzaprine 10 Mg Tablet) 10 mg PO TID PRN PRN Reason: muscle spasm Docusate Sodium (Docusate Sodium 100 Mg Capsule) 100 mg PO QAM [facility] Last Admin: 07/05/21 06:03 Dose: 100 mg Documented by: Heparin Sodium (Porcine) (Heparin 5,000 Unit/Ml Inj 1 Ml) 5,000 unit SUBCUT Q12H [facility] Last Admin: 07/04/21 21:48 Dose: 5,000 unit Documented by: Albumin Human (Albumin) 12.5 gm in 50 mls @ 60 mls/hr IV PRN PRN PRN Reason: Hypotension and/or symptomatic Ceftriaxone Sodium 1,000 mg/ (Sodium Chloride) 50 mls @ 100 mls/hr IV Q24H [facility]; Protocol Last Infusion: 07/04/21 12:48 Dose: Infused Documented by: Azithromycin 500 mg/ Sodium (Chloride) 250 mls @ 250 mls/hr IV Q24H [facility]; Protocol Last Infusion: 07/04/21 13:02 Dose: Infused Documented by: Metoprolol Tartrate (Metoprolol Tartrate 50 Mg Tablet) 100 mg PO BID [facility] Last Admin: 07/04/21 17:12 Dose: 100 mg Documented by: Montelukast Sodium (Montelukast Sodium 10 Mg Tablet) 10 mg PO DAILY PRN PRN Reason: Allergy Symptoms Morphine Sulfate (Morphine 4 Mg/Ml Sdv 1 Ml) 2 mg IVP Q4H PRN PRN Reason: SEVERE PAIN Last Admin: 07/04/21 17:34 Dose: 2 mg Documented by: Nifedipine (Nifedipine Er (24 Hr) 30 Mg Tablet) 60 mg PO DAILY [facility] Ondansetron HCl (Ondansetron 2 Mg/Ml Sdv 2 Ml) 4 mg IVP Q6H PRN PRN Reason: NAUSEA AND VOMITING Last Admin: 07/04/21 17:44 Dose: 4 mg Documented by: Pantoprazole Sodium (Pantoprazole Dr 40 Mg Tablet) 40 mg PO DAILY [facility] Prednisone (Prednisone 20 Mg Tablet) 60 mg PO DAILY [facility] Last Admin: 07/04/21 12:02 Dose: 60 mg Documented by: Sertraline HCl (Sertraline 50 Mg Tablet) 50 [facility] Last Admin: 07/05/21 06:03 Dose: 50 mg Documented by: Vitals/I&O/Wt Last Vital Signs Temp 97.9 F 07/05/21 04:17 Pulse 74 07/05/21 06:05 Resp 20 H 07/05/21 06:05 BP 172/85 07/05/21 06:05 Pulse Ox 99 07/05/21 06:05 07/04/21 07/05/21 07/05/21 22:59 06:59 14:59 Intake Total 240 / 1055 Output Total 0 / 0 Balance 240 / 1055 0 / 1055 Weight last 48 hrs Weight 67.585 kg Weight 71.214 kg Physical Exam Narrative: weak,comfortable. BP elevated but improved heent- nc/at neck supple lungs crackles b/l heart reg, no rub, +JENNIFER abd soft, nt, nd, + bs ext RUE aVF w/ thrill and bruit neuro- a,a, o x 3 Data : 07/05/21 02:05 07/05/21 02:05 Micro: Microbiology 07/04/21 06:17 Blood Culture - Preliminary Blood NEGATIVE TO DATE 07/04/21 06:00 Blood Culture - Preliminary Blood NEGATIVE TO DATE A&P Assessment and plan (1) End stage renal disease: 76 yr old male ESRd, met cancer 1/ ESRD and htn- s/p hd yesterday -repeat SUF now -repeat HD in am - 3.5 hrs, 3k, remove 3l as tolerated 2. Q PNA- renal dose abx per medicine 3. anemia-check iron studies 4.resp acidosis- known metastatic disease to lungs lactic acidosis may be from metastatic ca 5.htn -monitor w/ HD. off of drips 6.elevated glucose on steroids 7. will monitor resp status. I am not sure how much dyspnea is from cancer vs volume overload vs pna seen and examined w/ rN- telehealth visit- time spent 30 min informed consent for telehealth obtained from pt Status: Acute Plan as above Attestations Medical Necessity Statement*: sob, htn Time Spent in Patient Care: 16 - 35 minutes (>than 50% of time spent in counselling and/or direct pt care on unit). Coding Level of Care Code Acute Grader [employer] for Robert Walsh Diagnoses End stage renal disease N18.6
[2021-07-05] MEDS: metoprolol tartrate 50 mg Tablet 100 MG PO ×2 (08:03→17:08)
[2021-07-05] MEDS: pantoprazole DR 40 mg Tablet PO (08:03)
[2021-07-05] MEDS: predniSONE 20 mg Tablet 60 MG PO (08:03)
[2021-07-05] MEDS: NIFEdipine ER (24 hr) 30 mg Tablet 60 MG PO (08:03)
[2021-07-05] MEDS: cloNIDine 0.1 mg Tablet PO ×2 (08:03→17:08)
[2021-07-05 08:27] LABS: Vancomycin Random 8.3 ug/mL (20.0-40.0)
[2021-07-05 08:29] LABS: Iron 34 ug/dL (59-158); Percent Saturation 19.8 % (20-50); Total Iron Binding Capacity 171 mcg/dl; Unsaturated Iron Binding 137 ug/dL (112-347)
[2021-07-05 08:45] LABS: Ferritin 1789 ng/mL (30-400)
[2021-07-05] MEDS: ondansetron 2 mg/ML SDV 2 mL 4 MG IVP (08:53)
[2021-07-05] MEDS: heparin 5,000 unit/mL INJ 1 mL 5000 UNIT SUBCUT ×2 (10:08→22:49)
[2021-07-05] MEDS: azithromycin 500 MG in sodium chloride 0.9% 250 ML 250 MG IV (10:56)
[2021-07-05] MEDS: cefTRIAXone 1,000 MG in sodium chloride 0.9% (plus) 50 ML 100 MG IV (10:56)
--- NOTE | 2021-07-05 11:38 | PC.NURSE ---
pt. in dialysis @1130.
[2021-07-05] MEDS: atorvastatin 40 mg Tablet 20 MG PO (17:08)
[2021-07-06] VITALS (8 sets, daily range): BP systolic 181–217; BP diastolic 85–114; PULSE 62–79; RESP 15–17; TEMP 36.1–36.6; O2SAT 95–99
[2021-07-06 05:12] LABS: Hemoglobin 10.1 g/dL (11.7-16.6); Lymphocytes # 0.9 10^3/uL (0.8-4.8); Lymphocytes % 12.3 %; Mean Corpuscular HGB Conc 29.7 g/dL (30.0-36.0); Mean Corpuscular Hemoglobin 26.8 pg (28.0-34.0); Mean Corpuscular Volume 90.2 fl (80-94); Mean Platelet Volume 9.7 fL (7.4-10.4); Monocytes # 0.7 10^3/uL (0.2-0.9); Neutrophils # 5.99 10^3/uL (1.8-7.7); Neutrophils % 78.2 %; Nucleated Red Blood Cells % 0 %; Platelet Count 200 10^3/cmm (130-400); Red Blood Count 3.77 10^6/uL (4.1-5.3); Red Cell Distribution Width 18.9 % (12.1-15.1); White Blood Count 7.7 10^3/uL (4.0-10.0)
[2021-07-06 05:34] LABS: Vancomycin Random 8.6 ug/mL (20.0-40.0)
[2021-07-06 05:39] LABS: Alanine Aminotransferase 7 U/L (0-41); Albumin Level 3.6 g/dL (3.5-5.2); Alkaline Phosphatase 92 IU/L (40-130); Anion Gap 17.2 (5-19); Aspartate Amino Transferase 9 U/L (0-40); Blood Urea Nitrogen 44 mg/dL (8-23); Calcium 8.5 mg/dL (8.5-10.5); Carbon Dioxide 28 mmol/L (22-29); Chloride 99 mmol/L (98-107); Globulin 2.5 g/dL (1.3-4.6); Glucose 103 mg/dL (65-115); Osmolality Calculated 299 mOsm/kg (285-295); Phosphorus 5.6 mg/dL (2.5-4.5); Potassium 5.2 mmol/L (3.5-5.1); Sodium 139 mmol/L (136-145); Total Bilirubin 0.4 mg/dL (0.15-1.2); Total Protein 6.1 g/dL (6.6-8.7)
[2021-07-06] MEDS: docusate sodium 100 mg Capsule PO (05:39)
[2021-07-06] MEDS: sertraline 50 mg Tablet PO (05:39)
--- NOTE | 2021-07-06 08:16 | PC.NURSE ---
Alerted nurse to high BP
[2021-07-06] MEDS: cloNIDine 0.1 mg Tablet PO ×2 (08:21→11:48)
[2021-07-06] MEDS: NIFEdipine ER (24 hr) 30 mg Tablet 60 MG PO (08:21)
[2021-07-06] MEDS: predniSONE 20 mg Tablet 60 MG PO (08:23)
[2021-07-06] MEDS: pantoprazole DR 40 mg Tablet PO (08:23)
[2021-07-06] MEDS: metoprolol tartrate 50 mg Tablet 100 MG PO (08:23)
[2021-07-06] MEDS: NIFEdipine ER (24 hr) 30 mg Tablet PO (10:04)
[2021-07-06] MEDS: heparin 5,000 unit/mL INJ 1 mL 5000 UNIT SUBCUT (10:05)
--- NOTE | 2021-07-06 10:11 | PM.PN ---
Subjective Subjective: Mr Garcia feels quite well today with no specific complaints. Keen to go home. Breathing comfortably. Denies any cough cold fevers chills, sputum production etc. Blood pressure noted to be over 200 systolic this morning prior to this medication. Denies any extremity edema. No other acute issues. Vitals/I&O/Wt Last Vital Signs Temp 97.6 F 07/06/21 08:00 Pulse 76 07/06/21 08:00 Resp 17 07/06/21 08:00 BP 215/96 07/06/21 08:21 Pulse Ox 95 07/06/21 08:00 07/05/21 07/06/21 07/06/21 22:59 06:59 14:59 Intake Total 290 / 830 50 / 880 120 / 120 Balance 290 / 830 50 / 880 120 / 120 Weight last 48 hrs Weight 70.035 kg Weight 67.585 kg Physical Exam Narrative: Constitutional: Awake, comfortable HEENT: Wet mucosa, no jvp, non icteric Lungs: Bilaterally clear without discernible wheeze, rales in all lung zones CVS: S1 S2, no murmurs Abdo: Soft, BS ok Ext 4: Minimal edema, peripheral perfusion with no cyanosis Neurological: Grossly non-focal Data : 07/06/21 04:49 07/06/21 04:49 Micro: Microbiology 07/04/21 11:57 MRSA Culture - Final Nose 07/04/21 11:57 Sputum Culture - Preliminary Sputum - Expectorated Sputum 07/04/21 06:17 Blood Culture - Preliminary Blood NEGATIVE TO DATE 07/04/21 06:00 Blood Culture - Preliminary Blood NEGATIVE TO DATE A&P Assessment and plan (1) End stage renal disease: 1. ESRD Dialysis pending for today, we will shoot for 4 L ultrafiltration. Continue Friday, Friday and Friday schedule Dose medication for GFR less than 15 2. SOB Received treatment for hypervolemia, pneumonia, in the setting of underlying lung cancer. Clinically much improved. Breathing comfortably on room air. 3. Hemodynamics Blood pressure high premedication and ultrafiltration. Will push ultrafiltration to 4 L today. 4. Chronic ESRD issues To be handled and managed as an outpatient, continue home medication. 5. Dispo Possible discharge today after dialysis, certainly okay if okay with other team members. Jez Lorenzo MD Nephrology [phone] Patient seen and examined via telemedicine, with the assistance of the bedside RN > 25 min spent in evaluation and mgmt of patient Status: Acute Attestations Medical Necessity Statement*: eval for ESRD mgmt Coding Level of Care Code Acute Vice President Payment for Robert Walsh Diagnoses End stage renal disease N18.6
--- NOTE | 2021-07-06 11:14 | PM.DCS ---
Discharge Providers Date of Admission: 07/04/21 09:07 Date of Discharge: July 06, 2021 Attending Provider at Admission: Shaggy Alfredo MD Attending Provider at Discharge: Shaggy Alfredo MD Primary Care Provider: Kolton Calles DO Diagnoses at Discharge Discharge Diagnosis (1) End stage renal disease: Status: Acute Reason for Visit Reason for Visit: sob Hospital Course Hospital Course Manuel is a 76-year-old white male who presented to the hospital with shortness of breath, markedly elevated blood pressure, and some chest discomfort. There was question of pneumonia. Secondary to his hypertensive urgency was placed in the ICU, and nephrology was consulted for dialysis. He underwent dialysis with fluid removal and all chest tightness resolved. Troponin was slightly elevated, thought to be elevated secondary to his fluid overload, CHF, respiratory failure and representing a type II elevation. Over the rest of his course of hospital stay he was treated for pneumonia with IV antibiotics. He did not have any fevers. He was dialyzed all days in the hospital, with significant removal of fluid. Oxygen requirement that was present on admission went away by time of discharge. He was feeling good and wanting to go home. Blood pressure medication was adjusted to try to control blood pressure better. He will require close follow-up for this. By time of discharge on July 06 he was stable, had undergone dialysis, and was able to go home. He will follow-up with nephrology and his regular follow-ups and dialysis follow-ups on Friday. Follow-up with his primary care provider 3 to 5 days. He will follow-up with Dr. Hi who is going to do a temporal artery biopsy in the near future. I discussed his case with Dr. Hi and his office will be calling him. He will complete a short course of cefdinir. Physical Exam Narrative: General exam no distress Neck is supple no lymphadenopathy thyromegaly Cardiovascular regular rate and rhythm without murmur Lungs clear Abdomen is soft, positive bowel sounds Extremities no cyanosis clubbing. Trace edema present. Discharge Data Studies Completed and Pending Completed Studies During Hospitalization Category Date Time Status XR chest 1V portable [id number] Urgent Exams 07/04/21 05:46 Completed Pending at discharge Category Date Time Status Blood Culture Stat Lab 07/04/21 06:17 Results Complete Blood Count w/Auto AM LABS Lab 07/07/21 04:00 Ordered Comprehensive Metabolic Panel AM LABS Lab 07/07/21 04:00 Ordered Magnesium AM LABS Lab 07/07/21 04:00 Ordered Phosphorus AM LABS Lab 07/07/21 04:00 Ordered Urinalysis and Microscopic Routine Lab 07/04/21 10:47 Uncollected Radiology Impressions Chest X-Ray 07/04/21 05:46 IMPRESSION: Right lower and left lower lung zone opacities in keeping with known pulmonary masses. Patchy ground-glass opacity in the right upper lateral lung zone which may be seen with pneumonia. Laboratory Results WBC 7.7 10^3/uL (4.0-10.0) 07/06/21 04:49 RBC 3.77 10^6/uL (4.1-5.3) L 07/06/21 04:49 Hgb 10.1 g/dL (11.7-16.6) L 07/06/21 04:49 Hct 34.0 % (42.0-52.0) L 07/06/21 04:49 MCV 90.2 fl (80-94) 07/06/21 04:49 MCH 26.8 pg (28.0-34.0) L 07/06/21 04:49 MCHC 29.7 g/dL (30.0-36.0) L 07/06/21 04:49 RDW 18.9 % (12.1-15.1) H 07/06/21 04:49 Plt Count 200 10^3/cmm (130-400) 07/06/21 04:49 MPV 9.7 fL (7.4-10.4) 07/06/21 04:49 Neut % (Auto) 78.2 % 07/06/21 04:49 Lymph % (Auto) 12.3 % 07/06/21 04:49 [place] % (Auto) 9.0 % 07/06/21 04:49 Eos % (Auto) 0.0 % 07/06/21 04:49 Baso % (Auto) 0.0 % 07/06/21 04:49 Neut # (Auto) 5.99 10^3/uL (1.8-7.7) 07/06/21 04:49 Lymph # (Auto) 0.9 10^3/uL (0.8-4.8) 07/06/21 04:49 [place] # (Auto) 0.7 10^3/uL (0.2-0.9) 07/06/21 04:49 Eos # (Auto) 0.0 10^3/uL (0.0-0.8) 07/06/21 04:49 Baso # (Auto) 0.0 10^3/uL (0.0-0.1) 07/06/21 04:49 Nucleated RBC % (auto) 0 % 07/06/21 04:49 Nucleated RBCs # 0.0 /100WBC 07/06/21 04:49 Specimen Type Arterial 07/04/21 06:02 Sample Site Radial, left 07/04/21 06:02 ABG pH 7.34 (7.35-7.45) L 07/04/21 06:02 ABG pCO2 48.5 mmHg (35-45) H 07/04/21 06:02 ABG pO2 89.2 mmHg (80.0-100.0) 07/04/21 06:02 ABG HCO3 26.1 mmol/L (22-26) H 07/04/21 06:02 ABG Base Excess -0.2 mmol/L (-2.0-2.0) 07/04/21 06:02 Aric Test Pos 07/04/21 06:02 Hematocrit 35.2 % (42-52) L 07/04/21 06:02 Hgb O2 Saturation 93.9 % (95-100) L 07/04/21 06:02 Carboxyhemoglobin 0.3 %THgb (0.4-20.1) L 07/04/21 06:02 Methemoglobin 1.0 % (0.4-1.5) 07/04/21 06:02 Total Hemoglobin 11.5 g/dL (14-18) L 07/04/21 06:02 O2 Delivery Device Nrb 07/04/21 06:02 O2 Liters/Min 15.0 % 07/04/21 06:02 Electromagnet Crane Operator ID Buttr 07/04/21 06:02 Sodium 139 mmol/L (136-145) 07/06/21 04:49 Potassium 5.2 mmol/L (3.5-5.1) H 07/06/21 04:49 Chloride 99 mmol/L (98-107) 07/06/21 04:49 Carbon Dioxide 28 mmol/L (22-29) 07/06/21 04:49 Anion Gap 17.2 (5-19) 07/06/21 04:49 BUN 44 mg/dL (8-23) H 07/06/21 04:49 Creatinine 7.2 mg/dL (0.7-1.2) H* 07/06/21 04:49 GFR Calculation Not Reportable 07/06/21 04:49 Glucose 103 mg/dL (65-115) 07/06/21 04:49 Calculated Osmolality 299 mOsm/kg (285-295) H 07/06/21 04:49 Lactic Acid 4.3 mmol/L (0.5-2.2) H* 07/04/21 06:00 Lactic Acid (Sepsis) 1.8 mmol/L (0.5-2.2) 07/04/21 09:10 Calcium 8.5 mg/dL (8.5-10.5) 07/06/21 04:49 Phosphorus 5.6 mg/dL (2.5-4.5) H 07/06/21 04:49 Magnesium 2.0 mg/dL (1.7-2.3) 07/06/21 04:49 Iron 34 ug/dL (59-158) L 07/05/21 02:05 TIBC 171 mcg/dl 07/05/21 02:05 % Saturation 19.8 % (20-50) L 07/05/21 02:05 Unsat Iron Binding 137 ug/dL (112-347) 07/05/21 02:05 Ferritin 1789 ng/mL (30-400) H 07/05/21 02:05 Total Bilirubin 0.4 mg/dL (0.15-1.2) 07/06/21 04:49 AST 9 U/L (0-40) 07/06/21 04:49 ALT 7 U/L (0-41) 07/06/21 04:49 Alkaline Phosphatase 92 IU/L (40-130) 07/06/21 04:49 Troponin T Baseline 71 ng/L (0-15) H 07/04/21 06:00 Troponin T 120 Minute 74.78 ng/L (0-15) H 07/04/21 07:49 Delta Troponin T 3.78 ABS# (0-10) 07/04/21 07:49 Troponin T Hi Sens 6Hr 90.61 ng/L (0-15) H 07/04/21 12:40 Troponin T Hi Sens 6Hr Delta 19.61 ng/L (0-12) H* 07/04/21 12:40 NT-Pro-B Natriuret Pep > 16375 pg/mL (0-450) H 07/04/21 06:00 Total Protein 6.1 g/dL (6.6-8.7) L 07/06/21 04:49 Albumin 3.6 g/dL (3.5-5.2) 07/06/21 04:49 Globulin 2.5 g/dL (1.3-4.6) 07/06/21 04:49 Nasal Influ A H1 2009 PCR Not detected (NOT DETECT) 07/04/21 07:15 Random Vancomycin 8.6 ug/mL (20.0-40.0) L 07/06/21 04:49 Coronavirus 229E (PCR) Not detected (NOT DETECT) 07/04/21 07:15 Hep Bs Antigen Non-reactive (Nonreactive) 07/04/21 06:00 Hep Bs Antibody 8.5 (11.5-1000) L 07/04/21 06:00 Hepatitis C Antibody Non-reactive (Nonreactive) 07/04/21 06:00 Influenza A (H1) PCR Not detected (NOT DETECT) 07/04/21 07:15 Influenza A (H3) PCR Not detected (NOT DETECT) 07/04/21 07:15 Influenza Type A (PCR) Not detected (NOT DETECT) 07/04/21 07:15 Influenza Type B (PCR) Not detected (NOT DETECT) 07/04/21 07:15 SARS-CoV-2 (PCR) Not detected (NOT DETECT) 07/04/21 07:15 Vitals Last Vital Signs Temp 97.6 F 07/06/21 08:00 Pulse 76 07/06/21 08:00 Resp 17 07/06/21 08:00 BP 215/96 07/06/21 08:21 Pulse Ox 95 07/06/21 08:00 Discharge Plan Discharge Patient Disposition: Home Condition: Stable Prescriptions: New nifedipine 30 mg Tablet Extended Release 24 Hr 90 mg PO DAILY Qty: 30 0RF clonidine HCl 0.1 mg Tablet 0.2 mg PO BID Qty: 120 0RF cefdinir 300 mg capsule 300 mg PO BID 7 Days Qty: 14 0RF Continued omeprazole 40 mg capsule,delayed release(DR/EC) 40 mg PO QAM 0RF atorvastatin 20 mg tablet 20 mg PO QPM 0RF ondansetron HCl 8 mg tablet 8 mg PO Q6H PRN (Reason: Nausea) 0RF montelukast 10 mg tablet 10 mg PO DAILY PRN (Reason: Allergy Symptoms) 0RF hydrocodone-acetaminophen 5-325 mg tablet 1 tab PO Q6H PRN (Reason: pain) 7 Days Qty: 20 0RF cyclobenzaprine 10 mg tablet 10 mg PO TID PRN (Reason: muscle spasm) Qty: 30 2RF metoprolol tartrate 100 mg Tablet 100 mg PO BID 0RF prednisone 20 mg tablet See Rx Instructions .ROUTE .COMPLEX 0RF Rx Instructions: 3 tabs daily for 14 days, 2 tabs daily for 7 days, 1 tab daily for 7 days. Colace 100 mg capsule 100 mg PO QAM 0RF zinc 50 mg Tablet 50 mg PO QAM 0RF Tylenol 325 mg Tablet 325 - 650 mg PO Q6H PRN (Reason: Pain) 0RF triamcinolone acetonide 0.1 % ointment 1 applic TOPICAL BID PRN (Reason: Rash) 0RF Claritin 10 mg Tablet 10 mg PO DAILY PRN (Reason: Allergy Symptoms) 0RF sertraline 50 mg tablet 50 mg PO QAM 0RF Discontinued nifedipine [Adalat CC] 30 mg tablet extended release 60 mg PO DAILY 0RF clonidine HCl 0.1 mg tablet 0.1 mg PO BID Qty: 60 2RF torsemide 100 mg tablet 100 mg PO QAM 0RF Discharge Orders: Discharge Order (Routine); Ordered 07/06/21 Ordered By: Shaggy Alfredo Referrals: Kolton Calles DO [Primary Care Provider] - 07/18/21 10:00 am Discharge Diet: Usual diet Discharge Activity: Increase activity as tolerated Patient Instructions: Nifedipine (By mouth) (Adalat CC, Nifedical XL, Procardia, Procardia XL), Clonidine (By mouth) (Catapres, Kapvay, Kapvay Dose Pack), Cefdinir (By mouth) (Omnicef), Hypertensive Crisis (DC), Anemia (DC), Acute Respiratory Failure (ED), Opioid Safety Activity Restrictions/Additional Instructions: Keep regular follow-ups for dialysis. Keep track of your blood pressure daily, report to your primary care provider and transfer station attendant on follow-up. Return for any concerns. Take all medicine as prescribed. May discharge following dialysis. Discharge Attestations Time Spent in Discharge Care*: greater than 30 min Quality Metrics Clinical Quality Measures [ No reported AMI, CVA or VTE this stay] Coding Level of Care Code Acute Chg FW DC note Diagnoses End stage renal disease N18.6
[2021-07-06] MEDS: azithromycin 500 MG in sodium chloride 0.9% 250 ML 250 MG IV (11:48)
[2021-07-06] MEDS: cefTRIAXone 1,000 MG in sodium chloride 0.9% (plus) 50 ML 50 MG IV (11:48)
[2021-07-06] MEDS: ondansetron 2 mg/ML SDV 2 mL 4 MG IVP (15:21)
[2021-07-06] MEDS: HYDROcodone-acetaminophen 5-325 mg Tablet 1 TAB PO (15:21)
== END 2021-07-06 16:35 | disposition home health service (06) | DRG 304 ==
LOC: ER 10:15 → ICU 10:29 → MEDSURG 07-05 10:06
PROVIDERS: Emergency Medicine; Internal Medicine Nephrology; Admitting Provider Internal Medicine; Emergency Provider Family Medicine; PCP Family Medicine; Visit Provider Internal Medicine
DX: I16.0 Hypertensive urgency (principal); N18.6 End stage renal disease; I50.31 Acute diastolic (congestive) heart failure; J18.9 Pneumonia, unspecified organism; J96.02 Acute respiratory failure with hypercapnia; J96.01 Acute respiratory failure with hypoxia; C65.1 Malignant neoplasm of right renal pelvis; C78.00 Secondary malignant neoplasm of unspecified lung; J44.0 Chronic obstructive pulmonary disease with (acute) lower respiratory infection; I13.2 Hypertensive heart and chronic kidney disease with heart failure and with stage 5 chronic kidney disease, or end stage renal disease; Z99.2 Dependence on renal dialysis; Z87.01 Personal history of pneumonia (recurrent); K21.9 Gastro-esophageal reflux disease without esophagitis; Z90.5 Acquired absence of kidney; Z79.899 Other long term (current) drug therapy; M31.6 Other giant cell arteritis; Z79.52 Long term (current) use of systemic steroids; Z79.891 Long term (current) use of opiate analgesic; Z66 Do not resuscitate; D63.1 Anemia in chronic kidney disease; Z87.891 Personal history of nicotine dependence
CPT/HCPCS: 36415; 36591; 36600; 71045; 80053; 80202; 82728; 82805; 83540; 83550; 83605; 83735; 83880; 84100; 84484; 85025; 85651; 86140; 86706; 86803; 87040; 87070; 87077; 87186; 87205; 87340; 87631; 87635; 87641; 93005; 94640; 94660; 96365; 96367; 96372; 96375; 99214; 99291; J0360; J0456; J0696; J1644; J1956; J2270; J2405; J2543; J3370; J7050; J7512

== ENCOUNTER 2021-07-12 08:03 | Oncology outpatient (recurring) (ONCR) | payer MEDICARE, OTHER, SELFPAY ==
[2021-07-12] MEDS: pembrolizumab 200 MG in sodium chloride 0.9% 250 ML 516 MG IV (10:09)
== END 2021-07-17 23:59 | disposition home or self-care (01) ==
PROVIDERS: PCP Family Medicine; Visit Provider Internal Medicine Hematology & Oncology
DX: Z51.12 Encounter for antineoplastic immunotherapy (principal); C67.8 Malignant neoplasm of overlapping sites of bladder; C79.01 Secondary malignant neoplasm of right kidney and renal pelvis; I12.0 Hypertensive chronic kidney disease with stage 5 chronic kidney disease or end stage renal disease; N18.6 End stage renal disease; Z99.2 Dependence on renal dialysis; D70.1 Agranulocytosis secondary to cancer chemotherapy; T45.1X5A Adverse effect of antineoplastic and immunosuppressive drugs, initial encounter; M48.061 Spinal stenosis, lumbar region without neurogenic claudication; Z79.899 Other long term (current) drug therapy; Z87.891 Personal history of nicotine dependence
CPT/HCPCS: 80053; 85025; 96413; 99215; 99999; J7050; J9271

== ENCOUNTER 2021-07-26 06:00 | Day surgery (SDC) | payer MEDICARE, OTHER, SELFPAY ==
[2021-07-25 15:33] VITALS: BMI 24.5
[2021-07-25 15:43] VITALS: BMI 24.5
[2021-07-26] VITALS (12 sets, daily range): BP systolic 159–226; BP diastolic 77–112; PULSE 52–61; RESP 18; TEMP 36.1–36.5; O2SAT 94–99
--- NOTE | 2021-07-26 06:48 | W.PM.OPSFHP ---
Same Day Surgery H&P Indication for Procedure/HPI DATE OF PROCEDURE: July 26, 2021 CHIEF COMPLAINT/INDICATIONFOR SURGICAL PROCEDURE: temporal artery biopsy PREOP DIAGNOSIS: temporal headache PLANNED PROCEDURE: Operation Date: 07/26/21 07:45 Proposed Procedures p Bilateral temporal artery biopsy 47126,C65.1(Bilateral) - Gonzalo Hi MD Medications/Allergies* Home Medications Medication Instructions Recorded Confirmed Type omeprazole 40 mg capsule,delayed 40 mg PO QAM 03/16/19 07/26/21 History release metoprolol tartrate 100 mg tablet 100 mg PO BID 10/18/20 07/26/21 History montelukast 10 mg tablet 10 mg PO DAILY PRN 02/20/21 07/26/21 History ondansetron HCl 8 mg tablet 8 mg PO Q6H PRN tab 02/20/21 07/26/21 History acetaminophen 325 mg tablet 325 - 650 mg PO Q6H PRN 07/04/21 07/26/21 History (Tylenol) docusate sodium 100 mg capsule 100 mg PO QAM 07/04/21 07/26/21 History (Colace) prednisone 20 mg tablet See Rx Instructions .ROUTE .COMPLEX 07/04/21 07/25/21 History sertraline 50 mg tablet 50 mg PO QAM 07/04/21 07/25/21 History triamcinolone acetonide 0.1 % 1 applic TOPICAL BID PRN 07/04/21 07/25/21 History topical ointment zinc 50 mg tablet 50 mg PO QAM 07/04/21 07/25/21 History Allergies/Adverse Reactions Allergy/AdvReac Type Severity Reaction Status Date / Time No Known Allergies Allergy Verified 07/25/21 15:35 Pertinent History/Comorbid Conditions* Medical History (Updated 07/17/21 @ 08:13 by Kolton Calles DO) AV fistula Bladder cancer Cancer of trigone of urinary bladder CKD (chronic kidney disease) stage 5, GFR less than 15 ml/min On hemodialysis Degenerative joint disease (DJD) of lumbar spine GERD (gastroesophageal reflux disease) Hypertension Port-A-Cath in place 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 Stroke Surgical History (Updated 05/10/21 @ 13:18 by Gonzalo Hi MD) History of back surgery History of ear surgery TRAUMA TO RIGHT EAR-PART OF TOP OF EAR REMOVED History of nephrectomy, right S/P bilateral inguinal hernia repair (05/10/21) Status post insertion of dialysis catheter RIGHT FOREARM Family History (Updated 07/27/19 @ 15:26 by Hina Qiu LPN) Father, AT AGE 71 Mother, MVA Heart attack Father Denies family history of Anesthesia complication Bleeding disorder Social History Smoking and tobacco status: former smoker Quit status (tobacco): has quit using tobacco Year quit tobacco: Alcohol intake: current Alcohol intake frequency: few times a month Marital status: Current occupational status: retired Current gender identity: Male Pertinent Exam Findings alert, oriented x 3 and regular rate & rhythm Recommendations Surgery/Procedure today Coding Level of Care Code Acute Exceptional Student Education Aide for Robert Walsh
[2021-07-26] MEDS: cloNIDine 0.1 mg Tablet 0.2 MG PO (06:55)
[2021-07-26] MEDS: sodium chloride 0.9% 1,000 ML 30 ML IV (07:03)
--- NOTE | 2021-07-26 07:06 | P.ANESASSM_ITS ---
Pre-Anesthetic Assessment Height/Weight: Height 1.68 m Weight 68.946 kg Pulse Resp BP Pulse Ox 55 L 18 226/109 98 07/26/21 06:20 07/26/21 06:20 07/26/21 06:55 07/26/21 06:20 Preop Diagnosis: temporal headache Operation Date: 07/26/21 07:45 Proposed Procedures p Bilateral temporal artery biopsy 34626,C65.1(Bilateral) - Gonzalo Hi MD Familial anesthetic complications: none Was Beta Alber taken within 24 hours: Yes Was Clonidine taken within 24 hours: Yes Last intake: Intake Last Liquid Date 07/25/21 Last Liquid Time 21:00 Last Solid Date 07/25/21 Last Solid Time 15:00 Social No alcohol and No tobacco Exam alert, oriented x 3 and regular rate & rhythm wheezing b/l Airway Submandibular: within normal limits Cervical ROM: within normal limits Mallampati: Class II Comments: Comments: missing teeth Pulmonary Chronic Obstructive Pulmonary Disease and Shortness of Breath CV/HEM Anemia, Hypertension and Murmur AV fistula EKG 07/04/21 Interpretive Statements SINUS RHYTHM PROLONGED QT INTERVAL Compared to ECG 07/04/2021 07:45:03 Prolonged QT interval now present Left ventricular hypertrophy no longer present ST (T wave) deviation no longer present Electronically Signed On 07-04-2021 20:27:47 CDT by Sheryl Sierra M.D. [email or web address] Chronic Renal Failure Bladder cancer On dialysis GI Gastroesophageal Reflux Disease [facility] [place] Osteoarthritis/DJD Inguinal hernia Neuropsych Cerebrovascular Accident Anesthetic Plan ASA status: 4 Anesthesia: Anesthesia Evaluation, General and MAC Other: We discussed risk and benefits of general anesthesia including PONV, sore throat (sometimes severe), corneal abrasion, positioning and peripheral nerve injuries, life threatening allergic reaction, post operative ICU admission requiring prolonged intubation, aspiration, stroke, heart attack, , and rare incidences of recall. I discussed with the patient risks, goals, and benefits of MAC and general anesthesia. We discussed spectrum of MAC anesthesia including conversion to general as well as possibility of recall of intraoperative stimuli including discomfort/pain. Patient consents to MAC or General pending further discussion with surgeon. Risk of > 500 ml blood loss (7ml/kg in children): No Medications/Allergies Home Medications Medication Instructions Recorded Confirmed Last Taken Type omeprazole 40 mg capsule,delayed 40 mg PO QAM 03/16/19 07/26/21 07/25/21 History release metoprolol tartrate 100 mg tablet 100 mg PO BID 10/18/20 07/26/21 07/26/21 History montelukast 10 mg tablet 10 mg PO DAILY PRN 02/20/21 07/26/21 07/25/21 History ondansetron HCl 8 mg tablet 8 mg PO Q6H PRN tab 02/20/21 07/26/21 07/25/21 History cyclobenzaprine 10 mg tablet 10 mg PO TID PRN #30 tab 06/25/21 07/26/21 07/25/21 Rx hydrocodone 5 mg-acetaminophen 325 1 tab PO Q6H PRN 7 Days #20 tab 06/25/21 07/26/21 07/25/21 Rx mg tablet acetaminophen 325 mg tablet 325 - 650 mg PO Q6H PRN 07/04/21 07/26/21 Unknown History (Tylenol) docusate sodium 100 mg capsule 100 mg PO QAM 07/04/21 07/26/21 07/25/21 History (Colace) prednisone 20 mg tablet See Rx Instructions .ROUTE .COMPLEX 07/04/21 07/25/21 07/25/21 History sertraline 50 mg tablet 50 mg PO QAM 07/04/21 07/25/21 07/25/21 History triamcinolone acetonide 0.1 % 1 applic TOPICAL BID PRN 07/04/21 07/25/21 07/25/21 History topical ointment zinc 50 mg tablet 50 mg PO QAM 07/04/21 07/25/21 07/25/21 History clonidine HCl 0.1 mg tablet 0.2 mg PO BID #120 tab 07/06/21 07/26/21 07/25/21 Rx nifedipine 30 mg tablet,extended 90 mg PO DAILY #30 tab 07/06/21 07/26/21 07/25/21 Rx release 24 hr hydrocodone 5 mg-acetaminophen 325 1 tab PO Q6H PRN #20 tab 07/26/21 Unknown Rx mg tablet ondansetron HCl 4 mg tablet 4 mg PO Q8H 5 Days #15 tab 07/26/21 Unknown Rx Allergies Allergy/AdvReac Type Severity Reaction Status Date / Time No Known Allergies Allergy Verified 07/25/21 15:35 Current Medications Generic Name Dose Route Start Last Admin Trade Name Erlinda PRN Reason Stop Dose Admin Sodium Chloride 1,000 mls @ 30 mls/hr 07/26/21 06:15 07/26/21 07:03 Sodium Chloride 0.9% IV 07/27/21 06:14 30 mls/hr .Q24H DEJUAN Administration PFSH Anesthesia Medical History AV fistula Bladder cancer Cancer of trigone of urinary bladder CKD (chronic kidney disease) stage 5, GFR less than 15 ml/min On hemodialysis Degenerative joint disease (DJD) of lumbar spine GERD (gastroesophageal reflux disease) Hypertension Port-A-Cath in place 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 Stroke Surgical History (Updated 07/26/21 @ 09:31 by Gonzalo Hi MD) History of back surgery History of ear surgery TRAUMA TO RIGHT EAR-PART OF TOP OF EAR REMOVED History of nephrectomy, right History of temporal artery biopsy (07/26/21) bilateral S/P bilateral inguinal hernia repair (05/10/21) Status post insertion of dialysis catheter RIGHT FOREARM Family History Father , AT AGE 71 Heart attack Mother , MVA No problems noted. Denies family history of Anesthesia complication Bleeding disorder Social History Smoking and tobacco status: former smoker Quit status (tobacco): has quit using tobacco Year quit tobacco: 1970s Alcohol intake: current Alcohol intake frequency: few times a month Marital status: Current occupational status: retired Current gender identity: Male Data Anesthesia Cardiac Studies: Echocardiogram 06/12/21
[2021-07-26] MEDS: hyDRALAzine 20 mg/mL INJ 1 mL 10 MG IVP ×2 (07:07→07:40)
[2021-07-26] MEDS: midazolam 1 mg/mL INJ 2 mL 2 MG IVP (07:48)
[2021-07-26] MEDS: lidocaine 2% INJ 20 mL INJECTION (08:47)
--- NOTE | 2021-07-26 13:31 | PM.OP ---
Operative Report Date of procedure: July 26, 2021 Pre-op diagnosis: Improved headache with visual disturbances Post-op diagnosis: same Procedure done: 1. Right superficial temporal artery biopsy 2. Left superficial temporal artery biopsy Specimens removed/disposition: 1. Right superficial temporal artery specimen 2. Left superficial temporal artery specimen Surgeon: Gonzalo Hi Anesthesia: MAC Condition: stable Disposition: PACU Procedure: The patient was taken to the operating room, placed under MAC and IV antibiotic was administered and the right temporal artery was marked using a Doppler and the hair overlying the markings were clipped. 2% lidocaine with 0.25% Marcaine was infiltrated around this area. Using a 15 blade the skin and subcutaneous tissue was divided until the temporoparietal fascia was identified. The temporoparietal fascia was opened using iris scissors and about a 3 cm segment of temporal artery was skeletonized. Small vascular clips were applied proximally and distally and the artery was divided and sent to pathology. Hemostasis ensured, subcutis tissue approximate using running 3-0 Vicryl suture and skin was closed using running subcuticular 4-0 Monocryl suture and Dermabond. The left temporal artery was marked using a Doppler and the hair overlying the markings were clipped. 2% lidocaine with 0.25% Marcaine was infiltrated around this area. Using a 15 blade the skin and subcutaneous tissue was divided until the temporoparietal fascia was identified. The temporoparietal fascia was opened using iris scissors and about a 3 cm segment of temporal artery was skeletonized. Small vascular clips were applied proximally and distally and the artery was divided and sent to pathology. Hemostasis ensured, subcutis tissue approximate using running 3-0 Vicryl suture and skin was closed using running subcuticular 4-0 Monocryl suture and Dermabond. The patient was transferred to recovery room in stable condition.
--- NOTE | 2021-07-26 13:44 | ANE.PACU2 ---
Inpatient post-anesthesia follow up: Airway intact: Yes Vital signs: Temperature 97.3 F Pulse Rate 55 Respiratory Rate 18 Blood Pressure 170/88 Pulse Oximetry 97 Oxygen Delivery Me thod Room Air Oxygen Flow Rate 5 Fraction of Inspir ed Oxygen Hydration adequate: Yes Nausea and vomiting: No Pain level: 1 Mental status: Baseline
== END 2021-07-26 10:25 | disposition home or self-care (01) ==
PROVIDERS: PCP Family Medicine; Visit Provider Surgery
PROC: (CPT 37609; principal; 2021-07-26 07:45)
DX: R51.9 Headache, unspecified (principal); C65.1 Malignant neoplasm of right renal pelvis; Z85.51 Personal history of malignant neoplasm of bladder; I12.9 Hypertensive chronic kidney disease with stage 1 through stage 4 chronic kidney disease, or unspecified chronic kidney disease; N18.9 Chronic kidney disease, unspecified; Z86.73 Personal history of transient ischemic attack (TIA), and cerebral infarction without residual deficits; Z87.891 Personal history of nicotine dependence; Z99.2 Dependence on renal dialysis
CPT/HCPCS: 37609; 88305; J0360; J2250; J2704; J3010; J3490; J7030

== ENCOUNTER 2021-07-30 14:04 | Inpatient (IN) | payer MEDICARE, OTHER, SELFPAY ==
[2021-07-30 14:11] VITALS: PULSE 80; RESP 26; TEMP 36.6; O2SAT 97; BMI 24.3
--- NOTE | 2021-07-30 14:12 | ED_ITS ---
HPI - General Adult General: Chief complaint: Altered Mental Status Stated complaint: fluid retention Time Seen by Provider: 07/30/21 14:11 Limitations: altered mental status History of Present Illness: Mr Garcia is a 76-year-old gentleman with complex past medical history including CHF, hypertension, hyperlipidemia, end-stage renal disease on hemodialysis presenting to the emergency department due to altered mental status and respiratory symptoms. The patient himself is dysarthric with some component of aphasia which limits history. Upon arrival of patient's he is apparently lately been at his baseline health and was normal when dropped off for dialysis at about 930 today. Per clarification from dialysis center apparently the patient seemed worse than baseline however definitely worsened around 11:30 AM. They completed round of dialysis and patient subsequently developed respiratory distress and so they referred him to the emergency department by calling 911. Review of Systems General: Reports: ROS unobtainable due to medical condition and ROS unobt ainable due to mental status PFSH ED PFSH: Medical History (Updated 07/31/21 @ 00:30 by Monster Card MD) AV fistula Bladder cancer Cancer of trigone of urinary bladder CKD (chronic kidney disease) stage 5, GFR less than 15 ml/min On hemodialysis Congestive heart failure Degenerative joint disease (DJD) of lumbar spine GCA (giant cell arteritis) GERD (gastroesophageal reflux disease) Hypertension Malignant neoplasm of right renal pelvis Multiple pulmonary nodules determined by computed tomography of lung Port-A-Cath in place 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 Denies family history of Anesthesia complication Bleeding disorder Social History Smoking and tobacco status: former smoker Quit status (tobacco): has quit using tobacco Year quit tobacco: 1970s Alcohol intake: current Alcohol intake frequency: few times a month Marital status: Current occupational status: retired Current gender identity: Male Physical Exam Const: COMMON NORMALS: alert GENERAL APPEARANCE: cooperative and well developed HENMT: COMMON NORMALS: normocephalic and atraumatic HEAD & SCALP: normocephalic and atraumatic THROAT: posterior oropharynx normal Eye: COMMON NORMALS: conjunctivae normal CONJUNCTIVA: Yes conjunctivae normal SCLERA: sclerae normal Neck/C-Spine: COMMON NORMALS: supple GENERAL: Yes trachea midline Resp: COMMON NORMALS: normal respiratory effort EFFORT & INSPECTION: Yes able to speak in complete sentences Cardio: COMMON NORMALS: regular rate and regular rhythm RATE: regular rate RHYTHM: regular rhythm GI: COMMON NORMALS: Soft to palpation PALPATION: Yes Soft to palpation and No Tenderness to palpation present (GI) PERCUSSION: normal to percussion Extremity: GENERAL: Yes normal exam except as noted and No edema Neuro: COMMON NORMALS: moves all extremities SENSORIUM/ORIENTATION: Yes alert and Yes Orientation impaired SPEECH: abnormal speech (Dysarthric) and receptive aphasia Course ED course: - Patient was seen and evaluated by me at bedside - Patient placed on cardiac monitors, IV access obtained - Initial evaluation notable for exam as above. Limited neuro exam secondary to likely receptive aphasia. NIHSS 2 as obtained - Head CT negative for acute intracranial hemorrhage or mass. I did discuss the case with Dr. Figueroa of the neurology service. Very challenging situation overall as the patient has multiple comorbidities which certainly could explain symptoms. Additionally, despite multiple times the clarification from the patient's dialysis center and exact time of symptom onset is unclear. reports that patient was normal when he was dropped off at about 9:30 AM however given it is approximately 3 PM at this point patient is likely outside of tPA window. Additionally patient has multiple high risk factors including bilateral temporal artery biopsy 4 days ago as well as AV fistula access just prior to presenting to the emergency department. Ultimately risk outweighs benefit in this context. - Labs and xrays personally interpreted by me. EKG showing sinus rhythm with nonspecific ST segment abnormalities. No STEMI. - Labs notable for no leukocytosis, normal hemoglobin. ABG without hypercapnia. Metabolic panel with abnormalities likely consistent with end-stage renal disease. Delta troponin is negative. BNP is elevated. - Imaging notable for pulmonary nodules/masses which appear similar to prior, no obvious infectious lobar consolidation. - Upon serial reexamination after treatment the patient was similar without progression of neurologic symptoms. - Based on patient history, evaluation, and testing as interpreted the most likely cause of the patient's condition is stroke versus other etiology of mental status change/encephalopathy including possibility of vasculitis given positive temporal biopsy for temporal arteritis. - The results of ED evaluation were discussed with the patient and including plan for admission due to requirement for level of care not available if discharged to prevent significant worsening/deterioration. - Admitting service was contacted and Dr Mobley with the hospitalist service agreed to admit the patient - Patient was admitted without further deterioration or significant events. Note: Click bubbles or prepopulated medina in note writing are used for assistance with data collection and billing and are inherently more limited than narrative and other text portions of this note. Please use narrative for additional clinical history and defer to narrative/free test for any case of contradictory information. If information appears in only free text or click bubble it should be considered present or absent as reported. Please contact note life insurance underwriter for clarifications of clinical information or contradictory information. MDM is a brief summary, contradictory or erroneous seeming information should be clarified and full note should be reviewed. Vital Signs: Vital signs: Vital Signs Temperature 99.6 F 07/30/21 23:01 Pulse Rate 63 07/30/21 23:01 Respiratory Rate 17 07/30/21 23:01 Blood Pressure 216/90 07/30/21 23:01 Pulse Oximetry 98 07/30/21 23:24 MDM - General Adult Medical Decision Making 76-year-old gentleman with complex past medical history presenting due to concern of pulmonary edema from dialysis after completion of treatment. Initial exam notable for receptive aphasia and dysarthria. Unfortunately time of onset is unclear and patient is not a candidate for tPA given timeline and other factors. No clear etiology identified on ED evaluation. Does have recent history of temporal arteritis. Admitted for further management. Medical Records I reviewed the patient's medical records. Lab Data I reviewed the patient's lab results. : 07/30/21 15:10 07/30/21 15:[address] 07/30/21 14:20 IMPRESSION: 1. No acute intracranial hemorrhage or edema. 2. Mild atrophy with moderate small vessel ischemic changes. Chest X-Ray 07/30/21 15:03 IMPRESSION: 1. Bilateral known pulmonary metastatic nodules and masses. Largest mass is 4.9 x 3.9 cm at the RIGHT lung base. Mild improvement since the prior study of 07/04/2021. 2. No pneumonia. Head MRI 07/30/21 18:10 IMPRESSION: 1. Findings suspicious for hemorrhagic transformation of three focal subacute infarcts in the subcortical white matter of the right parietal lobe. 2. Stable mild atrophy of the brain parenchyma. 3. Moderate white matter microangiopathic change. 4. Incidental/nonacute findings are listed in the report. ADDENDUM: 07/30/21 [id number] THIS REPORT CONTAINS FINDINGS THAT MAY BE CRITICAL TO PATIENT CARE. The findings were verbally communicated via telephone conference with Dr. Enamorado at 9:53 PM CDT on 07/30/2021. The findings were acknowledged and understood. Head/Neck CTA 07/30/21 19:09 IMPRESSION: 1. Mild to moderate atherosclerotic disease, most pronounced in the intracranial left vertebral artery with 30% stenosis. No occlusion, thrombosis, extravasation, dissection, or aneurysm. 2. The left posterior communicating artery is not visualized. The left posterior communicating artery may be congenitally absent, or may be too small for the resolution capabilities of this study. 3. Incidental/nonacute findings are listed in the report. IMPRESSION: 1. Atherosclerotic disease of varying severity, most pronounced in the proximal right internal carotid artery with 47% stenosis of the right ICA. Mild additional multilevel stenoses bilaterally. No occlusion, thrombosis, extravasation, dissection, or aneurysm. 2. A right upper lobe mass has decreased in size, suggesting improvement of metastatic disease. A 2nd left upper lobe nodule and partially visualized mediastinal lymph node are stable. 3. Incidental/nonacute findings are listed in the report. REFERENCES: NASCET CRITERIA. The degree of internal carotid artery stenosis is based on NASCET criteria. Normal is no stenosis. Mild is less than 50% stenosis. Moderate is 50-69% stenosis. Severe is 70% to 99% stenosis. Total occlusion is no detectable patent lumen. Laboratory Results WBC 7.3 10^3/uL (4.0-10.0) 07/30/21 15:10 RBC 4.40 10^6/uL (4.1-5.3) 07/30/21 15:10 Hgb 12.3 g/dL (11.7-16.6) 07/30/21 15:10 Hct 39.4 % (42.0-52.0) L 07/30/21 15:10 MCV 89.5 fl (80-94) 07/30/21 15:10 MCH 28.0 pg (28.0-34.0) 07/30/21 15:10 MCHC 31.2 g/dL (30.0-36.0) 07/30/21 15:10 RDW 19.6 % (12.1-15.1) H 07/30/21 15:10 Plt Count 183 10^3/cmm (130-400) 07/30/21 15:10 MPV 9.7 fL (7.4-10.4) 07/30/21 15:10 Neut % (Auto) 80.6 % 07/30/21 15:10 Lymph % (Auto) 10.1 % 07/30/21 15:10 [place] % (Auto) 6.0 % 07/30/21 15:10 Eos % (Auto) 1.8 % 07/30/21 15:10 Baso % (Auto) 0.1 % 07/30/21 15:10 Neut # (Auto) 5.92 10^3/uL (1.8-7.7) 07/30/21 15:10 Lymph # (Auto) 0.7 10^3/uL (0.8-4.8) L 07/30/21 15:10 [place] # (Auto) 0.4 10^3/uL (0.2-0.9) 07/30/21 15:10 Eos # (Auto) 0.1 10^3/uL (0.0-0.8) 07/30/21 15:10 Baso # (Auto) 0.0 10^3/uL (0.0-0.1) 07/30/21 15:10 Nucleated RBC % (auto) 0 % 07/30/21 15:10 Nucleated RBCs # 0.0 /100WBC 07/30/21 15:10 ESR 47 mm/hr (0-10) H 07/30/21 15:10 PT 13.40 SECONDS (12.1-14.9) 07/30/21 15:10 INR 0.99 (0.8-1.2) 07/30/21 15:10 APTT 34.8 SECONDS (23.9-36.7) 07/30/21 15:10 Specimen Type Arterial 07/30/21 14:50 Sample Site Radial, left 07/30/21 14:50 ABG pH 7.49 (7.35-7.45) H 07/30/21 14:50 ABG pCO2 41.8 mmHg (35-45) 07/30/21 14:50 ABG pO2 66.3 mmHg (80.0-100.0) L 07/30/21 14:50 ABG HCO3 32.0 mmol/L (22-26) H 07/30/21 14:50 ABG Base Excess 7.9 mmol/L (-2.0-2.0) H 07/30/21 14:50 Aric Test Pos 07/30/21 14:50 Hematocrit 37.0 % (42-52) L 07/30/21 14:50 O2 Delivery Device Nc 07/30/21 14:50 O2 Liters/Min 3.5 % 07/30/21 14:50 FiO2 34.0 % 07/30/21 14:50 Skid Man ID Monro 07/30/21 14:50 Sodium 140 mmol/L (136-145) 07/30/21 15:10 Potassium 4.6 mmol/L (3.5-5.1) 07/30/21 15:10 Chloride 94 mmol/L (98-107) L 07/30/21 15:10 Carbon Dioxide 31 mmol/L (22-29) H 07/30/21 15:10 Anion Gap 19.6 (5-19) H 07/30/21 15:10 BUN 37 mg/dL (8-23) H 07/30/21 15:10 Creatinine 4.8 mg/dL (0.7-1.2) H 07/30/21 15:10 GFR Calculation Not Reportable 07/30/21 15:10 Glucose 95 mg/dL (65-115) 07/30/21 15:10 POC Glucose 89 mg/dL (70-110) 07/30/21 14:29 Calculated Osmolality 298 mOsm/kg (285-295) H 07/30/21 15:10 Calcium 8.0 mg/dL (8.5-10.5) L 07/30/21 15:10 Iron 21 ug/dL (59-158) L 07/30/21 15:10 TIBC 219 mcg/dl 07/30/21 15:10 % Saturation 9.5 % (20-50) L 07/30/21 15:10 Unsat Iron Binding 198 ug/dL (112-347) 07/30/21 15:10 Total Bilirubin 0.5 mg/dL (0.15-1.2) 07/30/21 15:10 AST 26 U/L (0-40) 07/30/21 15:10 ALT 6 U/L (0-41) 07/30/21 15:10 Alkaline Phosphatase 96 IU/L (40-130) 07/30/21 15:10 Troponin T Baseline 113 ng/L (0-15) H* 07/30/21 15:10 Troponin T 120 Minute 113.7 ng/L (0-15) H 07/30/21 17:50 Delta Troponin T 0.7 ABS# (0-10) 07/30/21 17:50 C-Reactive Protein 48.5 mg/L (0.0-4.9) H 07/30/21 17:50 NT-Pro-B Natriuret Pep > 66008 pg/mL (0-450) H 07/30/21 15:10 Total Protein 7.1 g/dL (6.6-8.7) 07/30/21 15:10 Albumin 4.1 g/dL (3.5-5.2) 07/30/21 15:10 Globulin 3.0 g/dL (1.3-4.6) 07/30/21 15:10 TSH 2.67 uIU/mL (0.27-4.20) 07/30/21 17:50 Critical Care Time Critical Care Time: Critical Care Time: Yes Total Critical Care Time: 80 Attestation: Due to a high probability of clinically significant, possibly life threatening deterioration, the patient required my highest level of attention and preparedness to intervene emergently and I personally spent this critical care time directly and personally managing the patient. This critical care time i ncluded obtaining a history; examining the patient; pulse oximetry; ordering and review of laboratory and imaging studies; arranging urgent treatment with development of a management plan; evaluation of patient's response to treatment; frequent reassessment; and, discussions with other providers as applicable. It was exclusive of separately billable procedures. Primary system involved is neuro Discharge Plan Discharge Patient Disposition: Admitted As Inpatient Admit Provider: Jim Ortiz Clinical Impression: Altered mental status, Stroke, Dysarthria, Receptive aphasia, End stage renal disease, Temporal arteritis Condition: Stable Coding Level of Care Code ED Legal Financial Specialist for Chg Fwd Exam Comprehensive
--- NOTE | 2021-07-30 14:20 | ECG_ITS ---
[facility] Test Date: 2021-07-30 Pat Name: Manuel Garcia Department: Room: Gender: Male Domestic Housekeeper: : 1945 Requested By: Monster Card Order Number: [id number] Delfino MD: Pablo Kay M.D. Measurements Intervals [place] Rate: 84 P: 71 IA: 185 QRS: 40 QRSD: 86 T: 59 QT: 345 QTc: 410 Interpretive Statements SINUS RHYTHM Compared to ECG 07/04/2021 12:34:09 Prolonged QT interval no longer present Electronically Signed On 07-30-2021 19:41:45 CDT by Pablo Kay M.D. [id number]
--- NOTE | 2021-07-30 14:20 | CT_ITS ---
WS: [id number] CT HEAD NONCONTRAST HISTORY: AMS TECHNIQUE: Contiguous axial imaging performed through the brain in 2.5 mm imaging. Bone and soft tiss ue windows. Sagittal and coronal reformats reviewed. All CT scans at [facility] use at least one of these dose optimization techniques: automated exposure control; mA and/or kV adjustment per pa tient size (includes targeted exams where dose is matched to clinical indication); or iterative recon struction. DLP: 841.14 mGy.cm COMPARISON: 06/18/2021 No acute intracranial hemorrhage, midline shift or mass effect. Mild atrophy with moderate small vessel ischemic changes in the white matter. No mass effect or midli ne shift. Ventricles: Normal size with no hydrocephalus. No inferior displacement of cerebellar tonsils. Paranasal sinuses: Mild mucoperiosteal thickening cells. No air-fluid levels. Mastoid air cells: Well pneumatized. Calvarium and scalp: Skull is intact with no soft tissue edema or swelling. Heavy calcification in the distal intracranial vertebral arteries and through the intracranial caroti d arteries. CT/CT head wo con* [id number] IMPRESSION: 1. No acute intracranial hemorrhage or edema. 2. Mild atrophy with moderate small vessel ischemic changes.
[2021-07-30 14:31] LABS: Glucose Point of Care 89 mg/dL (70-110)
--- NOTE | 2021-07-30 15:03 | XR_ITS ---
WS: [id number] PORTABLE CHEST HISTORY: sob COMPARISON: 02/21/2021 and 07/04/2021 Right-sided Port-A-Cath with tip in the distal SVC. Patient has known bilateral pulmonary metastatic masses and nodules. The largest mass noted today is 4.9 x 3.9 cm. Overall compared to the prior studies there has been improvement with decrease in size of the pulmonary nodules and masses. No pleural effusion or pneumothorax. Cardiac size: Mildly enlarged cardiac silhouette. Mediastinum/Aorta: Mild fullness at the RIGHT hilum. Patient has known metastatic masses at the RIGHT hilum. No osseous abnormality seen. XR/XR chest 1V portable [id number] IMPRESSION: 1. Bilateral known pulmonary metastatic nodules and masses. Largest mass is 4. 9 x 3.9 cm at the RIGHT lung base. Mild improvement since the prior study of . 2. No pneumonia.
[2021-07-30 15:04] LABS: ABG PCO2 41.8 mmHg (35-45); ABG PH Result 7.49 (7.35-7.45); Base Excess ABG 7.9 mmol/L (-2.0-2.0); Blood Gas Allen Test Pos; Blood Gas LPM 3.5 %; Blood Gas Operator Identificat MONRO; Blood Gas Sample Site Radial, left; Blood Gas Sample Type Arterial; Oxygen Device NC; PO2 ABG 66.3 mmHg (80.0-100.0)
[2021-07-30 15:17] LABS: Basophils % 0.1 %; Eosinophils # 0.1 10^3/uL (0.0-0.8); Eosinophils % 1.8 %; Hematocrit 39.4 % (42.0-52.0); Hemoglobin 12.3 g/dL (11.7-16.6); Lymphocytes # 0.7 10^3/uL (0.8-4.8); Lymphocytes % 10.1 %; Mean Corpuscular HGB Conc 31.2 g/dL (30.0-36.0); Mean Corpuscular Volume 89.5 fl (80-94); Mean Platelet Volume 9.7 fL (7.4-10.4); Monocytes # 0.4 10^3/uL (0.2-0.9); Neutrophils # 5.92 10^3/uL (1.8-7.7); Neutrophils % 80.6 %; Nucleated Red Blood Cells % 0 %; Platelet Count 183 10^3/cmm (130-400); Red Cell Distribution Width 19.6 % (12.1-15.1); White Blood Count 7.3 10^3/uL (4.0-10.0)
[2021-07-30] MEDS: ondansetron 2 mg/ML SDV 2 mL 4 MG IVP (15:28)
--- NOTE | 2021-07-30 15:34 | PM.SAN ---
Stroke Alert Activation ED Arrival Date: 07/30/21 Other Last Known Well Infomation: Dr. Card called me at around 3 PM to review the story of this 76-year-old man who may be having a stroke. His dropped him off at 930 this morning for dialysis. She has noticed that he is gradually failing and that he has been worse since he had a temporal artery biopsy recently on 07/26/2021 (positive for temporal arteritis). She has noticed that with every procedure he seems to be getting weaker. He was just hospitalized with respiratory failure a month ago, discharged 07/06. He has end-stage kidney disease and is on dialysis. Says he checked him into dialysis and she noticed that he was not himself. He seemed generally weaker and a little more confused. Over the course of his stay in dialysis he gradually became weaker and more unable to answer questions. He was subdued on arrival and did not talk as much as he usually would when he arrived at 930 but by the time they were gathering him for checkout he would not talk at all and his lungs sounded terrible it his blood pressure was 225/110. His saturation of oxygen was only 88%. The decision to call for an ambulance was based upon his overall decline. The nurse did not think he was having a stroke and that was not the reason she called. Dr. Card again noticed diffuse dysfunction, the patient was somewhat sedated, he would not answer questions or follow commands but he had no focal neurologic findings. I arrived in the room to find the patient vomiting. He made good eye contact but he did not follow commands. He was keenly aware. He was moving both of his upper extremities vigorously and held the emesis basin for himself. He had full visual medina to threat. He did not have a gaze preference. His facial movements were symmetric. He was coughing up profuse amounts of sputum and vomiting in his effort to cough. It was my impression that he was profoundly ill and that he was a poor candidate for tPA for multiple reasons. I took the time to review his history. He has papillary cancer, urothelial carcinoma and most recently was diagnosed with multiple pulmonary metastases. 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 Neurology was not in-house and he was transferred to [facility] after being treated. . Stroke Alert Activated by: Dr. Card Stroke Alert Activation Time: 15:00 Stroke MD @ Bedside Time: 15:00 NIH stroke score NIHSS: Level Of Consciousness - 1a: 0 Level Of Consciousness Questions - 1b: Neither Correct Level Of Consciousness Commands - 1c: Neither Correct Best Gaze - 2: Normal Visual Medina - 3: No Visual Loss Facial Palsy - 4: Normal Motor Arm Right - 5: No Drift Motor Arm Left - 5: No Drift Motor Leg Right - 6: No Drift Motor Leg Left - 6: No Drift Limb Ataxia - 7: Absent Sensory - 8: Normal Best Language - 9: Mute; Global Aphasia Dysarthia - 10: Normal Extinction And Inattention - 11: 0 Score: Total Score: 7 Stroke Alert Data/Treatment Time to CT of Head: 14:20 CT Results Time: 14:50 CT Impression: Diffuse atrophy tPA Contraindication: tPA Contraindication: Treatment not indcated tPA Admin Prior to Arrival: No Patient & Family Educated on: Treament Plan Other Information: I talked with his . I conferred with Dr. Card. I do not think that this patient has sufficient focal findings to treat with tPA and I think he has multiple contraindications, that he is profoundly ill and that his mental status is due to toxic metabolic encephalopathy. Critical Care Time Critical Care Time: less than 30 mins Coding Level of Care Code Acute Damage Adjuster for Robert Walsh
[2021-07-30 15:38] LABS: INR 0.99 (0.8-1.2)
[2021-07-30 15:39] LABS: Partial Thromboplastin Time 34.8 SECONDS (23.9-36.7)
[2021-07-30 15:55] LABS: Troponin(5th) Baseline 113 ng/L (0-15)
[2021-07-30 16:01] LABS: Alanine Aminotransferase 6 U/L (0-41); Albumin Level 4.1 g/dL (3.5-5.2); Alkaline Phosphatase 96 IU/L (40-130); Anion Gap 19.6 (5-19); Aspartate Amino Transferase 26 U/L (0-40); Blood Urea Nitrogen 37 mg/dL (8-23); Carbon Dioxide 31 mmol/L (22-29); Chloride 94 mmol/L (98-107); Glucose 95 mg/dL (65-115); Osmolality Calculated 298 mOsm/kg (285-295); Potassium 4.6 mmol/L (3.5-5.1); Sodium 140 mmol/L (136-145); Total Bilirubin 0.5 mg/dL (0.15-1.2); Total Protein 7.1 g/dL (6.6-8.7)
--- NOTE | 2021-07-30 16:21 | ECG_ITS ---
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 Measurements Intervals [place] Rate: 71 P: 70 LA: 180 QRS: 35 QRSD: 84 T: 57 QT: 378 QTc: 411 Interpretive Statements SINUS RHYTHM Compared to ECG 07/30/2021 14:54:08 No significant changes Electronically Signed On 07-30-2021 19:48:52 CDT by Pablo Kay M.D. [id number]
[2021-07-30 16:47] LABS: NT Pro B Type Natriuretic Pept > 70000 pg/mL (0-450)
[2021-07-30 17:32] VITALS: BP 152/69; PULSE 75; RESP 20; O2SAT 96
--- NOTE | 2021-07-30 18:10 | MRR_ITS ---
PROCEDURE INFORMATION: Exam: MR Head Without Contrast Exam date and time: 07/30/2021 8:46 PM Age: 76 years old Clinical indication: Altered mental status/memory loss; Additional info: Stroke like symptoms TECHNIQUE: Imaging protocol: MR of the head without contrast. COMPARISON: CT head wo con* [id number] 07/30/2021 2:39 PM FINDINGS: Brain: Few punctate areas of mildly increased signal intensity on diffusion-weighted imaging in the subcortical white matter of the right parietal lobe (series 301, images 15 and 17). These are isointense on the ADC mapping. Small foci of decreased signal intensity are also seen in these areas on the gradient echo sequence (series 701, images 16 and 17). There is an additional area of focal decreased signal intensity more medially in the right parietal lobe seen only on the gradient echo sequence (series 701, image 14). This is isointense on both the diffusion-weighted imaging and ADC mapping. Findings are suspicious for hemorrhagic transformation of focal subacute infarcts. No intra-axial or extra-axial masses. No midline shift. No extra-axial fluid collections. Hdez-white matter differentiation is unremarkable. Stable mild atrophy of the brain parenchyma. Multiple areas of increased signal intensity on T2 and FLAIR in the deep white matter, consistent with moderate microangiopathic change. Normal flow voids are present. Seventh and eighth cranial nerve complexes are unremarkable. No evidence for Chiari 1 malformation. No evidence for mesial temporal sclerosis. Cerebral ventricles: No hydrocephalus. Bones/joints: Unremarkable. Paranasal sinuses: Mild mucoperiosteal thickening in the the paranasal sinuses. Mastoid air cells: Mastoid air cells are clear bilaterally. Orbital cavities: Globes and lenses, extraocular muscles, and optic nerves are intact bilaterally. No acute intraorbital abnormality. Soft tissues: No acute abnormality of the extracranial soft tissues. MR/MR head wo con* [id number] IMPRESSION: 1. Findings suspicious for hemorrhagic transformation of three focal subacute infarcts in the subcortical white matter of the right parietal lobe. 2. Stable mild atrophy of the brain parenchyma. 3. Moderate white matter microangiopathic change. 4. Incidental/nonacute findings are listed in the report.
[2021-07-30 18:17] VITALS: BP 160/90; PULSE 75; RESP 18; O2SAT 95
[2021-07-30 18:18] LABS: Troponin 5 2HR Delta 0.7 ABS# (0-10)
[2021-07-30 18:20] VITALS: BP 166/91; PULSE 68; RESP 18; O2SAT 95
[2021-07-30 18:20] LABS: Troponin 5 2HR 113.7 ng/L (0-15)
--- NOTE | 2021-07-30 19:09 | CTR_ITS ---
PROCEDURE INFORMATION: Exam: CT Angiography Head With Contrast, Arteriography Exam date and time: 07/30/2021 8:08 PM Age: 76 years old Clinical indication: Drowsiness or somnolence; Prior surgery; Surgery date: <1 month; Surgery type: Temporal artery biopsy; Patient HX: AMS post dialysis today; Additional info: Stroke, gca TECHNIQUE: Imaging protocol: Computed tomography angiography of the head with contrast. Exam focused on the arteries. Sagittal and coronal reformatted images were created and reviewed. 3D rendering (Not supervised by radiologist): MIP and/or 3D reconstructed images were created by the technologist. Radiation optimization: All CT scans at this facility use at least one of these dose optimization techniques: automated exposure control; mA and/or kV adjustment per patient size (includes targeted exams where dose is matched to clinical indication); or iterative reconstruction. Contrast material: VISIPAQUE; Contrast volume: 75 ml; Contrast route: INTRAVENOUS (IV); COMPARISON: CT head wo con* [id number] 07/30/2021 2:39 PM RADIATION DOSE METRICS: Total DLP (mGy-cm): 1891.91 FINDINGS: ANTERIOR CIRCULATION: Right internal carotid artery: Mild calcified plaque at the cavernous and supraclinoid segments. No occlusion, thrombosis, stenosis, extravasation, dissection, or aneurysm. Right middle cerebral artery: Unremarkable. No occlusion, thrombosis, stenosis, extravasation, dissection, or aneurysm. Right anterior cerebral artery: Unremarkable. No occlusion, thrombosis, stenosis, extravasation, dissection, or aneurysm. Anterior communicating artery: The anterior communicating artery is unremarkable. Left internal carotid artery: Mild calcified plaque at the cavernous and supraclinoid segments. No occlusion, thrombosis, stenosis, extravasation, dissection, or aneurysm. Left middle cerebral artery: Unremarkable. No occlusion, thrombosis, stenosis, extravasation, dissection, or aneurysm. Left anterior cerebral artery: Unremarkable. No occlusion, thrombosis, stenosis, extravasation, dissection, or aneurysm. POSTERIOR CIRCULATION: Right vertebral artery: Mild calcified plaque. No occlusion, thrombosis, stenosis, extravasation, dissection, or aneurysm. Left vertebral artery: Mild to moderate calcified plaque with 30% stenosis. No occlusion, thrombosis, extravasation, dissection, or aneurysm. Basilar artery: Right posterior cerebral artery: Unremarkable. No occlusion, thrombosis, stenosis, dissection, or aneurysm. Right posterior cerebral artery: Unremarkable. No occlusion, thrombosis, stenosis, dissection, or aneurysm. Left posterior cerebral artery: Unremarkable. No occlusion, thrombosis, stenosis, extravasation, dissection, or aneurysm. Right posterior communicating artery: The right posterior communicating artery is unremarkable. Left posterior communicating artery: The left posterior communicating artery is not visualized. The left posterior communicating artery may be congenitally absent, or may be too small for the resolution capabilities of this study. Veins: The dural sinuses and deep cerebral veins are patent. Brain: No definite mass, mass effect, or midline shift. Cerebral ventricles: No hydrocephalus. Orbital cavities: Globes and lenses, extraocular muscles, and optic nerves are intact bilaterally. No acute intraorbital abnormality. Mastoid air cells: Mastoid air cells are clear bilaterally. Paranasal sinuses: Mild mucoperiosteal thickening in the the paranasal sinuses. Bones/joints: Unremarkable. No acute fracture. Soft tissues: No acute abnormality of the extracranial soft tissues. PROCEDURE INFORMATION: Exam: CT Angiography Neck With Contrast Exam date and time: 07/30/2021 8:08 PM Age: 76 years old Clinical indication: Drowsiness or somnolence; Prior surgery; Surgery date: <1 month; Surgery type: Temporal artery biopsy; Patient HX: AMS post dialysis today; Additional info: Stroke, gca TECHNIQUE: Imaging protocol: Computed tomography angiography of the neck with contrast. Sagittal and coronal reformatted images were created and reviewed. 3D rendering (Not supervised by radiologist): MIP and/or 3D reconstructed images were created by the technologist. Radiation optimization: All CT scans at this facility use at least one of these dose optimization techniques: automated exposure control; mA and/or kV adjustment per patient size (includes targeted exams where dose is matched to clinical indication); or iterative reconstruction. Contrast material: VISIPAQUE; Contrast volume: 75 ml; Contrast route: INTRAVENOUS (IV); COMPARISON: 1. CT head wo con* [id number] 07/30/2021 2:39 PM 2. OT PET Scan 03/10/2021 9:[address] chest wo con [id number] 02/21/2021 2:46 AM RADIATION DOSE METRICS: Total DLP (mGy-cm): 1891.91 FINDINGS: Tubes, catheters and devices: Right internal jugular Port-A-Cath extending into the origin of the SVC is partially visualized. Right common carotid artery: Motion artifact limits evaluation of the mid and distal right common carotid artery. Scattered mild calcified plaque. No occlusion, thrombosis, stenosis, extravasation, dissection, or aneurysm. Right internal carotid artery: Moderate to severe calcified plaque in the proximal right internal carotid artery. 47% stenosis using NASCET criteria. Tortuous course of the mid cervical right ICA. No occlusion, thrombosis, extravasation, dissection, or aneurysm. Right external carotid artery: Moderate calcified and mild noncalcified plaque at the origin with 20% stenosis. No occlusion, thrombosis, extravasation, dissection, or aneurysm. Left common carotid artery: Mild calcified plaque at the origin and at the carotid bulb. No occlusion, thrombosis, stenosis, extravasation, dissection, or aneurysm. Left internal carotid artery: Mild calcified plaque at the origin and in the proximal left internal carotid artery. Tortuous course of the mid cervical left ICA. No occlusion, thrombosis, stenosis, extravasation, dissection, or aneurysm. Left external carotid artery: Moderate calcified plaque at the origin with 30% stenosis. No occlusion, thrombosis, extravasation, dissection, or aneurysm. Right vertebral artery: Mild to moderate calcified plaque at the origin. 30% stenosis at the origin. Motion artifact limits evaluation of the proximal right vertebral artery. No occlusion, thrombosis, extravasation, dissection, or aneurysm. Left vertebral artery: Mild calcified plaque at the origin. Motion artifact limits evaluation of the proximal left vertebral artery. No occlusion, thrombosis, stenosis, extravasation, dissection, or aneurysm. Brachiocephalic artery: Mild calcified plaque. No occlusion, thrombosis, stenosis, extravasation, dissection, or aneurysm. Subclavian arteries: Mild to moderate calcified plaque, worse on the right. No occlusion, thrombosis, stenosis, extravasation, dissection, or aneurysm. Aorta: Mild calcified plaque in the visualized aortic arch. Lymph nodes: A lymph node in the upper mediastinum is partially visualized, the visualized portions are stable in size measuring 3.4 x 3.2 cm (series 2, image 3). Soft tissues: No soft tissue swelling. Bones/joints: Bones are diffusely osteopenic. Multilevel degenerative changes of varying severity in the visualized spine. Lungs: Visualized lungs are clear. Pleural spaces: Irregular pleural based mass in the right upper lobe has decreased in size and now measures 1.6 x 1.0 cm, previously measured 2.2 x 2.5 cm (series 3, image 34). Stable noncalcified nodule in the left upper lobe with an average measurement of 7 mm (series 2, image 80). CT/CT angio headneck* [id number] IMPRESSION: 1. Mild to moderate atherosclerotic disease, most pronounced in the intracranial left vertebral artery with 30% stenosis. No occlusion, thrombosis, extravasation, dissection, or aneurysm. 2. The left posterior communicating artery is not visualized. The left posterior communicating artery may be congenitally absent, or may be too small for the resolution capabilities of this study. 3. Incidental/nonacute findings are listed in the report. IMPRESSION: 1. Atherosclerotic disease of varying severity, most pronounced in the proximal right internal carotid artery with 47% stenosis of the right ICA. Mild additional multilevel stenoses bilaterally. No occlusion, thrombosis, extravasation, dissection, or aneurysm. 2. A right upper lobe mass has decreased in size, suggesting improvement of metastatic disease. A 2nd left upper lobe nodule and partially visualized mediastinal lymph node are stable. 3. Incidental/nonacute findings are listed in the report. REFERENCES: NASCET CRITERIA. The degree of internal carotid artery stenosis is based on NASCET criteria. Normal is no stenosis. Mild is less than 50% stenosis. Moderate is 50-69% stenosis. Severe is 70% to 99% stenosis. Total occlusion is no detectable patent lumen.
--- NOTE | 2021-07-30 19:29 | P.HP_ITS ---
Providers/Chief Complaint Admitting Physician: Jim Ortiz MD Primary Care Provider: Kolton Calles DO Chief Complaint: fluid retention History of Present Illness Manuel Garcia is a 76 year old male he checked him into dialysis and she noticed that he was not himself.? He seemed generally weaker and a little more confused.? Over the course of his stay in dialysis he gradually became weaker and more unable to answer questions.? He was subdued on arrival and did not talk as much as he usually would when he arrived at 930 but by the time they were gathering him for checkout he would not talk at all and his lungs sounded terrible it his blood pressure was 225/110.? His saturation of oxygen was only 88%.? The decision to call for an ambulance was based upon his overall decline.? The nurse did not think he was having a stroke and that was not the reason she called.? Review of Systems General: Reports: 10 or more systems reviewed and unremarkable except in HPI and below Const: Denies: fever(s), chills, body aches, change in appetite, change in weight, malaise, night sweats, diaphoresis, change in sleep pattern, daytime sleepiness or snoring Eyes: Denies: change in vision, blurry vision, photophobia, eye discomfort or eye discharge ENMT: Denies: throat pain, enlarged tonsils, hoarseness, mouth pain, oral sores, dry mouth, tinnitus, nasal congestion or post nasal drip Card: Denies: chest pain, palpitations, irregular heart rhythm, edema, swelling of feet/ankles, lightheadedness, syncope, pre-syncope, dyspnea on exertion, orthopnea, leg pain with exertion or acrocyanosis Resp: Denies: dyspnea, productive cough, non-productive cough, wheezing, stridor, pain on inspiration, change in phlegm color, hemoptysis or chest congestion GI: Denies: abdominal pain, nausea, vomiting, hematemesis, coffee ground emesis, dysphagia, heartburn, diarrhea, constipation, bloating, GI cramping, change in bowel habits, pain on defecation, hematochezia or melena : Denies: flank pain, difficulty urinating, dysuria, urinary frequency, urinary urgency, urinary hesitancy, urinary dribbling, difficulty starting urination, change in urine stream, nocturia or hematuria Musc: Denies: neck pain, back pain, extremity pain, joint pain, joint swelling, joint redness, joint stiffness or limited range of motion Neuro: Denies: headache(s), numbness in extremities, weakness in extremities, sensory changes, lack of coordination, difficulty walking, frequent falls, dizziness, vertigo, confusion, Slurred speech present, difficulty communicating thoughts or seizure-like activity Psych: Denies: anxiety, depression, mood swings, panic attacks, hopelessness or irritability Endo: Denies: polyuria, polydipsia, tired all the time, cold intolerance, excessive sweating, flushing or heat intolerance Shun/Lymph: Denies: easy bruising or easy bleeding All/Imm: Denies: tongue swelling, facial swelling or acute wheezing Medications/Allergies Home Medications Medication Instructions Recorded Confirmed Last Taken Type omeprazole 40 mg capsule,delayed 40 mg PO QA 03/16/19 07/30/21 07/25/21 History release metoprolol tartrate 100 mg tablet 100 mg PO BID 10/18/20 07/30/21 07/26/21 History montelukast 10 mg tablet 10 mg PO DAILY PRN 02/20/21 07/30/21 07/25/21 History ondansetron HCl 8 mg tablet 8 mg PO Q6H PRN tab 02/20/21 07/30/21 07/25/21 History cyclobenzaprine 10 mg tablet 10 mg PO TID PRN #30 tab 06/25/21 07/30/21 07/25/21 Rx acetaminophen 325 mg tablet 325 - 650 mg PO Q6H PRN 07/04/21 07/30/21 Unknown History (Tylenol) docusate sodium 100 mg capsule 100 mg PO QA 07/04/21 07/30/21 07/25/21 History (Colace) prednisone 20 mg tablet See Rx Instructions .ROUTE .COMPLEX 07/04/21 07/30/21 07/25/21 History sertraline 50 mg tablet 50 mg PO QA 07/04/21 07/30/21 07/25/21 History triamcinolone acetonide 0.1 % 1 applic TOPICAL BID PRN 07/04/21 07/30/21 07/25/21 History topical ointment zinc 50 mg tablet 50 mg PO QA 07/04/21 07/30/21 07/25/21 History clonidine HCl 0.1 mg tablet 0.2 mg PO BID #120 tab 07/06/21 07/30/21 07/25/21 Rx nifedipine 30 mg tablet,extended 90 mg PO DAILY #30 tab 07/06/21 07/30/21 07/25/21 Rx release 24 hr hydrocodone 5 mg-acetaminophen 325 1 tab PO Q6H PRN #20 tab 07/26/21 07/30/21 Unknown Rx mg tablet amlodipine 10 mg tablet 10 mg PO BEDTIME 07/30/21 07/30/21 Unknown History atorvastatin 20 mg tablet 20 mg PO QPM 07/30/21 07/30/21 Unknown History loratadine 10 mg tablet (Claritin) 10 mg PO DAILY PRN 07/30/21 07/30/21 Unknown History Allergies Allergy/AdvReac Type Severity Reaction Status Date / Time No Known Allergies Allergy Verified 07/30/21 16:28 PFSH Acute PFSH: Medical History (Updated 07/30/21 @ 19:32 by Jim Ortiz MD) AV fistula Bladder cancer Cancer of trigone of urinary bladder CKD (chronic kidney disease) stage 5, GFR less than 15 ml/min On hemodialysis Congestive heart failure Degenerative joint disease (DJD) of lumbar spine GCA (giant cell arteritis) GERD (gastroesophageal reflux disease) Hypertension Malignant neoplasm of right renal pelvis Multiple pulmonary nodules determined by computed tomography of lung Port-A-Cath in place 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 Denies family history of Anesthesia complication Bleeding disorder Social History Smoking and tobacco status: former smoker Quit status (tobacco): has quit using tobacco Year quit tobacco: 1970s Alcohol intake: current Alcohol intake frequency: few times a month Marital status: Current occupational status: retired Current gender identity: Male Vitals/I&O/Wt Last Vital Signs Temp 98 F 07/30/21 14:11 Pulse 68 07/30/21 18:20 Resp 18 07/30/21 18:20 BP 166/91 07/30/21 18:20 Pulse Ox 95 07/30/21 18:20 Weight last 48 hrs Weight 68.492 kg Data : 07/30/21 15:10 07/30/21 15:10 A&P Assessment and plan (1) Stroke-like symptom: Status: Acute (2) History of temporal artery biopsy: Status: Acute (3) GCA (giant cell arteritis): Status: Acute (4) End stage renal disease: Status: Acute Coding Level of Care Code Acute Presidential Helicopter Crew Chief for Robert Walsh Diagnoses Stroke-like symptom R29.90 History of temporal artery biopsy Z98.890 GCA (giant cell arteritis) M31.6 End stage renal disease N18.6
[2021-07-30 20:17] LABS: Iron 21 ug/dL (59-158); Percent Saturation 9.5 % (20-50); Total Iron Binding Capacity 219 mcg/dl; Unsaturated Iron Binding 198 ug/dL (112-347)
--- NOTE | 2021-07-30 20:21 | ECG_ITS ---
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 Measurements Intervals [place] Rate: 63 P: 66 CT: 180 QRS: 29 QRSD: 85 T: 53 QT: 428 QTc: 438 Interpretive Statements SINUS RHYTHM Compared to ECG 07/30/2021 16:24:55 No significant changes Electronically Signed On 07-31-2021 18:36:59 CDT by Erich Kumar M.D. [id number]
[2021-07-30 20:27] LABS: C Reactive Protein 48.5 mg/L (0.0-4.9); Thyroid Stimulating Hormone 2.67 uIU/mL (0.27-4.20)
[2021-07-30] MEDS: iohexol 350 mg/mL 100 mL Btl IV (20:32)
--- NOTE | 2021-07-30 20:34 | P.CONIM_ITS ---
Providers/Reason For Consult Consulting Physician/Specialty*: luciana navarro md / telenephrology Reason for Consult*: ESRD care Requesting Physician: DR Ortiz Attending Physician: Jim Ortiz MD Primary Care Provider: Kolton Calles DO History of Present Illness History of Present Illness Manuel Garcia is a 76 year old male ESRD on HD MWF. Known metastatic adenocarcinoma w/ large lung lesions. Pt was at dialysis today and developed AMS, weakness, and confusion. He was hypertensive and hypoxic even after HD. He was sent to the ER and seen by DR Card and by Dr Figueroa of critical care. Dr Figueroa did not feel that he was a candidate for TPA. 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 Head CT today had no Acute bleed or edema. Pt is getting further imaging. renl called for ESRD care. Pt is s/p recent temporal artery biopsy + for temporal arteritis. Review of Systems Narrative: weak, cough, confusion, lethargy. Medications/Allergies Home Medications Medication Instructions Recorded Confirmed Last Taken Type omeprazole 40 mg capsule,delayed 40 mg PO QAM 03/16/19 07/30/21 07/25/21 History release metoprolol tartrate 100 mg tablet 100 mg PO BID 10/18/20 07/30/21 07/26/21 History montelukast 10 mg tablet 10 mg PO DAILY PRN 02/20/21 07/30/21 07/25/21 History ondansetron HCl 8 mg tablet 8 mg PO Q6H PRN tab 02/20/21 07/30/21 07/25/21 History cyclobenzaprine 10 mg tablet 10 mg PO TID PRN #30 tab 06/25/21 07/30/21 07/25/21 Rx acetaminophen 325 mg tablet 325 - 650 mg PO Q6H PRN 07/04/21 07/30/21 Unknown History (Tylenol) docusate sodium 100 mg capsule 100 mg PO QAM 07/04/21 07/30/21 07/25/21 History (Colace) prednisone 20 mg tablet See Rx Instructions .ROUTE .COMPLEX 07/04/21 07/30/21 History sertraline 50 mg tablet 50 mg PO QAM 07/04/21 07/30/21 07/25/21 History triamcinolone acetonide 0.1 % 1 applic TOPICAL BID PRN 07/04/21 07/30/21 07/25/21 History topical ointment zinc 50 mg tablet 50 mg PO QAM 07/04/21 07/30/21 07/25/21 History clonidine HCl 0.1 mg tablet 0.2 mg PO BID #120 tab 07/06/21 07/30/21 07/25/21 Rx nifedipine 30 mg tablet,extended 90 mg PO DAILY #30 tab 07/06/21 07/30/21 07/25/21 Rx release 24 hr hydrocodone 5 mg-acetaminophen 325 1 tab PO Q6H PRN #20 tab 07/26/21 07/30/21 Unknown Rx mg tablet amlodipine 10 mg tablet 10 mg PO BEDTIME 07/30/21 07/30/21 Unknown History atorvastatin 20 mg tablet 20 mg PO QPM 07/30/21 07/30/21 Unknown History loratadine 10 mg tablet (Claritin) 10 mg PO DAILY PRN 07/30/21 07/30/21 Unknown History Allergies Allergy/AdvReac Type Severity Reaction Status Date / Time No Known Allergies Allergy Verified 07/30/21 16:28 Current Medications Generic Name Dose Route Start Last Admin Trade Name Freq PRN Reason Stop Dose Admin Iohexol 0 ml 07/30/21 20:31 07/30/21 20:32 Iohexol 350 Mg/Ml 100 Ml Btl IV 07/30/21 20:32 70 ml ONCE ONE Administration PFSH Acute PFSH: Medical History (Updated 07/30/21 @ 19:32 by Jim Ortiz MD) AV fistula Bladder cancer Cancer of trigone of urinary bladder CKD (chronic kidney disease) stage 5, GFR less than 15 ml/min On hemodialysis Congestive heart failure Degenerative joint disease (DJD) of lumbar spine GCA (giant cell arteritis) GERD (gastroesophageal reflux disease) Hypertension Malignant neoplasm of right renal pelvis Multiple pulmonary nodules determined by computed tomography of lung Port-A-Cath in place 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 Denies family history of Anesthesia complication Bleeding disorder Social History Smoking and tobacco status: former smoker Quit status (tobacco): has quit using tobacco Year quit tobacco: Alcohol intake: current Alcohol intake frequency: few times a month Marital status: Current occupational status: retired Current gender identity: Male Vitals/I&O/Wt Last Vital Signs Temp 98 F 07/30/21 14:11 Pulse 68 07/30/21 18:20 Resp 18 07/30/21 18:20 BP 166/91 07/30/21 18:20 Pulse Ox 95 07/30/21 18:20 Weight last 48 hrs Weight 68.492 kg Physical Exam Narrative: BP elevated heent-? nc/at neck supple lungs dull areas b/l heart reg abd soft, nt, nd, + bs ext RUE aVF w/ thrill and bruit neuro- awake, confused, limited speech Data : 07/30/21 15:10 07/30/21 15:10 A&P Assessment and plan (1) End stage renal disease: (1) End stage renal disease: 76 yr old male ESRD, met ? cancer 1. ESRD?- consider HD in am 2. Q CVA - f/u imaging -discussed w/ Dr Judge- for now allow permessive htn 3. anemia-? hgb adequate for ESRD - no STEVEN w/ Q of CVA 4. met alkalosis- likely due to ABG being taken after HD 5. Recent bx proven temporal arteritis- on steroids seen and examined w/ rN- telehealth visit-? time spent 50? min informed consent for telehealth obtained from pt discussed w/ pts son and DR Status: Acute Plan see above Consult Attestations Medical Necessity Statement: Q CVA, AMS, HTN, ESRD, temporal arteritis Time Spent in Patient Care: Greater than 35 minutes (>than 50% of time spent in counselling and/or direct pt care on unit) . 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
--- NOTE | 2021-07-30 20:52 | P.HP_ITS ---
Providers/Chief Complaint Admitting Physician: Jim Ortiz MD Primary Care Provider: Kolton Calles DO Chief Complaint: fluid retention History of Present Illness Manuel Garcia is a 76 year old male with a past medical history significant for bladder cancer, congestive heart failure, prior stroke in right MCA, hypertension, and end-stage renal disease on hemodialysis who presents to the emergency department from the dialysis center with altered mental status and respiratory distress. Upon assessment, patient is somewhat a poor historian. He denies any acute complaints other than generalized weakness, headache, and shortness of breath. Further collateral information was obtained from family. Patient's son and [id number] were present. Son reports that he saw the patient over the weekend and he was at his normal baseline. Per ED provider report, stated that patient was at his normal baseline when he was dropped off at the dialysis center this morning at 0930. Patient was noted during dialysis to have some altered mentation followed by subsequent respiratory distress with hypoxia and markedly elevated blood pressure for which EMS was called. In the ED, patient initially was not answering questions or following commands per ED provider. Neurology was consulted due to concern for stroke. There is no focal neurological deficit noted. Neurology recommended against tPA. Of note, patient was recently diagnosed with temporal arteritis. Neurology recommending high-dose steroids. Endorses chronic lower extremity edema at baseline. Patient denies fever, chills, chest pain, nausea, emesis, or changes in bowel habits. Review of Systems Narrative: A complete review of systems was obtained and is negative except as stated in HPI. Medications/Allergies Home Medications Medication Instructions Recorded Confirmed Last Taken Type omeprazole 40 mg capsule,delayed 40 mg PO QAM 03/16/19 07/30/21 07/25/21 History release metoprolol tartrate 100 mg tablet 100 mg PO BID 10/18/20 07/30/21 07/26/21 History montelukast 10 mg tablet 10 mg PO DAILY PRN 02/20/21 07/30/21 07/25/21 History ondansetron HCl 8 mg tablet 8 mg PO Q6H PRN tab 02/20/21 07/30/21 07/25/21 History cyclobenzaprine 10 mg tablet 10 mg PO TID PRN #30 tab 06/25/21 07/30/21 07/25/21 Rx acetaminophen 325 mg tablet 325 - 650 mg PO Q6H PRN 07/04/21 07/30/21 Unknown History (Tylenol) docusate sodium 100 mg capsule 100 mg PO QAM 07/04/21 07/30/21 07/25/21 History (Colace) prednisone 20 mg tablet See Rx Instructions .ROUTE .COMPLEX 07/04/21 07/30/21 07/25/21 History sertraline 50 mg tablet 50 mg PO QAM 07/04/21 07/30/21 07/25/21 History triamcinolone acetonide 0.1 % 1 applic TOPICAL BID PRN 07/04/21 07/30/21 07/25/21 History topical ointment zinc 50 mg tablet 50 mg PO QAM 07/04/21 07/30/21 07/25/21 History clonidine HCl 0.1 mg tablet 0.2 mg PO BID #120 tab 07/06/21 07/30/21 07/25/21 Rx nifedipine 30 mg tablet,extended 90 mg PO DAILY #30 tab 07/06/21 07/30/21 07/25/21 Rx release 24 hr hydrocodone 5 mg-acetaminophen 325 1 tab PO Q6H PRN #20 tab 07/26/21 07/30/21 Unknown Rx mg tablet amlodipine 10 mg tablet 10 mg PO BEDTIME 07/30/21 07/30/21 Unknown History atorvastatin 20 mg tablet 20 mg PO QPM 07/30/21 07/30/21 Unknown History loratadine 10 mg tablet (Claritin) 10 mg PO DAILY PRN 07/30/21 07/30/21 Unknown History Allergies Allergy/AdvReac Type Severity Reaction Status Date / Time No Known Allergies Allergy Verified 07/30/21 16:28 PFSH Acute PFSH: Medical History (Updated 07/30/21 @ 21:16 by Jez Enamorado MD) AV fistula Bladder cancer Cancer of trigone of urinary bladder CKD (chronic kidney disease) stage 5, GFR less than 15 ml/min On hemodialysis Congestive heart failure Degenerative joint disease (DJD) of lumbar spine GCA (giant cell arteritis) GERD (gastroesophageal reflux disease) Hypertension Malignant neoplasm of right renal pelvis Multiple pulmonary nodules determined by computed tomography of lung Port-A-Cath in place 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 Denies family history of Anesthesia complication Bleeding disorder Social History Smoking and tobacco status: former smoker Quit status (tobacco): has quit using tobacco Year quit tobacco: Alcohol intake: current Alcohol intake frequency: few times a month Marital status: Current occupational status: retired Current gender identity: Male Vitals/I&O/Wt Last Vital Signs Temp 98 F 07/30/21 14:11 Pulse 68 07/30/21 18:20 Resp 18 07/30/21 18:20 BP 166/91 07/30/21 18:20 Pulse Ox 95 07/30/21 18:20 Weight last 48 hrs Weight 68.492 kg Physical Exam Narrative: General: Patient is awake. Appears ill. Head: Normocephalic. Atraumatic. EOM intact. Hard of hearing. Neck: Slightly elevated JVD. Cardiovascular: RRR. No gallops. Systolic ejection murmur present. 2+ pitting edema to knees bilaterally. Lungs: Breath sounds are diminished at bilateral bases. There are dependent crackles in both lung [place]. No use of accessory muscles. No rales. Faint end expiratory wheezing present. Skin: No jaundice. No rashes. Abdomen: Normal bowel sounds, abdomen soft and nontender. Genito Urinary: Genital exam not performed since complaints not related. Rectal: Rectal exam not performed since no symptoms indicated blood loss. Extremeties: No cyanosis or clubbing. Musculoskeletal: No swollen or erythematous joints. Neurological: Moves all 4 extremities. No myoclonus. Cranial nerves are grossly intact. No focal deficit. Sensations grossly intact. Data : 07/30/21 15:10 07/30/21 15:10 A&P Assessment and plan (1) Altered mental status: Patient has history of prior stroke in the right MCA territory Current presentation likely secondary to acute metabolic encephalopathy versus stroke Neurology consulted, appreciate recommendations Serial neurochecks CT head plain negative for intracranial hemorrhage CT angio head neck ordered MRI head ordered TTE Telemetry Chest x-ray with known bilateral lung masses, no pneumonia observed CRP and procalcitonin ordered Urinary drug screen PT/OT/ST Status: Acute (2) Hypertensive urgency: Holding home antihypertensives to allow permissive hypertension Will not plan to intervene unless blood pressure exceeds 220/120 Continue home beta-beronica as to not exacerbate an arrhythmia Status: Acute (3) GCA (giant cell arteritis): Bilateral temporal arteritis diagnosed from biopsy on 07/26 Start Methylprednisolone 1 g IV daily Status: Acute (4) Respiratory distress: Associated with hypoxia, shortness of breath, and cough Chest x-ray reviewed, no pneumonia observed Suspect presentation secondary to fluid overload Pro-Flex and CRP ordered Low threshold for chest CT Status: Acute (5) Anemia: Consistent with anemia of end-stage renal disease Hemoglobin at recent baseline Continue iron supplementation Status: Acute (6) End stage renal disease: Nephrology consulted, appreciate recommendations Dialysis per nephrology Status: Acute (7) Congestive heart failure: Chronic diastolic heart failure with preserved ejection fraction Volume control via dialysis Continue beta-beronica Status: Acute (8) Depression: Continue sertraline Status: Acute (9) GERD (gastroesophageal reflux disease): Continue PPI Status: Acute Plan DVT ppx: SCD Attestations Medical Necessity Statement*: Patient with altered mental status secondary to metabolic encephalopathy versus stroke with expected work-up and treatment to cross 2 midnights. 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
[2021-07-30 22:17] LABS: Glucose Point of Care 84 mg/dL (70-110)
[2021-07-30 22:40] LABS: Erythrocyte Sedimentation Rate 47 mm/hr (0-10)
[2021-07-30 23:01] VITALS: BP 216/90; PULSE 63; RESP 17; TEMP 37.6; O2SAT 99
[2021-07-30 23:24] VITALS: O2SAT 98
[2021-07-30 23:37] LABS: C Reactive Protein 60.1 mg/L (0.0-4.9)
[2021-07-30 23:43] LABS: Procalcitonin 0.78 ng/mL (0-0.5)
[2021-07-31] VITALS (13 sets, daily range): BP systolic 181–214; BP diastolic 65–93; PULSE 59–89; RESP 16–20; TEMP 37.1–38.1; O2SAT 94–99
--- NOTE | 2021-07-31 02:31 | USCV_ITS ---
Jose Manuel Age: 76 Gender: M : 1945 Exam Date: 07/31/2021 02:39 Ordering Phys: Jim Ortiz MD Technologist: TAYLER [place] [facility] [place]: Stroke BP: / HR: 55 Rhythm: Sinus Technical Quality: Adequate MEASUREMENTS (Male / Female) Normal Values 2D ECHO LV Diastolic Diameter PLAX 5.1 cm 4.2 - 5.9 / 3.9 - 5.3 cm LV Systolic Diameter PLAX 3.3 cm IVS Diastolic Thickness 0.9 cm 0.6 - 1.0 / 0.6 - 0.9 cm IVS Systolic Thickness 1.6 cm LVPW Diastolic Thickness 1.4 cm 0.6 - 1.0 / 0.6 - 0.9 cm LVPW Systolic Thickness 2.4 cm LVOT Diameter 1.9 cm LV Ejection Fraction 2D Teich 65.9 % LV Ejection Fraction MOD 2C 85.3 % LV Ejection Fraction 2C AL 85.2 % LA Diameter 3.7 cm LA Width 2.6 cm LA Height 6.0 cm RA Width 4.1 cm RA Height 5.0 cm Aorta at Sinotubular Diameter 2.2 cm IVC Diameter 2.1 cm M-MODE Aortic Annulus Diameter 3.0 cm LA Ao Ratio MM 1.3 MV E Point Septal Separation 1.3 cm DOPPLER AV Peak Velocity 247.6 cm/s LVOT Peak Velocity 94.0 cm/s AV Area Cont Eq vti 1.0 cm squared AV Area Cont Eq pk 1.1 cm squared MV Peak Velocity 110.0 cm/s MV Area PHT 1.6 cm squared Mitral E to A Ratio 0.7 MV E' Velocity 43.0 cm/s Mitral E to MV E' Ratio 12.9 Mitral E to LV E' Lateral Ratio 10.8 Mitral E to LV E' Septal Ratio 16.4 TR Peak Velocity 222.0 cm/s TR Peak Gradient 19.7 mmHg TR Mean Velocity 150.5 cm/s TR Mean Gradient 11.6 mmHg TR Velocity Time Integral 67.0 cm Right Atrial Pressure 10.0 mmHg Pulmonary Artery Systolic Pressu 29.7 mmHg PV Peak Velocity 94.0 cm/s RV Acceleration Time 0.1 s RV Ejection Time 0.3 s RV AcT/ET 0.4 FINDINGS Left Ventricle Normal left ventricular size. LV systolic function is normal with EF of 55-60%. No regional wall motion abnormalities. Moderate left ventricular hypertrophy is seen. Grade 1 diastolic dysfunction Right Ventricle The right ventricle is normal in size and function. Right Atrium The right atrium is normal in size. Left Atrium The left atrium is severely dilated Mitral Valve Severe mitral annular calcification without significant stenosis or prolapse. There is trace mitral regurgitation. Aortic Valve Aortic valve is thickened. Moderate aortic stenosis with aortic valve area of 1.2 cm squared and mean gradient across aortic valve of 10 mmHg. Moderate aortic regurgitation. Tricuspid Valve Structurally normal tricuspid valve without significant stenosis. Trace tricuspid regurgitation. Pulmonary artery systolic pressure is normal. Pulmonic Valve Not well-visualized Pericardium Normal pericardium without effusion. Aorta Normal ascending aorta dimension. IVC CONCLUSIONS LV systolic function is normal with EF of 55 to 60%. Moderate left ventricular hypertrophy is seen. Grade 1 diastolic dysfunction. Left atrium is severely dilated. Severe mitral annular calcification is seen. Trace mitral regurgitation. Aortic valve is thickened. Moderate aortic stenosis with aortic valve area of 1.2 cm squared and mean gradient of 10 mmHg Moderate aortic regurgitation. Trace tricuspid regurgitation Compared to prior echocardiogram from 06/08/2021, no significant changes are seen Erich Kumar MD (Electronically Signed) Final Date: 31 July 2021 17:17 S
[2021-07-31 03:25] LABS: Eosinophils % 0.6 %; Hematocrit 32.7 % (42.0-52.0); Hemoglobin 10.3 g/dL (11.7-16.6); Lymphocytes # 0.4 10^3/uL (0.8-4.8); Lymphocytes % 7.3 %; Mean Corpuscular HGB Conc 31.5 g/dL (30.0-36.0); Mean Corpuscular Hemoglobin 28.1 pg (28.0-34.0); Mean Corpuscular Volume 89.3 fl (80-94); Mean Platelet Volume 9.9 fL (7.4-10.4); Monocytes # 0.4 10^3/uL (0.2-0.9); Monocytes % 7.3 %; Neutrophils # 4.41 10^3/uL (1.8-7.7); Nucleated Red Blood Cells % 0 %; Platelet Count 152 10^3/cmm (130-400); Red Blood Count 3.66 10^6/uL (4.1-5.3); Red Cell Distribution Width 19.6 % (12.1-15.1); White Blood Count 5.2 10^3/uL (4.0-10.0)
[2021-07-31 03:39] LABS: Estmated Average Glucose 91; Hemoglobin A1C 4.8 % (4.0-6.0)
[2021-07-31 03:49] LABS: Alanine Aminotransferase < 5 U/L (0-41); Alkaline Phosphatase 75 IU/L (40-130); Anion Gap 18.6 (5-19); Aspartate Amino Transferase 18 U/L (0-40); Blood Urea Nitrogen 49 mg/dL (8-23); Carbon Dioxide 30 mmol/L (22-29); Chloride 95 mmol/L (98-107); Chol HDL Ratio 2.97 mg/dL (1.0-5.00); Cholesterol 187 mg/dL (0-200); Globulin 2.3 g/dL (1.3-4.6); Glucose 81 mg/dL (65-115); HDL Cholesterol 63 mg/dL (60-100); LDL Cholesterol Calculated 90 mg/dL (50-129); Magnesium 1.9 mg/dL (1.7-2.3); Osmolality Calculated 298 mOsm/kg (285-295); Phosphorus 6.2 mg/dL (2.5-4.5); Potassium 5.6 mmol/L (3.5-5.1); Sodium 138 mmol/L (136-145); Total Bilirubin 0.4 mg/dL (0.15-1.2); Total Protein 5.3 g/dL (6.6-8.7); Triglycerides 170 mg/dL (0-150); VLDL Cholestrol Calculation 34 mg/dL (0-30)
--- NOTE | 2021-07-31 04:51 | PC.NURSE ---
i reported high temp 99.9 to nurse
[2021-07-31] MEDS: docusate sodium 100 mg Capsule PO (05:40)
[2021-07-31] MEDS: sertraline 50 mg Tablet PO (05:40)
[2021-07-31 06:46] LABS: Glucose Point of Care 75 mg/dL (70-110)
--- NOTE | 2021-07-31 07:12 | P.PN_ITS ---
Subjective Subjective: feels better. voice and strength improved. MRI w/ 3 subacute infarcts w/ hemorrhagic conversion. + oliva Medications: Reviewed: Yes Medication Review Details: Current Medications Acetaminophen (Acetaminophen 325 Mg Tablet) 650 mg PO Q6H PRN PRN Reason: FEVER Hydrocodone Bitart/Acetaminophen (Hydrocodone-Acetaminophen 5-325 Mg Tablet) 1 tab PO Q6H PRN PRN Reason: MODERATE PAIN Atorvastatin Calcium (Atorvastatin 40 Mg Tablet) 20 mg PO BEDTIME [facility] Last Admin: 07/30/21 23:02 Dose: Not Given Documented by: Cyclobenzaprine HCl (Cyclobenzaprine 10 Mg Tablet) 10 mg PO TID PRN PRN Reason: muscle spasm Dextrose (Dextrose 50% Syringe 50 Ml) 25 ml IVP ONCE PRN; Protocol PRN Reason: hypoglycemia protocol Dextrose (Dextrose 50% Syringe 50 Ml) 50 ml IVP PRN PRN; Protocol PRN Reason: hypoglycemia protocol Docusate Sodium (Docusate Sodium 100 Mg Capsule) 100 mg PO QAM [facility] Last Admin: 07/31/21 05:40 Dose: 100 mg Documented by: Ferrous Gluconate (Ferrous Gluconate 324 Mg Tablet) 324 mg PO BIDWM [facility] Glucagon (Glucagon 1 Mg/Ml Inj 1 Ml) 1 mg IM ONCE PRN; Protocol PRN Reason: Adult Acute Hypoglycemia Prot. Heparin Sodium (Porcine) (Heparin 5,000 Unit/Ml Inj 1 Ml) 5,000 unit SUBCUT Q12H [facility] Last Admin: 07/30/21 22:12 Dose: Not Given Documented by: Methylprednisolone Sodium Succinate 1,000 mg/ Sodium Chloride 258 mls @ 258 mls/hr IV DAILY [facility] Stop: 08/03/21 08:59 Dextrose (D5w) 500 mls @ 100 mls/hr IV ONCE PRN; Protocol PRN Reason: Adult Acute Hypoglycemia Prot Insulin Human Lispro (Insulin Lispro 100 Unit/1 Ml) 0 unit SUBCUT WM&BEDTIME [facility]; Protocol Last Admin: 07/30/21 22:38 Dose: Not Given Documented by: Loratadine (Loratadine 10 Mg Tablet) 10 mg PO DAILY PRN PRN Reason: Allergy Symptoms Montelukast Sodium (Montelukast Sodium 10 Mg Tablet) 10 mg PO DAILY PRN PRN Reason: Allergy Symptoms Pantoprazole Sodium (Pantoprazole Dr 40 Mg Tablet) 40 mg PO DAILY [facility] Sertraline HCl (Sertraline 50 Mg Tablet) 50 mg PO QAM [facility] Last Admin: 07/31/21 05:40 Dose: 50 mg Documented by: Zinc Gluconate (Zinc Gluconate 50 Mg Tablet) 50 mg PO DAILY [facility] Vitals/I&O/Wt Last Vital Signs Temp 99.9 F H 07/31/21 03:21 Pulse 62 07/31/21 06:00 Resp 17 07/31/21 03:21 BP 204/80 07/31/21 03:21 Pulse Ox 99 07/31/21 03:21 07/30/21 07/31/21 07/31/21 22:59 06:59 14:59 Intake Total 80 / 80 Balance 80 / 80 Weight last 48 hrs Weight 69.127 kg Weight 68.492 kg Physical Exam Narrative: BP elevated heent-? nc/at neck supple lungs dull areas b/l heart reg abd soft, nt, nd, + bs ext RUE aVF w/ thrill and bruit neuro- awake, alert, interactive. moving all extremities. oriented x 3 Data : 07/31/21 02:35 07/31/21 02:35 Micro: Microbiology 07/30/21 22:31 Blood Culture - Preliminary Blood SPECIMEN COLLECTED 07/30/21 22:25 Blood Culture - Preliminary Blood SPECIMEN COLLECTED A&P Assessment and plan (1) End stage renal disease: (1) End stage renal disease: 76 yr old male ESRD, met ? cancer 1. ESRD?- HTN, hyperkalemia- repeat HD today. will discuss w/ medicine how low BP can go 2. subacute CVA w/ hemorrhagic conversion on MRI- for now allow permessive htn 3. anemia-? hgb adequate for ESRD - no STEVEN w/ Q of CVA 4. met alkalosis- q if underlying resp acidosis 5. Recent bx proven temporal arteritis- on steroids 6. chronic diastolic CHF seen and examined w/ rN- telehealth visit-? time spent 30? min discussed w/ pt and RN Status: Acute Plan see above Attestations Medical Necessity Statement*: acute CVA, HTN urgenct, ESRD Time Spent in Patient Care: 16 - 35 minutes (>than 50% of time spent in counselling and/or direct pt care on unit) . 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
[2021-07-31] MEDS: levoFLOXacin 500 mg Tablet PO (07:46)
[2021-07-31 08:29] LABS: Hepatitis B Surface AB 6.6 (11.5-1000); Hepatitis B Surface Antigen Non-Reactive (Nonreactive); Hepatitis C Virus Antibody Non-Reactive (Nonreactive)
[2021-07-31] MEDS: zinc gluconate 50 mg Tablet PO (09:22)
[2021-07-31] MEDS: pantoprazole DR 40 mg Tablet PO (09:22)
[2021-07-31] MEDS: ferrous gluconate 324 mg Tablet PO ×2 (09:22→17:34)
[2021-07-31 10:12] LABS: Influenza A by IFA Negative (Negative); Influenza B by IFA Negative (Negative)
[2021-07-31 11:00] LABS: Glucose Point of Care 81 mg/dL (70-110)
[2021-07-31 11:33] LABS: Adenovirus Not Detected (NOT DETECT); Chlamydia Pneumoniae Not Detected (NOT DETECT); Coronavirus 229E,HKU1,NL63,OC4 Not Detected (NOT DETECT); Human Metapneumovirus Not Detected (NOT DETECT); Human Rhinovirus/Enterovirus Not Detected (NOT DETECT); Influenza A Not Detected (NOT DETECT); Influenza A H1 Not Detected (NOT DETECT); Influenza A H1-2009 Not Detected (NOT DETECT); Influenza A H3 Not Detected (NOT DETECT); Influenza B Not Detected (NOT DETECT); Mycoplasma Pneumoniae Not Detected (NOT DETECT); Parainfluenza Virus Type 1 Not Detected (NOT DETECT); Parainfluenza Virus Type 2 Not Detected (NOT DETECT); Parainfluenza Virus Type 3 Not Detected (NOT DETECT); Parainfluenza Virus Type 4 Not Detected (NOT DETECT); Respiratory Syncytial Virus A Not Detected (NOT DETECT); Respiratory Syncytial Virus B Not Detected (NOT DETECT); SARS-COV-2 Detected (NOT DETECT)
--- NOTE | 2021-07-31 12:47 | PM.PN ---
Subjective Subjective: Admitted overnight. Today morning seen with family at bedside. Patient is awake and alert. Able to have complete conversation. Slightly muffled voice. As per the family patient is sounding better than yesterday nestle is more awake. Patient has been going to the bathroom but has been wobbly on his feet as per the . Denies any headache, nausea, vomiting. Currently on 2 L nasal cannula. Blood pressures have been at goal. Vitals/I&O/Wt Last Vital Signs Temp 98.7 F 07/31/21 11:00 Pulse 63 07/31/21 11:00 Resp 17 07/31/21 11:00 BP 190/84 07/31/21 11:00 Pulse Ox 99 07/31/21 11:00 07/30/21 07/31/21 07/31/21 22:59 06:59 14:59 Intake Total 80 / 80 0 / 0 Balance 80 / 80 0 / 0 Weight last 48 hrs Weight 69.127 kg Weight 68.492 kg Physical Exam Narrative: General: No acute distress, AO x3 HEENT: PERRLA, pupils bilaterally equal and reactive Chest: Normal vesicular breath sounds, no added sounds, equal good air entry bilaterally CVS: S1-S2 regular, no murmurs, no tachycardia, no gallops, no rubs Abdomen: Soft, nontender, no organomegaly, bowel sounds present Neuro: No focal deficits, no facial deformity, AO x3, power 5/5 in all limbs Data : 07/31/21 02:35 07/31/21 02:35 Micro: Microbiology 07/30/21 22:31 Blood Culture - Preliminary Blood SPECIMEN COLLECTED 07/30/21 22:25 Blood Culture - Preliminary Blood SPECIMEN COLLECTED A&P Assessment and plan (1) Stroke: Appreciate CTA head and neck, MRI result. Consistent with mild hemorrhagic conversion. PT/OT/swallow evaluation. Goal blood pressure less than 140/90 mmHg now. Hold off on aspirin, Plavix, heparin prophylaxis for now given hemorrhagic conversion. Continue with statin. Could be secondary to vasculitis given new diagnosis of GCA on temporal artery biopsy done on 07/26. Care discussed with neurologist. Continue with stress dose Solu-Medrol 1 g daily for 3 days followed by high-dose prednisone. While on Solu-Medrol we will continue with nystatin swish and swallow. Insulin sliding scale. Status: Acute (2) GCA (giant cell arteritis): Status: Acute (3) Hypoxia: Could be secondary to congestive heart failure given history of dialysis and elevated blood pressures on admission. Cannot rule out secondary to COVID-19. Check sputum culture, flu swab, COVID-19 PCR. For now continue ceftriaxone, Levaquin. If COVID-19 PCR positive will start on remdesivir for at least 3-day course. Patient already on high-dose steroids. Advair, Spiriva. Incentive spirometry, flutter valve. Check CT chest without contrast. Cannot anticoagulate given hemorrhagic conversion so we will hold off on CTA Status: Acute (4) Congestive heart failure: Echocardiogram done in May 2021 shows acute diastolic heart failure with mild aortic stenosis. Control blood pressures. Dialysis. Status: Acute (5) COVID-19: Status: Acute (6) End stage renal disease: Appreciate nephrology recommendations. Plan for 1 more session of dialysis today. Status: Acute (7) Dialysis patient: Status: Acute (8) Dysarthria: Status: Acute (9) Receptive aphasia: Status: Acute Plan Analgesia: [place] 5 mg every 6 hourly as needed. Glycemic control: Not needed Nutrition: Renal dialysis diet CODE STATUS: Full code. PUD prophylaxis: Protonix DVT prophylaxis: SCDs Discharge planning: Plan to discharge within next 48 hours depending on oxygen supplementation. Home with home health. 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
--- NOTE | 2021-07-31 14:11 | PC.NURSE ---
Spoke with Dr. Ortiz to reschedule timing of ceftrizxone and remdesevir since patient is going to dialysis. Dr. Ortiz aproved the schedule adjustment to 1999.
[2021-07-31 16:19] LABS: Glucose Point of Care 102 mg/dL (70-110)
--- NOTE | 2021-07-31 17:02 | PC.OT ---
OT EVALUATION ORDERS RECEIVED. PATIENT CURRENTLY IN DIALYSIS. WILL ATTEMPT EVALUATION TOMORROW.
[2021-07-31] MEDS: benzonatate 100 mg Capsule PO ×2 (17:33→22:06)
[2021-07-31] MEDS: metoprolol tartrate 50 mg Tablet 100 MG PO (17:34)
[2021-07-31] MEDS: cloNIDine 0.1 mg Tablet 0.2 MG PO (17:34)
[2021-07-31] MEDS: hyDRALAzine 25 mg Tablet PO (19:44)
[2021-07-31] MEDS: acetaminophen 325 mg Tablet 650 MG PO (19:44)
[2021-07-31] MEDS: cefTRIAXone 1,000 MG in sodium chloride 0.9% (plus) 50 ML 100 MG IV (19:45)
[2021-07-31 21:05] LABS: Glucose Point of Care 87 mg/dL (70-110)
[2021-07-31] MEDS: amlodipine 10 mg Tablet PO (22:06)
[2021-07-31] MEDS: atorvastatin 40 mg Tablet 20 MG PO (22:06)
[2021-07-31] MEDS: remdesivir 200 MG in sodium chloride 0.9% (100 ml) 60 ML 100 MG IV (22:08)
--- NOTE | 2021-07-31 23:53 | PC.HD ---
Pt hypertensive throughout tx in spite of fluid removal & increased machine temp. Pt's nurse Ella was notified. Treatment completed without other issues.
[2021-08-01] VITALS (15 sets, daily range): BP systolic 116–178; BP diastolic 61–85; PULSE 61–87; RESP 18–20; TEMP 36.5–37.3; O2SAT 93–100
--- NOTE | 2021-08-01 01:22 | PC.PHAR ---
Renal dosing for Levaquin 500mg daily to 250 mg q48h due to crcl of 8.72
[2021-08-01 04:47] LABS: Eosinophils # 0.1 10^3/uL (0.0-0.8); Eosinophils % 1.7 %; Hematocrit 35.6 % (42.0-52.0); Hemoglobin 11.1 g/dL (11.7-16.6); Lymphocytes # 0.4 10^3/uL (0.8-4.8); Lymphocytes % 8.9 %; Mean Corpuscular HGB Conc 31.2 g/dL (30.0-36.0); Mean Corpuscular Hemoglobin 27.8 pg (28.0-34.0); Mean Corpuscular Volume 89.2 fl (80-94); Monocytes # 0.4 10^3/uL (0.2-0.9); Monocytes % 7.4 %; Neutrophils # 3.85 10^3/uL (1.8-7.7); Neutrophils % 81.4 %; Nucleated Red Blood Cells % 0 %; Platelet Count 148 10^3/cmm (130-400); Red Blood Count 3.99 10^6/uL (4.1-5.3); Red Cell Distribution Width 18.9 % (12.1-15.1); White Blood Count 4.7 10^3/uL (4.0-10.0)
[2021-08-01 04:58] LABS: D Dimer 0.98 ug/mIFEU (0-0.59)
[2021-08-01 04:59] LABS: Estmated Average Glucose 100; Hemoglobin A1C 5.1 % (4.0-6.0)
[2021-08-01 05:03] LABS: Alanine Aminotransferase < 5 U/L (0-41); Albumin Level 3.1 g/dL (3.5-5.2); Alkaline Phosphatase 70 IU/L (40-130); Anion Gap 19.2 (5-19); Aspartate Amino Transferase 19 U/L (0-40); Blood Urea Nitrogen 36 mg/dL (8-23); C Reactive Protein 92.4 mg/L (0.0-4.9); Calcium 7.4 mg/dL (8.5-10.5); Carbon Dioxide 28 mmol/L (22-29); Chloride 97 mmol/L (98-107); Globulin 2.5 g/dL (1.3-4.6); Glucose 82 mg/dL (65-115); Magnesium 1.8 mg/dL (1.7-2.3); Osmolality Calculated 295 mOsm/kg (285-295); Phosphorus 5.8 mg/dL (2.5-4.5); Potassium 5.2 mmol/L (3.5-5.1); Sodium 139 mmol/L (136-145); Total Bilirubin 0.2 mg/dL (0.15-1.2); Total Protein 5.6 g/dL (6.6-8.7)
[2021-08-01] MEDS: sertraline 50 mg Tablet PO (05:40)
[2021-08-01] MEDS: docusate sodium 100 mg Capsule PO (05:40)
--- NOTE | 2021-08-01 06:41 | P.PN_ITS ---
Subjective Subjective: feels better. no n/v/c/cp/sob/d/oliva. feels stronger. voice improved Medications: Reviewed: Yes Medication Review Details: Current Medications Acetaminophen (Acetaminophen 325 Mg Tablet) 650 mg PO Q6H PRN PRN Reason: FEVER Last Admin: 07/31/21 19:44 Dose: 650 mg Documented by: Hydrocodone Bitart/Acetaminophen (Hydrocodone-Acetaminophen 5-325 Mg Tablet) 1 tab PO Q6H PRN PRN Reason: MODERATE PAIN Amlodipine Besylate (Amlodipine 10 Mg Tablet) 10 mg PO BEDTIME [facility] Last Admin: 07/31/21 22:06 Dose: 10 mg Documented by: Atorvastatin Calcium (Atorvastatin 40 Mg Tablet) 20 mg PO BEDTIME [facility] Last Admin: 07/31/21 22:06 Dose: 20 mg Documented by: Benzonatate (Benzonatate 100 Mg Capsule) 100 mg PO TID [facility] Last Admin: 07/31/21 22:06 Dose: 100 mg Documented by: Clonidine HCl (Clonidine 0.1 Mg Tablet) 0.2 mg PO BID [facility] Cyclobenzaprine HCl (Cyclobenzaprine 10 Mg Tablet) 10 mg PO TID PRN PRN Reason: muscle spasm Dextrose (Dextrose 50% Syringe 50 Ml) 25 ml IVP ONCE PRN; Protocol PRN Reason: hypoglycemia protocol Dextrose (Dextrose 50% Syringe 50 Ml) 50 ml IVP PRN PRN; Protocol PRN Reason: hypoglycemia protocol Docusate Sodium (Docusate Sodium 100 Mg Capsule) 100 mg PO QAM [facility] Last Admin: 08/01/21 05:40 Dose: 100 mg Documented by: Ferrous Gluconate (Ferrous Gluconate 324 Mg Tablet) 324 mg PO BIDWM [facility] Last Admin: 07/31/21 17:34 Dose: 324 mg Documented by: Glucagon (Glucagon 1 Mg/Ml Inj 1 Ml) 1 mg IM ONCE PRN; Protocol PRN Reason: Adult Acute Hypoglycemia Prot. Heparin Sodium (Porcine) (Heparin 5,000 Unit/Ml Inj 1 Ml) 5,000 unit SUBCUT Q12H [facility] Last Admin: 07/30/21 22:12 Dose: Not Given Documented by: Hydralazine HCl (Hydralazine 25 Mg Tablet) 25 mg PO TID [facility] Last Admin: 07/31/21 19:44 Dose: 25 mg Documented by: Dextrose (D5w) 500 mls @ 100 mls/hr IV ONCE PRN; Protocol PRN Reason: Adult Acute Hypoglycemia Prot Albumin Human (Albumin) 12.5 gm in 50 mls @ 60 mls/hr IV PRN PRN PRN Reason: Hypotension and/or symptomatic Methylprednisolone Sodium Succinate 1,000 mg/ Sodium Chloride 266 mls @ 266 mls/hr IV DAILY [facility] Stop: 08/03/21 08:59 Remdesivir 100 mg/ Sodium (Chloride) 100 mls @ 100 mls/hr IV Q24H [facility] Stop: 08/04/21 18:59 Ceftriaxone Sodium 1,000 mg/ (Sodium Chloride) 50 mls @ 100 mls/hr IV Q24H [facility]JUAN; Protocol Last Infusion: 07/31/21 20:28 Dose: Infused Documented by: Levofloxacin (Levofloxacin 250 Mg Tablet) 250 mg PO Q48H [facility]JUAN; Protocol Loratadine (Loratadine 10 Mg Tablet) 10 mg PO DAILY PRN PRN Reason: Allergy Symptoms Metoprolol Tartrate (Metoprolol Tartrate 50 Mg Tablet) 100 mg PO BID [facility] Last Admin: 07/31/21 17:34 Dose: 100 mg Documented by: Montelukast Sodium (Montelukast Sodium 10 Mg Tablet) 10 mg PO DAILY PRN PRN Reason: Allergy Symptoms Nifedipine (Nifedipine Er (24 Hr) 30 Mg Tablet) 90 mg PO DAILY [facility]JU[facility] Pantoprazole Sodium (Pantoprazole Dr 40 Mg Tablet) 40 mg PO DAILY [facility] Last Admin: 07/31/21 09:22 Dose: 40 mg Documented by: Fluticasone/Salmeterol (Fluticasone-Salmeterol 250-50 Diskus) 1 puff INHALATION BID.RESPIRATORY [facility]JU[facility] Last Admin: 07/31/21 21:23 Dose: 1 puff Documented by: Sertraline HCl (Sertraline 50 Mg Tablet) 50 mg PO QAM [facility] Last Admin: 08/01/21 05:40 Dose: 50 mg Documented by: Tiotropium [place] (Tiotropium 18 Mcg Mdi) 18 mcg INHALATION DAILY.RESPIRATORY DEJUAN Zinc Gluconate (Zinc Gluconate 50 Mg Tablet) 50 mg PO DAILY [facility] Last Admin: 07/31/21 09:22 Dose: 50 mg Documented by: Vitals/I&O/Wt Last Vital Signs Temp 98.3 F 08/01/21 04:00 Pulse 67 08/01/21 04:00 Resp 18 06/15/22 04:00 BP 175/79 08/01/21 04:00 Pulse Ox 98 08/01/21 04:00 07/31/21 07/31/21 08/01/21 14:59 22:59 06:59 Intake Total 0 / 0 50 / 50 100 / 150 Output Total 2508 / 2508 Balance 0 / 0 50 / 50 -2408 / -2358 Weight last 48 hrs Weight 70.1 kg Weight 69.127 kg Weight 68.492 kg Physical Exam Narrative: BP elevated heent-? nc/at neck supple lungs improved air movement b/l heart reg abd soft, nt, nd, + bs ext RUE aVF w/ thrill and bruit neuro- awake, alert, interactive. moving all extremities. oriented x 3 Data : 08/01/21 04:37 08/01/21 04:37 Micro: Microbiology 07/30/21 22:31 Blood Culture - Preliminary Blood NEGATIVE TO DATE 07/30/21 22:25 Blood Culture - Preliminary Blood NEGATIVE TO DATE A&P Assessment and plan (1) End stage renal disease: (1) End stage renal disease: 76 yr old male ESRD, met ? cancer A. COVID-19 pna- remdesivir. also on ceftriaxone 1. ESRD?- regular HD is MWF- will dialyze today or tomorrow based on nurse availability 3.5 hrs, 2k remove 2.5 l 2.HTN- home meds and remove fluids on dialysis -inc clonidine to tid 3. subacute CVA w/ hemorrhagic conversion on MRI- for now statin and BP control 4. anemia-? hgb adequate for ESRD - no STEVEN w/ acute CVA 5. Recent bx proven temporal arteritis- on steroids 6. chronic diastolic CHF and seen and examined w/ RN- telehealth visit-? time spent 30? min discussed w/ pt and RN Status: Acute Plan see above Attestations Medical Necessity Statement*: acute hemorrhagic cva, htn, esrd, COVID-19 pna Time Spent in Patient Care: 16 - 35 minutes (>than 50% of time spent in counselling and/or direct pt care on unit) . 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
[2021-08-01 06:59] LABS: Glucose Point of Care 137 mg/dL (70-110)
[2021-08-01 06:59] LABS: Glucose Point of Care 81 mg/dL (70-110)
[2021-08-01] MEDS: zinc gluconate 50 mg Tablet PO (08:40)
[2021-08-01] MEDS: metoprolol tartrate 50 mg Tablet 100 MG PO ×2 (08:41→18:00)
[2021-08-01] MEDS: cloNIDine 0.1 mg Tablet 0.2 MG PO ×3 (08:41→21:13)
[2021-08-01] MEDS: benzonatate 100 mg Capsule PO ×3 (08:41→20:52)
[2021-08-01] MEDS: ferrous gluconate 324 mg Tablet PO ×2 (08:41→18:00)
[2021-08-01] MEDS: NIFEdipine ER (24 hr) 30 mg Tablet 90 MG PO (08:41)
[2021-08-01] MEDS: hyDRALAzine 25 mg Tablet PO ×2 (08:42→21:13)
[2021-08-01] MEDS: pantoprazole DR 40 mg Tablet PO (08:42)
--- NOTE | 2021-08-01 10:15 | FL_ITS ---
WS: [id number] Modified barium swallow, 08/01/2021 Clinical Data: Oral dysphagia Comparison: None. Fluoroscopy time: 1.4 # of spot films: 1 Findings: The patient ingested various materials. The patient exhibited good oral function with normal potion o f boluses. There is no aspiration or penetration. Hypopharyngeal and esophageal function were also no rmal. FL/FL barium swallow modifd [id number] Impression: Negative modified barium swallow.
[2021-08-01 11:31] LABS: Glucose Point of Care 111 mg/dL (70-110)
--- NOTE | 2021-08-01 12:46 | CT_ITS ---
WS: [id number] CT CHEST WITHOUT INTRAVENOUS CONTRAST HISTORY: hypoxia, covid TECHNIQUE: Contiguous 5 mm axial imaging performed on the thorax. Coronal and sagittal reformats are submitted. All CT scans at [facility] use at least one of these dose optimization techniques: automated exposure control; mA and/or kV adjustment per patient size (includes targeted exams where dose is matched to clinical indication); or iterative reconstruction. CONTRAST: None DLP: 544.87 mGy.cm COMPARISON: 02/21/2021 and 04/03/2021 Lungs and central airway: Patient has known lung cancer with bilateral pulmonary masses and nodules. These nodules and masses have improved in size but not resolved since 02/21/2021. The largest mass in t he RIGHT middle lobe is a solid mass measuring 4.9 x 4.0 cm. Additional large mass in the LEFT lower lobe abuts the fissure measuring 4.1 x 4.2 cm. There are additional scattered pulmonary masses and no dules which have also improved or resolved. New bilateral dependent changes at the lung bases. More f ocal consolidation at the LEFT lung base is residual mass. There are very small bilateral pleural eff usions. Pleura: Small bilateral pleural effusions. Heart and pericardium: Markedly enlarged heart. Small pericardial effusion. Mediastinum and judah: Fullness in the RIGHT paratracheal region consistent with a large lymph node me asuring 3.4 cm. There is also fullness at the hilar regions suspicious for lymph nodes. Without IV co ntrast evaluation of these lymph nodes is limited and difficult. Vessels: Moderate atherosclerosis aorta. Pulmonary artery is enlarged. Chest wall and lower neck: Mild diffuse soft tissue anasarca. Right-sided Mediport. Upper abdomen: Unenhanced imaging of the liver is negative. Incompletely included adrenal glands but no masses. Atrophied upper pole LEFT kidney with small cysts. Osseous structures: Osteopenia. CT/CT chest wo con [id number] IMPRESSION: 1. Patient has known bilateral pulmonary nodules or masses. Since 02/21/2021 the re has been a moderate improvement. The largest mass now measures 4.9 x 4.0 cm in the RIGHT middle lobe. This mass previously measured 7.1 x 5.6 cm. 2. New dependent changes at the lung bases and small bilateral pleural effusio ns. 3. Large RIGHT paratracheal lymph node with a maximum diameter of 3.4 cm. Williams tional lymph nodes are likely present but not well visualized without IV contra st. 4. Soft tissue anasarca.
--- NOTE | 2021-08-01 14:19 | P.PN_ITS ---
Subjective Subjective: No acute events overnight. Denies any nausea, vomiting, headache. Today morning on examination lying comfortably in bed. On 2 L saturating 97%. Blood pressure still elevated but better than before. sounding better. Working with physical therapy. Vitals/I&O/Wt Last Vital Signs Temp 97.7 F 08/01/21 12:12 Pulse 67 08/01/21 12:12 Resp 18 08/01/21 12:12 BP 163/76 08/01/21 12:12 Pulse Ox 97 08/01/21 12:12 07/31/21 08/01/21 08/01/21 22:59 06:59 14:59 Intake Total 50 / 50 100 / 150 746 / 746 Output Total 2508 / 2508 Balance 50 / 50 -2408 / -2358 746 / 746 Weight last 48 hrs Weight 70.1 kg Weight 69.127 kg Physical Exam Narrative: General: No acute distress, AO x3 HEENT: PERRLA, pupils bilaterally equal and reactive Chest: Normal vesicular breath sounds, no added sounds, equal good air entry bilaterally CVS: S1-S2 regular, no murmurs, no tachycardia, no gallops, no rubs Abdomen: Soft, nontender, no organomegaly, bowel sounds present Neuro: No focal deficits, no facial deformity, AO x3, power 5/5 in all limbs Data : 08/01/21 04:37 08/01/21 04:37 Micro: Microbiology 07/30/21 22:31 Blood Culture - Preliminary Blood NEGATIVE TO DATE 07/30/21 22:25 Blood Culture - Preliminary Blood NEGATIVE TO DATE A&P Assessment and plan (1) Stroke: Appreciate CTA head and neck, MRI result. Consistent with mild hemorrhagic conversion. PT/OT/swallow evaluation. Goal blood pressure less than 140/90 mmHg now. Hold off on aspirin, Plavix, heparin prophylaxis for now given hemorrhagic conversion. Continue with statin. Could be secondary to vasculitis given new diagnosis of GCA on temporal artery biopsy done on 07/26. Care discussed with neurologist. Continue with stress dose Solu-Medrol 1 g daily for 3 days followed by high-dose prednisone. While on Solu-Medrol we will continue with nystatin swish and swallow. Insulin sliding scale. Status: Acute (2) GCA (giant cell arteritis): Status: Acute (3) Hypoxia: Could be secondary to congestive heart failure given history of dialysis and elevated blood pressures on admission. Cannot rule out secondary to COVID-19. Check sputum culture, flu swab, COVID-19 PCR. For now continue ceftriaxone, Levaquin. If COVID-19 PCR positive will start on remdesivir for at least 3-day course. Patient already on high-dose steroids. Advair, Spiriva. Incentive spirometry, flutter valve. Check CT chest without contrast. Cannot anticoagulate given hemorrhagic conversion so we will hold off on CTA Status: Acute (4) Congestive heart failure: Echocardiogram done in May 2021 shows acute diastolic heart failure with mild aortic stenosis. Control blood pressures. Dialysis. Status: Acute (5) COVID-19: Status: Acute (6) End stage renal disease: Appreciate nephrology recommendations. Plan for 1 more session of dialysis today. Status: Acute (7) Dialysis patient: Status: Acute (8) Dysarthria: Status: Acute (9) Receptive aphasia: Status: Acute Plan Analgesia: [place] 5 mg every 6 hourly as needed. Glycemic control: Not needed Nutrition: Renal dialysis diet CODE STATUS: Full code. PUD prophylaxis: Protonix DVT prophylaxis: SCDs Discharge planning: Plan to discharge within next 24 hours depending on oxygen supplementation after completion of course of remdesivir for 3 days and 3 days of high-dose Solu-Medrol. Home with home health. Continue with care at [facility] care Plan for the day: Continue with lower dose of high-dose Solu-Medrol. Will transition to prednisone tomorrow. Continue with remdesivir. Continue with weaning down off oxygen keeping saturation over 88%. For blood pressure continue with amlodipine 10 mg. Increase clonidine to 0.2 3 times daily Add hydralazine 25 mg 3 times daily Continue metoprolol 100 mg twice daily, nifedipine 90 mg daily. Target blood pressure less than 140/90 mmHg. Monitor blood pressures. 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
--- NOTE | 2021-08-01 16:15 | PC.OT ---
OT EVALUATION ATTEMPTED. PATIENT IN DIALYSIS FOR THE REST OF THE AFTERNOON; WILL ATTEMPT AGAIN TOMORROW.
[2021-08-01 16:53] LABS: Glucose Point of Care 168 mg/dL (70-110)
[2021-08-01 17:08] LABS: Anti-Double Strand DNA AB 1 IU/mL; Jo-1 Antibody <1.0 NEG AI (<1.0 NEG); SM/RNP Antibodies <1.0 NEG AI (<1.0 NEG); SS-B/LA IGG <1.0 NEG AI (<1.0 NEG); Scleroderma Ab(Scl-70) Ab <1.0 NEG AI (<1.0 NEG); Ss-A/Ro Igg <1.0 NEG AI (<1.0 NEG)
[2021-08-01] MEDS: remdesivir 100 MG in sodium chloride 0.9% (100 ml) 80 ML IV (18:01)
[2021-08-01] MEDS: cefTRIAXone 1,000 MG in sodium chloride 0.9% (plus) 50 ML 100 MG IV (20:52)
[2021-08-01] MEDS: atorvastatin 40 mg Tablet 20 MG PO (20:52)
--- NOTE | 2021-08-01 21:08 | PM.EVENT ---
Event Note Event Note: Called with questions regarding blood pressure medications. Chart reviewed. Patient has had difficult to control blood pressures and is on multiple medications as noted in the active medication list which I have reviewed. These include amlodipine, metoprolol, nifedipine, hydralazine and clonidine. From what I can tell clonidine dosing was increased today from 0.2 twice daily to 0.2 3 times daily. Current systolic pressure is 116, heart rate 78. Previous blood pressures since the midday dose of clonidine have ranged 1 23-1 59 systolic and prior to that generally 170s to 200s systolic. Medications currently due include 0.2 of clonidine, 10 of amlodipine and 25 of hydralazine. He has already received metoprolol dosing this evening and had nifedipine today. Patient's blood pressure does appear improved with additional dose of clonidine as described so at this point in time I will continue the clonidine and hydralazine but hold the evening dose of amlodipine presently. Nursing staff will recheck blood pressure as needed for any new symptoms suggestive of symptomatic hypotension as well as in a couple of hours. We can give the amlodipine dose if necessary at that time. Reviewed with Lucía, nursing staff taking care of him tonight.
[2021-08-02] VITALS: BP 128/61; PULSE 73; RESP 18; TEMP 37.2; O2SAT 95
[2021-08-02 04:00] VITALS: BP 132/64; PULSE 69; RESP 17; TEMP 36.4; O2SAT 93
[2021-08-02 04:31] LABS: Hematocrit 33.6 % (42.0-52.0); Hemoglobin 10.4 g/dL (11.7-16.6); Lymphocytes # 0.3 10^3/uL (0.8-4.8); Lymphocytes % 5.2 %; Mean Corpuscular Hemoglobin 27.9 pg (28.0-34.0); Mean Corpuscular Volume 90.1 fl (80-94); Mean Platelet Volume 10.4 fL (7.4-10.4); Monocytes # 0.1 10^3/uL (0.2-0.9); Monocytes % 2.3 %; Neutrophils # 4.43 10^3/uL (1.8-7.7); Neutrophils % 92.1 %; Nucleated Red Blood Cells % 0 %; Platelet Count 157 10^3/cmm (130-400); Red Blood Count 3.73 10^6/uL (4.1-5.3); Red Cell Distribution Width 18.4 % (12.1-15.1); White Blood Count 4.8 10^3/uL (4.0-10.0)
[2021-08-02 04:53] LABS: Alanine Aminotransferase < 5 U/L (0-41); Albumin Level 3.1 g/dL (3.5-5.2); Alkaline Phosphatase 92 IU/L (40-130); Anion Gap 18.9 (5-19); Aspartate Amino Transferase 18 U/L (0-40); Blood Urea Nitrogen 37 mg/dL (8-23); Calcium 7.7 mg/dL (8.5-10.5); Carbon Dioxide 28 mmol/L (22-29); Chloride 97 mmol/L (98-107); Globulin 2.5 g/dL (1.3-4.6); Glucose 284 mg/dL (65-115); Magnesium 1.9 mg/dL (1.7-2.3); Osmolality Calculated 307 mOsm/kg (285-295); Potassium 4.9 mmol/L (3.5-5.1); Sodium 139 mmol/L (136-145); Total Bilirubin 0.3 mg/dL (0.15-1.2); Total Protein 5.6 g/dL (6.6-8.7)
[2021-08-02 05:32] VITALS: PULSE 67
[2021-08-02] MEDS: sertraline 50 mg Tablet PO (06:11)
[2021-08-02] MEDS: docusate sodium 100 mg Capsule PO (06:11)
--- NOTE | 2021-08-02 06:51 | PM.PN ---
Subjective Subjective: feels better. no n/v/f/oliva/d. has a cough Medications: Reviewed: Yes Medication Review Details: Current Medications Acetaminophen (Acetaminophen 325 Mg Tablet) 650 mg PO Q6H PRN PRN Reason: FEVER Last Admin: 07/31/21 19:44 Dose: 650 mg Documented by: Hydrocodone Bitart/Acetaminophen (Hydrocodone-Acetaminophen 5-325 Mg Tablet) 1 tab PO Q6H PRN PRN Reason: MODERATE PAIN Amlodipine Besylate (Amlodipine 10 Mg Tablet) 10 mg PO BEDTIME [facility] Last Admin: 07/31/21 22:06 Dose: 10 mg Documented by: Atorvastatin Calcium (Atorvastatin 40 Mg Tablet) 20 mg PO BEDTIME [facility] Last Admin: 08/01/21 20:52 Dose: 20 mg Documented by: Benzonatate (Benzonatate 100 Mg Capsule) 100 mg PO TID [facility] Last Admin: 08/01/21 20:52 Dose: 100 mg Documented by: Clonidine HCl (Clonidine 0.1 Mg Tablet) 0.2 mg PO TID [facility] Last Admin: 08/01/21 21:13 Dose: 0.2 mg Documented by: Cyclobenzaprine HCl (Cyclobenzaprine 10 Mg Tablet) 10 mg PO TID PRN PRN Reason: muscle spasm Dextrose (Dextrose 50% Syringe 50 Ml) 25 ml IVP ONCE PRN; Protocol PRN Reason: hypoglycemia protocol Dextrose (Dextrose 50% Syringe 50 Ml) 50 ml IVP PRN PRN; Protocol PRN Reason: hypoglycemia protocol Docusate Sodium (Docusate Sodium 100 Mg Capsule) 100 mg PO QAM [facility] Last Admin: 08/02/21 06:11 Dose: 100 mg Documented by: Ferrous Gluconate (Ferrous Gluconate 324 Mg Tablet) 324 mg PO BIDWM [facility] Last Admin: 08/01/21 18:00 Dose: 324 mg Documented by: Glucagon (Glucagon 1 Mg/Ml Inj 1 Ml) 1 mg IM ONCE PRN; Protocol PRN Reason: Adult Acute Hypoglycemia Prot. Heparin Sodium (Porcine) (Heparin 5,000 Unit/Ml Inj 1 Ml) 5,000 unit SUBCUT Q12H [facility] Last Admin: 07/30/21 22:12 Dose: Not Given Documented by: Hydralazine HCl (Hydralazine 25 Mg Tablet) 25 mg PO TID [facility] Last Admin: 08/01/21 21:13 Dose: 25 mg Documented by: Dextrose (D5w) 500 mls @ 100 mls/hr IV ONCE PRN; Protocol PRN Reason: Adult Acute Hypoglycemia Prot Albumin Human (Albumin) 12.5 gm in 50 mls @ 60 mls/hr IV PRN PRN PRN Reason: Hypotension and/or symptomatic Remdesivir 100 mg/ Sodium (Chloride) 100 mls @ 100 mls/hr IV Q24H [facility] Stop: 08/04/21 18:59 Last Infusion: 08/01/21 20:45 Dose: Infused Documented by: Ceftriaxone Sodium 1,000 mg/ (Sodium Chloride) 50 mls @ 100 mls/hr IV Q24H DEJUAN; Protocol Last Infusion: 08/01/21 22:29 Dose: Infused Documented by: Methylprednisolone Sodium Succinate 1,000 mg/ Sodium Chloride 258 mls @ 258 mls/hr IV DAILY [facility] Stop: 08/03/21 09:59 Levofloxacin (Levofloxacin 250 Mg Tablet) 250 mg PO Q48H DEJUAN; Protocol Loratadine (Loratadine 10 Mg Tablet) 10 mg PO DAILY PRN PRN Reason: Allergy Symptoms Metoprolol Tartrate (Metoprolol Tartrate 50 Mg Tablet) 100 mg PO BID [facility] Last Admin: 08/01/21 18:00 Dose: 100 mg Documented by: Montelukast Sodium (Montelukast Sodium 10 Mg Tablet) 10 mg PO DAILY PRN PRN Reason: Allergy Symptoms Nifedipine (Nifedipine Er (24 Hr) 30 Mg Tablet) 90 mg PO DAILY [facility] Last Admin: 08/01/21 08:41 Dose: 90 mg Documented by: Pantoprazole Sodium (Pantoprazole Dr 40 Mg Tablet) 40 mg PO DAILY [facility] Last Admin: 08/01/21 08:42 Dose: 40 mg Documented by: Fluticasone/Salmeterol (Fluticasone-Salmeterol 250-50 Diskus) 1 puff INHALATION BID.RESPIRATORY [facility]JUAN Last Admin: 08/01/21 19:44 Dose: 1 puff Documented by: Sertraline HCl (Sertraline 50 Mg Tablet) 50 mg PO QAM [facility] Last Admin: 08/02/21 06:11 Dose: 50 mg Documented by: Tiotropium [place] (Tiotropium 18 Mcg Mdi) 18 mcg INHALATION DAILY.RESPIRATORY [facility] Last Admin: 08/01/21 09:10 Dose: 1 inhalation Documented by: Zinc Gluconate (Zinc Gluconate 50 Mg Tablet) 50 mg PO DAILY [facility] Last Admin: 08/01/21 08:40 Dose: 50 mg Documented by: Vitals/I&O/Wt Last Vital Signs Temp 97.6 F 08/02/21 04:00 Pulse 67 08/02/21 05:32 Resp 17 08/02/21 04:00 BP 132/64 08/02/21 04:00 Pulse Ox 93 08/02/21 04:00 08/01/21 08/01/21 08/02/21 14:59 22:59 06:59 Intake Total 746 / 746 150 / 896 360 / 1256 Output Total 3000 / 3000 Balance 746 / 746 -2850 / -2104 360 / -1744 Weight last 48 hrs Weight 68.2 kg Weight 70.1 kg Physical Exam Narrative: comfortable in bed, NARD VSS - BP good heent-? nc/at neck supple lungs still w/ wheezes b/l heart reg abd soft, nt, nd, + bs ext RUE aVF w/ thrill and bruit neuro- awake, alert, interactive. moving all extremities. oriented x 3 Data : 08/02/21 04:22 08/02/21 04:22 A&P Assessment and plan (1) End stage renal disease: (1) End stage renal disease: 76 yr old male ESRD, met ? cancer A. COVID-19 pna- remdesivir. also on ceftriaxone 1. ESRD?- regular HD is MWF- will dialyze tomorrow 3.5 hrs, 2k remove 3 l 2.HTN- improved- cont clonidine- though i am concerned that he misses clonidine and has rebound hypertension at home cont metoprolol, and nifedipine -d/c hydralazine as tid -restart norvasc 5 mgm po daily -on lower dose steroids and w/ more dialysis, he may need fewer meds 3. subacute CVA w/ hemorrhagic conversion on MRI- for now statin and BP control 4. anemia-? hgb adequate for ESRD - no STEVEN w/ acute CVA 5. Recent bx proven temporal arteritis- on steroids 6. chronic diastolic CHF and PLEASE ENSURE THAT DIALYSIS CENTER WILL TAKE HIM COVID-19+ PRIOR TO D/C seen and examined w/ RN- telehealth visit-? time spent 30? min discussed w/ pt and RN Status: Acute Plan see above Attestations Medical Necessity Statement*: d/c per emdicine. bp improved. has COVID-19 and ESRD Time Spent in Patient Care: 16 - 35 minutes (>than 50% of time spent in counselling and/or direct pt care on unit). Coding Level of Care Code Acute Retail Support Specialist for Robert Walsh Diagnoses End stage renal disease N18.6
[2021-08-02 08:00] VITALS: BP 117/62; PULSE 71; RESP 16; TEMP 36.4; O2SAT 95
[2021-08-02] MEDS: NIFEdipine ER (24 hr) 30 mg Tablet 90 MG PO (10:52)
[2021-08-02] MEDS: cloNIDine 0.1 mg Tablet 0.2 MG PO (10:53)
[2021-08-02] MEDS: zinc gluconate 50 mg Tablet PO (10:53)
[2021-08-02] MEDS: metoprolol tartrate 50 mg Tablet 100 MG PO (10:53)
[2021-08-02] MEDS: pantoprazole DR 40 mg Tablet PO (10:53)
[2021-08-02] MEDS: ferrous gluconate 324 mg Tablet PO (10:53)
[2021-08-02] MEDS: benzonatate 100 mg Capsule PO (10:53)
[2021-08-02] MEDS: levoFLOXacin 250 mg Tablet PO (11:29)
[2021-08-02 12:00] VITALS: BP 126/65; PULSE 67; RESP 16; TEMP 36.5; O2SAT 95
[2021-08-02 12:08] LABS: Glucose Point of Care 232 mg/dL (70-110)
--- NOTE | 2021-08-02 12:52 | PM.DCS ---
Discharge Providers Date of Admission: 07/30/21 18:12 Date of Discharge: August 02, 2021 Attending Provider at Admission: Jim Ortiz MD Attending Provider at Discharge: Jim Ortiz MD Consults: Neurology: Dr. Figueroa Telemetry nephrology Primary Care Provider: oKlton Calles DO Diagnoses at Discharge Discharge Diagnosis (1) End stage renal disease: Status: Acute (2) COVID-19: Status: Acute (3) Hypoxia: Status: Acute (4) Stroke: Status: Acute (5) Dysarthria: Status: Acute (6) Receptive aphasia: Status: Acute (7) Temporal arteritis: Status: Acute (8) Congestive heart failure: Status: Acute Permanent problem details: distolic HF (9) Hypertensive urgency: Status: Acute Reason for Visit Reason for Visit: fluid retention Brief History: As per HPI: Manuel Garcia is a 76 year old male with a past medical history significant for bladder cancer, congestive heart failure, prior stroke in right MCA, hypertension, and end-stage renal disease on hemodialysis who presents to the emergency department from the dialysis center with altered mental status and respiratory distress.? Upon assessment, patient is somewhat a poor historian.? He denies any acute complaints other than generalized weakness, headache, and shortness of breath.? Further collateral information was obtained from family.? Patient's son and [id number] were present.? Son reports that he saw the patient over the weekend and he was at his normal baseline.? Per ED provider report, stated that patient was at his normal baseline when he was dropped off at the dialysis center this morning at 0930.? Patient was noted during dialysis to have some altered mentation followed by subsequent respiratory distress with hypoxia and markedly elevated blood pressure for which EMS was called. In the ED, patient initially was not answering questions or following commands per ED provider.? Neurology was consulted due to concern for stroke.? There is no focal neurological deficit noted.? Neurology recommended against tPA. Of note, patient was recently diagnosed with temporal arteritis.? Neurology recommending high-dose steroids. Endorses chronic lower extremity edema at baseline.? Patient denies fever, chills, chest pain, nausea, emesis, or changes in bowel habits. Hospital Course Hospital Course Patient to the hospital for evaluation and management. On review of chart it seems patient has had temporal artery biopsy earlier that week which was positive for temporal arteritis. Given an ischemic stroke patient was started on stress dose steroids with Solu-Medrol 1 g daily for 3 days. For hypoxia patient came back positive for COVID-19. Is believed patient's hypoxia is most likely secondary to diastolic heart failure from uncontrolled hypertension. Multiple antihypertensives were adjusted. Patient underwent extra sessions of dialysis. Patient has been on baseline oxygen supplementation for last 24 hours. He has received 3 doses of remdesivir. He has been discharged in hemodynamically stable condition. Clonidine has been increased to 0.2 mg 3 times a day. Amlodipine dose has been decreased to 10 mg daily. He is to take high-dose steroids going forward as directed. He is to take prednisone 60 mg for next 2 weeks followed by 50 mg for 2 weeks then 40 mg for 2 weeks then 40 mg for 1 week then 20 mg for 1 week followed by 10 mg daily. He is advised to take prophylactic Bactrim 1 tablet Friday, Friday, Friday while he is on steroids more than 20 mg daily. He is to follow-up with neurology within next 2 weeks and continue to receive dialysis on Friday, Friday, Friday as prior to admission. Physical Exam Narrative: General: No acute distress, AO x3 HEENT: PERRLA, pupils bilaterally equal and reactive Chest: Normal vesicular breath sounds, no added sounds, equal good air entry bilaterally CVS: S1-S2 regular, no murmurs, no tachycardia, no gallops, no rubs Abdomen: Soft, nontender, no organomegaly, bowel sounds present Neuro: No focal deficits, no facial deformity, AO x3, power 5/5 in all limbs Discharge Data Studies Completed and Pending Completed Studies During Hospitalization Category Date Time Status CT chest wo con [id number] Routine Cat Scan 08/01/21 12:[address] head wo con* [id number] Stat Cat Scan 07/30/21 14:20 Completed CTA head neck [CT angio headneck* [id number]] Stat Cat Scan 07/30/21 19:09 Completed FL barium swallow modifd [id number] Routine Exams 08/01/21 10:15 Completed XR chest 1V portable [id number] Stat Exams 07/30/21 15:03 Completed MR head wo con* [id number] Urgent MRI 07/30/21 18:10 Completed CV. echo complete* [id number] Routine Ultrasound 07/31/21 02:31 Completed Pending at discharge Category Date Time Status Blood Culture Stat Lab 07/30/21 22:31 Results C Reactive Protein Q48H Lab 08/03/21 04:00 Ordered Complete Blood Count w/Auto AM LABS Lab 08/03/21 04:00 Ordered Complete Blood Count w/Auto AM LABS Lab 08/04/21 04:00 Ordered Complete Blood Count w/Auto AM LABS Lab 08/05/21 04:00 Ordered Comprehensive Metabolic Panel AM LABS Lab 08/03/21 04:00 Ordered Comprehensive Metabolic Panel AM LABS Lab 08/04/21 04:00 Ordered Comprehensive Metabolic Panel AM LABS Lab 08/05/21 04:00 Ordered D Dimer Q48H Lab 08/03/21 04:00 Ordered Drug Screen, Urine Stat Lab 08/02/21 06:16 Ordered Legionella Antigen STAT Routine Lab 08/02/21 06:16 Ordered Magnesium AM LABS Lab 08/03/21 04:00 Ordered Magnesium AM LABS Lab 08/04/21 04:00 Ordered Magnesium AM LABS Lab 08/05/21 04:00 Ordered Phosphorus AM LABS Lab 08/03/21 04:00 Ordered Phosphorus AM LABS Lab 08/04/21 04:00 Ordered Phosphorus AM LABS Lab 08/05/21 04:00 Ordered Urinalysis Stat Lab 08/02/21 06:16 Ordered Radiology Impressions Head CT 07/30/21 14:20 IMPRESSION: 1. No acute intracranial hemorrhage or edema. 2. Mild atrophy with moderate small vessel ischemic changes. Chest X-Ray 07/30/21 15:03 IMPRESSION: 1. Bilateral known pulmonary metastatic nodules and masses. Largest mass is 4.9 x 3.9 cm at the RIGHT lung base. Mild improvement since the prior study of 07/04/2021. 2. No pneumonia. Head MRI 07/30/21 18:10 IMPRESSION: 1. Findings suspicious for hemorrhagic transformation of three focal subacute infarcts in the subcortical white matter of the right parietal lobe. 2. Stable mild atrophy of the brain parenchyma. 3. Moderate white matter microangiopathic change. 4. Incidental/nonacute findings are listed in the report. ADDENDUM: 07/30/21 1287 THIS REPORT CONTAINS FINDINGS THAT MAY BE CRITICAL TO PATIENT CARE. The findings were verbally communicated via telephone conference with Dr. Enamorado at 9:53 PM CDT on 07/30/2021. The findings were acknowledged and understood. Head/Neck CTA 07/30/21 19:09 IMPRESSION: 1. Mild to moderate atherosclerotic disease, most pronounced in the intracranial left vertebral artery with 30% stenosis. No occlusion, thrombosis, extravasation, dissection, or aneurysm. 2. The left posterior communicating artery is not visualized. The left posterior communicating artery may be congenitally absent, or may be too small for the resolution capabilities of this study. 3. Incidental/nonacute findings are listed in the report. IMPRESSION: 1. Atherosclerotic disease of varying severity, most pronounced in the proximal right internal carotid artery with 47% stenosis of the right ICA. Mild additional multilevel stenoses bilaterally. No occlusion, thrombosis, extravasation, dissection, or aneurysm. 2. A right upper lobe mass has decreased in size, suggesting improvement of metastatic disease. A 2nd left upper lobe nodule and partially visualized mediastinal lymph node are stable. 3. Incidental/nonacute findings are listed in the report. REFERENCES: NASCET CRITERIA. The degree of internal carotid artery stenosis is based on NASCET criteria. Normal is no stenosis. Mild is less than 50% stenosis. Moderate is 50-69% stenosis. Severe is 70% to 99% stenosis. Total occlusion is no detectable patent lumen. Modified Barium Swallow 08/01/21 10:15 Impression: Negative modified barium swallow. Chest CT 08/01/21 12:46 IMPRESSION: 1. Patient has known bilateral pulmonary nodules or masses. Since 02/21/2021 there has been a moderate improvement. The largest mass now measures 4.9 x 4.0 cm in the RIGHT middle lobe. This mass previously measured 7.1 x 5.6 cm. 2. New dependent changes at the lung bases and small bilateral pleural effusions. 3. Large RIGHT paratracheal lymph node with a maximum diameter of 3.4 cm. Additional lymph nodes are likely present but not well visualized without IV contrast. 4. Soft tissue anasarca. Echocardiogram: CONCLUSIONS ?LV systolic function is normal with EF of 55 to 60%. ?Moderate left ventricular hypertrophy is seen. ?Grade 1 diastolic dysfunction. ?Left atrium is severely dilated. ?Severe mitral annular calcification is seen.? Trace mitral?regurgitation. ?Aortic valve is thickened.? Moderate aortic stenosis with aortic?valve area of 1.2 cm squared and mean gradient of 10 mmHg ?Moderate aortic regurgitation. ?Trace tricuspid regurgitation ?Compared to prior echocardiogram from 06/08/2021, no signifiant?changes are seen ?Erich Kumar MD ?(Electronically Signed) ?Final Date:? ? ? 31 July 2021 ? 17:17 Laboratory Results WBC 4.8 10^3/uL (4.0-10.0) 08/02/21 04:22 RBC 3.73 10^6/uL (4.1-5.3) L 08/02/21 04:22 Hgb 10.4 g/dL (11.7-16.6) L 08/02/21 04:22 Hct 33.6 % (42.0-52.0) L 08/02/21 04:22 MCV 90.1 fl (80-94) 08/02/21 04:22 MCH 27.9 pg (28.0-34.0) L 08/02/21 04:22 MCHC 31.0 g/dL (30.0-36.0) 08/02/21 04:22 RDW 18.4 % (12.1-15.1) H 08/02/21 04:22 Plt Count 157 10^3/cmm (130-400) 08/02/21 04:22 MPV 10.4 fL (7.4-10.4) 08/02/21 04:22 Neut % (Auto) 92.1 % 08/02/21 04:22 Lymph % (Auto) 5.2 % 08/02/21 04:22 [place] % (Auto) 2.3 % 08/02/21 04:22 Eos % (Auto) 0.0 % 08/02/21 04:22 Baso % (Auto) 0.0 % 08/02/21 04:22 Neut # (Auto) 4.43 10^3/uL (1.8-7.7) 08/02/21 04:22 Lymph # (Auto) 0.3 10^3/uL (0.8-4.8) L 08/02/21 04:22 [place] # (Auto) 0.1 10^3/uL (0.2-0.9) L 08/02/21 04:22 Eos # (Auto) 0.0 10^3/uL (0.0-0.8) 08/02/21 04:22 Baso # (Auto) 0.0 10^3/uL (0.0-0.1) 08/02/21 04:22 Nucleated RBC % (auto) 0 % 08/02/21 04:22 Nucleated RBCs # 0.0 /100WBC 08/02/21 04:22 ESR 47 mm/hr (0-10) H 07/30/21 15:10 PT 13.40 SECONDS (12.1-14.9) 07/30/21 15:10 INR 0.99 (0.8-1.2) 07/30/21 15:10 APTT 34.8 SECONDS (23.9-36.7) 07/30/21 15:10 D-Dimer 0.98 ug/mIFEU (0-0.59) H 08/01/21 04:37 Specimen Type Arterial 07/30/21 14:50 Sample Site Radial, left 07/30/21 14:50 ABG pH 7.49 (7.35-7.45) H 07/30/21 14:50 ABG pCO2 41.8 mmHg (35-45) 07/30/21 14:50 ABG pO2 66.3 mmHg (80.0-100.0) L 07/30/21 14:50 ABG HCO3 32.0 mmol/L (22-26) H 07/30/21 14:50 ABG Base Excess 7.9 mmol/L (-2.0-2.0) H 07/30/21 14:50 Aric Test Pos 07/30/21 14:50 Hematocrit 37.0 % (42-52) L 07/30/21 14:50 O2 Delivery Device Nc 07/30/21 14:50 O2 Liters/Min 3.5 % 07/30/21 14:50 FiO2 34.0 % 07/30/21 14:50 Clinical Education Consultant ID Monro 07/30/21 14:50 Sodium 139 mmol/L (136-145) 08/02/21 04:22 Potassium 4.9 mmol/L (3.5-5.1) 08/02/21 04:22 Chloride 97 mmol/L (98-107) L 08/02/21 04:22 Carbon Dioxide 28 mmol/L (22-29) 08/02/21 04:22 Anion Gap 18.9 (5-19) 08/02/21 04:22 BUN 37 mg/dL (8-23) H 08/02/21 04:22 Creatinine 5.8 mg/dL (0.7-1.2) H* 08/02/21 04:22 GFR Calculation Not Reportable 08/02/21 04:22 Glucose 284 mg/dL (65-115) H 08/02/21 04:22 POC Glucose 232 mg/dL (70-110) H 08/02/21 11:42 Estimat Average Glucose 100 08/01/21 04:37 Hemoglobin A1c 5.1 % (4.0-6.0) 08/01/21 04:37 Calculated Osmolality 307 mOsm/kg (285-295) H 08/02/21 04:22 Calcium 7.7 mg/dL (8.5-10.5) L 08/02/21 04:22 Phosphorus 5.0 mg/dL (2.5-4.5) H 08/02/21 04:22 Magnesium 1.9 mg/dL (1.7-2.3) 08/02/21 04:22 Iron 21 ug/dL (59-158) L 07/30/21 15:10 TIBC 219 mcg/dl 07/30/21 15:10 % Saturation 9.5 % (20-50) L 07/30/21 15:10 Unsat Iron Binding 198 ug/dL (112-347) 07/30/21 15:10 Total Bilirubin 0.3 mg/dL (0.15-1.2) 08/02/21 04:22 AST 18 U/L (0-40) 08/02/21 04:22 ALT < 5 U/L (0-41) 08/02/21 04:22 Alkaline Phosphatase 92 IU/L (40-130) 08/02/21 04:22 Troponin T Baseline 113 ng/L (0-15) H* 07/30/21 15:10 Troponin T 120 Minute 113.7 ng/L (0-15) H 07/30/21 17:50 Delta Troponin T 0.7 ABS# (0-10) 07/30/21 17:50 Troponin T Hi Sens 6Hr 116.0 ng/L (0-15) H 07/30/21 22:25 Troponin T Hi Sens 6Hr Delta 3.0 ng/L (0-12) 07/30/21 22:25 C-Reactive Protein 92.4 mg/L (0.0-4.9) H 08/01/21 04:37 NT-Pro-B Natriuret Pep > 49907 pg/mL (0-450) H 07/30/21 15:10 Total Protein 5.6 g/dL (6.6-8.7) L 08/02/21 04:22 Albumin 3.1 g/dL (3.5-5.2) L 08/02/21 04:22 Globulin 2.5 g/dL (1.3-4.6) 08/02/21 04:22 Triglycerides 170 mg/dL (0-150) H 07/31/21 02:35 Cholesterol 187 mg/dL (0-200) 07/31/21 02:35 LDL Cholesterol, Calc 90 mg/dL (50-129) 07/31/21 02:35 Total VLDL Cholesterol 34 mg/dL (0-30) H 07/31/21 02:35 HDL Cholesterol 63 mg/dL (60-100) 07/31/21 02:35 Cholesterol/HDL Ratio 2.97 mg/dL (1.0-5.00) 07/31/21 02:35 Procalcitonin 0.78 ng/mL (0-0.5) H 07/30/21 22:25 TSH 2.67 uIU/mL (0.27-4.20) 07/30/21 17:50 LOPEZ-1 Antibody <1.0 neg AI (<1.0 NEG) 07/30/21 15:10 SS-A/Ro IgG Antibody <1.0 neg AI (<1.0 NEG) 07/30/21 15:10 SS-B/La IgG Antibody <1.0 neg AI (<1.0 NEG) 07/30/21 15:10 Anti-nRNP/Sm IgG Ab <1.0 neg AI (<1.0 NEG) 07/30/21 15:10 Scl-70 Scleroderma Ab <1.0 neg AI (<1.0 NEG) 07/30/21 15:10 Anti-ds DNA IgG Ab 1 IU/mL 07/30/21 15:10 Coronavirus 229E (PCR) Not detected (NOT DETECT) 07/31/21 09:12 Hep Bs Antigen Non-reactive (Nonreactive) 07/30/21 15:10 Hep Bs Antibody 6.6 (11.5-1000) L 07/30/21 15:10 Hepatitis C Antibody Non-reactive (Nonreactive) 07/30/21 15:10 Influenza Type A Ag Negative (Negative) 07/31/21 09:12 Influenza Type B Ag Negative (Negative) 07/31/21 09:12 SARS-CoV-2 (PCR) Detected (NOT DETECT) A 07/31/21 09:12 Vitals Last Vital Signs Temp 97.7 F 08/02/21 12:00 Pulse 67 08/02/21 12:00 Resp 16 08/02/21 12:00 BP 126/65 08/02/21 12:00 Pulse Ox 95 08/02/21 12:00 Discharge Plan Discharge Patient Disposition: Home Health Service Condition: Stable Prescriptions: New levofloxacin 250 mg Tablet 250 mg PO Q48H 3 Days Qty: 2 0RF ferrous gluconate 324 mg (37.5 mg iron) Tablet 324 mg PO BIDWM Qty: 60 0RF prednisone 10 mg tablet See Rx Instructions .ROUTE .COMPLEX Qty: 250 0RF Rx Instructions: TAPER: 60 mg DAILY for 14 Days; 50 mg DAILY for 14 Days; 40 mg DAILY for 7 Days; 30 mg DAILY for 7 Days; 20 mg DAILY for 7 Days; 10 mg DAILY sulfamethoxazole-trimethoprim [Bactrim] 400-80 mg tablet 1 tab PO MOWEFR 60 Days Qty: 26 0RF Continued omeprazole 40 mg capsule,delayed release(DR/EC) 40 mg PO QAM 0RF ondansetron HCl 8 mg tablet 8 mg PO Q6H PRN (Reason: Nausea) 0RF montelukast 10 mg tablet 10 mg PO DAILY PRN (Reason: Allergy Symptoms) 0RF cyclobenzaprine 10 mg tablet 10 mg PO TID PRN (Reason: muscle spasm) Qty: 30 2RF metoprolol tartrate 100 mg Tablet 100 mg PO BID 0RF docusate sodium [Colace] 100 mg capsule 100 mg PO QAM 0RF zinc 50 mg Tablet 50 mg PO QAM 0RF acetaminophen [Tylenol] 325 mg Tablet 325 - 650 mg PO Q6H PRN (Reason: Pain) 0RF triamcinolone acetonide 0.1 % ointment 1 applic TOPICAL BID PRN (Reason: Rash) 0RF sertraline 50 mg tablet 50 mg PO QAM 0RF nifedipine 30 mg Tablet Extended Release 24 Hr 90 mg PO DAILY Qty: 30 0RF clonidine HCl 0.1 mg Tablet 0.2 mg PO BID Qty: 120 0RF hydrocodone-acetaminophen 5-325 mg tablet 1 tab PO Q6H PRN (Reason: pain) Qty: 20 0RF amlodipine 10 mg tablet 10 mg PO BEDTIME 0RF atorvastatin 20 mg tablet 20 mg PO QPM 0RF Claritin 10 mg Tablet 10 mg PO DAILY PRN (Reason: Allergy Symptoms) 0RF Changed clonidine HCl 0.1 mg Tablet 0.2 mg PO TID Qty: 120 0RF amlodipine 10 mg tablet 5 mg PO BEDTIME Qty: 0 0RF Discontinued prednisone 20 mg tablet See Rx Instructions .ROUTE .COMPLEX 0RF Rx Instructions: 3 tabs daily for 14 days, 2 tabs daily for 7 days, 1 tab daily for 7 days. Discharge Orders: Discharge Order (Routine); Ordered 08/02/21 Ordered By: Jim Ortiz Referrals: Kolton Calles DO [Primary Care Provider] - 08/13/21 9:00 am Kimberly Figueroa MD [Physician] - 2 weeks Discharge Diet: Cardiac Discharge Activity: Resume usual activity and Increase activity as tolerated Patient Instructions: Iron Supplements (By mouth), Prednisone (By mouth), Levofloxacin (By mouth), COVID-19 (Coronavirus Disease 2019) (GEN), Opioid Safety Activity Restrictions/Additional Instructions: Please follow-up with neurology within next 2 weeks. You will be on steroids taper as described. Take 60 mg for next 2 weeks, followed by 50 mg for next 2 weeks, followed by 40 mg for a week followed by 30 mg for a week followed by 20 mg for a week and then 10 mg daily. Take Bactrim 1 tablet Friday, Friday, Friday each week till you are on steroids more than 20 mg daily. Please continue to follow-up with the dialysis session Friday, Friday, Friday. Discharge Attestations Time Spent in Discharge Care*: greater than 30 min Quality Metrics Clinical Quality Measures [ No reported AMI, CVA or VTE this stay] Coding Level of Care Code Acute Chg FW DC note Diagnoses End stage renal disease N18.6 COVID-19 U07.1 Hypoxia R09.02 Stroke I63.9 Dysarthria R47.1 Receptive aphasia R47.01 Temporal arteritis M31.6 Congestive heart failure I50.9 Hypertensive urgency I16.0
[2021-08-02] MEDS: remdesivir 100 MG in sodium chloride 0.9% (100 ml) 80 ML IV (14:12)
--- NOTE | 2021-08-02 15:47 | PC.NURSE ---
Rn educated pt's family about signs and symptoms of covid, pt family had not been wearing a mask while in room.
--- NOTE | 2021-08-02 16:05 | PC.SOCIAL ---
IMM UPDATED IMM dated and initialed, copy placed in chart and copy given to patient
== END 2021-08-02 15:52 | disposition home health service (06) | DRG 64 ==
LOC: ER 18:11 → MEDSURG 18:42
PROVIDERS: Internal Medicine; Internal Medicine Nephrology; Admitting Provider Student in an Organized Health Care Education/Training Program; Emergency Provider Emergency Medicine; PCP Family Medicine; Visit Provider Student in an Organized Health Care Education/Training Program
DX: I61.0 Nontraumatic intracerebral hemorrhage in hemisphere, subcortical (principal); U07.1 COVID-19; N18.6 End stage renal disease; G92.8 Other toxic encephalopathy; I13.2 Hypertensive heart and chronic kidney disease with heart failure and with stage 5 chronic kidney disease, or end stage renal disease; I50.30 Unspecified diastolic (congestive) heart failure; C66.1 Malignant neoplasm of right ureter; C78.02 Secondary malignant neoplasm of left lung; C78.01 Secondary malignant neoplasm of right lung; R47.1 Dysarthria and anarthria; R29.707 NIHSS score 7; Z99.2 Dependence on renal dialysis; E78.5 Hyperlipidemia, unspecified; M31.6 Other giant cell arteritis; K21.9 Gastro-esophageal reflux disease without esophagitis; Z95.828 Presence of other vascular implants and grafts; Z87.891 Personal history of nicotine dependence; Z86.73 Personal history of transient ischemic attack (TIA), and cerebral infarction without residual deficits; I16.0 Hypertensive urgency; D63.1 Anemia in chronic kidney disease; Z79.891 Long term (current) use of opiate analgesic
CPT/HCPCS: 36415; 36416; 36591; 36600; 70450; 70496; 70498; 70551; 71045; 71250; 74230; 80053; 80061; 82803; 82962; 83036; 83540; 83550; 83735; 83880; 84100; 84145; 84443; 84484; 85025; 85378; 85610; 85651; 85730; 86140; 86225; 86235; 86403; 86706; 86803; 87040; 87340; 87635; 87804; 92523; 92610; 92611; 93005; 93306; 94640; 94664; 96374; 97110; 99285; J0696; J2405; J2930; J7050; Q3014; Q9967

== ENCOUNTER 2021-08-16 08:52 | Oncology outpatient (recurring) (ONCR) | payer MEDICARE, OTHER, SELFPAY ==
[2021-08-16 09:23] VITALS: BMI 25.4
[2021-08-16 09:34] LABS: Basophils % 0.1 %; Eosinophils % 0.2 %; Hematocrit 38.7 % (42.0-52.0); Lymphocytes # 0.5 10^3/uL (0.8-4.8); Lymphocytes % 3.7 %; Mean Corpuscular Hemoglobin 28.6 pg (28.0-34.0); Mean Corpuscular Volume 92.1 fl (80-94); Mean Platelet Volume 9.8 fL (7.4-10.4); Monocytes # 0.5 10^3/uL (0.2-0.9); Monocytes % 4.1 %; Neutrophils # 11.18 10^3/uL (1.8-7.7); Neutrophils % 90.9 %; Nucleated Red Blood Cells % 0 %; Platelet Count 219 10^3/cmm (130-400); Red Cell Distribution Width 20.2 % (12.1-15.1); White Blood Count 12.3 10^3/uL (4.0-10.0)
[2021-08-16] MEDS: sodium chloride 0.9% 250 ML IV (09:43)
[2021-08-16 09:47] LABS: Alanine Aminotransferase 13 U/L (0-41); Albumin Level 3.5 g/dL (3.5-5.2); Alkaline Phosphatase 99 IU/L (40-130); Anion Gap 17.3 (5-19); Aspartate Amino Transferase 19 U/L (0-40); Blood Urea Nitrogen 42 mg/dL (8-23); Calcium 7.2 mg/dL (8.5-10.5); Carbon Dioxide 30 mmol/L (22-29); Chloride 97 mmol/L (98-107); Globulin 2.3 g/dL (1.3-4.6); Glucose 150 mg/dL (65-115); Osmolality Calculated 301 mOsm/kg (285-295); Potassium 5.3 mmol/L (3.5-5.1); Sodium 139 mmol/L (136-145); Thyroid Stimulating Hormone 2.58 uIU/mL (0.27-4.20); Total Bilirubin 0.4 mg/dL (0.15-1.2); Total Protein 5.8 g/dL (6.6-8.7)
[2021-08-16] MEDS: sodium chloride 0.9% 250 ML 75 ML IV (11:53)
[2021-08-16] MEDS: pembrolizumab 200 MG in sodium chloride 0.9% 250 ML 516 MG IV (11:59)
[2021-08-16 12:52] VITALS: BP 110/58; PULSE 59; RESP 20; TEMP 36.5; O2SAT 97
== END 2021-08-16 23:59 | disposition home or self-care (01) ==
PROVIDERS: PCP Family Medicine; Visit Provider Internal Medicine Hematology & Oncology
DX: Z51.11 Encounter for antineoplastic chemotherapy (principal); C67.9 Malignant neoplasm of bladder, unspecified; C65.1 Malignant neoplasm of right renal pelvis; N18.6 End stage renal disease; Z99.2 Dependence on renal dialysis; I50.9 Heart failure, unspecified; R91.8 Other nonspecific abnormal finding of lung field
CPT/HCPCS: 80053; 84443; 85025; 96361; 96413; 99214; J7050; J9271

== ENCOUNTER → 2021-08-21 08:14 | Outpatient (BNVA) | payer MEDICARE, OTHER, SELFPAY | PROVIDERS: PCP Family Medicine; Visit Provider Surgery | DX: Z98.890 Other specified postprocedural states (principal) | CPT/HCPCS: 99213 ==

== ENCOUNTER → 2021-08-23 13:50 | Outpatient (BNVA) | payer MEDICARE, OTHER, SELFPAY | PROVIDERS: PCP Family Medicine; Visit Provider Specialist | DX: M31.6 Other giant cell arteritis (principal); N18.6 End stage renal disease; R41.82 Altered mental status, unspecified; Z79.52 Long term (current) use of systemic steroids | CPT/HCPCS: 36415; 85651; 99205 ==

== ENCOUNTER 2021-09-03 07:20 | Inpatient (IN) | payer MEDICARE, OTHER, SELFPAY ==
[2021-09-03] VITALS (100 sets, daily range): BP systolic 121–243; BP diastolic 60–132; PULSE 70–121; RESP 16–33; TEMP 36.5–36.9; O2SAT 88–99; BMI 26.6
--- NOTE | 2021-09-03 07:23 | XR_ITS ---
WS: [id number] PORTABLE CHEST HISTORY: dyspnea/cough COMPARISON: 07/30/2021, chest CT 08/01/2021 Right-sided Mediport with tip in the distal SVC. Patient has known bilateral pulmonary masses consistent with metastatic disease. The largest in the R IGHT lower thorax measures 4.6 x 3.6 cm. No interval change or progression since 07/30/2021. . Slight blunting of the LEFT costophrenic angle. No pneumothorax. As compared to the prior examination there is mild fluid overload and congestion. Cardiac size: Normal. Mediastinum/Aorta: Mild atherosclerosis and prominence of the mediastinum. No osseous abnormality seen. XR/XR chest 1V portable [id number] IMPRESSION: 1. Patient has known bilateral metastatic lung masses which appear stable sinc e 07/30/2021. 2. Mild pulmonary venous congestion is new since 07/30/2021.
--- NOTE | 2021-09-03 07:23 | ECG_ITS ---
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 Measurements Intervals [place] Rate: 84 P: 57 KS: 185 QRS: 38 QRSD: 88 T: 52 QT: 371 QTc: 439 Interpretive Statements SINUS RHYTHM Compared to ECG 07/30/2021 23:18:44 No significant changes Electronically Signed On 09-03-2021 8:07:58 CDT by Erich Kumar M.D. [id number]
--- NOTE | 2021-09-03 07:57 | W.ED.SOB ---
HPI - SOB/Dyspnea General: Chief Complaint: Shortness of Breath/Dyspnea Stated Complaint: SOB Time Seen by Provider: 09/03/21 07:21 Source: patient Mode of arrival: ambulatory History of Present Illness: HPI Narrative: 76-year-old male presents emergency room complaining of shortness of breath. Patient has a history of end-stage renal disease and is on dialysis. He is not usually wear oxygen and is requiring 2 L. Patient has a history of congestive heart failure. He also has a history of temporal arteritis. Patient similar presentation last month with elevated blood pressure there is a concern of stroke at that time but was ruled out. At that time patient was discharged home on steroids. He is due for dialysis today. Presents with wheezing and shortness of breath denies chest or abdominal pain. Symptoms began overnight. He has not taken his morning medicines yet today. MD elicited complaint: shortness of breath and cough Pertinent past history: congestive heart failure Onset (ago): hour(s) Timing: constant Severity: moderate Exacerbating factors: nothing Relieving factors: oxygen, rest and upright position Known history of: congestive heart failure Associated symptoms: Reports chest congestion, cough and orthopnea; Deny abdominal pain, chest pain, diaphoresis, dizziness, extremity pain, fever(s), hemoptysis, lightheadedness, myalgias, nausea, palpitations, paresthesias, polydipsia, polyuria, rash, sense of impending doom, syncope or vomiting Treatment prior to arrival: none Review of Systems Const: Denies: fever(s), chills, fatigue, malaise or diaphoresis ENMT: Denies: throat pain, ear or mastoid pain, nasal discharge or nasal congestion Card: Reports: orthopnea; Denies: chest pain, palpitations, lightheadedness or syncope Resp: Reports: dyspnea, non-productive cough, wheezing and chest congestion; Denies: productive cough or hemoptysis GI: Denies: abdominal pain, nausea or vomiting Musc: Denies: neck pain, back pain or extremity pain Skin/Breast: Denies: rash or pruritus Neuro: Denies: dizziness Endo: Denies: polyuria or polydipsia PFSH ED PFSH: Medical History AV fistula Bladder cancer Cancer of trigone of urinary bladder CKD (chronic kidney disease) stage 5, GFR less than 15 ml/min On hemodialysis Congestive heart failure distolic HF Degenerative joint disease (DJD) of lumbar spine GCA (giant cell arteritis) GERD (gastroesophageal reflux disease) Hypertension Malignant neoplasm of right renal pelvis Multiple pulmonary nodules determined by computed tomography of lung Port-A-Cath in place 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 Denies family history of Anesthesia complication Bleeding disorder Social History Smoking and tobacco status: never smoked Quit status (tobacco): has quit using tobacco Year quit tobacco: Alcohol intake: current Alcohol intake frequency: few times a month Marital status: Current occupational status: retired Current gender identity: Male Physical Exam Const: COMMON NORMALS: no acute distress GENERAL APPEARANCE: cooperative and comfortable ORIENTATION/CONSCIOUSNESS: Yes awake, Yes oriented to person, Yes oriented to place and Yes oriented to time HENMT: COMMON NORMALS: normocephalic, atraumatic and hearing grossly normal bilaterally HEAD & SCALP: normocephalic and atraumatic Neck/C-Spine: COMMON NORMALS: no JVD Resp: COMMON NORMALS: normal respiratory effort, No retractions and No use of accessory muscles AUSCULTATION: crackles Cardio: COMMON NORMALS: no JVD, regular rate, regular rhythm and No murmurs present (Cardio) RATE: regular rate RHYTHM: regular rhythm GI: COMMON NORMALS: Soft to palpation and No hepatosplenomegaly present AUSCULTATION: Yes normoactive bowel sounds PALPATION: Yes Soft to palpation, No Tenderness to palpation present (GI), No Guarding due to palpation present (GI) and Yes No hepatosplenomegaly present Extremity: COMMON NORMALS: normal to inspection, capillary refill normal, no clubbing, cyanosis or edema, no calf tenderness and no pedal edema Neuro: SENSORIUM/ORIENTATION: Yes oriented to person, Yes oriented to place and Yes oriented to time Skin: COMMON NORMALS: no rashes or lesions noted GENERAL SKIN EXAM: no rashes or lesions noted Course Vital Signs: Vital signs: Vital Signs Temperature 98.5 F 09/03/21 07:26 Pulse Rate 82 09/03/21 14:10 Respiratory Rate 25 H 09/03/21 08:28 Blood Pressure 130/68 09/03/21 14:10 Pulse Oximetry 92 09/03/21 14:10 MDM - SOB/Dyspnea Medical Decision Making Labs and imaging reviewed. Patient given hydralazine his regular home meds for blood pressure control. Will admit for accelerated hypertension and exacerbation of CHF with end-stage renal disease. Discussed Dr. Alfredo orders are written Medical Records I reviewed the patient's medical records. Lab Data I reviewed the patient's lab results. : 09/03/21 07:52 09/03/21 07:52 Labs/Radiology: Radiology Impressions Chest X-Ray 09/03/21 07:23 IMPRESSION: 1. Patient has known bilateral metastatic lung masses which appear stable since 07/30/2021. 2. Mild pulmonary venous congestion is new since 07/30/2021. Laboratory Results WBC 11.5 10^3/uL (4.0-10.0) H 09/03/21 07:52 RBC 3.65 10^6/uL (4.1-5.3) L 09/03/21 07:52 Hgb 10.7 g/dL (11.7-16.6) L 09/03/21 07:52 Hct 35.5 % (42.0-52.0) L 09/03/21 07:52 MCV 97.3 fl (80-94) H 09/03/21 07:52 MCH 29.3 pg (28.0-34.0) 09/03/21 07:52 MCHC 30.1 g/dL (30.0-36.0) 09/03/21 07:52 RDW 20.1 % (12.1-15.1) H 09/03/21 07:52 Plt Count 195 10^3/cmm (130-400) 09/03/21 07:52 MPV 10.4 fL (7.4-10.4) 09/03/21 07:52 Neut % (Auto) 81.5 % 09/03/21 07:52 Lymph % (Auto) 9.2 % 09/03/21 07:52 [place] % (Auto) 6.6 % 09/03/21 07:52 Eos % (Auto) 0.8 % 09/03/21 07:52 Baso % (Auto) 0.2 % 09/03/21 07:52 Neut # (Auto) 9.38 10^3/uL (1.8-7.7) H 09/03/21 07:52 Lymph # (Auto) 1.1 10^3/uL (0.8-4.8) 09/03/21 07:52 [place] # (Auto) 0.8 10^3/uL (0.2-0.9) 09/03/21 07:52 Eos # (Auto) 0.1 10^3/uL (0.0-0.8) 09/03/21 07:52 Baso # (Auto) 0.0 10^3/uL (0.0-0.1) 09/03/21 07:52 Nucleated RBC % (auto) 0 % 09/03/21 07:52 Nucleated RBCs # 0.0 /100WBC 09/03/21 07:52 D-Dimer 0.89 ug/mIFEU (0-0.59) H 09/03/21 10:00 Sodium 141 mmol/L (136-145) 09/03/21 07:52 Potassium 5.3 mmol/L (3.5-5.1) H 09/03/21 07:52 Chloride 98 mmol/L (98-107) 09/03/21 07:52 Carbon Dioxide 26 mmol/L (22-29) 09/03/21 07:52 Anion Gap 22.3 (5-19) H 09/03/21 07:52 BUN 74 mg/dL (8-23) H 09/03/21 07:52 Creatinine 8.0 mg/dL (0.7-1.2) H* 09/03/21 07:52 GFR Calculation Not Reportable 09/03/21 07:52 Glucose 92 mg/dL (65-115) 09/03/21 07:52 Calculated Osmolality 314 mOsm/kg (285-295) H 09/03/21 07:52 Calcium 6.5 mg/dL (8.5-10.5) L 09/03/21 07:52 Ionized Calcium [place] 0.8 mmol/L (1.1-1.4) L 09/03/21 13:41 Total Bilirubin 0.3 mg/dL (0.15-1.2) 09/03/21 07:52 AST 16 U/L (0-40) 09/03/21 07:52 ALT 16 U/L (0-41) 09/03/21 07:52 Alkaline Phosphatase 106 IU/L (40-130) 09/03/21 07:52 Troponin T Baseline 104 ng/L (0-15) H* 09/03/21 07:52 Troponin T 120 Minute 107.1 ng/L (0-15) H 09/03/21 09:55 Delta Troponin T 3.1 ABS# (0-10) 09/03/21 09:55 Troponin T Hi Sens 6Hr 94.62 ng/L (0-15) H 09/03/21 13:41 Troponin T Hi Sens 6Hr Delta -9.38 ng/L (0-12) L 09/03/21 13:41 Total Protein 5.8 g/dL (6.6-8.7) L 09/03/21 07:52 Albumin 3.5 g/dL (3.5-5.2) 09/03/21 07:52 Globulin 2.3 g/dL (1.3-4.6) 09/03/21 07:52 TSH 2.51 uIU/mL (0.27-4.20) 09/03/21 07:52 Discharge Plan Discharge Patient Disposition: Admitted As Inpatient Clinical Impression: Accelerated hypertension, Hyperkalemia, ESRD on dialysis, Congestive heart failure Condition: Stable Prescriptions: No Action omeprazole 40 mg capsule,delayed release(DR/EC) 40 mg PO QAM 0RF montelukast 10 mg tablet 10 mg PO DAILY PRN (Reason: Allergy Symptoms) Qty: 30 5RF prednisone 10 mg tablet 10 mg PO BID Qty: 60 0RF Rx Instructions: not started yet prednisone 10 mg tablet See Rx Instructions .ROUTE .COMPLEX Qty: 250 0RF Rx Instructions: TAPER: 60 mg DAILY for 14 Days; 50 mg DAILY for 14 Days; 40 mg DAILY for 7 Days; 30 mg DAILY for 7 Days; 20 mg DAILY for 7 Days; 10 mg DAILY ondansetron HCl 8 mg tablet 8 mg PO Q6H PRN (Reason: Nausea) Qty: 90 1RF metoprolol tartrate 100 mg Tablet 100 mg PO BID 0RF docusate sodium [Colace] 100 mg capsule 100 mg PO DAILY PRN (Reason: Constipation) 0RF acetaminophen [Tylenol] 325 mg Tablet 325 - 650 mg PO Q6H PRN (Reason: Pain) 0RF triamcinolone acetonide 0.1 % ointment 1 applic TOPICAL BID PRN (Reason: Rash) 0RF hydrocodone-acetaminophen 5-325 mg tablet 1 tab PO Q6H PRN (Reason: pain) Qty: 20 0RF loratadine [Claritin] 10 mg Tablet 10 mg PO DAILY PRN (Reason: Allergy Symptoms) 0RF sulfamethoxazole-trimethoprim [Bactrim] 400-80 mg tablet 1 tab PO MOWEFR 60 Days Qty: 26 0RF Benadryl Allergy 25 mg Tablet 25 mg PO QAM 0RF clonidine HCl 0.1 mg tablet 0.2 mg PO BID 0RF atorvastatin 20 mg tablet 20 mg PO BEDTIME 0RF nifedipine 90 mg tablet extended release 90 mg PO QAM 0RF sertraline 100 mg tablet 100 mg PO QAM 0RF amitriptyline 25 mg tablet 25 mg PO BEDTIME 0RF Flonase Allergy Relief 50 mcg/actuation spray,suspension 1 spray intranasal BID PRN (Reason: Allergy Symptoms) 0RF Rx Instructions: administer into each nostril ferrous gluconate 324 mg (37.5 mg iron) tablet 324 mg PO QAM 0RF Referrals: Kolton Calles DO [Primary Care Provider] - Patient Instructions: Opioid Safety Coding Level of Care Code ED Associate Director Qa for Robert Walsh
[2021-09-03 08:06] LABS: Basophils % 0.2 %; Eosinophils # 0.1 10^3/uL (0.0-0.8); Eosinophils % 0.8 %; Hematocrit 35.5 % (42.0-52.0); Hemoglobin 10.7 g/dL (11.7-16.6); Lymphocytes # 1.1 10^3/uL (0.8-4.8); Lymphocytes % 9.2 %; Mean Corpuscular HGB Conc 30.1 g/dL (30.0-36.0); Mean Corpuscular Hemoglobin 29.3 pg (28.0-34.0); Mean Corpuscular Volume 97.3 fl (80-94); Mean Platelet Volume 10.4 fL (7.4-10.4); Monocytes # 0.8 10^3/uL (0.2-0.9); Monocytes % 6.6 %; Neutrophils # 9.38 10^3/uL (1.8-7.7); Neutrophils % 81.5 %; Nucleated Red Blood Cells % 0 %; Platelet Count 195 10^3/cmm (130-400); Red Blood Count 3.65 10^6/uL (4.1-5.3); Red Cell Distribution Width 20.1 % (12.1-15.1); White Blood Count 11.5 10^3/uL (4.0-10.0)
[2021-09-03] MEDS: cloNIDine 0.1 mg Tablet 0.2 MG PO ×2 (08:18→18:02)
[2021-09-03] MEDS: metoprolol tartrate 50 mg Tablet 100 MG PO ×2 (08:18→22:18)
[2021-09-03] MEDS: NIFEdipine ER (24 hr) 30 mg Tablet 90 MG PO (08:18)
[2021-09-03] MEDS: hyDRALAzine 20 mg/mL INJ 1 mL IVP (08:19)
[2021-09-03] MEDS: metoprolol tartrate 1 mg/1 mL SDV 5 mL 5 MG IVP (08:19)
[2021-09-03 08:26] LABS: Alanine Aminotransferase 16 U/L (0-41); Albumin Level 3.5 g/dL (3.5-5.2); Alkaline Phosphatase 106 IU/L (40-130); Anion Gap 22.3 (5-19); Aspartate Amino Transferase 16 U/L (0-40); Blood Urea Nitrogen 74 mg/dL (8-23); Calcium 6.5 mg/dL (8.5-10.5); Carbon Dioxide 26 mmol/L (22-29); Chloride 98 mmol/L (98-107); Globulin 2.3 g/dL (1.3-4.6); Glucose 92 mg/dL (65-115); Osmolality Calculated 314 mOsm/kg (285-295); Potassium 5.3 mmol/L (3.5-5.1); Sodium 141 mmol/L (136-145); Total Bilirubin 0.3 mg/dL (0.15-1.2); Total Protein 5.8 g/dL (6.6-8.7)
[2021-09-03 08:30] LABS: Troponin(5th) Baseline 104 ng/L (0-15)
--- NOTE | 2021-09-03 09:27 | P.CONIM_ITS ---
Providers/Reason For Consult Consulting Physician/Specialty*: Cari Stewart DO, telenephrology Reason for Consult*: ESRD Primary Care Provider: Kolton Calles DO History of Present Illness History of Present Illness Manuel Garcia is a 76 year old male presents to ER for evaluation of dyspnea. + hypertensive urgency. Hearing impaired, son at bedside provided history. Medications/Allergies Home Medications Medication Instructions Recorded Confirmed Last Taken Type omeprazole 40 mg capsule,delayed 40 mg PO QAM 03/16/19 09/03/21 07/25/21 History release metoprolol tartrate 100 mg tablet 100 mg PO BID 10/18/20 09/03/21 09/02/21 History acetaminophen 325 mg tablet 325 - 650 mg PO Q6H PRN 07/04/21 09/03/21 Unknown History (Tylenol) docusate sodium 100 mg capsule 100 mg PO DAILY PRN 07/04/21 09/03/21 07/25/21 History (Colace) triamcinolone acetonide 0.1 % 1 applic TOPICAL BID PRN 07/04/21 09/03/21 07/25/21 History topical ointment hydrocodone 5 mg-acetaminophen 325 1 tab PO Q6H PRN #20 tab 07/26/21 09/03/21 Unknown Rx mg tablet loratadine 10 mg tablet (Claritin) 10 mg PO DAILY PRN 07/30/21 09/03/21 Unknown History sulfamethoxazole 400 1 tab PO MOWEFR 60 Days #26 tab 08/02/21 09/03/21 Unknown Rx mg-trimethoprim 80 mg tablet (Bactrim) ondansetron HCl 8 mg tablet 8 mg PO Q6H PRN #90 tab 08/08/21 09/03/21 Unknown Rx prednisone 10 mg tablet See Rx Instructions .ROUTE 08/08/21 09/03/21 09/02/21 Rx .COMPLEX #250 tab 30 mg montelukast 10 mg tablet 10 mg PO DAILY PRN #30 tab 08/21/21 09/03/21 Unknown Rx prednisone 10 mg tablet 10 mg PO BID #60 tab 08/23/21 09/03/21 Unknown Rx amitriptyline 25 mg tablet 25 mg PO BEDTIME 09/03/21 09/03/21 09/02/21 History atorvastatin 20 mg tablet 20 mg PO BEDTIME 09/03/21 09/03/21 09/02/21 History clonidine HCl 0.1 mg tablet 0.2 mg PO BID 09/03/21 09/03/21 09/02/21 History diphenhydramine HCl 25 mg tablet 25 mg PO QAM 09/03/21 09/03/21 Unknown History (Benadryl Allergy) ferrous gluconate 324 mg (37.5 mg 324 mg PO QAM 09/03/21 09/03/21 09/02/21 History iron) tablet fluticasone propionate 50 1 spray INTRANASAL BID PRN 09/03/21 09/03/21 Unknown History mcg/actuation nasal spray,suspension (Flonase Allergy Relief) nifedipine 90 mg tablet,extended 90 mg PO QAM 09/03/21 09/03/21 09/02/21 History release sertraline 100 mg tablet 100 mg PO QAM 09/03/21 09/03/21 09/02/21 History Allergies Allergy/AdvReac Type Severity Reaction Status Date / Time No Known Allergies Allergy Verified 08/23/21 14:18 PFSH Acute PFSH: Medical History AV fistula Bladder cancer Cancer of trigone of urinary bladder CKD (chronic kidney disease) stage 5, GFR less than 15 ml/min On hemodialysis Congestive heart failure distolic HF Degenerative joint disease (DJD) of lumbar spine GCA (giant cell arteritis) GERD (gastroesophageal reflux disease) Hypertension Malignant neoplasm of right renal pelvis Multiple pulmonary nodules determined by computed tomography of lung Port-A-Cath in place 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 Denies family history of Anesthesia complication Bleeding disorder Social History Smoking and tobacco status: never smoked Quit status (tobacco): has quit using tobacco Year quit tobacco: 1970s Alcohol intake: current Alcohol intake frequency: few times a month Marital status: Current occupational status: retired Current gender identity: Male Vitals/I&O/Wt Last Vital Signs Temp 98.5 F 09/03/21 07:26 Pulse 81 09/03/21 09:15 Resp 25 H 09/03/21 08:28 BP 182/112 09/03/21 09:15 Pulse Ox 98 09/03/21 09:15 Weight last 48 hrs Weight 74.843 kg Data : 09/03/21 07:52 09/03/21 07:52 Other Labs: total calcium 6.5, albumin 3.5 CXR: Radiologist's impression: ?1. Patient has known bilateral metastatic lung masses which appear stable since 07/30/2021. 2.? Mild pulmonary venous congestion is new since 07/30/2021. A&P Assessment and plan (1) End stage renal disease: Status: Acute Plan Seen via telemedicine with assistance of RN at bedside 1. ESRD, mild volume overload, mild hyperkalemia 2. Hypertensive urgency 3. metastatic bladder cancer 4. Hypocalcemia Recommend: Hemodialysis today. 3.5h, 3L UF as BP tolerates. Check 25(OH)D and PTH. Begin calcitriol and calcium carbonate Consult Attestations Medical Necessity Statement: see above Time Spent in Patient Care: 16 - 35 minutes Coding Level of Care Code Acute Capping Machine Operator for Robert Walsh Diagnoses End stage renal disease N18.6
--- NOTE | 2021-09-03 09:50 | P.HP_ITS ---
Providers/Chief Complaint Admitting Physician: Shaggy Alfredo MD, hospitalist Primary Care Provider: Kolton Calles DO Chief Complaint: SOB History of Present Illness Manuel Garcia is a 76 year old male who presents to the emergency department with shortness of breath. This was noticed this morning upon awakening. He has been wheezing quite a bit as well. Typically he does not use oxygen at home and is needing 2 L. He has been coughing up some clear to yellowish sputum. No vomiting, fever. He has had some loose stool on occasion. Denies any chest discomfort. Thinks his lower extremities are more swollen than usual. No ill contacts. Had COVID last month. Urgency department a nicardipine drip was ordered. He received clonidine, hydralazine, metoprolol IV and p.o. Received his last dose of Keytruda for a uroepithelial malignancy, widely metastatic, approximately 2 to 3 weeks ago. Review of Systems General: Reports: 10 or more systems reviewed and unremarkable except in HPI and below Const: Denies: fever(s) or chills Eyes: Denies: change in vision ENMT: Denies: throat pain Card: Reports: swelling of feet/ankles; Denies: chest pain Resp: Reports: dyspnea and productive cough; Denies: hemoptysis GI: Reports: diarrhea; Denies: abdominal pain, nausea, vomiting or hematochezia : Denies: flank pain Musc: Denies: neck pain Skin/Breast: Denies: rash Neuro: Denies: headache(s) Psych: Denies: anxiety or depression Endo: Denies: polyuria Shun/Lymph: Denies: easy bruising All/Imm: Denies: urticaria Medications/Allergies Home Medications Medication Instructions Recorded Confirmed Last Taken Type omeprazole 40 mg capsule,delayed 40 mg PO QAM 03/16/19 08/23/21 07/25/21 History release metoprolol tartrate 100 mg tablet 100 mg PO BID 10/18/20 08/23/21 07/26/21 History acetaminophen 325 mg tablet 325 - 650 mg PO Q6H PRN 07/04/21 08/23/21 Unknown History (Tylenol) docusate sodium 100 mg capsule 100 mg PO QAM 07/04/21 08/23/21 07/25/21 History (Colace) triamcinolone acetonide 0.1 % 1 applic TOPICAL BID PRN 07/04/21 08/23/21 07/25/21 History topical ointment hydrocodone 5 mg-acetaminophen 325 1 tab PO Q6H PRN #20 tab 07/26/21 08/23/21 Unknown Rx mg tablet loratadine 10 mg tablet (Claritin) 10 mg PO DAILY PRN 07/30/21 08/23/21 Unknown History sulfamethoxazole 400 1 tab PO MOWEFR 60 Days #26 tab 08/02/21 08/23/21 Unknown Rx mg-trimethoprim 80 mg tablet (Bactrim) ondansetron HCl 8 mg tablet 8 mg PO Q6H PRN #90 tab 08/08/21 08/23/21 Unknown Rx prednisone 10 mg tablet See Rx Instructions .ROUTE 08/08/21 08/23/21 Unknown Rx .COMPLEX #250 tab montelukast 10 mg tablet 10 mg PO DAILY PRN #30 tab 08/21/21 08/23/21 Unknown Rx prednisone 10 mg tablet 10 mg PO BID #60 tab 08/23/21 08/23/21 Unknown Rx amitriptyline 25 mg tablet 25 mg PO BEDTIME 09/03/21 09/03/21 09/02/21 History atorvastatin 20 mg tablet 20 mg PO BEDTIME 09/03/21 09/03/21 09/02/21 History clonidine HCl 0.1 mg tablet 0.2 mg PO BID 09/03/21 09/03/21 09/02/21 History diphenhydramine HCl 25 mg tablet 25 mg PO QAM 09/03/21 09/03/21 Unknown History (Benadryl Allergy) ferrous gluconate 324 mg (37.5 mg 324 mg PO QAM 09/03/21 09/03/21 09/02/21 History iron) tablet fluticasone propionate 50 1 spray INTRANASAL BID PRN 09/03/21 09/03/21 Unknown History mcg/actuation nasal spray,suspension (Flonase Allergy Relief) nifedipine 90 mg tablet,extended 90 mg PO QAM 09/03/21 09/03/21 09/02/21 History release sertraline 100 mg tablet 100 mg PO QAM 09/03/21 09/03/21 09/02/21 History Allergies Allergy/AdvReac Type Severity Reaction Status Date / Time No Known Allergies Allergy Verified 08/23/21 14:18 PFSH Acute PFSH: Medical History AV fistula Bladder cancer Cancer of trigone of urinary bladder CKD (chronic kidney disease) stage 5, GFR less than 15 ml/min On hemodialysis Congestive heart failure distolic HF Degenerative joint disease (DJD) of lumbar spine GCA (giant cell arteritis) GERD (gastroesophageal reflux disease) Hypertension Malignant neoplasm of right renal pelvis Multiple pulmonary nodules determined by computed tomography of lung Port-A-Cath in place 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 Denies family history of Anesthesia complication Bleeding disorder Social History Smoking and tobacco status: never smoked Quit status (tobacco): has quit using tobacco Year quit tobacco: Alcohol intake: current Alcohol intake frequency: few times a month Marital status: Current occupational status: retired Current gender identity: Male Vitals/I&O/Wt Last Vital Signs Temp 98.5 F 09/03/21 07:26 Pulse 81 09/03/21 09:15 Resp 25 H 09/03/21 08:28 BP 182/112 09/03/21 09:15 Pulse Ox 98 09/03/21 09:15 Weight last 48 hrs Weight 74.843 kg Physical Exam Narrative: White male, actively wheezing without stethoscope needed, coughing up some clear to yellowish sputum in a cup. ENT: Pupils equally round. Oropharynx clear. Neck is supple no lymphadenopathy or thyromegaly Cardiovascular regular rate and rhythm without murmur, port noted right chest Lungs bilateral expiratory wheezes. No crackles Abdomen is soft with positive bowel sounds. No obvious organomegaly exam is deferred Extremities 2+ edema bilaterally right greater than left. No pain to palpation. Cap refill brisk. AV fistula right upper extremity with thrill and bruit Skin no rash Neuro no obvious focal deficits, but somewhat slow to respond on occasion. Data : 09/03/21 07:52 09/03/21 07:52 Other Labs: M6.5 LFTs normal Troponin 104 Chest x-ray demonstrates bilateral lung masses, mild pulmonary venous congestion, and a port EKG is normal sinus rhythm, normal axis, nonspecific ST-T wave changes 08/08 demonstrated EF of 55 to 60%, grade 1 diastolic dysfunction, LVH, moderate AR, moderate , trace MR A&P Assessment and plan (1) Hypertensive urgency: Markedly elevated blood pressure. He has received multiple medications, IV and p.o. consisting of his home medicines this morning and placed on a nicardipine drip. Initial systolic blood pressure goal approximately 160. Overall blood pressure may improve significantly following hemodialysis and it is possible he may be able to come off the nicardipine. Blood pressure medication. Status: Acute (2) Congestive heart failure: Concern of congestive heart failure, diastolic, from fluid overload on arrival. He is actively wheezing, which could be consistent with this although he has also had fairly recent chemotherapy, COVID 1 month ago, and has an x-ray that is somewhat difficult to interpret secondary to his pulmonary masses. Nephrology has been consulted for potential dialysis today. We will see how he responds to this. Status: Acute (3) Acute bronchitis: With wheezing will initiate Solu-Medrol. Note that he is currently on a prolonged taper of steroid for his giant cell arteritis and is currently on 30 mg a day. Will try to wean him quickly back down to 30 mg if possible. Pulmonary toilet with DuoNeb as well as budesonide He has been on Bactrim prophylactically with his steroid dosing so pneumocystis is less of a concern. Will cover him with Rocephin and azithromycin as potential for pneumonia is present. Check sputum culture. Secondary to his dyspnea, recent COVID, malignancy we will check a dimer. If positive may need CTA. Status: Acute (4) Swelling of lower extremity: Check venous duplex lower extremities bilateral Status: Acute (5) GCA (giant cell arteritis): Steroid treatment as above, under bronchitis After finishing accelerated doses, will go back to 30 mg daily Status: Acute (6) Recurrent malignant neoplasm of bladder: Patient with widespread metastasis. Last Keytruda treatment approximately 2 to 3 weeks ago. Status: Acute (7) Hypocalcemia: Check ionized calcium. Potentially supplement. Albumin was normal. Status: Acute (8) End stage renal disease: Patient with end-stage renal disease on hemodialysis, through AV fistula right upper extremity. Consult with nephrology. Status: Acute Plan Multiple other medical problems as outlined in past medical history Allow natural . Discussed with patient and family Heparin for DVT prophylaxis Attestations Medical Necessity Statement*: Greater than 2 midnight stay for evaluation and treatment of hypertensive urgency, acute diastolic heart failure, acute bronchitis all needing approximately 2 L of oxygen currently. Critical Care Time: The high probability of a clinically significant, sudden or life threatening deterioration of the patient's [renal, infectious disease, pulmonary system(s) required my full and direct attention, intervention and personal management. The critical care time is as shown. This time is in addition to time spent performing any reported procedures but includes the following: [x] Data and vital sign review and interpretation [x] Patient assessment, examination and intervention [x] Documentation [x] Medication orders and management Critical Care Time (min): 50 Coding Level of Care Code Acute Night Order Selector for [facility] Fwd Diagnoses Hypertensive urgency I16.0 Congestive heart failure I50.9 Acute bronchitis J20.9 Swelling of lower extremity M79.89 GCA (giant cell arteritis) M31.6 Recurrent malignant neoplasm of bladder C67.9 Hypocalcemia E83.51 End stage renal disease N18.6
--- NOTE | 2021-09-03 09:51 | ECG_ITS ---
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 Measurements Intervals [place] Rate: 77 P: 55 ID: [id number] QRS: 27 QRSD: 86 T: 49 QT: 397 QTc: 450 Interpretive Statements SINUS RHYTHM MINIMAL ST DEPRESSION [0.025+ mV ST DEPRESSION] Compared to ECG 09/03/2021 07:33:04 ST (T wave) deviation now present Electronically Signed On 09-03-2021 18:09:21 CDT by Erich Kumar M.D. [id number]
[2021-09-03] MEDS: nicardipine 20 MG/200 ML PREMIX 50 MG IV (09:55)
--- NOTE | 2021-09-03 10:02 | USCV_ITS ---
Manuel Garcia Age: 76 Gender: M : 1945 Exam Date: 09/03/2021 10:36 Ordering Phys: Shaggy Alfredo MD Technologist: Santhosh Pepe Exam Location: [facility] – [place] Indication: bilat edema PROCEDURES: The venous duplex Doppler examination of both lower extremities was performed in the standard fashion. The following venous structures were evaluated: common femoral vein, profunda vein, proximal portion of the greater saphenous vein, superficial femoral vein, and the popliteal vein. In addition, the posterior tibial and peroneal trunk were evaluated. FINDINGS: Normal 2-D Doppler and augmentation and compressibility throughout the lower extremity venous structures. Additional imaging through the proximal calf veins also reveals no thrombus. Limited evaluation of the greater saphenous vein is patent with no thrombus.. CONCLUSIONS No evidence of right lower extremity DVT. No evidence of left lower extremity DVT. Obey Vivar MD (Electronically Signed) Final Date: 03 September 2021 13:01 S
[2021-09-03 10:25] LABS: D Dimer 0.89 ug/mIFEU (0-0.59)
[2021-09-03] MEDS: cefTRIAXone 1,000 MG in sodium chloride 0.9% (plus) 50 ML 100 MG IV (10:28)
--- NOTE | 2021-09-03 10:30 | PC.PHAR ---
pts son states he takes care of the pts medications-pts son states the pt is not taking torsemide 100mg daily filled 09/03/21 90d/s,lisinopril 2.5mg daily filled 08/28/21 30d/s-amlodipine 10mg hs filled 05/14/21 90d/s-pts son states the pt is just taking ferrous gluconate 324mg qam ext med history shows filled 30d/s for 324mg bid-metoprolol tartrate 100mg bid filled 07/20/21 90d/s and 50mg bid 08/13/21 30d/s pts son states the pt takes 100mg bid-notes are made in the pharmacy comments
[2021-09-03 10:58] LABS: Troponin 5 2HR Delta 3.1 ABS# (0-10)
[2021-09-03 10:59] LABS: Troponin 5 2HR 107.1 ng/L (0-15)
[2021-09-03 11:37] LABS: Thyroid Stimulating Hormone 2.51 uIU/mL (0.27-4.20)
[2021-09-03] MEDS: azithromycin 500 MG in sodium chloride 0.9% 250 ML 250 MG IV (12:14)
--- NOTE | 2021-09-03 13:51 | ECG_ITS ---
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 Measurements Intervals [place] Rate: 81 P: 59 VT: 191 QRS: 11 QRSD: 88 T: 61 QT: 403 QTc: 468 Interpretive Statements SINUS RHYTHM Compared to ECG 09/03/2021 09:51:04 ST (T wave) deviation no longer present Electronically Signed On 09-03-2021 17:57:19 CDT by Erich Kumar M.D. [email or web address]/[id number]
[2021-09-03 13:52] LABS: Ionized Calcium 0.8 mmol/L (1.1-1.4)
[2021-09-03 14:20] LABS: Troponin 5 6HR 94.62 ng/L (0-15)
[2021-09-03] MEDS: heparin 5,000 unit/mL INJ 1 mL 5000 UNIT SUBCUT (15:49)
--- NOTE | 2021-09-03 16:26 | PC.NURSE ---
Received patient into the ICU from ER staff at 1513. Patient is alert and oriented to person, place, time, and situation. HR 83 SPO2: 95% on 2 LNC, Temp: 98.4 orally, RR 20, BP: 176/86. Dr Alfredo has set a systolic BP goal of 160. Nurse restarted jameson upon arrival in the ICU.
--- NOTE | 2021-09-03 18:29 | PC.NURSE ---
SHift SUmmary: OVerall, uneventful shift Patient reste din bed since arrival in ICU. Blood pressure maintaine below 160 systolic with cardene drip when indicated. Cardene drip discontinued before Dialysis. Dialysis nurse is in room preparing for procedure at the time of this note.
--- NOTE | 2021-09-03 18:39 | PC.NURSE ---
Day shift has delayed giving metoprolol. Patient was given Clonidine, and now has dialysis starting. NUrse does not want to give metoprolol until effects of dialysis on blood pressure are apparent. Day nurse has alerted night nurse to this as metoprolol will need to be given after shift change if indicated by vitals.
[2021-09-03] MEDS: budesonide 0.5 mg/2 mL Neb INHALATION (20:08)
[2021-09-03] MEDS: ipratropium-albuterol 3 mL Neb INHALATION (20:08)
[2021-09-03] MEDS: calcium carbonate 500 mg Chew Tablet 1000 MG PO (21:28)
[2021-09-03] MEDS: amitriptyline 25 mg Tablet PO (21:28)
[2021-09-03] MEDS: atorvastatin 40 mg Tablet 20 MG PO (21:28)
[2021-09-03 21:54] LABS: Hepatitis B Surface Antigen Non-Reactive (Nonreactive); Hepatitis C Virus Antibody Non-Reactive (Nonreactive)
[2021-09-04] VITALS (16 sets, daily range): BP systolic 141–183; BP diastolic 81–97; PULSE 70–98; RESP 16–31; TEMP 36.3–36.9; O2SAT 92–97
[2021-09-04] MEDS: ipratropium-albuterol 3 mL Neb INHALATION ×3 (02:50→07:44)
[2021-09-04] MEDS: heparin 5,000 unit/mL INJ 1 mL 5000 UNIT SUBCUT ×2 (03:26→15:21)
[2021-09-04] MEDS: sertraline 100 mg Tablet PO (06:40)
[2021-09-04 07:07] LABS: Basophils % 0.1 %; Hematocrit 35.4 % (42.0-52.0); Hemoglobin 11.4 g/dL (11.7-16.6); Lymphocytes # 0.2 10^3/uL (0.8-4.8); Lymphocytes % 2.7 %; Mean Corpuscular Hemoglobin 29.3 pg (28.0-34.0); Mean Platelet Volume 10.4 fL (7.4-10.4); Monocytes # 0.1 10^3/uL (0.2-0.9); Monocytes % 1.4 %; Neutrophils # 7.95 10^3/uL (1.8-7.7); Neutrophils % 94.7 %; Nucleated Red Blood Cells % 0 %; Platelet Count 177 10^3/cmm (130-400); Red Blood Count 3.89 10^6/uL (4.1-5.3); Red Cell Distribution Width 19.9 % (12.1-15.1); White Blood Count 8.4 10^3/uL (4.0-10.0)
--- NOTE | 2021-09-04 07:13 | PM.PN ---
Subjective Subjective: Awakens easily. Still coughing quite a bit. Wants something for his cough. No pain. Less short of breath than on admission. Still coughing up some yellowish to white sputum. Medications: Reviewed: Yes Vitals/I&O/Wt Last Vital Signs Temp 98.5 F 09/04/21 00:00 Pulse 72 09/04/21 02:53 Resp 16 09/04/21 02:53 BP 155/89 09/04/21 02:00 Pulse Ox 95 09/04/21 02:53 09/03/21 09/04/21 09/04/21 22:59 06:59 14:59 Intake Total 580 / 880 Output Total 3800 / 3800 Balance -3220 / -2920 Weight last 48 hrs Weight 79.1 kg Weight 79.379 kg Weight 74.843 kg Physical Exam Narrative: White male, very faint wheezing when I entered the room that is audible Neck is supple no lymphadenopathy or thyromegaly Cardiovascular regular rate and rhythm without murmur, port noted right chest Lungs faint bilateral expiratory wheezes without crackles Abdomen is soft with positive bowel sounds. No obvious organomegaly exam is deferred Extremities 1+ edema bilaterally. Cap refill brisk. AV fistula right upper extremity with thrill and bruit Skin no rash Neuro no obvious focal deficits, responding quicker Data : 09/03/21 07:52 09/03/21 07:52 Micro: Microbiology 09/03/21 11:00 Blood Culture - Preliminary Blood SPECIMEN COLLECTED 09/03/21 10:57 Blood Culture - Preliminary Blood SPECIMEN COLLECTED A&P Assessment and plan (1) Hypertensive urgency: Markedly elevated blood pressure. He has received multiple medications, IV and p.o. consisting of his home medicines this morning and placed on a nicardipine drip. Blood pressure improved. Resume his nifedipine. Nicardipine is off. Transfer out of ICU. Appreciate nephrology consultation. Status: Acute (2) Congestive heart failure: Concern of congestive heart failure, diastolic, from fluid overload on arrival. He is actively wheezing, which could be consistent with this although he has also had fairly recent chemotherapy, COVID 1 month ago, and has an x-ray that is somewhat difficult to interpret secondary to his pulmonary masses. He received dialysis yesterday, 09/03 and is significantly improved Nephrology to see today Status: Acute (3) Acute bronchitis: Wheezing improved. Discontinue Solu-Medrol. Changed to prednisone. Note that he is currently on a prolonged taper of steroid for his giant cell arteritis and is currently on 30 mg a day. Will try to wean him quickly back down to 30 mg if possible. Pulmonary toilet with DuoNeb as well as budesonide He has been on Bactrim prophylactically with his steroid dosing so pneumocystis is less of a concern. Continue Rocephin and azithromycin as potential for pneumonia is present, patient currently diagnosed with acute bronchitis. Check sputum culture. Secondary to his dyspnea, recent COVID, malignancy dimer was checked. This is not significantly elevated for age and end-stage renal disease. Laboratory pending this morning. Status: Acute (4) Swelling of lower extremity: Venous duplex negative Status: Acute (5) GCA (giant cell arteritis): Steroid treatment as above, under bronchitis After finishing accelerated doses, will go back to 30 mg daily Status: Acute (6) Recurrent malignant neoplasm of bladder: Patient with widespread metastasis. Last Keytruda treatment approximately 2 to 3 weeks ago. Status: Acute (7) Hypocalcemia: Addressed by nephrology. Albumin was normal. Status: Acute (8) End stage renal disease: Patient with end-stage renal disease on hemodialysis, through AV fistula right upper extremity. Consult with nephrology. Status: Acute Plan Multiple other medical problems as outlined in past medical history Allow natural . Discussed with patient and family Heparin for DVT prophylaxis Attestations Medical Necessity Statement*: Needs continued hospitalization for further treatment of congestive heart failure, acute bronchitis with active wheezing. Will reassess this afternoon to make sure he is not improved enough he could discharge. This will depend upon his pulmonary status. Coding Level of Care Code Acute Vegetable Sorter for [facility] Fwd Diagnoses Hypertensive urgency I16.0 Congestive heart failure I50.9 Acute bronchitis J20.9 Swelling of lower extremity M79.89 GCA (giant cell arteritis) M31.6 Recurrent malignant neoplasm of bladder C67.9 Hypocalcemia E83.51 End stage renal disease N18.6
[2021-09-04 07:15] LABS: Alanine Aminotransferase 14 U/L (0-41); Albumin Level 3.5 g/dL (3.5-5.2); Alkaline Phosphatase 84 IU/L (40-130); Anion Gap 21.5 (5-19); Aspartate Amino Transferase 14 U/L (0-40); Blood Urea Nitrogen 43 mg/dL (8-23); Calcium 7.7 mg/dL (8.5-10.5); Carbon Dioxide 26 mmol/L (22-29); Chloride 94 mmol/L (98-107); Globulin 2.3 g/dL (1.3-4.6); Glucose 130 mg/dL (65-115); Magnesium 1.9 mg/dL (1.7-2.3); Osmolality Calculated 295 mOsm/kg (285-295); Potassium 5.5 mmol/L (3.5-5.1); Sodium 136 mmol/L (136-145); Total Bilirubin 0.5 mg/dL (0.15-1.2); Total Protein 5.8 g/dL (6.6-8.7)
[2021-09-04 07:32] LABS: Mean Corpuscular HGB Conc 32.2 g/dL (30.0-36.0)
[2021-09-04] MEDS: budesonide 0.5 mg/2 mL Neb INHALATION (07:44)
[2021-09-04 07:48] LABS: 25 Hydroxy Vitamin D 39 ng/mL (30-100)
[2021-09-04] MEDS: calcitriol 0.25 mcg Capsule 0.5 MCG PO (07:48)
[2021-09-04] MEDS: calcium carbonate 500 mg Chew Tablet 1000 MG PO (07:48)
[2021-09-04] MEDS: pantoprazole DR 40 mg Tablet PO (07:49)
[2021-09-04] MEDS: predniSONE 20 mg Tablet 60 MG PO (07:49)
[2021-09-04 08:00] LABS: Phosphorus 6.1 mg/dL (2.5-4.5)
[2021-09-04 08:03] LABS: Calcium 7.3 mg/dL (8.5-10.5)
[2021-09-04 08:11] LABS: Parathyroid Hormone 209.4 pg/mL (15-65)
--- NOTE | 2021-09-04 08:24 | PM.PN ---
Subjective Subjective: feels better. still sob. no n/v/f/CP/oliva/d. has some edema. + cough and wheezing Medications: Reviewed: Yes Medication Review Details: Current Medications Acetaminophen (Acetaminophen 325 Mg Tablet) 650 mg PO Q6H PRN PRN Reason: MILD PAIN Hydrocodone Bitart/Acetaminophen (Hydrocodone-Acetaminophen 5-325 Mg Tablet) 1 tab PO Q6H PRN PRN Reason: pain Albuterol/Ipratropium (Ipratropium-Albuterol 3 Ml Neb) 3 ml INHALATION Q4H DEJUAN Last Admin: 09/04/21 07:44 Dose: 3 ml Documented by: Amitriptyline HCl (Amitriptyline 25 Mg Tablet) 25 mg PO BEDTIME DEJUAN Last Admin: 09/03/21 21:28 Dose: 25 mg Documented by: Atorvastatin Calcium (Atorvastatin 40 Mg Tablet) 20 mg PO BEDTIME DEJUAN Last Admin: 09/03/21 21:28 Dose: 20 mg Documented by: Benzonatate (Benzonatate 100 Mg Capsule) 100 mg PO TID PRN PRN Reason: COUGH Budesonide (Budesonide 0.5 Mg/2 Ml Neb) 0.5 mg INHALATION BID.RESPIRATORY DEJUAN Last Admin: 09/04/21 07:44 Dose: 0.5 mg Documented by: Calcitriol (Calcitriol 0.25 Mcg Capsule) 0.5 mcg PO DAILY DEJUAN Last Admin: 09/04/21 07:48 Dose: 0.5 mcg Documented by: Calcium Carbonate (Calcium Carbonate 500 Mg Chew Tablet) 1,000 mg PO TID DEJUAN Last Admin: 09/04/21 07:48 Dose: 1,000 mg Documented by: Clonidine HCl (Clonidine 0.1 Mg Tablet) 0.2 mg PO BID DEJUAN Last Admin: 09/03/21 18:02 Dose: 0.2 mg Documented by: Heparin Sodium (Porcine) (Heparin 5,000 Unit/Ml Inj 1 Ml) 5,000 unit SUBCUT Q12H DEJUAN Last Admin: 09/04/21 03:26 Dose: 5,000 unit Documented by: Nicardipine/Sodium Chloride (Cardene) 20 mg in 200 mls @ 0 mls/hr IV .Q0M DEJUAN; Protocol Last Titration: 09/03/21 17:24 Dose: 0 mg/hr, 0 mls/hr Documented by: Ceftriaxone Sodium 1,000 mg/ (Sodium Chloride) 50 mls @ 100 mls/hr IV Q24H [facility]; Protocol Last Infusion: 09/03/21 10:59 Dose: Infused Documented by: Azithromycin 500 mg/ Sodium (Chloride) 250 mls @ 250 mls/hr IV Q24H [facility]; Protocol Last Infusion: 09/03/21 13:15 Dose: Infused Documented by: Sodium Chloride (Sodium Chloride 0.9%) 1,000 mls @ 0 mls/hr IV .Q0M PRN PRN Reason: hypotension or symptomatic Lidocaine/Prilocaine (Lidocaine-Prilocaine Cream 5 Gm) 1 applic TOPICAL DIALYSIS [facility] Metoprolol Tartrate (Metoprolol Tartrate 50 Mg Tablet) 100 mg PO BID [facility] Last Admin: 09/03/21 22:18 Dose: 100 mg Documented by: Nifedipine (Nifedipine Er (24 Hr) 30 Mg Tablet) 90 mg PO QAM [facility] Ondansetron HCl (Ondansetron 2 Mg/Ml Sdv 2 Ml) 4 mg IVP Q6H PRN PRN Reason: NAUSEA AND VOMITING Pantoprazole Sodium (Pantoprazole Dr 40 Mg Tablet) 40 mg PO DAILY [facility] Last Admin: 09/04/21 07:49 Dose: 40 mg Documented by: Prednisone (Prednisone 20 Mg Tablet) 60 mg PO DAILY [facility] Last Admin: 09/04/21 07:49 Dose: 60 mg Documented by: Sertraline HCl (Sertraline 100 Mg Tablet) 100 mg PO QAM [facility] Last Admin: 09/04/21 06:40 Dose: 100 mg Documented by: Vitals/I&O/Wt Last Vital Signs Temp 98.5 F 09/04/21 04:00 Pulse 78 09/04/21 07:46 Resp 18 09/04/21 07:46 BP 154/89 09/04/21 07:00 Pulse Ox 97 09/04/21 07:46 09/03/21 09/04/21 09/04/21 22:59 06:59 14:59 Intake Total 580 / 880 90 / 970 Output Total 3800 / 3800 Balance -3220 / -2920 90 / -2830 Weight last 48 hrs Weight 76.566 kg Weight 79.1 kg Weight 79.379 kg Weight 74.843 kg Physical Exam Narrative: sitting up some what SOB vs noted heent- nc/at Neck is supple Cardiovascular regular Lungs bilateral wheezes Abdomen is soft with positive bowel sounds.? Extremities 1+ edema bilaterally.? AV fistula right upper extremity with thrill and bruit Neuro a,a, o x 3 Data : 09/04/21 06:31 09/04/21 06:31 Micro: Microbiology 09/03/21 11:00 Blood Culture - Preliminary Blood SPECIMEN COLLECTED 09/03/21 10:57 Blood Culture - Preliminary Blood SPECIMEN COLLECTED A&P Assessment and plan (1) ESRD on dialysis: 76 yr old man 1. HTN- improving w/ HD 2. ESRD/ CHF- repeat HD now 3 hrs, 2k, remove 2.5 l 3. giant cell arteritis per medicine 4. met bladder ca 5. hgb okay for ESRD 6. hyperkalemia- HD 7. monitor glucose per medicine 8. hyperphosphatemia and hypocalcemia- give phoslo pth okay for ESRD sen and examined w/ rN- telehealth vist discussed w/ Dr Dylan Alfredo time spent 30 min Status: Acute Attestations Medical Necessity Statement*: htn urgency, esrd Time Spent in Patient Care: 16 - 35 minutes (>than 50% of time spent in counselling and/or direct pt care on unit). Coding Level of Care Code Acute Plant Production Manager for [facility] Fwd Diagnoses ESRD on dialysis N18.6; Z99.2
[2021-09-04] MEDS: cloNIDine 0.1 mg Tablet 0.2 MG PO (08:45)
[2021-09-04] MEDS: metoprolol tartrate 50 mg Tablet 100 MG PO (08:45)
[2021-09-04] MEDS: cefTRIAXone 1,000 MG in sodium chloride 0.9% (plus) 50 ML 100 MG IV (09:28)
[2021-09-04] MEDS: azithromycin 500 MG in sodium chloride 0.9% 250 ML 250 MG IV (09:56)
--- NOTE | 2021-09-04 10:14 | PC.NURSE ---
[address] Alfredo and [address]. Parham. Reported critical lab results. Discussed plan of care, HD today, transfer to med/surg, possible discharge home later today or tomorrow. Continue current medications for hypertension.
--- NOTE | 2021-09-04 10:34 | PC.CHAP ---
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 [] Patient/Family/Request visit [] Outpatient visit [] Follow-up visit [] Physician referral [] Code/Alert [x] Routine visit [] Staff referral [] Actively dying [] Patient sleeping [] Family support [] [] Out of room [] Palliative care [] [x] Receiving care in room [] Pre-surgical visit [] Trauma [] Long length of stay [x] ICU visit [] Other: Relational/Emotional Strength [] Patient feels connected with others/family/visitors/staff [] Distress [] Loneliness/isolation [] Abandonment Spirituality of Patient [] Person of Jessica [] Attends Mandaen of their Jessica [] Believes in Prayer [] Reads Bible or Episcopalian materials [] There are Spiritual issues to be addressed [employer] Interventions [x] Prayer [] Active listening [] Non-anxious presence [] Spiritual/emotional support [] Crisis/trauma care [] Spiritual counseling [] Bereavement support [] Provided bereavement packet [] Provided Bible/devotional materials [] Provided toy/stuffed animal, coloring book to patient or family member [] Provided Communion [] Anointing/[place] [] Salvation [x] Completed spiritual assessment [] Other: Impact on Illness or Injury [] Angry [] Fearful [] Anxious [] Often cries [] Exhaustion [] Unable to work [] Unable to attend religious [] Unable to walk/stand [] Unable to read [] Unable to drive [] Unable to eat/drink [] Unable to sleep [] Unable to be with family [] Patient intubated [] Other: Summary Time spent with patient
[2021-09-04] MEDS: lidocaine-prilocaine cream 5 gm 1 APPLIC TOPICAL (10:36)
--- NOTE | 2021-09-04 11:15 | PC.NURSE ---
PT transferred to HD room on second floor. Will go to room 272 after treatment per transfer order.
--- NOTE | 2021-09-04 14:39 | PM.DCS ---
Discharge Providers Date of Admission: 09/03/21 10:08 Date of Discharge: September 04, 2021 Attending Provider at Admission: Shaggy Alfredo MD Attending Provider at Discharge: Shaggy Alfredo MD Primary Care Provider: Kolton Calles DO Diagnoses at Discharge Discharge Diagnosis (1) ESRD on dialysis: Status: Acute Reason for Visit Reason for Visit: SOB Hospital Course Hospital Course Mr. Garcia presented to the hospital with elevated blood pressure, wheezing, and shortness of breath. 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 He was quite swollen, and there was definitely an element of congestive heart failure. Nephrology was consulted, and he underwent dialysis with marked improvement of his breathing. He also received IV antibiotics for possibility of acute bronchitis as well as some IV steroids for his wheezing. By the next day he was markedly improved and underwent another dialysis session, and following this near complete resolution of wheezing was noted. With his marked clinical improvement, sooner than expected, it was thought he could discharge home following dialysis. He will finish up a 7-day course of doxycycline. We will resume his home medications. He will have his routine dialysis tomorrow. He will follow-up with his primary care provider as well as nephrology within the next several days. During his hospital stay he had no fever, and white blood cell count was normal. His dimer was not significantly elevated. A venous duplex of his leg showed no DVT. He is to return for any worsening or failure to continue to improve. He will take 40 mg of prednisone for the next 3 days and then drop his dose to 30 mg and continue his taper as per neurology for his giant cell arteritis. Questions were answered from the of both the patient and son, who will be assuming his care through home health. Both agreed with the plan. Physical Exam Narrative: General exam no distress Neck is supple no lymphadenopathy or thyromegaly Cardiovascular regular rate and rhythm without murmur Lungs relatively clear. No significant wheezing following dialysis Abdomen is soft with positive bowel sounds Extremities no cyanosis clubbing or edema Discharge Data Studies Completed and Pending Completed Studies During Hospitalization Category Date Time Status XR chest 1V portable [id number] Stat Exams 09/03/21 07:23 [place] [id number] Urgent Ultrasound 09/03/21 10:02 Completed Pending at discharge Category Date Time Status BMP [Basic Metabolic Panel] AM LABS Lab 09/05/21 04:00 Ordered Blood Culture Stat Lab 09/03/21 11:00 Results CBC Auto Diff [Complete Blood Count w/Auto] AM LABS Lab 09/05/21 04:00 Ordered Comprehensive Metabolic Panel AM LABS Lab 09/05/21 04:00 Ordered Comprehensive Metabolic Panel AM LABS Lab 09/06/21 04:00 Ordered Comprehensive Metabolic Panel AM LABS Lab 09/07/21 04:00 Ordered Magnesium AM LABS Lab 09/05/21 04:00 Ordered Phosphorus AM LABS Lab 09/05/21 04:00 Ordered Phosphorus AM LABS Lab 09/06/21 04:00 Ordered Phosphorus AM LABS Lab 09/07/21 04:00 Ordered Sputum Culture and Gram Stain Routine Lab 09/03/21 15:02 Results Urinalysis and Microscopic Stat Lab 09/03/21 09:55 Uncollected Radiology Impressions Chest X-Ray 09/03/21 07:23 IMPRESSION: 1. Patient has known bilateral metastatic lung masses which appear stable since 07/30/2021. 2. Mild pulmonary venous congestion is new since 07/30/2021. Laboratory Results WBC 8.4 10^3/uL (4.0-10.0) 09/04/21 06:31 RBC 3.89 10^6/uL (4.1-5.3) L 09/04/21 06:31 Hgb 11.4 g/dL (11.7-16.6) L 09/04/21 06:31 Hct 35.4 % (42.0-52.0) L 09/04/21 06:31 MCV 91.0 fl (80-94) D 09/04/21 06:31 MCH 29.3 pg (28.0-34.0) 09/04/21 06:31 MCHC 32.2 g/dL (30.0-36.0) D 09/04/21 06:31 RDW 19.9 % (12.1-15.1) H 09/04/21 06:31 Plt Count 177 10^3/cmm (130-400) 09/04/21 06:31 MPV 10.4 fL (7.4-10.4) 09/04/21 06:31 Neut % (Auto) 94.7 % 09/04/21 06:31 Lymph % (Auto) 2.7 % 09/04/21 06:31 [place] % (Auto) 1.4 % 09/04/21 06:31 Eos % (Auto) 0.0 % 09/04/21 06:31 Baso % (Auto) 0.1 % 09/04/21 06:31 Neut # (Auto) 7.95 10^3/uL (1.8-7.7) H 09/04/21 06:31 Lymph # (Auto) 0.2 10^3/uL (0.8-4.8) L 09/04/21 06:31 [place] # (Auto) 0.1 10^3/uL (0.2-0.9) L 09/04/21 06:31 Eos # (Auto) 0.0 10^3/uL (0.0-0.8) 09/04/21 06:31 Baso # (Auto) 0.0 10^3/uL (0.0-0.1) 09/04/21 06:31 Nucleated RBC % (auto) 0 % 09/04/21 06:31 Nucleated RBCs # 0.0 /100WBC 09/04/21 06:31 D-Dimer 0.89 ug/mIFEU (0-0.59) H 09/03/21 10:00 Sodium 136 mmol/L (136-145) 09/04/21 06:31 Potassium 5.5 mmol/L (3.5-5.1) H 09/04/21 06:31 Chloride 94 mmol/L (98-107) L 09/04/21 06:31 Carbon Dioxide 26 mmol/L (22-29) 09/04/21 06:31 Anion Gap 21.5 (5-19) H 09/04/21 06:31 BUN 43 mg/dL (8-23) H 09/04/21 06:31 Creatinine 5.8 mg/dL (0.7-1.2) H* 09/04/21 06:31 GFR Calculation Not Reportable 09/04/21 06:31 Glucose 130 mg/dL (65-115) H 09/04/21 06:31 Calculated Osmolality 295 mOsm/kg (285-295) 09/04/21 06:31 Calcium 7.7 mg/dL (8.5-10.5) L 09/04/21 06:31 Ionized Calcium [place] 0.8 mmol/L (1.1-1.4) L 09/03/21 13:41 Phosphorus 6.1 mg/dL (2.5-4.5) H 09/04/21 06:31 Magnesium 1.9 mg/dL (1.7-2.3) 09/04/21 06:31 Total Bilirubin 0.5 mg/dL (0.15-1.2) 09/04/21 06:31 AST 14 U/L (0-40) 09/04/21 06:31 ALT 14 U/L (0-41) 09/04/21 06:31 Alkaline Phosphatase 84 IU/L (40-130) 09/04/21 06:31 Troponin T Baseline 104 ng/L (0-15) H* 09/03/21 07:52 Troponin T 120 Minute 107.1 ng/L (0-15) H 09/03/21 09:55 Delta Troponin T 3.1 ABS# (0-10) 09/03/21 09:55 Troponin T Hi Sens 6Hr 94.62 ng/L (0-15) H 09/03/21 13:41 Troponin T Hi Sens 6Hr Delta -9.38 ng/L (0-12) L 09/03/21 13:41 Total Protein 5.8 g/dL (6.6-8.7) L 09/04/21 06:31 Albumin 3.5 g/dL (3.5-5.2) 09/04/21 06:31 Globulin 2.3 g/dL (1.3-4.6) 09/04/21 06:31 25-OH Vitamin D Total 39 ng/mL (30-100) 09/04/21 06:31 TSH 2.51 uIU/mL (0.27-4.20) 09/03/21 07:52 PTH Intact 209.4 pg/mL (15-65) H 09/04/21 07:17 Calcium (PTH Intact) 7.3 mg/dL (8.5-10.5) L 09/04/21 07:17 Hep Bs Antigen Non-reactive (Nonreactive) 09/03/21 20:34 Hepatitis C Antibody Non-reactive (Nonreactive) 09/03/21 20:34 Vitals Last Vital Signs Temp 97.3 F L 09/04/21 11:49 Pulse 98 07/19/22 11:49 Resp 18 09/04/21 11:49 BP 141/92 09/04/21 11:49 Pulse Ox 97 09/04/21 10:00 Discharge Plan Discharge Patient Disposition: Home Health Service Condition: Stable Prescriptions: New doxycycline monohydrate 100 mg capsule 100 mg PO BID Qty: 14 0RF albuterol sulfate 90 mcg/actuation HFA aerosol inhaler 1 inh inhalation Q6H PRN (Reason: shortness of breath or wheezing) Qty: 8.5 0RF prednisone 10 mg tablet 40 mg PO DAILY Qty: 12 0RF Continued omeprazole 40 mg capsule,delayed release(DR/EC) 40 mg PO QAM 0RF montelukast 10 mg tablet 10 mg PO DAILY PRN (Reason: Allergy Symptoms) Qty: 30 5RF prednisone 10 mg tablet 10 mg PO BID Qty: 60 0RF Rx Instructions: not started yet prednisone 10 mg tablet See Rx Instructions .ROUTE .COMPLEX Qty: 250 0RF Rx Instructions: TAPER: 60 mg DAILY for 14 Days; 50 mg DAILY for 14 Days; 40 mg DAILY for 7 Days; 30 mg DAILY for 7 Days; 20 mg DAILY for 7 Days; 10 mg DAILY ondansetron HCl 8 mg tablet 8 mg PO Q6H PRN (Reason: Nausea) Qty: 90 1RF metoprolol tartrate 100 mg Tablet 100 mg PO BID 0RF docusate sodium [Colace] 100 mg capsule 100 mg PO DAILY PRN (Reason: Constipation) 0RF acetaminophen [Tylenol] 325 mg Tablet 325 - 650 mg PO Q6H PRN (Reason: Pain) 0RF triamcinolone acetonide 0.1 % ointment 1 applic TOPICAL BID PRN (Reason: Rash) 0RF hydrocodone-acetaminophen 5-325 mg tablet 1 tab PO Q6H PRN (Reason: pain) Qty: 20 0RF loratadine [Claritin] 10 mg Tablet 10 mg PO DAILY PRN (Reason: Allergy Symptoms) 0RF sulfamethoxazole-trimethoprim [Bactrim] 400-80 mg tablet 1 tab PO MOWEFR 60 Days Qty: 26 0RF Benadryl Allergy 25 mg Tablet 25 mg PO QAM 0RF clonidine HCl 0.1 mg tablet 0.2 mg PO BID 0RF atorvastatin 20 mg tablet 20 mg PO BEDTIME 0RF nifedipine 90 mg tablet extended release 90 mg PO QAM 0RF sertraline 100 mg tablet 100 mg PO QAM 0RF amitriptyline 25 mg tablet 25 mg PO BEDTIME 0RF Flonase Allergy Relief 50 mcg/actuation spray,suspension 1 spray intranasal BID PRN (Reason: Allergy Symptoms) 0RF Rx Instructions: administer into each nostril ferrous gluconate 324 mg (37.5 mg iron) tablet 324 mg PO QAM 0RF Discharge Orders: Discharge Order (Routine); Ordered 09/04/21 Ordered By: Shaggy Alfredo Referrals: Kolton Calles DO [Primary Care Provider] - 4-7 days Vasyl Harris MD [Referring] - 4-7 days Discharge Diet: Diabetic Discharge Activity: Increase activity as tolerated Patient Instructions: Opioid Safety Activity Restrictions/Additional Instructions: Take all medicine as prescribed Take prednisone 40 mg once daily for 3 days, then resume 30 mg on your normal taper Follow-up with nephrology and primary care provider within 3 to 5 days Return for any worsening Finish antibiotic as prescribed Discharge Attestations Time Spent in Discharge Care*: greater than 30 min Quality Metrics Clinical Quality Measures [ No reported AMI, CVA or VTE this stay] Coding Level of Care Code Acute Chg FW DC note Diagnoses ESRD on dialysis N18.6; Z99.2
[2021-09-04] MEDS: calcium acetate 667 mg Capsule 1334 MG PO (15:21)
[2021-09-04] MEDS: calcium carbonate 500 mg Chew Tablet PO (15:21)
--- NOTE | 2021-09-04 15:52 | PC.NURSE ---
REPORT RECEIVED FROM ROMA BAR IN ICU. PT OUT OF DIALYSIS AND IN ROOM NOW. PHYSICAL ASSESSMENT COMPLETED BY THIS NURSE. PT AUSCULTATED BY THIS NURSE, SOUNDS TO BE IN SR WITH A HEART MURMUR. LUNGS SOUNDS CLEAR. ACTIVE B/S. PT IS A/O X4. FAMILY IS CONCERNED ABOUT PT BEING WEAK. THIS NURSE AMBULATED WITH PT DOWN THE [place] VIA SBA WHILE PT USED THE WALKER. PT DID WELL WALKING WITH WALKER. FAMILY STATED THEY HAVE A WALKER AT HOME.
== END 2021-09-04 16:47 | disposition home health service (06) | DRG 304 ==
LOC: ER 14:37 → ICU 14:42 → MEDSURG 09-04 11:13
PROVIDERS: Internal Medicine; Admitting Provider Internal Medicine; Emergency Provider Family Medicine; PCP Family Medicine; Visit Provider Internal Medicine
DX: I16.0 Hypertensive urgency (principal); I50.33 Acute on chronic diastolic (congestive) heart failure; N18.6 End stage renal disease; C78.02 Secondary malignant neoplasm of left lung; C78.01 Secondary malignant neoplasm of right lung; I13.2 Hypertensive heart and chronic kidney disease with heart failure and with stage 5 chronic kidney disease, or end stage renal disease; J20.9 Acute bronchitis, unspecified; E87.5 Hyperkalemia; C67.0 Malignant neoplasm of trigone of bladder; M31.6 Other giant cell arteritis; E83.51 Hypocalcemia; E83.39 Other disorders of phosphorus metabolism; Z99.2 Dependence on renal dialysis; Z90.5 Acquired absence of kidney; Z95.828 Presence of other vascular implants and grafts; Z86.16 Personal history of COVID-19; Z92.22 Personal history of monoclonal drug therapy; Z79.52 Long term (current) use of systemic steroids; Z66 Do not resuscitate
CPT/HCPCS: 36415; 71045; 80053; 82306; 82310; 82330; 83735; 83970; 84100; 84443; 84484; 85025; 85378; 86803; 87040; 87070; 87205; 87340; 93005; 93970; 94640; 96365; 96367; 96372; 96375; 99291; J0360; J0456; J0696; J1644; J2930; J3490; J7050; J7512; J7626; Q3014

== ENCOUNTER 2021-09-06 09:16 | Oncology outpatient (recurring) (ONCR) | payer MEDICARE, OTHER, SELFPAY ==
[2021-09-06 09:56] LABS: Basophils % 0.1 %; Eosinophils % 0.2 %; Hematocrit 37.6 % (42.0-52.0); Hemoglobin 11.7 g/dL (11.7-16.6); Lymphocytes # 0.3 10^3/uL (0.8-4.8); Lymphocytes % 3.1 %; Mean Corpuscular HGB Conc 31.1 g/dL (30.0-36.0); Mean Corpuscular Hemoglobin 29.8 pg (28.0-34.0); Mean Corpuscular Volume 95.7 fl (80-94); Mean Platelet Volume 9.8 fL (7.4-10.4); Monocytes # 0.6 10^3/uL (0.2-0.9); Monocytes % 5.8 %; Neutrophils # 9.76 10^3/uL (1.8-7.7); Nucleated Red Blood Cells % 0 %; Platelet Count 176 10^3/cmm (130-400); Red Blood Count 3.93 10^6/uL (4.1-5.3); Red Cell Distribution Width 19.1 % (12.1-15.1); White Blood Count 10.9 10^3/uL (4.0-10.0)
[2021-09-06 10:29] LABS: Alanine Aminotransferase 13 U/L (0-41); Albumin Level 3.7 g/dL (3.5-5.2); Alkaline Phosphatase 94 IU/L (40-130); Anion Gap 18.7 (5-19); Aspartate Amino Transferase 13 U/L (0-40); Blood Urea Nitrogen 37 mg/dL (8-23); Calcium 7.9 mg/dL (8.5-10.5); Carbon Dioxide 29 mmol/L (22-29); Chloride 95 mmol/L (98-107); Globulin 1.9 g/dL (1.3-4.6); Glucose 120 mg/dL (65-115); Osmolality Calculated 296 mOsm/kg (285-295); Potassium 4.7 mmol/L (3.5-5.1); Sodium 138 mmol/L (136-145); Thyroid Stimulating Hormone 1.22 uIU/mL (0.27-4.20); Total Bilirubin 0.5 mg/dL (0.15-1.2); Total Protein 5.6 g/dL (6.6-8.7)
[2021-09-06] MEDS: sodium chloride 0.9% 250 ML 100 ML IV (11:59)
[2021-09-06] MEDS: pembrolizumab 200 MG in sodium chloride 0.9% 250 ML 516 MG IV (12:16)
[2021-09-06 13:00] VITALS: BP 174/81; PULSE 65; RESP 16; TEMP 36.9; O2SAT 98
== END 2021-09-16 23:59 | disposition home or self-care (01) ==
PROVIDERS: PCP Family Medicine; Visit Provider Internal Medicine Hematology & Oncology
DX: Z51.12 Encounter for antineoplastic immunotherapy (principal); C65.1 Malignant neoplasm of right renal pelvis; N18.6 End stage renal disease; I50.9 Heart failure, unspecified; Z87.891 Personal history of nicotine dependence; C67.9 Malignant neoplasm of bladder, unspecified; Z99.2 Dependence on renal dialysis
CPT/HCPCS: 80053; 84443; 85025; 96413; 99214; 99215; J7050; J9271

== ENCOUNTER 2021-09-16 11:30 | Emergency (ER) | payer MEDICARE, OTHER, SELFPAY ==
[2021-09-16 11:42] VITALS: BP 150/74; PULSE 78; RESP 18; O2SAT 91; BMI 26.6
--- NOTE | 2021-09-16 12:43 | W.ED.GENADLT ---
HPI - General Adult General: Chief complaint: General Medical Stated complaint: SOB, Jerking fits after taking meds Time Seen by Provider: 09/16/21 11:47 History of Present Illness: 76-year-old male who presents because he does not feel well patient is a dialysis patient that gets dialysis on Friday and Friday. Family reports that recently seems like on Friday or Friday he has been having some difficulty and having to be seen a lot usually related to not getting his dialysis. They report that this morning he had an episode of some jerking/twitching after taking his morning meds it was brief. Patient was alert and awake throughout the whole thing. Patient reports that they have had a prior similar episode after his medications in the past. Patient also complains of some bilateral lower extremity edema that is a little bit worse than normal likely due to them feel that he probably needs dialysis. Patient denies shortness of breath, fever, cough, chills to me. Associated symptoms: Reports malaise; Deny chest pain, dyspnea, nausea, palpitations or vomiting Review of Systems Const: Reports: malaise; Denies: fever(s) or chills Eyes: Denies: change in vision ENMT: Denies: throat pain or ear or mastoid pain Card: Reports: edema; Denies: chest pain or palpitations Resp: Denies: dyspnea or wheezing GI: Denies: abdominal pain, nausea or vomiting : Denies: flank pain or dysuria Musc: Reports: extremity swelling Neuro: Reports: involuntary movements (Please see HPI) Psych: Denies: anxiety or visual hallucinations All/Imm: Denies: urticaria or throat swelling PFSH ED PFSH: Medical History AV fistula Bladder cancer Cancer of trigone of urinary bladder CKD (chronic kidney disease) stage 5, GFR less than 15 ml/min On hemodialysis Congestive heart failure distolic HF Degenerative joint disease (DJD) of lumbar spine GCA (giant cell arteritis) GERD (gastroesophageal reflux disease) Hypertension Malignant neoplasm of right renal pelvis Multiple pulmonary nodules determined by computed tomography of lung Port-A-Cath in place 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 Denies family history of Anesthesia complication Bleeding disorder Social History Smoking and tobacco status: former smoker Quit status (tobacco): has quit using tobacco Year quit tobacco: 1970s Alcohol intake: current Alcohol intake frequency: few times a month Marital status: Current occupational status: retired Current gender identity: Male Physical Exam Const: COMMON NORMALS: patient oriented x3 GENERAL APPEARANCE: other (Chronically ill) HENMT: COMMON NORMALS: normocephalic HEAD & SCALP: normal to inspection and normocephalic Eye: COMMON NORMALS: EOMs intact bilaterally GENERAL EYE: appearance normal, both eyes and all related structures Chest: CHEST: Yes Symmetrical chest wall rise Resp: EFFORT & INSPECTION: Yes able to speak in complete sentences, No tachypneic, No respiratory distress and No uses accessory muscles AUSCULTATION: diminished lung sounds (Mild) diffuse Cardio: COMMON NORMALS: regular rate and regular rhythm RATE: regular rate RHYTHM: regular rhythm Extremity: NARRATIVE EXTREMITY EXAM: Bilateral lower extremity edema GENERAL: Yes edema Neuro: COMMON NORMALS: patient oriented x3, no focal motor deficits and no sensory deficits noted Psych: COMMON NORMALS: mental status grossly normal and cooperative Skin: COMMON NORMALS: no rashes or lesions noted GENERAL SKIN EXAM: no rashes or lesions noted Course Vital Signs: Vital signs: Vital Signs Pulse Rate 68 09/16/21 14:00 Respiratory Rate 12 09/16/21 14:00 Blood Pressure 140/71 09/16/21 14:00 Pulse Oximetry 95 09/16/21 14:00 Oxygen Delivery Me thod 09/16/21 14:00 MDM - General Adult Medical Decision Making Patient's labs are consistent with him having chronic kidney disease on dialysis with Friday dialysis. Patient needs to keep his dialysis appointment tomorrow. I recommended they review his medications with his primary care provider as his abnormal movements likely a dystonic reaction. I also recommended that he consider visiting with nephrology about an additional dialysis as needed due to him having difficulty of not having dialysis every other day. Patient stable and discharged home Lab Data : 09/16/21 12:32 09/16/21 12:32 Laboratory Results WBC 12.2 10^3/uL (4.0-10.0) H 09/16/21 12:32 RBC 3.68 10^6/uL (4.1-5.3) L 09/16/21 12:32 Hgb 10.9 g/dL (11.7-16.6) L 09/16/21 12:32 Hct 35.9 % (42.0-52.0) L 09/16/21 12:32 MCV 97.6 fl (80-94) H 09/16/21 12:32 MCH 29.6 pg (28.0-34.0) 09/16/21 12:32 MCHC 30.4 g/dL (30.0-36.0) 09/16/21 12:32 RDW 18.7 % (12.1-15.1) H 09/16/21 12:32 Plt Count 196 10^3/cmm (130-400) 09/16/21 12:32 MPV 9.6 fL (7.4-10.4) 09/16/21 12:32 Neut % (Auto) 90.3 % 09/16/21 12:32 Lymph % (Auto) 3.3 % 09/16/21 12:32 [place] % (Auto) 4.8 % 09/16/21 12:32 Eos % (Auto) 0.4 % 09/16/21 12:32 Baso % (Auto) 0.1 % 09/16/21 12:32 Neut # (Auto) 11.01 10^3/uL (1.8-7.7) H 09/16/21 12:32 Lymph # (Auto) 0.4 10^3/uL (0.8-4.8) L 09/16/21 12:32 [place] # (Auto) 0.6 10^3/uL (0.2-0.9) 09/16/21 12:32 Eos # (Auto) 0.1 10^3/uL (0.0-0.8) 09/16/21 12:32 Baso # (Auto) 0.0 10^3/uL (0.0-0.1) 09/16/21 12:32 Nucleated RBC % (auto) 0 % 09/16/21 12:32 Nucleated RBCs # 0.0 /100WBC 09/16/21 12:32 Sodium 134 mmol/L (136-145) L 09/16/21 12:32 Potassium 5.7 mmol/L (3.5-5.1) H 09/16/21 12:32 Chloride 92 mmol/L (98-107) L 09/16/21 12:32 Carbon Dioxide 27 mmol/L (22-29) 09/16/21 12:32 Anion Gap 20.7 (5-19) H 09/16/21 12:32 BUN 60 mg/dL (8-23) H 09/16/21 12:32 Creatinine 7.8 mg/dL (0.7-1.2) H* 09/16/21 12:32 GFR Calculation Not Reportable 09/16/21 12:32 Glucose 117 mg/dL (65-115) H 09/16/21 12:32 Calculated Osmolality 296 mOsm/kg (285-295) H 09/16/21 12:32 Calcium 8.2 mg/dL (8.5-10.5) L 09/16/21 12:32 Magnesium 1.9 mg/dL (1.7-2.3) 09/16/21 12:32 Total Bilirubin 0.4 mg/dL (0.15-1.2) 09/16/21 12:32 AST 14 U/L (0-40) 09/16/21 12:32 ALT 11 U/L (0-41) 09/16/21 12:32 Alkaline Phosphatase 97 IU/L (40-130) 09/16/21 12:32 Total Protein 6.0 g/dL (6.6-8.7) L 09/16/21 12:32 Albumin 3.7 g/dL (3.5-5.2) 09/16/21 12:32 Globulin 2.3 g/dL (1.3-4.6) 09/16/21 12:32 Urine Color Yellow (Yellow) 09/16/21 13:26 Urine Appearance Clear (CLEAR) 09/16/21 13:26 Urine pH 9 (5-7) H 09/16/21 13:26 Ur Specific [place] 1.010 (1.005-1.030) 09/16/21 13:26 Urine Protein 1+ (Negative) H 09/16/21 13:26 Urine Glucose (UA) 1+ (Normal) H 09/16/21 13:26 Urine Ketones Negative (Negative) 09/16/21 13:26 Urine Blood Neg (Negative) 09/16/21 13:26 Urine Nitrate Negative (Negative) 09/16/21 13:26 Urine Bilirubin Neg (Negative) 09/16/21 13:26 Prot Sulfosalicylic Acd Positive (Negative) 09/16/21 13:26 Urine Urobilinogen Norm mg/dL (Negative) 09/16/21 13:26 Ur Leukocyte Esterase Negative (Negative) 09/16/21 13:26 Urine RBC None /hpf (0-2) 09/16/21 13:26 Urine WBC Rare /hpf (0-5) 09/16/21 13:26 Ur Squamous Epith Cells Rare /hpf (0-5) 09/16/21 13:26 Amorphous Sediment Not Reportable 09/16/21 13:26 Urine Bacteria None /hpf (NONE) 09/16/21 13:26 SARS-CoV-2 Ag (Rapid) Negative (Negative) 09/16/21 12:32 Discharge Plan Discharge Patient Disposition: Home Clinical Impression: CKD (chronic kidney disease) stage 5, GFR less than 15 ml/min, ESRD on dialysis, Dystonic drug reaction Condition: Stable Prescriptions: No Action omeprazole 40 mg capsule,delayed release(DR/EC) 40 mg PO QAM montelukast 10 mg tablet 10 mg PO DAILY PRN (Reason: Allergy Symptoms) Qty: 30 5RF prednisone 10 mg tablet 10 mg PO BID Qty: 60 0RF Rx Instructions: not started yet prednisone 10 mg tablet See Rx Instructions .ROUTE .COMPLEX Qty: 250 0RF Rx Instructions: TAPER: 60 mg DAILY for 14 Days; 50 mg DAILY for 14 Days; 40 mg DAILY for 7 Days; 30 mg DAILY for 7 Days; 20 mg DAILY for 7 Days; 10 mg DAILY ondansetron HCl 8 mg tablet 8 mg PO Q6H PRN (Reason: Nausea) Qty: 90 1RF Flonase Allergy Relief 50 mcg/actuation spray,suspension 1 spray intranasal BID PRN (Reason: Allergy Symptoms) Qty: 18.2 5RF Rx Instructions: administer into each nostril metoprolol tartrate 100 mg Tablet 100 mg PO BID docusate sodium [Colace] 100 mg capsule 100 mg PO DAILY PRN (Reason: Constipation) acetaminophen [Tylenol] 325 mg Tablet 325 - 650 mg PO Q6H PRN (Reason: Pain) triamcinolone acetonide 0.1 % ointment 1 applic TOPICAL BID PRN (Reason: Rash) hydrocodone-acetaminophen 5-325 mg tablet 1 tab PO Q6H PRN (Reason: pain) Qty: 20 0RF loratadine [Claritin] 10 mg Tablet 10 mg PO DAILY PRN (Reason: Allergy Symptoms) sulfamethoxazole-trimethoprim [Bactrim] 400-80 mg tablet 1 tab PO MOWEFR 60 Days Qty: 26 0RF Benadryl Allergy 25 mg Tablet 25 mg PO QAM clonidine HCl 0.1 mg tablet 0.2 mg PO BID atorvastatin 20 mg tablet 20 mg PO BEDTIME nifedipine 90 mg tablet extended release 90 mg PO QAM sertraline 100 mg tablet 100 mg PO QAM amitriptyline 25 mg tablet 25 mg PO BEDTIME ferrous gluconate 324 mg (37.5 mg iron) tablet 324 mg PO QAM doxycycline monohydrate 100 mg capsule 100 mg PO BID Qty: 14 0RF prednisone 10 mg tablet 40 mg PO DAILY Qty: 12 0RF albuterol sulfate 90 mcg/actuation HFA aerosol inhaler 1 inh inhalation Q6H PRN (Reason: shortness of breath or wheezing) Qty: 8.5 0RF Discharge Orders: Discharge ED (Routine); Ordered 09/16/21 Ordered By: Elia Fuentes Referrals: Kolton Calles DO [Primary Care Provider] - Discharge Diet: Usual diet Discharge Activity: Resume usual activity Patient Instructions: Opioid Safety, Tremors (ED), End Stage Kidney Disease (ED) Activity Restrictions/Additional Instructions: Please follow-up with your primary care provider to review your medications to see if there are any changes they be willing to make due to your dystonic reaction Please be sure you go to dialysis tomorrow. Consider discussing occasional additional dialysis with your furnace loader if you feel it is getting difficult not having dialysis every other day Coding Level of Care Code ED Clerk Supervisor for g Fwd Exam Comprehensive
[2021-09-16 12:49] LABS: Basophils % 0.1 %; Eosinophils # 0.1 10^3/uL (0.0-0.8); Eosinophils % 0.4 %; Hematocrit 35.9 % (42.0-52.0); Hemoglobin 10.9 g/dL (11.7-16.6); Lymphocytes # 0.4 10^3/uL (0.8-4.8); Lymphocytes % 3.3 %; Mean Corpuscular HGB Conc 30.4 g/dL (30.0-36.0); Mean Corpuscular Hemoglobin 29.6 pg (28.0-34.0); Mean Corpuscular Volume 97.6 fl (80-94); Mean Platelet Volume 9.6 fL (7.4-10.4); Monocytes # 0.6 10^3/uL (0.2-0.9); Monocytes % 4.8 %; Neutrophils # 11.01 10^3/uL (1.8-7.7); Neutrophils % 90.3 %; Nucleated Red Blood Cells % 0 %; Platelet Count 196 10^3/cmm (130-400); Red Blood Count 3.68 10^6/uL (4.1-5.3); Red Cell Distribution Width 18.7 % (12.1-15.1); White Blood Count 12.2 10^3/uL (4.0-10.0)
[2021-09-16 13:00] VITALS: BP 123/67; PULSE 66; RESP 12; O2SAT 89
[2021-09-16 13:14] LABS: SARS Covid-2 Antigen Negative (Negative)
[2021-09-16 13:15] LABS: Alanine Aminotransferase 11 U/L (0-41); Albumin Level 3.7 g/dL (3.5-5.2); Alkaline Phosphatase 97 IU/L (40-130); Anion Gap 20.7 (5-19); Aspartate Amino Transferase 14 U/L (0-40); Blood Urea Nitrogen 60 mg/dL (8-23); Calcium 8.2 mg/dL (8.5-10.5); Carbon Dioxide 27 mmol/L (22-29); Chloride 92 mmol/L (98-107); Globulin 2.3 g/dL (1.3-4.6); Glucose 117 mg/dL (65-115); Magnesium 1.9 mg/dL (1.7-2.3); Osmolality Calculated 296 mOsm/kg (285-295); Potassium 5.7 mmol/L (3.5-5.1); Sodium 134 mmol/L (136-145); Total Bilirubin 0.4 mg/dL (0.15-1.2)
[2021-09-16 14:00] VITALS: BP 140/71; PULSE 68; RESP 12; O2SAT 95
[2021-09-16 14:17] LABS: Add Urine Microscopic? YES; Bilirubin Urine Neg (Negative); Blood Urine Neg (Negative); Glucose Urine UA 1+ (Normal); Ketones Urine Negative (Negative); Leukocyte Esterase Urine Negative (Negative); Nitrate Urine Negative (Negative); Protein Urine 1+ (Negative); Sulfosalicylic Acid Urine Positive (Negative); Urine Appearance Clear (CLEAR); Urine Color Yellow (Yellow); Urobilinogen Urine Norm (Negative); pH Urine 9 (5-7)
[2021-09-16 14:19] LABS: Squamous Epithelial Cell Urine RARE /hpf (0-5); WBC Urine RARE /hpf (0-5)
[2021-09-16 14:20] LABS: Add Urine Culture? No
[2021-09-16 14:45] VITALS: BP 165/80; PULSE 73; RESP 22; O2SAT 95
== END 2021-09-16 15:00 | disposition home or self-care (01) ==
PROVIDERS: Emergency Provider Student in an Organized Health Care Education/Training Program; PCP Family Medicine
DX: R25.8 Other abnormal involuntary movements (principal); T50.905A Adverse effect of unspecified drugs, medicaments and biological substances, initial encounter; I13.2 Hypertensive heart and chronic kidney disease with heart failure and with stage 5 chronic kidney disease, or end stage renal disease; N18.6 End stage renal disease; I50.30 Unspecified diastolic (congestive) heart failure; Z99.2 Dependence on renal dialysis; Z85.51 Personal history of malignant neoplasm of bladder; Z86.73 Personal history of transient ischemic attack (TIA), and cerebral infarction without residual deficits; Z87.891 Personal history of nicotine dependence
CPT/HCPCS: 36415; 80053; 81001; 83735; 85025; 87426; 99283

== ENCOUNTER → 2021-09-24 15:25 | Outpatient (BNVA) | payer MEDICARE, OTHER, SELFPAY | PROVIDERS: PCP Family Medicine; Visit Provider Specialist | DX: G40.109 Localization-related (focal) (partial) symptomatic epilepsy and epileptic syndromes with simple partial seizures, not intractable, without status epilepticus (principal); M31.6 Other giant cell arteritis; Z86.73 Personal history of transient ischemic attack (TIA), and cerebral infarction without residual deficits; Z79.52 Long term (current) use of systemic steroids | CPT/HCPCS: 99214; 99215 ==